=== PATIENT | female | born 1990 | race Caucasian/White ===

== ENCOUNTER 2024-03-17 09:44 | Emergency (ER) | payer SELFPAY ==
[2024-03-17 09:49] VITALS: BP 191/147; PULSE 100; TEMP 36.8; O2SAT 98; BMI 51.7
--- NOTE | 2024-03-17 10:22 | ED_ITS ---
HPI HPI - Back Pain/Injury General Chief Complaint: Back Pain/Injury Stated Complaint: BACK PAIN Time Seen by Provider: 03/17/24 09:49 Source: patient Mode of arrival: Wheelchair History of Present Illness HPI Narrative: 33-year-old female to the emergency department with chief complaint of left- sided spasm-like back pain. 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 She reports that she has had some dental spasm-like pain in her left lower back for the last few days however it is progressively gotten worse. No traumatic injuries, falls. She denies any fever, sweats, chills. No history of IV drug use. No bowel bladder incontinence or retention. She has an IUD but reports a known . The pain is sharp and spasm-like in nature. She occasionally has some radiation into her lower leg. Related Data Home Medications ?Medication ?Instructions ?Recorded ?Confirmed fluoxetine 40 mg capsule 40 mg PO DAILY 03/17/24 03/17/24 losartan 25 mg tablet (Cozaar) 25 mg PO DAILY 03/17/24 03/17/24 Previous Rx's ?Medication ?Instructions ?Recorded diazepam 5 mg tablet (Valium) 5 mg PO TID PRN muscle spasm #12 03/17/24 tabs lidocaine 5 % topical patch 1 patch topical Q24H #7 ea 03/17/24 (Lidoderm) methylprednisolone 4 mg tablets in 4 mg PO DAILY #21 ea 03/17/24 a dose pack (Medrol (Pj)) naproxen 500 mg tablet 500 mg PO Q12H PRN pain #14 tabs 03/17/24 Allergies Allergy/AdvReac Type Severity Reaction Status Date / Time cashew nut Allergy Mild Rash Verified 03/17/24 09:56 mushroom Allergy Mild Rash Verified 03/17/24 09:56 Opioid HPI Opioid Management Most Recent Opioid Data: Last Pain Scale 3 03/17/24 11:28 Last ED Pain Assessment 03/17/24 11:28 Last MAR Pain Assessment 03/17/24 10:47 Review of Systems ROS Status of ROS 10 or more systems reviewed and unremark able except as noted in history and below Exam Narrative Exam Narrative: VITALS: I have reviewed the triage vital signs. GENERAL: Uncomfortable appearing morbidly obese female holding her left lumbar region NEURO: Alert and oriented. Moves all extremities. Face is symmetric and expressive. Patellar reflexes brisk and equal bilaterally. Plantar flexion/dorsiflexion, knee flexion/extension, hip flexion/extension are grossly intact with 5/5 strength. Sensation is intact across the bilateral lower extremities. SPINE: No midline cervical, thoracic, or lumbar tenderness. No step-off or deformities. Left lumbar paraspinal muscle tenderness And increased tone. EYES: PERRL. No scleral icterus or conjunctival injection. No discharge. HENT: Normocephalic, atraumatic. Hearing is grossly intact. Nares grossly patent and without discharge. Mucous membranes moist. NECK: No JVD. Patient moves neck without restriction. GI/: Abdomen is soft and non-tender. Normoactive bowel sounds. No flank tenderness. EXTREMITIES: Symmetric muscle bulk. No joint swelling. No clubbing, cyanosis, or deformity. SKIN: Warm and dry. Normal turgor. No rash or lesions appreciated. PSYCH: Mood, affect, and interaction is appropriate to the setting. Constitutional Vital Signs, click to edit/add: Last Vital Signs Temp 98.3 F 03/17/24 09:49 Pulse 100 H 03/17/24 09:49 Resp 16 03/17/24 09:49 BP 191/147 H 03/17/24 09:49 Pulse Ox 98 03/17/24 09:49 O2 Del Method Room Air 03/17/24 09:49 Course Vital Signs Vital signs: Vital Signs Temperature 98.3 F 03/17/24 09:49 Pulse Rate 100 H 03/17/24 09:49 Respiratory Rate 16 03/17/24 09:49 Blood Pressure 191/147 H 03/17/24 09:49 Pulse Oximetry 98 03/17/24 09:49 Oxygen Delivery Method Room Air 03/17/24 09:49 Temperature 98.3 F 03/17/24 09:49 Pulse Rate 100 H 03/17/24 09:49 Respiratory Rate 16 03/17/24 09:49 Blood Pressure 191/147 H 03/17/24 09:49 Pulse Oximetry 98 03/17/24 09:49 Oxygen Delivery Method Room Air 03/17/24 09:49 MDM - Back Pain/Injury MDM Narrative Medical decision making narrative: 33-year-old female to the emergency department severe left-sided back pain. Vitals stable, patient is afebrile. Her neurologic examination is non-focal. There are no red flags for cord compressing lesion by history or exam. Clinical picture is that of severe lumbar spasm. Unsure of . We'll obtain urine and hCG. Urinalysis unremarkable. HCG is negative. Does not appear to be kidney stone or urinary tract infection. Lidoderm patch, Toradol, Valium were given. Patient reevaluated the bedside approximately thirty minutes after administration of meds. She is sleeping reports her symptoms are completely resolved. She feels much improved. Discussed with the patient the expected clinical course. We'll prescribe her Lidoderm patches, naproxen, Medrol Dosepak, Valium for home. Discussed return precautions. All questions were answered. Patient and her were pleased with her progress in the Emergency Department. The patient was discharged home. Medical Records Attestation: I reviewed the patient's medical records. Lab Data Attestation: I reviewed the patient's lab results. Labs: Lab Results 03/17/24 Range/Units 10:04 Urine Color Yellow (YELLOW) Urine Clarity Clear (CLEAR) Urine pH 6.0 (5.0-9.0) Ur Specific [place] 1.025 (1.005-1.025) Urine Protein Negative (NEG/TRACE) mg/dL Urine Glucose (UA) Negative (NEGATIVE) mg/dL Urine Ketones Negative (NEGATIVE) mg/dL Urine Occult Blood Negative (NEGATIVE) Urine Nitrite Negative (NEGATIVE) Urine Bilirubin Negative (NEGATIVE) Urine Urobilinogen 0.2 (0.2-1.0) EU/dL Ur Leukocyte Esterase Negative (NEGATIVE) Urine RBC 0-2 (0-2) #/HPF Urine WBC 0-2 A (NONE SEEN) #/HPF Ur Squamous Epith Cells Moderate A (NONE/RARE) #/LPF Urine Crystals None seen (None Seen) #/HPF Urine Bacteria None seen (NONE SEEN) #/HPF Urine Casts None seen (NONE SEEN) #/LPF Urine Mucus None seen (NONE SEEN) Urine HCG, Qual Negative (NEGATIVE) Discharge Plan Discharge Stand Alone Forms: Portal Instructions Chief Complaint: Back Pain/Injury Clinical Impression: Strain of lumbar region Patient Disposition: Home, Self-Care Time of Disposition Decision: 11:25 Condition: Good Mode of Transportation: Private Vehicle Prescriptions / Home Meds: New diazepam [Valium] 5 mg tablet 5 mg PO TID PRN (Reason: muscle spasm) Qty: 12 0RF naproxen 500 mg tablet 500 mg PO Q12H PRN (Reason: pain) Qty: 14 0RF lidocaine [Lidoderm] 5 % adhesive patch,medicated 1 patch topical Q24H Qty: 7 0RF Rx Instructions: leave on most painful area for up to 12 hrs methylprednisolone [Medrol (Pj)] 4 mg tablets,dose pack 4 mg PO DAILY Qty: 21 0RF Rx Instructions: TAKE PER DOSEPAK INSTRUCTIONS No Action losartan [Cozaar] 25 mg tablet 25 mg PO DAILY fluoxetine 40 mg capsule 40 mg PO DAILY Print Language: Stateless Instructions: Back Pain (ED), Lower Back Exercises (ED) Additional Instructions: Follow-up with your doctor in the next week. Return to the emergency department immediately if He developed worsening pain,numbness, weakness, tingling, loss or bowel or bladder continence, fever, or other new or concerning symptoms. Referrals: Physician,Non-Staff, MD [Primary Care Provider] - 1 week
[2024-03-17 10:25] LABS: Bilirubin Urine NEGATIVE (NEGATIVE); Blood Urine NEGATIVE (NEGATIVE); Clarity Urine CLEAR (CLEAR); Color Urine YELLOW (YELLOW); Glucose Urine UA NEGATIVE (NEGATIVE); Ketones Urine NEGATIVE (NEGATIVE); Leukocyte Esterase Urine NEGATIVE (NEGATIVE); Nitrite Urine NEGATIVE (NEGATIVE); Protein Urine NEGATIVE (NEG/TRACE); Specific Gravity Urine 1.025 (1.005-1.025); Urobilinogen Urine 0.2 EU/dL (0.2-1.0)
[2024-03-17 10:30] LABS: HCG Qualitative Urine* NEGATIVE (NEGATIVE)
[2024-03-17 10:34] LABS: Crystals Seen? None Seen #/HPF (None Seen); Squamous Epithelial Cell Urine MODERATE #/LPF (NONE/RARE)
[2024-03-17 10:35] LABS: WBC Urine 0-2 #/HPF (NONE SEEN)
[2024-03-17 10:36] LABS: Bacteria Urine NONE SEEN #/HPF (NONE SEEN); Cast Seen? NONE SEEN #/LPF (NONE SEEN); Mucus Urine NONE SEEN (NONE SEEN); RBC Urine 0-2 #/HPF (0-2)
[2024-03-17] MEDS: KETOROLAC TROMETHAMINE 60 MG/2 ML VIAL IM (10:47)
[2024-03-17] MEDS: LIDOCAINE 5% PATCH 1 PATCH TOPICAL (10:47)
[2024-03-17] MEDS: DIAZEPAM 10 MG/2 ML SYRINGE IM (10:47)
== END 2024-03-17 11:44 | disposition home or self-care (01) ==
PROVIDERS: Emergency Provider Student in an Organized Health Care Education/Training Program
DX: S39.012A Strain of muscle, fascia and tendon of lower back, initial encounter (principal); Z97.5 Presence of (intrauterine) contraceptive device
CPT/HCPCS: 81001; 84703; 96372; 99284

== ENCOUNTER 2024-03-22 07:03 | Emergency (ER) | payer SELFPAY ==
[2024-03-22 07:07] VITALS: BP 163/98; PULSE 81; TEMP 36.6; O2SAT 98; BMI 53.0
[2024-03-22] MEDS: ORPHENADRINE 60 MG/ 2 ML VIAL IM (07:31)
[2024-03-22] MEDS: KETOROLAC TROMETHAMINE 60 MG/2 ML VIAL IM (07:31)
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
--- OUTSIDE RECORDS SUMMARY | 2024-03-22 07:39 | XMS_ITS | CCD ---
Author Organization [facility] Care Team Providers Care Biodiesel Technology Manager Name Role Phone Sully, La S Unavailable Unavailable Sully, La S Unavailable Unavailable Sully, La S Unavailable Unavailable Sully, La S Unavailable Unavailable Sully, La S Unavailable Unavailable Sully, La S Unavailable Unavailable Sully, La S Unavailable Unavailable Sully, La S Unavailable Unavailable Sully, La S Unavailable Unavailable Sully, La S Unavailable Unavailable Sully, La S Unavailable Unavailable Sully, La S Unavailable Unavailable Sully, Al S Unavailable Unavailable Vasiliy, Yazmin Unavailable Unavailable Sully, La S Unavailable Unavailable Vasiliy, Yazmin Unavailable Unavailable Sully, La S Unavailable Unavailable Vasiliy, Yazmin Unavailable Unavailable JONEL HOUSTON Attending Unavaila russ Burns MD, Damaris oMn Unavailable Jalil PT, Carson Unavailable [phone] Carla IBARRA, Mikhail Unavailable Madhuri Pang PT, Loren Unavailable Unav ailable Emilio Miller MD Unavailable Nichelle PT, Mary Unavailable Yash Melendez PA-C Primary Care Provider Maxime IBARRA, Justyna Unavailable Damaris Burns MD Unavailable Jalil PT, Carson Unavailable Carla IBARRA, Mikhail Unavailable Madhuri Pang PT, Loren Unavailable Unav ailable Emilio Miller MD Unavailable Nichelle HICKEY, Mary Unavailable Petruzzi PA-C, Yash Primary Care Provider Maxime IBARRA, Justyna Unavailable YASH MELENDEZ M Primary Care Unavailable Petruzzi АННА-C, Yash M Primary Care Provider Damaris Burns MD Unavailable [phone] Jimenes PT, Carson Unavailable [phone] Carla IBARRA, Mikhail Unavailable Madhuri Pang PT, Loren Unavailable Unav ailable Emilio Miller MD Unavailable Nichelle PT, Mary Unavailable Petrblanco ESPINOSAC, Yash Primary Care Provider Maxime IBARRA, Justyna Unavailable Jimenes PT, Carson Unavailable Madhuri Pang PT, Loren Unavailable Unav ailable Nichelle PT, Mary Unavailable FELICIANO AIRCRAFT PARTS ASSEMBLER, TANNER Attending Unavailable FELICIANO AIRCRAFT PARTS ASSEMBLER, TANNER Attending Unavailable FELICIANO AIRCRAFT PARTS ASSEMBLER, TANNER Attending Unavailable FELICIANO AIRCRAFT PARTS ASSEMBLER, TANNER Attending Unavailable Carla IBARRA, Mikhail Unavailable FELICIANO AIRCRAFT PARTS ASSEMBLER, TANNER Attending Unavailable FELICIANO AIRCRAFT PARTS ASSEMBLER, TANNER Attending Unavailable FELICIANO AIRCRAFT PARTS ASSEMBLER, TANNER Attending Unavailable FELICIANO AIRCRAFT PARTS ASSEMBLER, TANNER Attending Unavailable NONE, XXXX Primary Care Physician Unavailab Mono Ray Attending Unavailable Zeus Mcghee Attending Unavailable Zeus Mcghee Admitting Unavailable Zeus Mcghee Attending Unavailable Saba GALVAN Attending Unavailable PETRUZZI, YASH Primary Care Unavailable PROVIDER, UNKNOWN Admitting Unavailable MEILIO MILLER Attending Unavailable PETRUZZI, YASH Primary Care Unavailable ALINA PEREZ Attending Unavailable PROVIDER, UNKNOWN Admitting Unavailable PETRUZZI, YASH Primary Care Unavailable PROVIDER, UNKNOWN Admitting Unavailable PROVIDER, UNKNOWN Attending Unavailable PETRUZZI, YASH Primary Care Unavailable PETRUZZI, YASH Referring Unavailable PROVIDER, UNKNOWN Admitting Unavailable PROVIDER, UNKNOWN Attending Unavailable PROVIDER, UNKNOWN Admitting Unavailable PETRUZZI, YASH Primary Care Unavailable PROVIDER, UNKNOWN Attending Unavailable PETRUZZI, YASH Primary Care Unavailable PROVIDER, UNKNOWN Admitting Unavailable PROVIDER, UNKNOWN Attending Unavailable YASH MELENDEZ Primary Care Unavailable PROVIDER, UNKNOWN Admitting Unavailable PROVIDER, UNKNOWN Attending Unavailable Allergies Allergy Classification Reported Allergen(s) Allergy Type Date of Onset Reaction(s) Facility (1 source) Cashew nut; Translations: [Cashew Nuts] Propensity to adverse reactions [facility] (disorder[facility] Mushroom (edible); Translations: [Mushrooms] Propensity to adverse reactions to food (disorder) [facility] ([facility]) No Known Allergies; Translations: [No Known Allergies] Propensity to adverse reactions to drug (disorder) [facility] (2 sources) No Known Medication Allergies; Translations: [No Known Medication Allergies] Propensity to adverse reactions to drug (disorder) [facility] (20 sources) cashew nut allergenic extract; Translations: [CASHEW NUT] Drug Allergy 0 Itching, Agitation [facility] sources) cultivated mushroom extract; Translations: [MUSHROOM EXTRACT COMPLEX] Drug Allergy 0 Anaphylactic Shock [facility] (20 sources) Mushroom Propensity to adverse reactions to drug 0 [facility] Medications Current Medications Medication Drug Class(es) Dates Sig (Normalized) Sig (Original) amphetamine aspartate 5 mg / amphetamine sulfate 5 mg / dextroamphetamine saccharate 5 mg / dextroamphetamine sulfate 5 mg oral tablet (20 sources) Central Nervous System Stimulant Start: 03-29-2024 End: 05-28-2024 take 1 tablet by mouth once daily amphet-dextroamphe t (Adderall) 20 MG tablet Indications: Attention deficit hyperactivity disorder (ADHD), predominantly inattentive type Take 1 Tablet by mouth daily for 30 days. 30 Tablet 0 04/28/2024 05/28/2024 Active Start: 03-03-2024 End: 02-28-2024 take 1 tablet by mouth once daily amphet-dextroamphet (Adderall) 20 MG tablet Indications: Attention deficit hyperactivity disorder (ADHD), predominantly inattentive type Take 1 Tablet by mouth daily for 30 days. 30 Tablet 0 03/03/2024 02/28/2024 Discontinued (Duplicate (*won't e-cancel)) Start: 01-03-2024 End: 03-29-2024 take 1 tablet by mouth once daily amphet-dextroamphet (Adderall) 20 MG tablet Indications: Attention deficit hyperactivity disorder (ADHD), predominantly inattentive type Take 1 Tablet by mouth daily for 30 days. 30 Tablet 0 02/02/2024 02/28/2024 Discontinued (Duplicate (*won't e-cancel)) Start: 11-29-2023 End: 12-29-2023 take 1 tablet by mouth once daily amphet-dextroamphet (ADDERALL) 20 MG tablet Indications: Attention deficit hyperactivity disorder (ADHD), predominantly inattentive type Take 1 Tablet by mouth daily for 30 days. 30 Tablet 0 11/29/2023 Active Start: 10-24-2023 End: 11-26-2023 take 1 tablet by mouth once daily amphet-dextroamphet (ADDERALL) 20 MG tablet Indications: Attention deficit hyperactivity disorder (ADHD), predominantly inattentive type Take 1 Tablet by mouth daily for 30 days. 30 Tablet 0 10/27/2023 11/26/2023 Active Start: 08-20-2023 End: 10-19-2023 take 1 tablet by mouth once daily amphet-dextroamphet (Adderall) 20 MG tablet Indications: Attention deficit hyperactivity disorder (ADHD), predominantly inattentive type Take 1 Tablet by mouth daily for 30 days. 30 Tablet 0 09/19/2023 Active Start: 03-05-2023 End: 07-15-2023 take 1 tablet by mouth once daily amphet-dextroamphet (Adderall) 20 MG tablet Indications: Attention deficit hyperactivity disorder (ADHD), predominantly inattentive type Take 1 Tablet by mouth daily for 30 days. 30 Tablet 0 06/15/2023 07/15/2023 Active Start: 03-04-2019 End: 02-25-2023 take 1 tablet by mouth once daily amphet-dextroamphet (Adderall) 20 MG tablet Indications: Attention deficit hyperactivity disorder (ADHD), predominantly inattentive type Take 1 Tablet by mouth daily for 30 days. 30 Tablet 0 12/28/2022 01/26/2023 Discontinued (Reorder (*won't e-cancel)) doxycycline monohydrate 100 mg oral tablet (2 sources) Tetracycline-class Drug Start: 02-28-2024 End: 03-06-2024 take 1 tablet by mouth twice daily doxycycline monohydrate 100 mg oral tablet 100 mg = 1 tab(s), Oral, BID, X 7 day(s), # 14 tab(s), Refills(s) 0, Pharmacy: [id number], 161, cm, 02/28/24 12:55:00 EDT, Height/Length Dosing, 139.3, kg, 02/28/24 12:55:00 EDT, Weight Dosing Start Date: 02/28/24 Stop Date: 03/06/24 Status: Ordered FLUoxetine (20 sources) Serotonin Reuptake Inhibitor Start: 02-28-2024 fluoxetine Oral, Refills(s) 0 Start Date: 02/28/24 Status: Ordered Start: 12-21-2022 End: 12-29-2023 fluoxetine (PROZAC) 20 MG ca psule Indications: Major depressive disorder, single episode, mild (HCC) TAKE 1 CAPSULE DAILY 90 Capsule 3 12/29/2023 Active Start: 11-20-2022 End: 12-21-2022 take 1 capsule by mouth once daily, then take 2 capsules by mouth once daily fluoxetine (PROZAC) 10 MG capsule Indications: Current mild episode of major depressive disorder without prior episode (HCC) 1 po q.d x 7 days than 2 po q.d 60 Capsule 3 11/20/2022 12/21/2022 Discontinued (Reorder (*won't e-cancel)) 1 ml ketorolac tromethamine 30 mg/ml cartridge (11 sources) Nonsteroidal Anti-inflammatory Drug, Cyclooxygenase Inhibitor Start: 08-31-2022 ketorolac (TORADOL) injection 30 mg Start: 08-31-2022 End: 12-13-2023 take 1 tablet by mouth every six hours as needed ketorolac (TORADOL) 10 MG tablet Take 1 Tablet by mouth every 6 hours as needed. 0 08/31/2022 12/13/2023 Discontinued losartan potassium 50 mg oral tablet (20 sources) Angiotensin 2 Receptor Vikram Start: 10-07-2021 End: 01-17-2025 take 1 tablet by mouth once daily losartan (COZAAR) 50 MG tablet Indications: Hypertension, unspecified type TAKE 1 TABLET BY MOUTH DAILY 90 Tablet 3 01/18/2024 01/17/2025 Active methylPREDNISolone 4 mg oral tablet (2 sources) Corticosteroid Start: 02-28-2024 End: 03-05-2024 Medrol Dosepack 4 mg Tab = 1 packet(s), Oral, As Directed, as directed on package labeling, X 6 day(s), # 21 tab(s), Refills(s) 0, Pharmacy: [id number], 161, cm, 02/28/24 12:55:00 EDT, Height/Length Dosing, 139.3, kg, 02/28/24 12:55:00 EDT, Weight Dosing Start Date: 02/28/24 Stop Date: 03/05/24 Status: Ordered Completed/Discontinued Medications Medication Drug Class(es) Dates Sig (Normalized) Sig (Original) acetaminophen 500 mg oral tablet (1 source) Start: 08-31-2022 End: 08-31-2022 acetaminophen (TYLENOL) tablet 1,000 mg benzonatate 100 mg oral capsule (6 sources) Non-narcotic Antitussive Start: 10-22-2023 End: 12-13-2023 take 1 capsule by mouth three times daily as needed for cough benzonatate (Tessalon Perles) 100 MG capsule Take 1 Capsule by mouth 3 times daily as needed for Cough. 60 Capsule 0 10/22/2023 12/13/2023 Discontinued cyclobenzaprine hydrochloride 10 mg oral tablet (17 sources) Muscle Relaxant Start: 08-31-2022 End: 12-13-2023 cyclobenzaprine (FLEXERIL) 10 MG tablet Elastic Bandages & Supports (B & B Carpal Tunnel Brace) MISC (5 sources) Start: 09-14-2022 End: 11-20-2022 Elastic Bandages & Supports (B & B Carpal Tunnel Brace) MISC Indications: Bilateral carpal tunnel syndrome 2 Each daily. Needs a brace for both wrists. 2 Each 0 09/14/2022 11/20/2022 Discontinued (Reorder (*won't e-cancel)) Start: 09-14-2022 Elastic Bandag es & Supports (B & B Carpal Tunnel Brace) MISC Indications: Bilateral carpal tunnel syndrome 2 Each daily. Needs a brace for both wrists. 2 Each 0 09/14/2022 Active ergocalciferol 1.25 mg oral capsule (3 sources) Provitamin D2 Compound Start: 12-17-2023 End: 02-28-2024 vitamin D2 ergocalciferol (DRISDOL) 1.25 MG (70958 UT) capsule ethinyl estradiol 0.035 mg / norgestimate 0.25 mg oral tablet (20 sources) Progestin, Estrogen Start: 02-13-2019 End: 12-13-2023 norgestimate-ethinyl estradiol (PRAVIFEM- ORTHO/CYCLEN) 0.25-35 MG-MCG tablet Indications: Oral contraception initial prescription Take 1 Tablet by mouth daily. 30 Tablet 11 04/07/2022 12/13/2023 Discontinued ibuprofen 200 mg oral tablet (2 sources) Nonsteroidal Anti-inflammatory Drug Start: 06-26-2022 End: 06-26-2022 ibuprofen (MOTRIN) tablet levonorgestrel 0.788143 mg/hr intrauterine system (2 sources) Progestin, Progestin-containing Intrauterine Device Start: 06-26-2022 End: 06-26-2022 levonorgestrel (LILETTA) 20.1 MCG/DAY IUD 24 hr metFORMIN hydrochloride 500 mg extended release oral tablet (3 sources) Biguanide Start: 12-17-2023 End: 02-28-2024 metformin (GLUCOPHAGE-XR) 500 MG XR tablet ondansetron 4 mg disintegrating oral tablet (11 sources) Serotonin-3 Receptor Antagonist Start: 08-31-2022 End: 12-13-2023 ondansetron (ZOFRAN-ODT) 4 MG disintegrating tablet Take 4 mg by mouth. 0 08/31/2022 12/13/2023 Discontinued topiramate 50 mg oral tablet (3 sources) Start: 11-17-2023 End: 02-28-2024 topiramate (TOPAMAX) 50 MG tablet Problems Active Problems Problem Classification Problem Date Documented Da te Episodic/Chronic Acute bronchitis (1 source) Acute bronchitis; Translations: [Acute bronchitis, unspecified] Onset: 02-28-2024 Episodic Attention-deficit, conduct, and disruptive behavior disorders (13 sources) Attention deficit hyperactivity disorder, predominantly inattentive type; Translations: [Attention-deficit hyperactivity disorder, predominantly inattentive type] Chronic Attention-deficit, conduct, and disruptive behavior disorders (20 sources) Attention deficit hyperactivity disorder; Translations: [Attention-deficit hyperactivity disorder, unspecified type] Onset: 06-14-2000 03-05-2019 Chronic Attention-deficit, conduct, and disruptive behavior disorders (1 source) Attention-deficit hyperactivity disorder, predominantly inattentive type; Translations: [Attn-defct hyperactivity disorder, predom inattentive type] Onset: 03-05-2019 Chronic Contraceptive and procreative management (3 sources) Patient encounter status; Translations: [Encounter for insertion of intrauterine contraceptive device] Episodic Diabetes mellitus without complication (3 sources) Prediabetes; Translations: [Prediabetes] Onset: 12-20-2023 12-20-2023 Episodic Disorders of lipid metabolism (4 sources) Mixed hyperlipidemia; Translations: [Mixed hyperlipidemia] Onset: 12-20-2023 12-20-2023 Chronic Essential hypertension (7 sources) Hypertensive disorder; Translations: [Essential (primary) hypertension] Onset: 12-20-2023 Chronic Immunizations and screening for infectious disease (1 source) Suspected disease caused by 2019-nCoV; Translations: [Suspected severe acute respiratory syndrome coronavirus 2 (SARS-CoV-2) infection] 10-22-2023 Episodic Mood disorders (3 sources) Mild major depression, single episode; Translations: [Major depressive disorder, single episode, mild] Chronic Mycoses (1 source) Onychomycosis of toenails; Translations: [Tinea unguium] Episodic Nutritional deficiencies (3 sources) Vitamin D deficiency; Translations: [Vitamin D deficiency, unspecified] Onset: 12-20-2023 12-20-2023 Chronic Other gastrointestinal disorders (20 sources) Diarrhea; Translations: [Diarrhea, unspecified] Onset: 01-30-2019 Resolved: 01-20-2021 01-20-2021 Episodic Other injuries and conditions due to external causes (1 source) Unspecified injury of head, initial encounter; Translations: [Unspecified injury of head, initial encounter] Onset: 08-31-2022 Episodic Other injuries and conditions due to external causes (1 source) Closed injury of head; Translations: [Unspecified injury of head, initial encounter] Episodic Other nervous system disorders (3 sources) Bilateral carpal tunnel syndrome; Translations: [Carpal tunnel syndrome, bilateral upper limbs] Chronic Other nervous system disorders (1 source) Carpal tunnel syndrome, bilateral upper limbs; Translations: [Carpal tunnel syndrome, bilateral upper limbs] Onset: 06-21-2023 Chronic Other nervous system disorders (1 source) Numbness of hand; Translations: [Anesthesia of skin] 06-21-2023 Episodic Other nutritional; endocrine; and metabolic disorders (20 sources) Morbid obesity; Translations: [Morbid (severe) obesity due to excess calories] Onset: 06-30-2005 06-30-2005 Chronic Other nutritional; endocrine; and metabolic disorders (1 source) Severe obesity; Translations: [Morbid (severe) obesity due to excess calories] 12-20-2023 Chronic Other nutritional; endocrine; and metabolic disorders (3 sources) Metabolic syndrome X; Translations: [Metabolic syndrome] Onset: 12-20-2023 12-20-2023 Chronic Other nutritional; endocrine; and metabolic disorders (1 source) Body mass index 40+ - severely obese; Translations: [Body mass index (BMI) 50.0-59.9, adult] Onset: 02-28-2024 Chronic Sprains and strains (2 sources) Unspecified sprain of left elbow, initial encounter; Translations: [Sprain of upper extremity] Onset: 08-31-2022 Episodic Superficial injury; contusion (2 sources) Contusion of left knee, initial encounter; Translations: [Contusion of left knee] Onset: 08-31-2022 Episodic Past or Other Problems Problem Classification Problem Date Documented Da te Episodic/Chronic Allergic reactions (20 sources) Allergy, unspecified, initial encounter; Translations: [Contact dermatitis] Onset: 07-25-2001 Resolved: 01-20-2021 01-21-2021 Episodic Biliary tract disease (20 sources) Cholelithiasis without obstruction; Translations: [Calculus of gallbladder without cholecystitis without obstruction] Onset: 08-15-2020 08-15-2020 Episodic Gastrointestinal hemorrhage (20 sources) Blood-tinged feces; Translations: [Melena] Onset: 01-22-2020 01-22-2020 Episodic Headache; including migraine (20 sources) Headache; Translations: [Headache] Onset: 02-20-2006 Resolved: 01-20-2021 01-20-2021 Episodic Menstrual disorders (20 sources) Irregular periods; Translations: [Irregular menstruation, unspecified] Onset: 02-21-2008 Resolved: 01-20-2021 01-21-2021 Chronic Other lower respiratory disease (1 source) Cough; Translations: [Cough] Onset: 11-20-2017 Episodic Other nervous system disorders (1 source) Anesthesia of skin; Translations: [Anesthesia of skin] Onset: 06-21-2023 Episodic Other upper respiratory infections (20 sources) Acute pharyngitis, unspecified; Translations: [Acute maxillary sinusitis] Onset: 07-02-2000 Resolved: 05-29-2005 05-29-2005 Episodic Otitis media and related conditions (20 sources) Acute suppurative otitis media without spontaneous rupture of ear drum; Translations: [Acute suppurative otitis media without spontaneous rupture of ear drum, unspecified ear] Onset: 07-02-2000 Resolved: 05-29-2005 09-08-2017 Episodic Results Test Name Value Interpretation Reference Range Facility [facility] 03-01-2024 Throat culture Microbiology PROCEDURE: Throat Culture [R1] SOURCE: Throat BODY SITE: COLLECTED DATE/TIME: 02/28/2024 13:26 EDT RECEIVED DATE/TIME: 02/28/2024 16:25 EDT START DATE/TIME: 02/28/2024 16:25 EDT FREE TEXT SOURCE: Taz MIJARES, Zeus Mcghee PA-C, Zeus Kaye. FINAL REPORTS Final Report [] Verified Date/Time: 03/01/2024 09:20 EDT 2+ Normal throat lorin isolated Performing Locations R1: This test was performed at: [facility], [address] [place] [address], [facility]- , , [facility] Comment on above: Performed By: #### [id number] #### [facility] [address] [place] [address] In office Testingon 03-01-20 24 In office Testing [id number] [facility] Registrationon 03-01-2024 Registration [id number] [facility] Ambulatory Visit Summaryon 0 02-28-2024 Ambulatory Visit Summary GINA MASTERSON :1990 Visit Date:02/28/2024 Ambulatory Visit Instructions Your Diagnosis Acute bronchitis Diarrhea, Diarrhea BMI 50.0-59.9, adult Sore throat Your Care Team Attending Physician - Zeus Mcghee PA-C Primary Care Physician - NONE, XXXX This Is Your Medications List doxycycline (doxycycline monohydrate 100 mg oral tablet) methylPREDNISolone (Medrol Dosepack 4 mg Tab) Contact prescribing physician if questions or concerns fluoxetine Procedures Performed Cholecystectomy. Discharge Vitals Temperature (Oral) 36.9 ?C Heart Rate (Peripheral) 82 Blood Pressure 136/80 Height 161 cm Height 63 in Weight 139.3 kg Weight 306.46 lb BMI 53.74 What to do next Scheduled Follow-Up Appointments Wednesday 9:30 AM EDT With: Saba GALVAN CNP Where: [facility] You Need to Schedule the Following Appointments Follow Up with NONE, XXXX When: Where: [phone] Medications What How Much When Why Instructions New doxycycline (doxycycline monohydrate 100 mg oral tablet) 1 Tablets By Mouth 2 times a day Acute bronchitis BMI 50.0-59.9, adult Duration: 7 Days Pickup at [facility] New methylPREDNISolone (Medrol Dosepack 4 mg Tab) 1 Packets By Mouth As Directed Acute bronchitis BMI 50.0-59.9, adult Duration: 6 Days as directed on package labeling Pickup at [facility] Unchanged fluoxetine By Mouth Contact prescribing physician if questions or concerns Pharmacy Information [id number]: [address] [place], [place] [id number] [phone] Allergies No Known Medication Allergies Patient Survey You may receive a survey via text or e-mail asking about your office visit. Please share your experience with us by completing your survey. We appreciate your feedback and thank you for choosing us for your care. Education Materials Diarrhea, Adult Diarrhea is frequent loose and watery bowel movements. Diarrhea can make you feel weak and cause you to become dehydrated. Dehydration can make you tired and thirsty, cause you to have a dry mouth, and decrease how often you urinate. Diarrhea typically lasts 2?3 days. However, it can last longer if it is a sign of something more serious. It is important to treat your diarrhea as told by your health care provider. Follow these instructions at home: Eating and drinking Follow these recommendations as told by your health care provider: ? Take an oral rehydration solution (ORS). This is an ukgp-hys-tsqsquu medicine that helps return your body to its normal balance of nutrients and water. It is found at pharmacies and retail stores. ? Drink plenty of fluids, such as water, ice chips, diluted fruit juice, and low-calorie sports drinks. You can drink milk also, if desired. ? Avoid drinking fluids that contain a lot of sugar or caffeine, such as energy drinks, sports drinks, and soda. ? Eat bland, cyqy-zh-rfzllv foods in small amounts as you are able. These foods include bananas, applesauce, rice, lean meats, toast, and crackers. ? Avoid alcohol. ? Avoid spicy or fatty foods. Medicines ? Take edms-imw-pwrzzpb and prescription medicines only as told by your health care provider. ? If you were prescribed an antibiotic medicine, take it as told by your health care provider. Do not stop using the antibiotic even if you start to feel better. General instructions ? Wash your hands often using soap and water. If soap and water are not available, use a hand agency service representative. Others in the household should wash their hands as well. Hands should be washed: ? After using the toilet or changing a diaper. ? Before preparing, cooking, or serving food. ? While caring for a sick person or while visiting someone in a hospital. ? Drink enough fluid to keep your urine pale yellow. ? Rest at home while you recover. ? Watch your condition for any changes. ? Take a warm bath to relieve any burning or pain from frequent diarrhea episodes. ? Keep all follow-up visits as told by your health care provider. This is important. Contact a health care provider if: ? You have a fever. ? Your diarrhea gets worse. ? You have new symptoms. ? You cannot keep fluids down. ? You feel light-headed or dizzy. ? You have a headache. ? You have muscle cramps. Get help right away if: ? You have chest pain. ? You feel extremely weak or you faint. ? You have bloody or black stools or stools that look like tar. ? You have severe pain, cramping, or bloating in your abdomen. ? You have trouble breathing or you are breathing very quickly. ? Your heart is beating very quickly. ? Your skin feels cold and clammy. ? You feel confused. ? You have signs of dehydration, such as: ? Dark urine, very (more content not included)... 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 female here today for cough, diarrhea, fever, bilateral ear pressure, chest congestion, sore throat x 1 wk Pt denies sinus pressure, body aches, N/V. Pt has tried Dayquil, pt states she took 4 amoxicillin over the weekend . Pt denies known exposure to COVID, flu or strep. History of Present Illness I have reviewed and verified the staff HPI to be accurate for this encounter. Portions of this record have been created with voice recognition software. Occasional wrong-word or ?yprhd-z-tbjz? substitutions may have occurred due to the inherent limitations of voice recognition software. 33 yo female presents today with cc of cough, diarrhea, fever, bilateral ear pressure, chest congestion and sore throat x 1week. Patient states approximately 1 week ago she developed cough and cold-like symptoms. Believes she may have had fever or chills for about 2 days duration. States she has bilateral ear pressure states that cough worsened last Wednesday. States she was on a camping trip from Wednesday just got back last night to which over the course the last 5 days she developed loose stool. She denies eating anything abnormal. Denies drinking any water on her camping trip with purified or bottled. Did not travel outside of the country. States prior to her trip her cmsxfin-iu-vml was sick with similar cough and cold-like symptoms and her mvjkix-ts-qqc was sick with fever vomiting. Patient denies any nausea or vomiting episodes with the diarrhea denies lack of appetite. States she is unable to hold down solids and liquids. She does state nasal congestion runny stuffy nose but states that her throat feels like she is swallowing razor blades. Sore throat is her main complaint today. States cough is much improved states she is not bringing up any phlegm or mucus with it. Denies chest pain shortness of breath or difficulty breathing with cough. Denies history of asthma or COPD denies smoking history. She has no other concerns at this time. Review of Systems PHQ Score Initial Depression Screen Score: 0 SCORE ROS negative unless otherwise stated in HPI. Physical Exam Vitals & Measurements T: 36.9 ?C(Oral) HR: 82(Peripheral) BP: 136/80 SpO2: 95% HT: 63 in HT: 161 cm WT: 139.3 kg WT: 306.46 lb BMI: 53.74 General: Pleasant morbidly obese female, no acute distress Eyes: Bilateral conjunctiva within normal limits no injection Ears: Bilateral TMs are within normal limits no erythema or bulging. Bilateral external auditory canals are within normal limits no erythema or edema. Nose: mild nasal mucosa inflammation and edema Mouth: Moist mucous membranes. Uvula is midline. Bilateral tonsillar edema 2+, exudate on the right tonsil versus tonsil stone. No acute erythema no signs of peritonsillar abscess. No trismus or drooling. Neck: no adenopathy Lungs: Lung sounds with faint expiratory wheeze at bilateral lower lung bases otherwise clear throughout no crackles or rhonchi noted on exam symmetrical expansion. No signs of respiratory distress. Cardio: S1, S2, regular rhythm. No murmurs gallops or rubs. Abdomen: Bowel sounds are present x 4 quadrants. Abdomen is soft, nontender, nondistended. No rigidity rebound or guarding on exam. Musculoskeletal: not assessed Extremity: not assessed Neurologic: not assessed Skin: not assessed Mental Status: Alert and oriented x3. Normal mood and affect Assessment/Plan I offered to the patient rapid strep and culture as she would require antibiotics for treatment of strep pharyngitis. Symptom onset greater than 1 week ago. Discussed in regards to liquid diarrhea which patient explained. Discussed that we could send stool cultures however she does not have concern for any foodborne illness or bacterial illness. I did offer rapid influenza or COVID-19 testing however patient has already had symptoms x 5 days duration in which she declines at this time. Rapid strep is negative we will send for culture to confirm she does not have strep A. Given duration of symptoms we will treat for acute bronchitis with doxycycline twice daily x 7 days duration. Patient states she has Tessalon Perles leftover from a prior illness several months ago and she may take 1 every 8 hours as needed for coughing. Will send Medrol Dosepak which will help with a little bit of expiratory wheezing which patient is in agreement with. Patient again declines any stool cultures and samples at this time if she change her mind she will contact me on Wednesday. Patient agrees and understands plan of care. 1. Acute bronchitis (J20.9: Acute bronchitis, unspecified) see above Ordered: doxycycline, 100 mg = 1 tab(s), Oral, BID, X 7 day(s), # 14 tab(s), Refills(s) 0, Pharmacy: [id number], 161, cm, 02/28/24 12:55:00 EDT, Height/Length Dosing, 139.3, kg, 02/28/24 12:55:00 EDT, Weight Dosing methylPREDNISolone, = 1 packet(s), Oral, As Directed, as directed on package labeling, X 6 day(s), # 21 tab(s), Refills(s) 0, (more content not included)... Normal [facility] Comment on above: Result Comment: Elec tronically Signed By: Taz MIJARES, Zeus Darling\.br\Date and Time Signed: 02/28/24 13:32 EDT Patient Educationon 02-28-20 Patient Education Infectious Disease Diarrhea, Adult Diarrhea is frequent loose and watery bowel movements. Diarrhea can make you feel weak and cause you to become dehydrated. Dehydration can make you tired and thirsty, cause you to have a dry mouth, and decrease how often you urinate. Diarrhea typically lasts 2?3 days. However, it can last longer if it is a sign of something more serious. It is important to treat your diarrhea as told by your health care provider. Follow these instructions at home: Eating and drinking Follow these recommendations as told by your health care provider: ? Take an oral rehydration solution (ORS). This is an eabs-roh-hofpbvj medicine that helps return your body to its normal balance of nutrients and water. It is found at pharmacies and retail stores. ? Drink plenty of fluids, such as water, ice chips, diluted fruit juice, and low-calorie sports drinks. You can drink milk also, if desired. ? Avoid drinking fluids that contain a lot of sugar or caffeine, such as energy drinks, sports drinks, and soda. ? Eat bland, bvdg-qe-ypocbi foods in small amounts as you are able. These foods include bananas, applesauce, rice, lean meats, toast, and crackers. ? Avoid alcohol. ? Avoid spicy or fatty foods. Medicines ? Take qtrz-svj-kyxtjyb and prescription medicines only as told by your health care provider. ? If you were prescribed an antibiotic medicine, take it as told by your health care provider. Do not stop using the antibiotic even if you start to feel better. General instructions ? Wash your hands often using soap and water. If soap and water are not available, use a hand agency service representative. Others in the household should wash their hands as well. Hands should be washed: ? After using the toilet or changing a diaper. ? Before preparing, cooking, or serving food. ? While caring for a sick person or while visiting someone in a hospital. ? Drink enough fluid to keep your urine pale yellow. ? Rest at home while you recover. ? Watch your condition for any changes. ? Take a warm bath to relieve any burning or pain from frequent diarrhea episodes. ? Keep all follow-up visits as told by your health care provider. This is important. Contact a health care provider if: ? You have a fever. ? Your diarrhea gets worse. ? You have new symptoms. ? You cannot keep fluids down. ? You feel light-headed or dizzy. ? You have a headache. ? You have muscle cramps. Get help right away if: ? You have chest pain. ? You feel extremely weak or you faint. ? You have bloody or black stools or stools that look like tar. ? You have severe pain, cramping, or bloating in your abdomen. ? You have trouble breathing or you are breathing very quickly. ? Your heart is beating very quickly. ? Your skin feels cold and clammy. ? You feel confused. ? You have signs of dehydration, such as: ? Dark urine, very little urine, or no urine. ? Cracked lips. ? Dry mouth. ? Sunken eyes. ? Sleepiness. ? Weakness. Summary ? Diarrhea is frequent loose and sometimes watery bowel movements. Diarrhea can make you feel weak and cause you to become dehydrated. ? Drink enough fluids to keep your urine pale yellow. ? Make sure that you wash your hands after using the toilet. If soap and water are not available, use hand agency service representative. ? Contact a health care provider if your diarrhea gets worse or you have new symptoms. ? Get help right away if you have signs of dehydration. This information is not intended to replace advice given to you by your health care provider. Make sure you discuss any questions you have with your health care provider. Document Revised: 01/22/2023 Document Reviewed: 05/13/2022 [employer] Patient Education ? 2022 Nursing Home Quality. Rapid Strep Test Why am I having this test? A rapid strep test is used to check for strep throat. Strep throat is a bacterial infection caused by the bacteria Streptococcus pyogenes. A rapid strep test is the quickest way to check if these bacteria are causing your sore throat. You may have this test if: ? You have throat pain or neck swelling and tenderness. ? You have a fever. ? You have a red throat with yellow or white spots. ? You experience loss of appetite. ? You have trouble breathing or painful swallowing. ? You have a rash. ? You are dehydrated. The test can be done at your health care provider's office. Results are usually ready in about 20 minutes. What is being tested? This test checks for the presence of the Streptococcus pyogenes bacteria. What kind of sample is taken? This test requires a sample of fluid from the back of your throat and tonsils. Your health care provider may hold down your tongue with a tongue depressor and use a swab to collect the sample. Your health care provider may collect a second sample at the same t (more content not included)... Normal [facility] Progress Noteson 02-28-2024 Hr Clerk Authentication Interface Message Text Gina Masterson was evaluated today via telemedicine appointment. Phone numbers This visit has been rescheduled as a telemed visit to comply with patient safety concerns in accordance with CDC recommendations. Here for 3 month follow up Pcp appt today was cancelled Here for refill on adderall 20mg daily All other ROS have been reviewed and are negative except as noted in the HPI. Problem list reviewed. Patient Active Problem List: Attention deficit hyperactivity disorder (ADHD) [F90.9] Morbid obesity (HCC) [E66.01] Hematochezia [K92.1] Calculus of gallbladder without cholecystitis without obstruction [K80.20] Metabolic syndrome [E88.810] Hypertension [I10] Hyperlipidemia [E78.5] Prediabetes [R73.03] Vitamin D deficiency [E55.9] Medication list reviewed. Current Outpatient Medications on File Prior to Visit Medication Sig Dispense Refill losartan (COZAAR) 50 MG tablet TAKE 1 TABLET BY MOUTH DAILY 90 Tablet 3 amphet-dextroamphet (Adderall) 20 MG tablet Take 1 Tablet by mouth daily for 30 days. 30 Tablet 0 [START ON 03/03/2024] amphet-dextroamphet (Adderall) 20 MG tablet Take 1 Tablet by mouth daily for 30 days. 30 Tablet 0 amphet-dextroamphet (Adderall) 20 MG tablet Take 1 Tablet by mouth daily for 30 days. 30 Tablet 0 fluoxetine (PROZAC) 20 MG capsule TAKE 1 CAPSULE DAILY 90 Capsule 3 vitamin D2 ergocalciferol (DRISDOL) 1.25 MG (36626 UT) capsule topiramate (TOPAMAX) 50 MG tablet metformin (GLUCOPHAGE-XR) 500 MG XR tablet No current facility-administered medications on file prior to visit. Allergy list reviewed. Allergies Allergen Reactions Mushroom Extract Complex Anaphylactic Shock Cashew Nut Itching and Agitation No Known Drug Allergies Appropriate and pertinent visit notes, labs and imaging reviewed. 12/13/2023 visit [facility] reviewed Last visit with PCP (YASH MELENDEZ) was 12/13/2023 E prescribed via westley Perez APRN-MONTSERRAT O: No vital signs were taken. No physical completed today. A/P: (F90.0) Attention deficit hyperactivity disorder (ADHD), predominantly inattentive type (primary encounter diagnosis) Comment: Plan: amphet-dextroamphet (Adderall) 20 MG tablet, amphet-dextroamphet (Adderall) 20 MG tablet, amphet-dextroamphet (Adderall) 20 MG tablet Discussion of medication usage, goals of therapy, and common complications/side effects to this medication. Patient indicates understanding of these issues and agrees with the plan. Discussion with patient re: partnership in his/her health. I am here to help with health issues by educating, prescribing, or referring to appropriate specialties. The patient has a personal responsibility/role in his/her health by maintaining compliance with said appropriate therapies (behavioral/lifestyle changes, medications, follow up appointments, etc). If the patient disagrees with or declines a particular therapy, or if side effects happen and the patient stops the therapy, the patient will let me know and we will work together to find a different therapy. I expect to see my patients once a year for a complete physical and every six months if there are chronic issues to monitor. The Patient verbalizes understanding and agreement with self responsibilities. Patient's current medication list was updated appropriately. The patient was given the opportunity to ask questions and all questions were answered at this time. Follow up appointment due w/ pcp Alina Perez, MSN, RN, [employer]SEM[employer] Normal [facility] Registrationon 02-28-2024 Registration [id number] Normal [facility] Addendum Noteon 01-03-2024 Hr Clerk Authentication Interface Message Text Addended by: YASH MELENDEZ on: 01/03/2024 05:22 PM Modules accepted: Orders Normal [facility] HUMAN PAPILLOMA VIRUSon 02-0 HPV HIGH RISK Negative Normal Negative [facility] Comment on above: Order Comment: This test is performed using an automated nucleic acid amplification assay ([employer], [employer] [place], [place]). This assay detects RNA of HPV types 16,18,31,33,35,39,45,51,52,56,58,59,66 and 68 in cervical specimens. Result Comment: A ne gative result does not exclude the possibility of low levels of infection. Performed By: #### H PV #### [facility] [address] [place] [address], [id number] Progress Noteson 12-20-2023 Hr Clerk Authentication Interface Message Text Provider requested a information writer. Kaitlynn Sotomayor LPN present. Normal [facility] Hr Clerk Authentication Interface Message Text The patient, Gina Masterson , identity was verified by name and MRN. 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 States she has intermittent spotting or bleeding, but no pelvic pain or deep dyspareunia. Review of Systems: Constitutional: Negative for recent weight loss, fevers, or chills. Eyes: negative for visual changes Ears, nose, throat: negative. Respiratory: Negative for cough, wheezing and shortness of breath. Cardiovascular: Negative for chest pain, palpitations, shortness of breath, leg swelling. Gastrointestinal: Negative for heartburn, nausea, vomiting, abdominal pain, diarrhea, constipation, blood in stool and melena. Genitourinary: as above. Musculoskeletal: Negative for back pain. Skin AND integumentary: Negative for rash and itching. Neurological: Negative for headaches. Psychiatric: negative for nervousness, anxiety. Current Outpatient Medications: fluoxetine (PROZAC) 20 MG capsule, , Disp: , Rfl: vitamin D2 ergocalciferol (DRISDOL) 1.25 MG (05923 UT) capsule, , Disp: , Rfl: topiramate (TOPAMAX) 50 MG tablet, , Disp: , Rfl: metformin (GLUCOPHAGE-XR) 500 MG XR tablet, , Disp: , Rfl: amphet-dextroamphet (ADDERALL) 20 MG tablet, Take 1 Tablet by mouth daily for 30 days., Disp: 30 Tablet, Rfl: 0 losartan (COZAAR) 50 MG tablet, Take 1 Tablet by mouth daily., Disp: 90 Tablet, Rfl: 3 Past Medical History: Diagnosis Date Abnormal Pap smear and cervical HPV (human papillomavirus) History of sexually transmitted disease 2019 Hx of abnormal cervical Pap smear Hypertension 12/20/2023 Migraine Past Surgical History: Procedure Laterality Date CHOLECYSTECTOMY, LAPAROSCOPIC N/A 08/17/2020 Procedure: LAPAROSCOPIC CHOLECYSTECTOMY,WITH CHOLANGIOGRAMS; Surgeon: Hola Ramirez MD; Location: PERIOPERATIVE SERVICES; Service: General NO PAST SURGICAL HISTORY Family History Problem Relation Age of Onset Uterine Cancer Mother Other (migraine headache) Father Good health Sister Good health Maternal Grandmother Good health Maternal Grandfather Alzheimer's Disease Paternal Grandmother Good health Paternal Grandfather Social History Socioeconomic History Marital status: Highest education level: 12th grade Tobacco Use Smoking status: Never Smokeless tobacco: Current Types: Chew Substance and Sexual Activity Alcohol use: No Alcohol/week: 0.0 standard drinks of alcohol Drug use: No Sexual activity: Yes Partners: Male Social Determinants of Health Financial Resource Strain: Unknown (01/12/2022) Overall Financial Resource Strain (CARDIA) Difficulty of Paying Living Expenses: Patient refused Food Insecurity: No Food Insecurity (01/12/2022) Hunger Vital Sign Worried About Running Out of Food in the Last Year: Never true Ran Out of Food in the Last Year: Never true Transportation Needs: No Transportation Needs (01/12/2022) PRAPARE - Transportation Lack of Transportation (Medical): No Lack of Transportation (Non-Medical): No Physical Activity: Sufficiently Active (01/12/2022) Exercise Vital Sign Days of Exercise per Week: 4 days Minutes of Exercise per Session: 120 min Stress: Unknown (01/12/2022) [employer] - Occupational Stress Questionnaire Feeling of Stress : Patient refused Social Connections: Unknown (01/12/2022) Social Connection and Isolation Panel [NHANES] Frequency of Communication with Friends and Family: Patient refused Frequency of Social Gatherings with Friends and Family: Patient refused Attends Buddhist Services: Patient refused Active Member of Clubs or Organizations: Patient refused Attends Club or Organization Meetings: Patient refused Marital Status: Intimate Partner Violence: Not At Risk (01/12/2022) Humiliation, Afraid, Rape, and Kick questionnaire Fear of Current or Ex-Partner: No Emotionally Abused: No Physically Abused: No Sexually Abused: No Housing Stability: Low Risk (01/12/2022) Housing Stability Vital Sign Unable to Pay for Housing in the Last Year: No Number of Places Lived in the Last Year: 1 Unstable Housing in the Last Year: No TISSUE REWINDER HX: LMP: Patient's last menstrual period was 12/12/2023 (approximate). Abnormal Bleeding/Menses: as above (pt has progestin IUD in place) Abnormal pap smear: last pap negative, HRHPV positive in 2019; no colpo done - will repeat pap and HPV today History Sexual Activity Sexual activity: Yes Partners: Male control/ protection: OB History Para Term AB Living 1 0 0 0 0 0 SAB IAB Ectopic Multiple Live Births 0 0 0 0 0 Because violence is so common, we ask all our patients: are you in a relationship or do you live with a person who threatens, hurts, or controls you: No I have reviewed the following patient level data: allergies, current medications, problem list, curr (more content not included)... Normal [facility] Hr Clerk Authentication Interface Message Text Patient was identified by name and date of . RUFUS Hayden Patient at risk for falls:No Falls Risk protocol implemented: No Normal [facility] Progress Noteson 12-13-2023 Hr Clerk Authentication Interface Message Text History provided by: Patient Chief Complaint Patient presents with Medication Management 6mo FU PCP is Yash Melendez PA-C Patient Active Problem List: Attention deficit hyperactivity disorder (ADHD) [F90.9] Morbid obesity (HCC) [E66.01] Hematochezia [K92.1] Calculus of gallbladder without cholecystitis without obstruction [K80.20] Vitals Recorded in This Encounter 12/13/2023 1045 Pulse: 90 Resp: 18 Temp: 98 ???F (36.7 ???C) Temp src: Temporal SpO2: 100 % Pain Score: 0 Health Maintenance Topic Date Due COVID-19 Vaccine (1) Never done Pap Smear 11/07/2019 Basic Metabolic Panel 07/07/2022 Influenza Vaccine (1) Never done Hemoglobin A1C 06/21/2024 Tetanus (Td or Tdap) Booster 10/31/2028 Shingles (RZV) Vaccine (1 of 2) 2041 Hepatitis C Antibody Completed HIV Test Completed Hepatitis B (HBV) Vaccine Completed HPV Vaccine Completed Tdap Booster Completed Hepatitis A (HAV) Vaccine Aged Out Pneumococcal Vaccine(s) Aged Out Mammography Discontinued Current Outpatient Medications Medication Sig Dispense Refill amphet-dextroamphet (ADDERALL) 20 MG tablet Take 1 Tablet by mouth daily for 30 days. 30 Tablet 0 losartan (COZAAR) 50 MG tablet Take 1 Tablet by mouth daily. 90 Tablet 3 No current facility-administered medications for this visit. Physical Exam Vitals reviewed. Constitutional: Appearance: Normal appearance. Neck: Vascular: No carotid bruit. Cardiovascular: Rate and Rhythm: Regular rhythm. Pulmonary: Effort: Pulmonary effort is normal. Breath sounds: Normal breath sounds. Musculoskeletal: General: Normal range of motion. Cervical back: Normal range of motion. Neurological: Mental Status: She is alert. Assessment Gina was seen today for medication management. Here for med management only taking BP med and ADHD med. Doing well no complaints. Diagnoses and all orders for this visit: Attention deficit hyperactivity disorder (ADHD), predominantly inattentive type- do test stable on meds - TOX ANALYSIS W/CONFIMATION,UR Current mild episode of major depressive disorder without prior episode (HCC)- stable on no meds now Hypertension, unspecified type- stable on med Follow up: 3 months Normal [email or web address] Hr Clerk Authentication Interface Message Text Patient was identified by name and date of . Alison Chicas Patient at risk for falls:No Falls Risk protocol implemented: No Normal [facility] TOX ANALYSIS W/CONFIMATION,U Otf 12-13-2023 Amphetamines Ql (U) Negative [facility] Barbiturates Screen Ql (U) Negative [facility] Benzodiazepines Ql (U) Negative [facility] Benzoylecgonine Screen Ql (U) Negative [facility] Ethanol Screen Ql (U) [facility] fentaNYL Screen Ql (U) Negative [facility] Interpretation and review of laboratory results Normal [facility] Methadone Screen Ql (U) Negative [facility] Opiates Confirm Ql (U) Negative [facility] oxyCODONE Ql (U) Negative [facility] Comment on above: Oxycodone and metabo lites of Oxycodone (Oxymorphone, Noroxycodone, and Noroxymorphone) are measured/detected in this assay method. Phencyclidine Ql (U) Negative [facility] Tetrahydrocannabinol Screen Ql (U) Negative [facility] Screen results are reported as positive (at or above the cutoff) or negative (below the cutoff). The LC-MS/MS testing (if applicable) was developed and its performance characteristics determined by [facility] in a manner consistent with CLIA requirements. This test has not been cleared or approved by the U.S. Food and Drug Administration; however, the FDA has determined that such clearance or approval is not necessary. [facility] ALCOHOL - TOX W/ CONF Negative Normal Cutoff: 10 [facility] Comment on above: Order Comment: Scree n results are reported as positive (at or above the cutoff) or negative (below the cutoff). The LC-MS/MS testing (if applicable) was developed and its performance characteristics determined by [facility] in a manner consistent with CLIA requirements. This test has not been cleared or approved by the U.S. Food and Drug Administration; however, the FDA has determined that such clearance or approval is not necessary. Performed By: #### T OX U #### [facility] [address] [place] [address], AMP[facility] CL Negative Normal Cutoff: 1000 [facility] Comment on above: Order Comment: Scree n results are reported as positive (at or above the cutoff) or negative (below the cutoff). The LC-MS/MS testing (if applicable) was developed and its performance characteristics determined by [facility] in a manner consistent with CLIA requirements. This test has not been cleared or approved by the U.S. Food and Drug Administration; however, the FDA has determined that such clearance or approval is not necessary. Performed By: #### T OX U #### [facility] [address] [place] [address], LOWELL CL Negative Normal Cutoff: 200 [facility] Comment on above: Order Comment: Scree n results are reported as positive (at or above the cutoff) or negative (below the cutoff). The LC-MS/MS testing (if applicable) was developed and its performance characteristics determined by [facility] in a manner consistent with CLIA requirements. This test has not been cleared or approved by the U.S. Food and Drug Administration; however, the FDA has determined that such clearance or approval is not necessary. Performed By: #### T OX U #### [facility] [address] [place] [address], BENZO CL Negative Normal Cutoff: 200 [facility] Comment on above: Order Comment: Scree n results are reported as positive (at or above the cutoff) or negative (below the cutoff). The LC-MS/MS testing (if applicable) was developed and its performance characteristics determined by [facility] in a manner consistent with CLIA requirements. This test has not been cleared or approved by the U.S. Food and Drug Administration; however, the FDA has determined that such clearance or approval is not necessary. Performed By: #### T OX U #### [facility] [address] [place] [address], COCAINE CL- TOX W/ CONF Negative Normal Cutoff: 300 [facility] Comment on above: Order Comment: Scree n results are reported as positive (at or above the cutoff) or negative (below the cutoff). The LC-MS/MS testing (if applicable) was developed and its performance characteristics determined by [facility] in a manner consistent with CLIA requirements. This test has not been cleared or approved by the U.S. Food and Drug Administration; however, the FDA has determined that such clearance or approval is not necessary. Performed By: #### T OX U #### S [facility] [address] [place] [address], FENTANYL Negative Normal Cutoff: 1 [facility] Comment on above: Order Comment: Scree n results are reported as positive (at or above the cutoff) or negative (below the cutoff). The LC-MS/MS testing (if applicable) was developed and its performance characteristics determined by [facility] in a manner consistent with CLIA requirements. This test has not been cleared or approved by the U.S. Food and Drug Administration; however, the FDA has determined that such clearance or approval is not necessary. Performed By: #### T OX U #### S [facility] [address] [place] [address], METH CL Negative Normal Cutoff: 300 [facility] Comment on above: Order Comment: Scree n results are reported as positive (at or above the cutoff) or negative (below the cutoff). The LC-MS/MS testing (if applicable) was developed and its performance characteristics determined by [facility] in a manner consistent with CLIA requirements. This test has not been cleared or approved by the U.S. Food and Drug Administration; however, the FDA has determined that such clearance or approval is not necessary. Performed By: #### T OX U #### S [facility] [address] [place] [address], OPI CL Negative Normal Cutoff: 300 [facility] Comment on above: Order Comment: Scree n results are reported as positive (at or above the cutoff) or negative (below the cutoff). The LC-MS/MS testing (if applicable) was developed and its performance characteristics determined by [facility] in a manner consistent with CLIA requirements. This test has not been cleared or approved by the U.S. Food and Drug Administration; however, the FDA has determined that such clearance or approval is not necessary. Performed By: #### T OX U #### [facility] [address] [place] [address], OXYCODONE Negative Normal Cutoff: 100 [facility] Comment on above: Order Comment: Scree n results are reported as positive (at or above the cutoff) or negative (below the cutoff). The LC-MS/MS testing (if applicable) was developed and its performance characteristics determined by [facility] in a manner consistent with CLIA requirements. This test has not been cleared or approved by the U.S. Food and Drug Administration; however, the FDA has determined that such clearance or approval is not necessary. Result Comment: Oxyc odone and metabolites of Oxycodone (Oxymorphone, Noroxycodone, and Noroxymorphone) are measured/detected in this assay method. Performed By: #### T OX U #### [facility] [address] [place] [address], PCP CL Negative Normal Cutoff: 25 [facility] Comment on above: Order Comment: Scree n results are reported as positive (at or above the cutoff) or negative (below the cutoff). The LC-MS/MS testing (if applicable) was developed and its performance characteristics determined by [facility] in a manner consistent with CLIA requirements. This test has not been cleared or approved by the U.S. Food and Drug Administration; however, the FDA has determined that such clearance or approval is not necessary. Performed By: #### T OX U #### [facility] [address], [place], THC CL - TOX W/ CONF Negative Normal Cutoff: 50 [facility] Comment on above: Order Comment: Scree n results are reported as positive (at or above the cutoff) or negative (below the cutoff). The LC-MS/MS testing (if applicable) was developed and its performance characteristics determined by [facility] in a manner consistent with CLIA requirements. This test has not been cleared or approved by the U.S. Food and Drug Administration; however, the FDA has determined that such clearance or approval is not necessary. Performed By: #### T OX U #### [facility] [address] [place], [address] Addendum Noteon 10-27-2023 Hr Clerk Authentication Interface Message Text Addended by: YASH MELENDEZ on: 10/27/2023 08:13 AM Modules accepted: Orders Normal The [facility] COVID/INFLUENZAon 10-22-2023 FLUAV RNA ARTHUR+probe Ql (Nph) Not detected Not Detected [facility] Comment on above: Not Detected results are indicative of the absence of Influenza A in the specimen submitted for testing. False negative results are possible based on the timing and quality of specimen submitted for testing. This assay was performed by Multiplex targeted Nucleic Acid Amplification on the [employer] System ([employer] [place], [place]) using Hr Clerk Mediated Amplification (TMA) technology. FLUBV RNA ARTHUR+probe Ql (Nph) Not detected Not Detected [facility] Comment on above: Not Detected results are indicative of the absence of Influenza B in the specimen submitted for testing. False negative results are possible based on the timing and quality of specimen submitted for testing. This assay was performed by Multiplex targeted Nucleic Acid Amplification on the [employer] System ([employer] [place], [place]) using Hr Clerk Mediated Amplification (TMA) technology. Interpretation and review of laboratory results Normal [facility] SARS-CoV-2 (COVID-19) RNA ARTHUR+probe Ql (Unsp spec) Not detected Not Detected [facility] Comment on above: Not Detected results are indicative of the absence of SARS-CoV-2 in the specimen submitted for testing. False negative results are possible based on the timing and quality of specimen submitted for testing. This assay was performed by Multiplex targeted Nucleic Acid Amplification on the [employer] System ([employer] [place]) using Hr Clerk Mediated Amplification (TMA) technology. This test is intende d for use only under Emergency Use Authorization (EUA). This test was developed, and its performance characteristics determined by [facility] [employer] which is certified under CLIA as qualified to perform high complexity clinical laboratory testing. [facility] INFLUENZA A Not detected Normal Not Detected The [facility] Comment on above: Order Comment: This test is intended for use only under Emergency Use Authorization (EUA). This test was developed, and its performance characteristics determined by [facility] which is certified under CLIA as qualified to perform high complexity clinical laboratory testing. Result Comment: Not Detected results are indicative of the absence of Influenza A in the specimen submitted for testing. False negative results are possible based on the timing and quality of specimen submitted for testing. This assay was performed by Multiplex targeted Nucleic Acid Amplification on the [employer] System ([employer] [place], [place]) using Hr Clerk Mediated Amplification (TMA) technology. Performed By: #### F JANES/COVID #### [facility] [address] [place] [address], INFLUENZA B Not detected Normal Not Detected [facility] Comment on above: Order Comment: This test is intended for use only under Emergency Use Authorization (EUA). This test was developed, and its performance characteristics determined by [facility] which is certified under CLIA as qualified to perform high complexity clinical laboratory testing. Result Comment: Not Detected results are indicative of the absence of Influenza B in the specimen submitted for testing. False negative results are possible based on the timing and quality of specimen submitted for testing. This assay was performed by Multiplex targeted Nucleic Acid Amplification on the [employer] System ([employer] [place]) using Hr Clerk Mediated Amplification (TMA) technology. Performed By: #### F JANES/COVID #### [facility] [address] [place] [address], SARS-CoV-2 (COVID-19) RNA ARTHUR+probe Ql (Unsp spec) Not detected Normal Not Detected [facility] Comment on above: Order Comment: This test is intended for use only under Emergency Use Authorization (EUA). This test was developed, and its performance characteristics determined by [facility] which is certified under CLIA as qualified to perform high complexity clinical laboratory testing. Result Comment: Not Detected results are indicative of the absence of SARS-CoV-2 in the specimen submitted for testing. False negative results are possible based on the timing and quality of specimen submitted for testing. This assay was performed by Multiplex targeted Nucleic Acid Amplification on the [employer] System ([employer] [place], [place]) using Hr Clerk Mediated Amplification (TMA) technology. Performed By: #### F JANES/COVID #### [facility] [address] [place], [address] Progress Noteson 10-22-2023 Hr Clerk Authentication Interface Message Text SUBJECTIVE: History was provided by the patient. Symptoms include congestion, coryza, sore throat, fever, and cough. Onset was 2 days ago, with gradually worsening course since that time. Known Strep exposure: none. Portions of record reviewed for pertinent issues: active problem list, medication list, allergies, and family history. OBJECTIVE: Vital signs reviewed. General appearance: alert, no distress, cooperative. Ears: R TM - normal, L TM - normal. Nose: clear rhinorrhea. Oropharynx: moderate erythema. No lateral shift of uvula or airway; no stridor. Neck: supple and moderate anterior cervical adenopathy bilaterally. No masses or fluctuance. Lungs: clear to auscultation. Heart: regular rate and rhythm and no murmurs, clicks, or gallops. Rapid strep test- performed: Negative. MDM (J02.9) Sore throat (primary encounter diagnosis) Comment: Plan: RAPID STREP A W/CULTURE REFLEX (Z20.822) Suspected severe acute respiratory syndrome coronavirus 2 (SARS-CoV-2) infection Comment: Plan: COVID/INFLUENZA Orders AND Meds Signed During This Encounter Covid/Influenza Rapid Strep A with Culture Reflex benzonatate (Tessalon Perles) 100 MG capsule 1) See visit diagnoses and orders. 2) Explained use of antibiotics only for proven or strongly suspected strep infection; importance of taking all doses of any prescribed antibiotic. 3) Instruction provided in the use of fluids, vaporizer, acetaminophen, and/or other OTC medication for symptom control. 4) See disposition. Recheck as needed for persistence, worsening, or appearance of new symptoms. Normal [facility] Hr Clerk Authentication Interface Message Text Patient was identified by name and date of . June Hunter Normal [facility] RAPID STREP A W/CULTURE REFL EXon 10-22-2023 S. pyogenes Ag IA Ql (Unsp spec) STREP A SCREEN: Negative (1 swab only) Culture not performed; one swab received. Normal [facility] Comment on above: Performed By: #### C R STREP ####[facility] [id number] [place], [place] RAPID STREP A W/CULTURE REFL EXOrdered By: Abdias Alvarenga on 10-22-2023 Interpretation and review of laboratory results Normal [facility] S. pyogenes Ag Ql (Throat) Negative Negative [facility] Comment on above: Culture not performe d; one swab received. [facility] Telephone Encounteron 2022 Hr Clerk Authentication Interface Message Text LM on pt vm and sent a [employer] message that appointment on 10/11/23 is cancelled. Asked for pt to reschedule. Normal [facility] AMB Bariatric Physician Prog ress Noteon 08-30-2023 AMB Bariatric Physician Progress Note GINA MASTERSON :1990 Registration Date:08/30/2023 Chief Complaint NSWL History of Present Illness Gina is here for non-surgical weight loss follow-up. Today she weighs 309# BMI 74.49 She is down 4# from her last visit. She is on Metformin XR 1000mg AM 500mg PM - has been having consistent loose stools - it is affecting her lifestyle. She is also on Topiramate 50mg daily June 2021 A1c if 5.7% June 2023 A1c was 5.7% as well. Labs 08/23/2023 Glucose of 118 Insulin of 29 MARGARET-IR is 8.4 - this is significant of insulin resistance - even with being on Metformin. Patient has been prediabetic for 10+ years. 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 Exercise: Gym. Walks the dogs when she can. Meal Preps Diet has remained consistent. OARRS reviewed. Physical Exam Vitals & Measurements Systolic Blood Pressure: 128 mmHg (08/30/23 09:03:00) Diastolic Blood Pressure: 59 mmHg Low (08/30/23 09:03:00) Peripheral Pulse Rate: 77 bpm (08/30/23 09:03:00) Mean Arterial Pressure: 82 mmHg (08/30/23 09:03:00) BP Site2: Left arm (08/30/23 09:03:00) Height/Length Measured: 137 cm (08/30/23 09:03:00) Weight Measured: 140 kg (08/30/23 09:03:00) Body Mass Index Measured: 74.59 kg/m2 (08/30/23:03:00) Weight Measured - lbs2: 309 lb (08/30/23:03:00) Height/Length Measured - in2: 54 in (08/30/23::00) Body Mass Index Measured English2: 74.49 kg/m2 (08/30/23 09:03:00) BSA: 2.31 m2 (08/30/23:03:00) Ht/Wt Measurement Refused by Patient?2: No (08/30/23:03:) Depression Screening Scores Initial Depression Screen Score: 0 (08/30/23::00) Fall Risk Assessment Is the patient ambulatory (mobile): Yes (08/30/23::) Have you had a fall within the past: No (08/30/23::) Have you had 2 or more falls in the past: No (08/30/23::) General: Well developed, well nourished, in no acute distress. Abdomen: Soft, non-tender, obese Extremities: No calf tenderness. No pretibial edema. Psych: Alert and cooperative; normal mood and affect; normal attention span and concentration. Lab Results Last 6 Months Chemistry BUN 14 mg/dL 08/23/23 Na 140 mmol/L 08/23/23 K 4.7 mmol/L 08/23/23 Chloride 105 mmol/L 08/23/23 CO2, venous 27.0 mmol/L 08/23/23 Creatinine 0.7 mg/dL 08/23/23 Total Protein 7.3 g/dL 08/23/23 Calcium 9.5 mg/dL 08/23/23 Cholesterol 200 mg/dL 06/21/23 Triglycerides 305 mg/dL 06/21/23 HDL Cholesterol 44 mg/dL 06/21/23 Calculated LDL Cholesterol 95 mg/dL 06/21/23 Total Chol/HDL Chol Ratio 4.5 06/21/23 Bilirubin, Total 0.40 mg/dL 08/23/23 Alk Phos 70 unit/L 08/23/23 GOT 21 unit/L 08/23/23 GPT 38 unit/L 08/23/23 BUN/Creat Ratio 20.0 08/23/23 Calculated Osmolality 281 mOsm/kg 08/23/23 Globulin 3.3 g/dL 08/23/23 A/G Ratio 1.2 08/23/23 IRON 57 ug/dl 06/21/23 TIBC 304 ug/ml 06/21/23 Saturation 18.8 % 06/21/23 FERRITIN 71 ng/mL 06/21/23 Vitamin B12 622 pg/mL 06/21/23 HGB A1C 5.7 % 06/21/23 Free T4 0.93 ng/dL 06/23/23 TSH 0.55 uIU/ml 06/21/23 ALB 4.0 g/dL 08/23/23 Free T3 3.3 pg/mL 06/23/23 Glomerular Filtration Rate >60 mL/min/1.73m? 08/23/23 Vit D 25 20 ng/mL 06/21/23 Insulin, fasting 29 08/25/23 Glucose 118 mg/dL 08/23/23 GFR AA >60 08/23/23 Hematology WBC 10.3 x10 08/23/23 RBC 4.16 x10 08/23/23 HGB 12.4 g/dL 08/23/23 HCT 36.2 % 08/23/23 MCV 87.2 fL 08/23/23 MCH 29.8 pg 08/23/23 MCHC 34.2 g/dL 08/23/23 RDW 13.6 % 08/23/23 Platelet 364 x10 08/23/23 MPV 8.2 fL 08/23/23 Lymph % 26.8 % 08/23/23 Morris % 6.6 % 08/23/23 Neutrophil % 64.2 % 08/23/23 Eosin % 1.9 % 08/23/23 Basos % 0.5 % 08/23/23 Lymph Count 2.74 x1000 08/23/23 Morris Count 0.67 x1000 08/23/23 Neutrophil Count (ANC) 6.59 x1000 08/23/23 Eos Count 0.20 x1000 08/23/23 Baso Count 0.05 x1000 08/23/23 Nucleated RBC 0 /100WBC 08/23/23 Medication Reconciliation What How Much When Instructions New metFORMIN = Glucophage (MetFORMIN (Eqv-Glucophage XR) 500 mg oral tablet, extended release) See instructions Refills: 2 Take 2 tablets in AM Take 1 tablet in PM Pickup at [facility] New topiramate (topiramate 50 mg oral tablet) 1 Tabs Oral DAILY Duration: 30 Days Refills: 2 Pickup at [facility] Unchanged amphetamine-dextroampheta mine (Adderall 20 mg oral tablet) 1 Tabs Oral DAILY Unchanged dulaglutide (Trulicity Pen 0.75 mg/ 0.5 mL subcutaneous solution) 0.5 Milliliter Subcutaneous WEDNESDAY Duration: 4 Weeks rotate injection sites Pickup at [facility] Unchanged ergocalciferol = Vitamin D (Vitamin D2 1.25 mg (50,000 intl units) oral capsule) 1 Capsules Oral WEDNESDAY Duration: 12 Weeks Unchanged losar (more content not included)... Normal [facility] Comprehensive Intake - Baria tric - Texton 08-30-2023 Comprehensive Intake - Bariatric - Text Comprehensive Intake - Bariatric Entered On: 08/30/2023 9:06 EDT Performed On: 08/30/2023 9:03 EDT by Lynette Ahn MA Summary Chief Complaint : NSWL Bladder Control Issues? : No Urine Leakage? : No Presence or absence of urinary incontinence assessed : Yes CPT-II Medication list doc'd in medical record : Yes Influenza immunization administered or previously received : No Pneumococcal vaccine administered or previously received : No Lynette Ahn MA - 08/30/2023 9:03 EDT Measurements - Bariatrics Ht/Wt Measurement Refused by Patient? : No Weight Measured : 140 kg(Converted to: 308 lb 10 oz, 308.647 lb) Height/Length Measured : 137 cm(Converted to: 4 ft 6 in, 53.94 in) Body Mass Index Measured : 74.59 kg/m2 Body Mass Index documented : Yes Weight Measured - lbs : 309 lb(Converted to: 309 lb 0 oz, 140 kg) Height/Length Measured - in : 54 in(Converted to: 4 ft 6 in, 137 cm) Body Mass Index Measured Yemeni : 74.49 kg/m2 BSA Yemeni : 2.31 m2 [place] Body Weight : 31.555 kg Lynette Ahn MA - 08/30/2023 9:03 EDT Vitals Require BP : Yes Systolic Blood Pressure : 128 mmHg Diastolic Blood Pressure : 59 mmHg (LOW) Mean Arterial Pressure : 82 mmHg Pulse Rate : 77 bpm BP Site : Left arm Last Systolic BP : less than 130 mmHg Last Diastolic BP : less than 80 mmHg Pain Present : No actual or suspected pain Pain : 0 Pain severity quantified : No pain present Lynette Ahn MA - 08/30/2023 9:03 EDT Infection Screening - Ambulatory Exposure AND/OR close contact with a person under investigation or laboratory-confirmed COVID-19 individual within 14 days of symptom onset AND/OR any of the following: : No Do you live/work in a high risk situation (congregated living, hemodialysis, infusion clinic, longterm, assisted living, fdc, homeless residential, etc.)? : No Lynette Ahn MA - 08/30/2023 9:03 EDT Depression Screening Is patient currently : None of the Below Feeling Down, Depressed, Hopeless : Not at all Little Interest - Pleasure in Activities : Not at all Initial Depression Screen Score : 0 Depression Screening Score 0 : No Lynette Ahn MA - 08/30/2023 9:03 EDT Falls Risk Assessment Is the patient ambulatory (mobile) : Yes Have you had 2 or more falls in the past year : No Have you had a fall within the past year that has caused an injury : No Patient screen for fall risk : no falls in last year OR 1 fall with no injury in last year Lynette Ahn MA - 08/30/2023 9:03 EDT Normal [facility] Phone Msgon 08-26-2023 Phone Msg Entered by TANNER WIGGINS CNP on August 26, 2023 15:53:25 EDT From: TANNER WIGGINS CNP To: [facility] Sent: 08/26/2023 15:53:25 EDT Subject: Medication Management Submitted: Complete:topiramate (topiramate 50 mg oral tablet) Signed by TANNER WIGGINS CNP 08/26/2023 15:53:00 EDT Approved topiramate (topiramate 50 mg tablet) TAKE 1 TABLET DAILY FOR 30 DAYS Qty: 30 tabs Days Supply: 30 Refills: 1 Substitutions Allowed Route To Pharmacy - [facility] From: [facility] To: TANNER WIGGINS CNP Sent: August 26, 2023 11:43:41 AM EDT Subject: Medication Management Due: August 23, 2023 11:21:30 AM EDT On Hold Pending Signature Drug: topiramate (topiramate 50 mg oral tablet), 1 tabs ORAL DAILY,x30 days Quantity: 30 tabs Days Supply: 0 Refills: 0 Substitutions Allowed Notes from Pharmacy: Dispensed Drug: topiramate (topiramate 50 mg oral tablet), TAKE 1 TABLET DAILY FOR 30 DAYS Quantity: 30 tabs Days Supply: 30 Refills: 1 Substitutions Allowed Notes from Pharmacy: Normal [facility] INSULIN LEVELon 08-25-2023 Insulin, fasting 29 High 3-25 [facility] Comment on above: Order Comment: Order ed on Fin# [id number] Result Comment: INTE RPRETIVE INFORMATION: Insulin, Fasting This test reacts on a nearly equimolar basis with the analogs insulin aspart, insulin glargine, and insulin lispro. Insulin detemir exhibits approximately 50 percent cross-reactivity. Test reactivity with insulin glulisine is negligible (less than 3 percent). To convert to pmol/L, multiply uIU/mL by 6.0. Performed By: [facility] [address] [place] [id number] Laminator Hand: Stephen Adam MD, PhD CLIA Number: [id number] Performed By: #### 9 [id number] ####[facility] [id number] [place] [address] Medical Director: Marques Espinoza MD AUTO DIFFon 08-23-2023 Baso Count 0.05 x1000 Normal 0.00-0.20 [facility] Comment on above: Performed By: #### 1 [id number] ####[facility] [id number] [place] [address] Medical Director: Marques Espinoza MD Basos % 0.5 % Normal [facility] Comment on above: Performed By: #### 1 [id number], [id number] ####[facility] [id number] [place] [address] Medical Director: Marques Espinoza MD Eos Count 0.20 x1000 Normal 0.00-0.50 [facility] Comment on above: Performed By: #### 1 [id number], [id number] ####[facility] [id number] [place] [address] Medical Director: Marques Espinoza MD Eosinophils/100 WBC (Bld) 1.9 % Normal [facility] Comment on above: Performed By: #### 1 [id number], [id number] ####[facility] [address] [place] [address] Medical Director: Marques Espinoza MD Lymph Count 2.74 x1000 Normal 1.20-4.80 [facility] Comment on above: Performed By: #### 1 45477, 050658, [id number] ####[facility] [address] [place] [address] Medical Director: Marques Espinoza MD Lymphocytes/100 WBC (Bld) 26.8 % Normal [facility] Comment on above: Performed By: #### 1 48365, 669782, [id number] ####[facility] [address] [place] [address] Medical Director: Marques Espinoza MD Morris Count 0.67 x1000 Normal 0.10-1.00 [facility] Comment on above: Performed By: #### 1 21338, 683160, 0973167 ####[facility] [address] [place] [address] Medical Director: Marques Espinoza MD Monocytes/100 WBC (Bld) 6.6 % Normal [facility] Comment on above: Performed By: #### 1 86608, 500967, 1398250 ####[facility] [address]ts[address] [place] [address] Medical Director: Marques Espinoza MD Neutrophil Count (ANC) 6.59 x1000 Normal 1.40-8.80 [facility] Comment on above: Performed By: #### 1 38653, 084187, 7735525 ####[facility] [address]ouljc[address] [place] [address] Medical Director: Marques Espinoza MD Neutrophils/100 WBC (Bld) 64.2 % Normal [facility] Comment on above: Performed By: #### 1 18073, 923624, 4480201 ####[facility] [address]17[address] [place] [address] Medical Director: Marques Espinoza MD COMPMETAon 08-23-2023 Albumin [Mass/Vol] 4.0 g/dL Normal 3.4-5.0 [facility] Comment on above: Order Comment: Order ed on Fin# [id number] Performed By: #### 1 08874, 161674, 3183787 ####[facility] [address] [place] [address] Medical Director: Marques Espinoza MD Albumin/Globulin [Mass ratio] 1.2 {ratio} Normal [facility] Comment on above: Order Comment: Order ed on Fin# [id number] Performed By: #### 1 84147, 566255, 2556851 ####[facility] [address] [place] [address] Medical Director: Marques Espinoza MD Alk Phos 70 unit/L Normal 46-116 [facility] Comment on above: Order Comment: Order ed on Fin# [id number] Performed By: #### 1 59094, 648730, 7771219 ####[facility] [address] [place] [address] Medical Director: Marques Espinoza MD Bilirubin [Mass/Vol] 0.40 mg/dL Normal 0.20-1.00 [facility] Comment on above: Order Comment: Order ed on Fin# [id number] Result Comment: Use of this assay is not recommended for patients undergoing treatment with eltrombopag due to the potential for falsely elevated results. Performed By: #### 1 44920, 193086, 2945562 ####[facility] [address] [place] [address] Medical Director: Marques Espinoza MD Calcium [Mass/Vol] 9.5 mg/dL Normal 8.7-10.4 [facility] Comment on above: Order Comment: Order ed on Fin# [id number] Performed By: #### 1 59822, 951273, 3979620 ####[facility] [address]ot[address] [place] [address] Medical Director: Marques Espinoza MD Chloride [Moles/Vol] 105 mmol/L Normal 98-107 [facility] Comment on above: Order Comment: Order ed on Fin# [id number] Performed By: #### 1 95864, 776668, 3978169 ####[facility] [address] [place] [address] Medical Director: Marques Espinoza MD CO2 [Moles/Vol] 27.0 mmol/L Normal 20.0-31.0 [facility] Comment on above: Order Comment: Order ed on Fin# [id number] Performed By: #### 1 42659, 969098, 7772470 ####[facility] [address]35 [place] [address] Medical Director: Marques Espinoza MD Creatinine [Mass/Vol] 0.7 mg/dL Normal 0.5-0.8 [facility] Comment on above: Order Comment: Order ed on Fin# [id number] Performed By: #### 1 60809, 571909, 8993776 ####[facility] [address] [place] [address] Medical Director: Marques Espinoza MD GFR AA >60 Normal [facility] Comment on above: Order Comment: Order ed on [facility]# [id number] Result Comment: Afri can Bangladeshi GFR Calc Medical judgement is necessary to interpret GFR. The calculated GFR may not accurately reflect renal status in patients >70 years, women, acutely ill hospitalized patients and patients with acute renal failure or known renal disease. The MDRD GFR formula is valid only for adults greater than 18 years of age. Note: Creatinine clearance (not GFR) should be used for drug dosing. Performed By: #### 1 75396, 394571, 6891317 ####[facility] [address] [place] [address] Medical Director: Marques Espinoza MD Globulin (S) [Mass/Vol] 3.3 g/dL Normal [facility] Comment on above: Order Comment: Order ed on [facility]# [id number] Performed By: #### 1 47083, 013387, 1092296 ####[facility] [address] [place] [address] Medical Director: Marques Espinoza MD Glomerular Filtration Rate >60 Normal [facility] Comment on above: Order Comment: Order ed on [facility]# [id number] Result Comment: Non- GFR Calc Medical judgement is necessary to interpret GFR. The calculated GFR may not accurately reflect renal status in patients >70 years, women, acutely ill hospitalized patients and patients with acute renal failure or known renal disease. The MDRD GFR formula is valid only for adults greater than 18 years of age. Note: Creatinine clearance (not GFR) should be used for drug dosing. Performed By: #### 1 86955, 688294, 4013965 ####[facility] [address]if[address] [place] [address] Medical Director: Marques Espinoza MD Glucose [Mass/Vol] 118 mg/dL High 74-106 [facility] Comment on above: Order Comment: Order ed on Fin# [id number] Performed By: #### 1 21814, 751036, 3821207 ####[facility] [address] [place] [address] Medical Director: Marques Espinoza MD GOT 21 unit/L Normal 15-37 [facility] Comment on above: Order Comment: Order ed on Fin# [id number] Performed By: #### 1 29604, 737356, 7446914 ####[facility] [address]xp[address]44[address] [place] [address] Medical Director: Marques Espinoza MD GPT 38 unit/L Normal 10-49 [facility] Comment on above: Order Comment: Order ed on Fin# [id number] Performed By: #### 1 62050, 555712, 2876710 ####[facility] [address]yl[address] [place] [address] Medical Director: Marques Espinoza MD Osmolality [Osmolality] 281 mosm/kg Normal 275-295 [facility] Comment on above: Order Comment: Order ed on Fin# [id number] Performed By: #### 1 32800, 278731, 3127808 ####[facility] [address]ll[address] [place] [address] Medical Director: Marques Espinoza MD Potassium [Moles/Vol] 4.7 mmol/L Normal 3.5-5.1 [facility] Comment on above: Order Comment: Order ed on Fin# [id number] Performed By: #### 1 76178, 738062, 5858564 ####[facility] [address]blpp[address]80 [place] [address] Medical Director: Marques Espinoza MD Protein [Mass/Vol] 7.3 g/dL Normal 5.7-8.2 [facility] Comment on above: Order Comment: Order ed on Fin# [id number] Result Comment: Tota l Protein results may be increased in patients receiving dextran as a blood volume cold water machine operator Performed By: #### 1 20637, 345977, 7830094 ####[facility] [address] [place] [address] Medical Director: Marques Espinoza MD Sodium [Moles/Vol] 140 mmol/L Normal 135-145 [facility] Comment on above: Order Comment: Order ed on Fin# [id number] Performed By: #### 1 62207, 675955, 9364347 ####[facility] [address] [place] [address] Medical Director: Marques Espinoza MD Urea nitrogen [Mass/Vol] 14 mg/dL Normal 9-23 [facility] Comment on above: Order Comment: Order ed on Fin# [id number] Result Comment: - Ve nipuncture should occur prior to N-Acetyl Cysteine (NAC) or Metamizole (Sulpyrine) administration due to the potential for falsely depressed results. - Blood samples from some patients with monoclonal gammopathies may produce falsely elevated results Performed By: #### 1 14355, 572344, 4006097 ####[facility] [address]te[address] [place] [address] Medical Director: Marques Espinoza MD Urea nitrogen/Creatinine [Mass ratio] 20.0 mg/mg Normal [facility] Comment on above: Order Comment: Order ed on Fin# [id number] Performed By: #### 1 48492, 319312, 6264472 ####[facility] [address] [place] [address] Medical Director: Marques Espinoza MD HEMOon 08-23-2023 DIFF? No Normal [facility] Comment on above: Performed By: #### 1 61473, 850214, 5172193 ####[facility] [address]funp[address] [place] [address] Medical Director: Marques Espinoza MD Erythrocyte distribution width (RBC) [Ratio] 13.6 % Normal 11.5-14.5 [facility] Comment on above: Performed By: #### 1 07488, 273621, 9952262 ####[facility] [address]mct74[address] [place] [address] Medical Director: Marques Espinoza MD Hematocrit (Bld) [Volume fraction] 36.2 % Normal 36.0-46.0 [facility] Comment on above: Performed By: #### 1 50306, 847826, 3689540 ####[facility] [address] [place] [address] Medical Director: Marques Espinoza MD Hemoglobin (Bld) [Mass/Vol] 12.4 g/dL Normal 12.0-16.0 [facility] Comment on above: Performed By: #### 1 90450, 817694, 2867706 ####[facility] [address] [place] [address] Medical Director: Marques Espinoza MD Instr WBC 10.3 Normal [facility] Comment on above: Performed By: #### 1 00070, 237198, 4999945 ####[facility] [address]ro[address] [place] [address] Medical Director: Marques Espinoza MD MCH (RBC) [Entitic mass] 29.8 pg Normal 27.0-34.0 [facility] Comment on above: Performed By: #### 1 74084, 785794, 5435762 ####[facility] [address]hm[address]85 [place] [address] Medical Director: Marques Espinoza MD MCHC (RBC) [Mass/Vol] 34.2 g/dL Normal 32.0-37.0 [facility] Comment on above: Performed By: #### 1 93927, 578146, 5048692 ####[facility] [address]fy[address]15 [place] [address] Medical Director: Marques Espinoza MD MCV (RBC) [Entitic vol] 87.2 fL Normal 80.0-100.0 [facility] Comment on above: Performed By: #### 1 51547, 246318, 6480841 ####[facility] [address] [place] [address] Medical Director: Marques Espinoza MD Nucleated RBC 0 /100WBC Normal [facility] Comment on above: Performed By: #### 1 09104, 235124, 6699078 ####[facility] [address] [place] [address] Medical Director: Marques Espinoza MD Platelet 364 x10 Normal 150-450 [facility] Comment on above: Performed By: #### 1 76154, 185488, 7779102 ####[facility] [address] [place] [address] Medical Director: Marques Espinoza MD Platelet mean volume (Bld) [Entitic vol] 8.2 fL Normal 7.4-10.4 [facility] Comment on above: Performed By: #### 1 38295, 667937, 2014787 ####[facility] [address] [place] [address] Medical Director: Marques Espinoza MD RBC 4.16 x10 Low 4.20-5.40 [facility] Comment on above: Result Comment: Note : RBC morphology is normal unless otherwise stated. Evaluation performed only if differential is requested. Performed By: #### 1 91466, 843290, 9533888 ####[facility] [address]wuuhg62813 [place] [address] Medical Director: Marques Espinoza MD WBC 10.3 x10 Normal 4.5-11.0 [facility] Comment on above: Performed By: #### 1 14948, 170605, 9924657 ####[facility] [address] [place] [address] Medical Director: MD TOMY Guo Bariatric Physician Prog ress Noteon 07-26-2023 TOMY Bariatric Physician Progress Note GINA MASTERSON :1990 Registration Date:07/26/2023 Chief Complaint NSWL History of Present Illness Gina is here for non-surgical weight loss follow-up. Today she weighs 313# BMI 76.63 She is on Metformin - She is on 500mg of Metformin XR BID. 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 Exercise: Gym. Walks the dogs when she can. Meal Preps B: Yemeni Muffin Egg Cheese. [place] Sausage L: D: Chicken Green Beans small portion of rice. If she snacks: pistachios, sunflower seeds, pretzels. Beverages: Sprite or Prince Coke. Last A1c 5.7% - June 2021 OARRS reviewed. Physical Exam Vitals & Measurements Systolic Blood Pressure: 131 mmHg (07/26/23 14:34:00) Diastolic Blood Pressure: 60 mmHg (07/26/23 14:34:00) Mean Arterial Pressure: 84 mmHg (07/26/23 14:34:00) BP Site2: Left arm (07/26/23 14:34:00) Height/Length Measured: 136 cm (07/26/23 14:34:00) Weight Measured: 142 kg (07/26/23 14:34:00) Body Mass Index Measured: 76.77 kg/m2 (07/26/23 14:34:00) Weight Measured - lbs2: 313 lb (07/26/23 14:34:00) Height/Length Measured - in2: 54 in (07/26/23 14:34:00) Body Mass Index Measured English2: 75.46 kg/m2 (07/26/23 14:34:00) BSA: 2.32 m2 (07/26/23 14:34:00) Ht/Wt Measurement Refused by Patient?2: No (07/26/23 14:34:00) Depression Screening Scores Initial Depression Screen Score: 0 (07/26/23 14:34:00) Fall Risk Assessment Is the patient ambulatory (mobile): Yes (07/26/23 14:34:00) Have you had a fall within the past: No (07/26/23 14:34:00) Have you had 2 or more falls in the past: No (07/26/23 14:34:00) General: Well developed, well nourished, in no acute distress. Abdomen: Soft, non-tender, obese Extremities: No calf tenderness. No pretibial edema. Psych: Alert and cooperative; normal mood and affect; normal attention span and concentration. Medication Reconciliation What How Much When Instructions New topiramate (topiramate 50 mg oral tablet) 1 Tabs Oral DAILY Duration: 30 Days Refills: 1 Pickup at [facility] Changed metFORMIN = Glucophage (MetFORMIN (Eqv-Glucophage XR) 500 mg oral tablet, extended release) See instructions Take 2 tablets in AM Take 1 tablet in PM Unchanged amphetamine-dextroampheta mine (Adderall 20 mg oral tablet) 1 Tabs Oral DAILY Unchanged ergocalciferol = Vitamin D (Vitamin D2 1.25 mg (50,000 intl units) oral capsule) 1 Capsules Oral WEDNESDAY Duration: 12 Weeks Unchanged losartan (losartan 50 mg oral tablet) 1 Tabs Oral DAILY Pharmacy Information [facility]: [address] [place], [place] [id number] [phone] Assessment/Plan This Visit Diagnosis 1. Morbid obesity E66.01 Complete bloodwork Continue to make healthy lifestyle changes. Healthy changes in eating habits need to be a life-long commitment. Your goal is to become a healthy person through eating healthy and lifestyle changes. Increase physical activity as able. Try to aim to do something physically active for 30 minutes every day. Diet changes help you lose weight. Exercise helps you keep it off and maintain weight lose. Follow-up in 28 days Ordered: AMB Office/Outpt Est Pt Mod MDM / 30-39 min [id number], 07/26/2023 16:05:00 EDT, Morbid obesity / Body mass index [BMI] 70 or greater, adult / Hypertension / Prediabetes CBCWD(CBC WITH DIFF), ROUTINE, 07/26/2023, Order for future visit, Dx: Morbid obesity / Body mass index [BMI] 70 or greater, adult / Hypertension / Prediabetes INSULIN LEVEL, ROUTINE, 07/26/2023, Dx: Morbid obesity / Body mass index [BMI] 70 or greater, adult / Hypertension / Prediabetes 2. Body mass index [BMI] 70 or greater, adult Z68.45 BMI 76.63 Increase Topiramate to 50mg daily. The risks of obesity were discussed with the patient. Individuals with obesity are more likely to develop a number of potentially serious health problems including; heart disease, strokes, high blood pressure, abnormal cholesterol, sleep apnea, or type 2 diabetes. Interested in bariatric surgery - will do benefit checks. Ordered: AMB Office/Outpt Est Pt Mod MDM / 30-39 min [id number], 07/26/2023 16:05:00 EDT, Morbid obesity / Body mass index [BMI] 70 or greater, adult / Hypertension / Prediabetes CBCWD(CBC WITH DIFF), ROUTINE, 07/26/2023, Order for future visit, Dx: Morbid obesity / Body mass index [BMI] 70 or greater, adult / Hypertension / Prediabetes INSULIN LEVEL, ROUTINE, 07/26/2023, Dx: Morbid obesity / Body mass index [BMI] 70 or greater, adult / Hypertension / Prediabetes 3. Hypertension I10 Controlled. Ordered: AMB Office/Outpt Est Pt Mod MDM / 30-39 min [id number], 07/26/2023 16:05:00 EDT, Morbid obesity / Body mass index [BMI] 70 or greater, adult / Hypertension / Prediabetes CBCWD(CBC WITH DIFF), ROUTINE, 07/26/2023, Order for future visit, Dx: Morbid obesity / Body mass index [BMI] 70 or greater, adult / Hypertension / Prediabetes INSULIN LEVEL, ROUTINE, 07/26/2023, Dx: M (more content not included)... Normal [facility] Comprehensive Intake - Baria tric - Texton 07-26-2023 Comprehensive Intake - Bariatric - Text Comprehensive Intake - Bariatric Entered On: 07/26/2023 14:38 EDT Performed On: 07/26/2023 14:34 EDT by Lynette Ahn MA Summary Chief Complaint : NSWL Bladder Control Issues? : No Urine Leakage? : No Presence or absence of urinary incontinence assessed : Yes CPT-II Medication list doc'd in medical record : Yes Influenza immunization administered or previously received : No Pneumococcal vaccine administered or previously received : No Lynette Ahn MA - 07/26/2023 14:34 EDT Measurements - Bariatrics Ht/Wt Measurement Refused by Patient? : No Weight Measured : 142 kg(Converted to: 313 lb 1 oz, 313.056 lb) Height/Length Measured : 136 cm(Converted to: 4 ft 6 in, 53.54 in) Body Mass Index Measured : 76.77 kg/m2 Body Mass Index documented : Yes Weight Measured - lbs : 313 lb(Converted to: 313 lb 0 oz, 142 kg) Height/Length Measured - in : 54 in(Converted to: 4 ft 6 in, 137 cm) Body Mass Index Measured Yemeni : 75.46 kg/m2 BSA Yemeni : 2.32 m2 [place] Body Weight : 30.65 kg Lynette Ahn MA - 07/26/2023 14:34 EDT Vitals Require BP : Yes Systolic Blood Pressure : 131 mmHg Diastolic Blood Pressure : 60 mmHg Mean Arterial Pressure : 84 mmHg BP Site : Left arm Last Systolic BP : 130-139 mmHg Last Diastolic BP : less than 80 mmHg Pain Present : No actual or suspected pain Pain : 0 Pain severity quantified : No pain present Lynette Ahn MA - 07/26/2023 14:34 EDT Infection Screening - Ambulatory Exposure AND/OR close contact with a person under investigation or laboratory-confirmed COVID-19 individual within 14 days of symptom onset AND/OR any of the following: : No Do you live/work in a high risk situation (congregated living, hemodialysis, infusion clinic, longterm, assisted living, fdc, homeless residential, etc.)? : No Lynette Ahn MA - 07/26/2023 14:34 EDT Depression Screening Is patient currently : None of the Below Feeling Down, Depressed, Hopeless : Not at all Little Interest - Pleasure in Activities : Not at all Initial Depression Screen Score : 0 Depression Screening Score 0 : No Lynette Ahn MA - 07/26/2023 14:34 EDT Falls Risk Assessment Is the patient ambulatory (mobile) : Yes Have you had 2 or more falls in the past year : No Have you had a fall within the past year that has caused an injury : No Patient screen for fall risk : no falls in last year OR 1 fall with no injury in last year Kevin Ahn MAine - 07/26/2023 14:34 EDT Normal [facility] Progress Noteson 07-16-2023 Hr Clerk Authentication Interface Message Text Unsuccessful telephone @ 2:05pm TELEMEDICINE VISIT - FOLLOW-UP This visit was performed via interactive telehealth. This visit was initiated by the patient and the patient and provider interacted in real time. Location of the patient: Home of patient Location of the provider: [facility] [address] [place] [phone] MEDICATIONS: Current Outpatient Medications Medication Sig Dispense Refill amphet-dextroamphet (Adderall) 20 MG tablet Take 1 Tablet by mouth daily for 30 days. 30 Tablet 0 ondansetron (ZOFRAN-ODT) 4 MG disintegrating tablet Take 4 mg by mouth. ketorolac (TORADOL) 10 MG tablet Take 1 Tablet by mouth every 6 hours as needed. losartan (COZAAR) 50 MG tablet Take 1 Tablet by mouth daily. 90 Tablet 3 fluoxetine (PROZAC) 20 MG capsule Take 1 Capsule by mouth daily. 90 Capsule 3 cyclobenzaprine (FLEXERIL) 10 MG tablet norgestimate-ethinyl estradiol (PRAVIFEM- ORTHO/CYCLEN) 0.25-35 MG-MCG tablet Take 1 Tablet by mouth daily. 30 Tablet 11 No current facility-administered medications for this visit. Appetite: Good Fever: denies Chills: denies Nausea: denies Vomiting: denies Diarrhea: denies Bowel Status: bowel movement QD PHYSICAL EXAM Physical findings attained by report and telemedicine visualization Covid-19 Telephone Encounter: Because of the recent pandemic of Covid-19 we are minimizing potential exposure of patients by making telephone calls to scheduled patients. I have determined, based on history and conversation, that this patient's in person visit can be postponed until the pandemic has subsided. Through shared decision making, the patient concurs with this course of action Gina was seen today for telephone counseling and other issues and refill. Pt needs refill of her Adderall doing great on med no acute complaint. Concentration, focus etc are good. Diagnoses and all orders for this visit: Attention deficit hyperactivity disorder (ADHD), predominantly inattentive type- stable refills OAARS reviewed. - amphet-dextroamphet (Adderall) 20 MG tablet; Take 1 Tablet by mouth daily for 30 days. - amphet-dextroamphet (Adderall) 20 MG tablet; Take 1 Tablet by mouth daily for 30 days. - amphet-dextroamphet (Adderall) 20 MG tablet; Take 1 Tablet by mouth daily for 30 days. Follow up: 3 months in person Phone numbers Documentation: Mode: Telephone Patient Patient Work Phone: Patient Cell Preferred phone: [phone] Consent: I confirmed patient understanding of the risks and benefits of telehealth visits and obtained consent to proceed with the telehealth visit. Location of Patient: Home of patient This visit has been rescheduled as a phone visit to comply with patient safety concerns in accordance with CDC recommendations. Total Time Spent with Patient which also includes pre-charting and post chartin minutes, of which greater than 50% was spent on counseling or coordinating care. Yash Melendez PA-C Normal [facility] Phone Msgon 07-12-2023 Phone Msg Entered by TANNER WIGGINS CNP on July 12, 2023 15:27:12 EDT From: TANNER WIGGINS CNP To: [facility] Sent: 07/12/2023 15:27:12 EDT Subject: Medication Management Submitted: Complete:metFORMIN = Glucophage (MetFORMIN (Eqv-Glucophage XR) 500 mg oral tablet, extended release) Signed by TANNER WIGGINS CNP 07/12/2023 15:27:00 EDT Approved metFORMIN = Glucophage (metformin ER 500 mg tablet,extended release 24 hr) TAKE 1 TABLET BY MOUTH TWICE DAILY FOR 30 DAYS Qty: 60 tabs Days Supply: 30 Refills: 0 Substitutions Allowed Route To Pharmacy - [facility] From: [facility] To: TANNER WIGGINS CNP Sent: July 12, 2023 11:05:00 AM EDT Subject: Medication Management Due: May 12, 2023 10:30:49 AM EDT On Hold Pending Signature Drug: metFORMIN = Glucophage (MetFORMIN (Eqv-Glucophage XR) 500 mg oral tablet, extended release), 1 tabs ORAL BID,x30 days Quantity: 60 tabs Days Supply: 0 Refills: 0 Substitutions Allowed Notes from Pharmacy: Dispensed Drug: metFORMIN = Glucophage (MetFORMIN (Eqv-Glucophage XR) 500 mg oral tablet, extended release), TAKE 1 TABLET BY MOUTH TWICE DAILY FOR 30 DAYS Quantity: 60 tabs Days Supply: 30 Refills: 0 Substitutions Allowed Notes from Pharmacy: Normal [facility] INSULIN LEVELon 06-24-2023 Insulin, fasting 156 High 3-25 [facility] Comment on above: Order Comment: Order ed on Fin# [id number] Result Comment: INTE RPRETIVE INFORMATION: Insulin, Fasting This test reacts on a nearly equimolar basis with the analogs insulin aspart, insulin glargine, and insulin lispro. Insulin detemir exhibits approximately 50 percent cross-reactivity. Test reactivity with insulin glulisine is negligible (less than 3 percent). To convert to pmol/L, multiply uIU/mL by 6.0. Performed By: [facility] [address] [place] [address] Laminator Hand: Stephen Adam MD, PhD CLIA Number: [id number] Performed By: #### 9 [id number] #### [facility] [address] [place] [address] Cap Maker: Marques Espinoza MD FT3on 06-23-2023 Free T3 [Mass/Vol] 3.3 pg/mL Normal 2.3-4.2 [facility] Comment on above: Performed By: #### 4 692989, 706291 #### [facility] [address] [place] [address] Cap Maker: Marques Espinoza MD FT4on 06-23-2023 Free T4 [Mass/Vol] 0.93 ng/dL Normal 0.89-1.76 [facility] Comment on above: Result Comment: - Th e anticonvulsant drug phenytoin may interfere with total and free T4 levels due to competition for TBG binding sites - Free T4 values may be decreased in patients with non-thyroidal conditions and in patients taking carbamazepine Performed By: #### 4 666186, 138209 #### [facility] [address] [place], [place] [address] Cap Maker: Marques Espinoza MD AUTO DIFFon 06-21-2023 Baso Count 0.08 x1000 Normal 0.00-0.20 [facility] Comment on above: Performed By: #### 1 37732, 3932778, 526645, 387443, 373212, 622763, 3848130, 3218677, 061880 #### [facility] [address] [place], [place] [address] Cap Maker: Marques Espinoza MD Basos % 0.7 % Normal [facility] Comment on above: Performed By: #### 1 07527, 5875695, 301742, 530414, 744547, 597266, 5156619, 9908664, 359749 #### [facility] [address] [place], [place] [address] Cap Maker: Marques Espinoza MD Eos Count 0.16 x1000 Normal 0.00-0.50 [facility] Comment on above: Performed By: #### 1 48736, 4333431, 582733, 867461, 216390, 251885, 3013139, 5471660, 704919 #### [facility] [address] [place], [place] [address] Cap Maker: Marques Espinoza MD Eosinophils/100 WBC (Bld) 1.4 % Normal [facility] Comment on above: Performed By: #### 1 76221, 3940254, 183070, 513948, 571586, 833185, 4305775, 4766610, 268946 #### [facility] [address] [place] [address] Cap Maker: Marques Espinoza MD Lymph Count 3.22 x1000 Normal 1.20-4.80 [facility] Comment on above: Performed By: #### 1 46803, 3101178, 573974, 931435, 960928, 356670, 7704555, 5887937, 768099 #### [facility] [address] [place] [address] Cap Maker: Marques Espinoza MD Lymphocytes/100 WBC (Bld) 28.0 % Normal [facility] Comment on above: Performed By: #### 1 13414, 2341581, 548091, 564163, 773841, 661993, 7125474, 9739540, 636742 #### [facility] [address] [place] [address] Cap Maker: Marques Espinoza MD Morris Count 0.67 x1000 Normal 0.10-1.00 [facility] Comment on above: Performed By: #### 1 79957, 0078578, 477611, 819897, 912509, 787483, 5686925, 6318269, 310350 #### [facility] [address] [place] [address] Cap Maker: Marques Espinoza MD Monocytes/100 WBC (Bld) 5.8 % Normal [facility] Comment on above: Performed By: #### 1 27390, 5007749, 968891, 431178, 561254, 014026, 7250025, 8890102, 233535 #### [facility] [address] [place] [address] Cap Maker: Marques Espinoza MD Neutrophil Count (ANC) 7.35 x1000 Normal 1.40-8.80 [facility] Comment on above: Performed By: #### 1 54929, 2572354, 942681, 274170, 095233, 462653, 1217493, 0304321, 888694 #### [facility] [address], [place] [address] Cap Maker: Marques Espinoza MD Neutrophils/100 WBC (Bld) 64.0 % Normal [facility] Comment on above: Performed By: #### 1 89215, 3688416, 557046, 941077, 292987, 671124, 9435768, 3935099, 198224 #### [facility] [address] [place] [address] Cap Maker: Marques Espinoza MD COMPMETAoирина 06-21-2023 Albumin [Mass/Vol] 3.6 g/dL Normal 3.4-5.0 [facility] Comment on above: Order Comment: Order ed on Fin# [id number] Performed By: #### 1 42984, 4050317, 682808, 694846, 143317, 332833, 3025656, 7853035, 979736 #### [facility] [address] [place] [address] Cap Maker: Marques Espinoza MD Albumin/Globulin [Mass ratio] 1.1 {ratio} Normal [facility] Comment on above: Order Comment: Order ed on Fin# [id number] Performed By: #### 1 72927, 3454610, 406216, 630845, 132660, 103679, 4934846, 6568002, 114288 #### [facility] [address] [place] [address] Cap Maker: Marques Espinoza MD Alk Phos 71 unit/L Normal 46-116 [facility] Comment on above: Order Comment: Order ed on Fin# [id number] Performed By: #### 1 91752, 3124772, 211426, 539687, 059740, 691910, 5795986, 1912568, 520931 #### [facility] [address] [place] [address] Cap Maker: Marques Espinoza MD Bilirubin [Mass/Vol] 0.20 mg/dL Normal 0.20-1.00 [facility] Comment on above: Order Comment: Order ed on Fin# [id number] Result Comment: Use of this assay is not recommended for patients undergoing treatment with eltrombopag due to the potential for falsely elevated results. Performed By: #### 1 51005, 6354486, 400565, 628109, 940842, 823745, 6259989, 4679791, 888908 #### [facility] [address] [place] [address] Cap Maker: Marques Espinoza MD Calcium [Mass/Vol] 9.4 mg/dL Normal 8.7-10.4 [facility] Comment on above: Order Comment: Order ed on Fin# [id number] Performed By: #### 1 54892, 8822290, 013059, 267716, 168095, 301710, 7726075, 6929598, 601564 #### [facility] [address] [place] [address] Cap Maker: Marques Espinoza MD Chloride [Moles/Vol] 106 mmol/L Normal 98-107 [facility] Comment on above: Order Comment: Order ed on Fin# [id number] Performed By: #### 1 94600, 5022339, 912337, 790241, 712886, 564794, 6426173, 2223016, 824031 #### [facility] [address] [place] [address] Cap Maker: Marques Espinoza MD CO2 [Moles/Vol] 28.0 mmol/L Normal 20.0-31.0 [facility] Comment on above: Order Comment: Order ed on Fin# [id number] Performed By: #### 1 82183, 8698786, 586698, 173630, 183631, 038160, 9207536, 6457424, 016613 #### [facility] [address] [place] [address] Cap Maker: Marques Espinoza MD Creatinine [Mass/Vol] 0.6 mg/dL Normal 0.5-0.8 [facility] Comment on above: Order Comment: Order ed on Fin# [id number] Performed By: #### 1 38495, 1730660, 018104, 151439, 543847, 688460, 4681048, 4248317, 842159 #### [facility] [address] [place] [address] Cap Maker: Marques Espinoza MD GFR AA >60 Normal [facility] Comment on above: Order Comment: Order ed on Fin# [id number] Result Comment: Afri can Bangladeshi GFR Calc Medical judgement is necessary to interpret GFR. The calculated GFR may not accurately reflect renal status in patients >70 years, women, acutely ill hospitalized patients and patients with acute renal failure or known renal disease. The MDRD GFR formula is valid only for adults greater than 18 years of age. Note: Creatinine clearance (not GFR) should be used for drug dosing. Performed By: #### 1 14848, 3688124, 463683, 935345, 743432, 023358, 2043104, 3941413, 585996 #### [facility] [address] [place] [address] Cap Maker: Marques Espinoza MD Globulin (S) [Mass/Vol] 3.2 g/dL Normal [facility] Comment on above: Order Comment: Order ed on Fin# [id number] Performed By: #### 1 14146, 5775782, 807788, 930153, 259023, 810440, 7428922, 6257027, 697676 #### [facility] [address] [place] [address] Cap Maker: Marques Espinoza MD Glomerular Filtration Rate >60 Normal [facility] Comment on above: Order Comment: Order ed on Fin# [id number] Result Comment: Non- GFR Calc Medical judgement is necessary to interpret GFR. The calculated GFR may not accurately reflect renal status in patients >70 years, women, acutely ill hospitalized patients and patients with acute renal failure or known renal disease. The MDRD GFR formula is valid only for adults greater than 18 years of age. Note: Creatinine clearance (not GFR) should be used for drug dosing. Performed By: #### 1 51572, 7649316, 080428, 554424, 226170, 503486, 1980007, 6607647, 901795 #### [facility] [address] [place] [address] Cap Maker: Marques Espinoza MD Glucose [Mass/Vol] 125 mg/dL High 74-106 [facility] Comment on above: Order Comment: Order ed on Fin# [id number] Performed By: #### 1 19122, 6021776, 270797, 961577, 659797, 077030, 5842140, 4188138, 370216 #### [facility] [address] [place] [address] Cap Maker: Marques Espinoza MD GOT 16 unit/L Normal 15-37 [facility] Comment on above: Order Comment: Order ed on Fin# [id number] Performed By: #### 1 68656, 8513924, 293380, 119291, 019252, 597458, 8850691, 9284091, 794707 #### [facility] [address] [place] [address] Cap Maker: Marques Espinoza MD GPT 28 unit/L Normal 10-49 [facility] Comment on above: Order Comment: Order ed on Fin# [id number] Performed By: #### 1 99807, 6805958, 236748, 059993, 767415, 403745, 7751161, 0067501, 440341 #### [facility] [address] [place] [address] Cap Maker: Marques Espinoza MD Osmolality [Osmolality] 283 mosm/kg Normal 275-295 [facility] Comment on above: Order Comment: Order ed on Fin# [id number] Performed By: #### 1 04904, 3987908, 272870, 737375, 494150, 065172, 1899397, 6216817, 570108 #### [facility] [address] [place] [address] Cap Maker: Marques Espinoza MD Potassium [Moles/Vol] 4.4 mmol/L Normal 3.5-5.1 [facility] Comment on above: Order Comment: Order ed on Fin# [id number] Result Comment: Spec imen slightly hemolyzed. Results may be affected. Performed By: #### 1 77982, 4833781, 094234, 449701, 554503, 937361, 4911493, 7571771, 673126 #### [facility] [address] [place] [address] Cap Maker: Marques Espinoza MD Protein [Mass/Vol] 6.8 g/dL Normal 5.7-8.2 [facility] Comment on above: Order Comment: Order ed on Fin# [id number] Result Comment: Tota l Protein results may be increased in patients receiving dextran as a blood volume cold water machine operator Performed By: #### 1 86889, 2013470, 192941, 825559, 310121, 507755, 1403501, 7482869, 615892 #### [facility] [address] [place] [address] Cap Maker: Marques Espinoza MD Sodium [Moles/Vol] 141 mmol/L Normal 135-145 [facility] Comment on above: Order Comment: Order ed on Fin# [id number] Performed By: #### 1 70761, 8816659, 702351, 382712, 308395, 365968, 8106927, 5511851, 345135 #### [facility] [address] [place] [id number] Cap Maker: Marques Espinoza MD Urea nitrogen [Mass/Vol] 13 mg/dL Normal 9-23 [facility] Comment on above: Order Comment: Order ed on Fin# [id number] Result Comment: - Ve nipuncture should occur prior to N-Acetyl Cysteine (NAC) or Metamizole (Sulpyrine) administration due to the potential for falsely depressed results. - Blood samples from some patients with monoclonal gammopathies may produce falsely elevated results Performed By: #### 1 37411, 6691630, 778250, 772326, 463045, 759740, 2106872, 8216757, 241530 #### [facility] [address] [place], [place] [address] Cap Maker: Marques Espinoza MD Urea nitrogen/Creatinine [Mass ratio] 21.7 mg/mg Normal [facility] Comment on above: Order Comment: Order ed on Fin# [id number] Performed By: #### 1 48755, 9917718, 687010, 040504, 465392, 304304, 8966934, 0338283, 719609 #### [facility] [address] [place], [place] [address] Cap Maker: Marques Espinoza MD Comprehensive Intake - Baria tric - Texton 06-21-2023 Comprehensive Intake - Bariatric - Text Comprehensive Intake - Bariatric Entered On: 06/21/2023 13:40 EDT Performed On: 06/21/2023 13:35 EDT by Lynette Ahn MA Summary Chief Complaint : NSWL inital consult Bladder Control Issues? : No Urine Leakage? : No Presence or absence of urinary incontinence assessed : Yes CPT-II Medication list doc'd in medical record : Yes Influenza immunization administered or previously received : No Pneumococcal vaccine administered or previously received : No Lynette Ahn MA - 06/21/2023 13:35 EDT Measurements - Bariatrics Ht/Wt Measurement Refused by Patient? : No Weight Measured : 142 kg(Converted to: 313 lb 1 oz, 313.056 lb) Height/Length Measured : 136 cm(Converted to: 4 ft 6 in, 53.54 in) Body Mass Index Measured : 76.77 kg/m2 Body Mass Index documented : Yes Weight Measured - lbs : 312 lb(Converted to: 312 lb 0 oz, 142 kg) Height/Length Measured - in : 53.5 in(Converted to: 4 ft 6 in, 136 cm) Body Mass Index Measured Yemeni : 76.63 kg/m2 BSA Yemeni : 2.31 m2 [place] Body Weight : 30.65 kg Lynette Ahn MA - 06/21/2023 13:35 EDT Vitals Require BP : Yes Systolic Blood Pressure : 140 mmHg Diastolic Blood Pressure : 60 mmHg Mean Arterial Pressure : 87 mmHg Pulse Rate : 78 bpm BP Site : Left arm Last Systolic BP : greater than or equal to 140 mmHg Last Diastolic BP : less than 80 mmHg Pain Present : No actual or suspected pain Pain : 6 Pain severity quantified : No pain present Primary Pain Comments : emg for carpal tunnel Lynette Ahn MA - 06/21/2023 13:35 EDT Infection Screening - Ambulatory Exposure AND/OR close contact with a person under investigation or laboratory-confirmed COVID-19 individual within 14 days of symptom onset AND/OR any of the following: : No Do you live/work in a high risk situation (congregated living, hemodialysis, infusion clinic, longterm, assisted living, fdc, homeless residential, etc.)? : No Lynette Ahn MA - 06/21/2023 13:35 EDT Depression Screening Is patient currently : None of the Below Feeling Down, Depressed, Hopeless : Not at all Little Interest - Pleasure in Activities : Not at all Initial Depression Screen Score : 0 Depression Screening Score 0 : No Lynette Ahn MA - 06/21/2023 13:35 EDT Falls Risk Assessment Is the patient ambulatory (mobile) : Yes Have you had 2 or more falls in the past year : No Have you had a fall within the past year that has caused an injury : No Patient screen for fall risk : no falls in last year OR 1 fall with no injury in last year Lynette Ahn MA - 06/21/2023 13:35 EDT Normal [facility] EMGon 06-21-2023 [facility] Radiology Study observation (narrative) [facility] FERRITINon 06-21-2023 Ferritin [Mass/Vol] 71 ng/mL Normal 10-291 [facility] Comment on above: Order Comment: Order ed on Fin# [id number] Result Comment: Seru m ferritin values are elevated in the presence of the following conditions and do not reflect actual body iron stores: - Inflammation - Significant tissue destruction - Liver disease - Malignancies such as acute leukemia and Hodgkin?s disease - Therapy with iron supplements Performed By: #### 1 88439, 2237469, 248513, 677579, 884763, 959709, 2916330, 1746579, 412685 ####[facility] [id number] [place] [address] Medical Director: Marques Espinoza MD HEMOon 06-21-2023 DIFF? No Normal [facility] Comment on above: Performed By: #### 1 73936, 7829202, 064783, 796576, 248639, 610872, 9880541, 6713410, 735438 #### [facility] [address] [place] [address] Cap Maker: Marques Espinoza MD Erythrocyte distribution width (RBC) [Ratio] 13.1 % Normal 11.5-14.5 [facility] Comment on above: Performed By: #### 1 09886, 1781206, 682440, 346878, 891226, 085355, 1831200, 5278283, 149594 #### [facility] [address] [place] [address] Cap Maker: Marques Espinoza MD Hematocrit (Bld) [Volume fraction] 36.0 % Normal 36.0-46.0 [facility] Comment on above: Performed By: #### 1 42655, 6732735, 255000, 818185, 407618, 718279, 2938513, 9267497, 806423 #### [facility] [address] [place] [address] Cap Maker: Marques Espinoza MD Hemoglobin (Bld) [Mass/Vol] 12.1 g/dL Normal 12.0-16.0 [facility] Comment on above: Performed By: #### 1 28591, 9852437, 231110, 702751, 668751, 883014, 6126923, 2702234, 161894 #### [facility] [address] [place], [place] [address] Cap Maker: Marques Espinoza MD Instr WBC 11.5 Normal [facility] Comment on above: Performed By: #### 1 59324, 7248122, 418502, 837903, 874889, 199476, 9342345, 1895587, 870999 #### [facility] [address] [place], [place] [address] Cap Maker: Marques Espinoza MD MCH (RBC) [Entitic mass] 29.2 pg Normal 27.0-34.0 [facility] Comment on above: Performed By: #### 1 66507, 6087089, 756375, 882960, 515484, 290734, 6081352, 0910686, 621104 #### [facility] [address] [place], [place] [address] Cap Maker: Marques Espinoza MD MCHC (RBC) [Mass/Vol] 33.6 g/dL Normal 32.0-37.0 [facility] Comment on above: Performed By: #### 1 17029, 0897226, 414896, 006218, 382683, 383026, 7322186, 9739637, 745597 #### [facility] [address] [place], [place] [address] Cap Maker: Marques Espinoza MD MCV (RBC) [Entitic vol] 87.0 fL Normal 80.0-100.0 [facility] Comment on above: Performed By: #### 1 72150, 3251841, 879515, 223288, 133167, 481357, 2299587, 2666317, 087891 #### [facility] [address] [place] [address] Cap Maker: Marques Espinoza MD Nucleated RBC 0 /100WBC Normal [facility] Comment on above: Performed By: #### 1 40546, 2406749, 544594, 474209, 039604, 218513, 1122452, 1300875, 428246 #### [facility] [address] [place] [address] Cap Maker: Marques Espinoza MD Platelet 379 x10 Normal 150-450 [facility] Comment on above: Performed By: #### 1 18498, 7986044, 192364, 726045, 324394, 927951, 9239746, 0300095, 669271 #### [facility] [address] [place] [address] Cap Maker: Marques Espinoza MD Platelet mean volume (Bld) [Entitic vol] 8.5 fL Normal 7.4-10.4 [facility] Comment on above: Performed By: #### 1 59186, 3009500, 491196, 051973, 131690, 565404, 7698244, 8734414, 075340 #### [facility] [address] [place] [address] Cap Maker: Marques Espinoza MD RBC 4.14 x10 Low 4.20-5.40 [facility] Comment on above: Result Comment: Note : RBC morphology is normal unless otherwise stated. Evaluation performed only if differential is requested. Performed By: #### 1 28871, 2994800, 703792, 746676, 303819, 016615, 2941751, 8247325, 231161 #### [facility] [address] [place] [address] Cap Maker: Marques Espinoza MD WBC 11.5 x10 High 4.5-11.0 [facility] Comment on above: Performed By: #### 1 84643, 8890441, 092587, 981704, 359497, 889335, 1453193, 6579170, 376876 #### [facility] [address] [place] [address] Cap Maker: Marques Espinoza MD HGB A1Con 06-21-2023 HbA1c (Bld) [Mass fraction] 5.7 % Normal [facility] Comment on above: Order Comment: Order ed on Fin# [id number] Result Comment: Refe rence Range: Diabetic Greater than or equal to 6.5 % Prediabetic 5.7?6.4 % Normal Less than 5.7 % Performed By: #### 1 12319 ####[facility] [id number] [place], [place] [id number] Medical Director: Marques Espinoza MD IRON GROUPon 06-21-2023 Iron [Mass/Vol] 57 ug/dL Normal 40-170 [facility] Comment on above: Order Comment: Order ed on [facility]# [id number] Result Comment: Resu lts may be inaccurate if performed within 14 days of IV iron dextran administration. Performed By: #### 1 85976, 4672426, 117435, 700574, 756537, 551565, 0176071, 3520264, 757620 #### [facility] [address] [place] [address] Cap Maker: Marques Espinoza MD Saturation 18.8 % Low 20.0-50.0 [facility] Comment on above: Order Comment: Order ed on [facility]# [id number] Performed By: #### 1 93781, 7199561, 816843, 131762, 235741, 633363, 6116935, 1999962, 832076 #### [facility] [address] [place] [address] Cap Maker: Marques Espinoza MD TIBC 304 ug/ml Normal 250-425 [facility] Comment on above: Order Comment: Order ed on [facility]# [id number] Result Comment: Resu lts may be inaccurate if performed within 14 days of IV iron dextran administration. Performed By: #### 1 35699, 3717694, 009881, 434867, 880573, 859907, 1838037, 7041794, 070142 #### [facility] [address] [place] [address] Cap Maker: Marques Espinoza MD LIPID PNLon 06-21-2023 Calculated LDL Cholesterol 95 mg/dL Normal 60-130 [facility] Comment on above: Order Comment: Order ed on Fin# [id number] Result Comment: <100 mg/dl Optimal 100-129 mg/dl Near Optimal 130-159 mg/dl Borderline High 160-189 mg/dl High >=190 mg/dl Very High Performed By: #### 1 69922, 4471550, 187061, 347131, 401220, 257692, 7609088, 2150324, 243118 #### [facility] [facility] [address] [place] [address] Cap Maker: Marques Espinoza MD Cholesterol [Mass/Vol] 200 mg/dL Normal 100-200 [facility] Comment on above: Order Comment: Order ed on Fin# [id number] Result Comment: Mechelle puncture should occur prior to N-Acetyl Cysteine (NAC) or Metamizole (Sulpyrine) administration due to the potential for falsely depressed results. Performed By: #### 1 18045, [id number], 257032, 675235, 057642, 705655, 7519134, 7331937, 546339 #### [facility] [address] [place] [address] Cap Maker: Marques Espinoza MD Cholesterol in HDL [Mass/Vol] 44 mg/dL Normal 40-60 [facility] Comment on above: Order Comment: Order ed on Fin# [id number] Result Comment: Dire ct HDL Venipuncture should occur prior to metamizole (sulpyrine) administration due to the potential for falsely depressed results Performed By: #### 1 14531, [id number], 805922, 164287, 372399, 541740, 7291657, 5927546, 645886 #### [facility] [address] [place] [address] Cap Maker: Marques Espinoza MD Total Chol/HDL Chol Ratio 4.5 Normal [facility] Comment on above: Order Comment: Order ed on Fin# [id number] Performed By: #### 1 46775, 0178498, 989500, 136437, 649327, 602331, 9271292, 6145009, 859338 #### [facility] [address] [place] [address] Cap Maker: Marques Espinoza MD Triglyceride [Mass/Vol] 305 mg/dL High 30-150 [facility] Comment on above: Order Comment: Order ed on Fin# [id number] Result Comment: - Ve nipuncture should occur prior to N-Acetyl Cysteine (NAC) or Metamizole (Sulpyrine) administration due to the potential for falsely depressed results - Use of this assay is not recommended for patients being treated with etamsylate because it causes falsely decreased results Performed By: #### 1 10024, 7351891, 105490, 773869, 675716, 948754, 8057456, 4924398, 767010 #### [facility] [address] [place] [address] Cap Maker: Marques Espinoza MD TSHon 06-21-2023 TSH Qn 0.55 m[IU]/L Normal 0.55-4.78 [facility] Comment on above: Order Comment: Order ed on Fin# [id number] Result Comment: - Do not use samples that contain fluorescein. Fluorescein levels > 0.24 ?g/mL may decrease results in this assay - Patients undergoing retinal fluorescein angiography can retain amounts of fluorescein in the body for up to 48?72 hours post-treatment. Such samples can produce falsely depressed values when tested with this assay, and should not be tested Performed By: #### 1 03544, 4469715, 163758, 514013, 604650, 244686, 9882584, 1415248, 073405 ####[facility] [address] [place] [address] Medical Director: Marques Espinoza MD VIT B12 LEVELon 06-21-2023 Cobalamin (Vitamin B12) [Mass/Vol] 622 pg/mL Normal 211-911 [facility] Comment on above: Order Comment: Order ed on Fin# [id number] Performed By: #### 1 31427, 9347051, 140650, 932061, 864343, 734213, 5870755, 6635213, 921982 ####[facility] [address] [place], [place] [id number] Medical Director: Marques Espinoza MD VIT D 25 LEVELon 06-21-2023 Vit D 25 20 ng/mL Normal [facility] Comment on above: Order Comment: Order ed on Fin# [id number] Result Comment: Less than 20 ng/mL Deficient 20 ? 30 ng/mL Insufficient 30 ? 100 ng/mL Sufficiency Greater than 100 ng/mL Potential Toxicity Performed By: #### 1 60943, 7877393, 187733, 916167, 461877, 879507, 9990665, 8969525, 370137 ####[facility] [address] [place] [address] Medical Director: Marques Espinoza MD Progress Noteson 04-16-2023 Hr Clerk Authentication Interface Message Text History provided by: Patient Refill Chief Complaint Patient presents with Refill PCP is Yash Melendez PA-C Patient Active Problem List: Attention deficit hyperactivity disorder (ADHD) [F90.9] Morbid obesity (HCC) [E66.01] Hematochezia [K92.1] Calculus of gallbladder without cholecystitis without obstruction [K80.20] Vitals Recorded in This Encounter 04/16/2023 0852 BP: 136/84 Pulse: 90 Resp: 16 Temp: 98 ???F (36.7 ???C) Temp src: Temporal SpO2: 100 % Pain Score: 0 Health Maintenance Topic Date Due COVID-19 Vaccine (1) Never done Pap Smear 11/07/2019 Hemoglobin A1C 07/07/2022 Basic Metabolic Panel 07/07/2022 Tetanus (Td or Tdap) Booster 10/31/2028 Shingles (RZV) Vaccine (1 of 2) 2041 Hepatitis C Antibody Completed HIV Test Completed Human Papilloma (HPV) Vaccine Completed Tdap Booster Completed Pneumococcal Vaccine(s) Aged Out Mammography Discontinued Current Outpatient Medications Medication Sig Dispense Refill ondansetron (ZOFRAN-ODT) 4 MG disintegrating tablet Take 4 mg by mouth. ketorolac (TORADOL) 10 MG tablet Take 1 Tablet by mouth every 6 hours as needed. amphet-dextroamphet (Adderall) 20 MG tablet Take 1 Tablet by mouth daily for 30 days. 30 Tablet 0 losartan (COZAAR) 50 MG tablet Take 1 Tablet by mouth daily. 90 Tablet 3 fluoxetine (PROZAC) 20 MG capsule Take 1 Capsule by mouth daily. 90 Capsule 3 cyclobenzaprine (FLEXERIL) 10 MG tablet norgestimate-ethinyl estradiol (PRAVIFEM- ORTHO/CYCLEN) 0.25-35 MG-MCG tablet Take 1 Tablet by mouth daily. 30 Tablet 11 No current facility-administered medications for this visit. Physical Exam Vitals reviewed. Constitutional: Appearance: Normal appearance. Cardiovascular: Rate and Rhythm: Normal rate and regular rhythm. Pulmonary: Effort: Pulmonary effort is normal. Breath sounds: Normal breath sounds. Neurological: General: No focal deficit present. Mental Status: She is alert and oriented to person, place, and time. Psychiatric: Mood and Affect: Mood normal. Behavior: Behavior normal. Assessment Gina was seen today for refill. Pt here for her ADHD med refills and a Urine and to sign Non-Opoid agreement. States med helps with focus and concentration. Only c/o bilat wrist pain wore carpal tunnel braces no help. Diagnoses and all orders for this visit: Attention deficit hyperactivity disorder (ADHD), predominantly inattentive type- UA, Agreement and refills. - TOX ANALYSIS W/CONFIMATION,UR - amphet-dextroamphet (Adderall) 20 MG tablet; Take 1 Tablet by mouth daily for 30 days. - amphet-dextroamphet (Adderall) 20 MG tablet; Take 1 Tablet by mouth daily for 30 days. - amphet-dextroamphet (Adderall) 20 MG tablet; Take 1 Tablet by mouth daily for 30 days. Bilateral carpal tunnel syndrome- do EMG - EMG; Future Follow up: 3 months Normal [facility] Hr Clerk Authentication Interface Message Text Patient was identified by name and date of . Alison Chicas Patient at risk for falls:No Falls Risk protocol implemented: No Normal [facility] TOX ANALYSIS W/CONFIMATION,U Otf 04-16-2023 ALCOHOL - TOX W/ CONF Negative Normal Cutoff: 10 [facility] Comment on above: Order Comment: Scree n results are reported as positive (at or above the cutoff) or negative (below the cutoff).The LC-MS/MS testing (if applicable) was developed and its performance characteristics determined by [facility] in a manner consistent with CLIA requirements. This test has not been cleared or approved by the U.S. Food and Drug Administration; however, the FDA has determined that such clearance or approval is not necessary. Performed By: #### T OX U ####[facility] PATHOLOGY [id number] [place] [address], AMPH CL Positive Abnormal Cutoff: 1000 [facility] Comment on above: Order Comment: Scree n results are reported as positive (at or above the cutoff) or negative (below the cutoff).The LC-MS/MS testing (if applicable) was developed and its performance characteristics determined by [facility] in a manner consistent with CLIA requirements. This test has not been cleared or approved by the U.S. Food and Drug Administration; however, the FDA has determined that such clearance or approval is not necessary. Performed By: #### T OX U ####S PATHOLOGY [id number] [place], [place], AMPH CON Positive Normal Cutoff: 250 [facility] Comment on above: Order Comment: Scree n results are reported as positive (at or above the cutoff) or negative (below the cutoff).The LC-MS/MS testing (if applicable) was developed and its performance characteristics determined by [facility] in a manner consistent with CLIA requirements. This test has not been cleared or approved by the U.S. Food and Drug Administration; however, the FDA has determined that such clearance or approval is not necessary. Performed By: #### T OX U ####[facility] [id number] [place], [place], LOWELL CL Negative Normal Cutoff: 200 [facility] Comment on above: Order Comment: Scree n results are reported as positive (at or above the cutoff) or negative (below the cutoff).The LC-MS/MS testing (if applicable) was developed and its performance characteristics determined by [facility] in a manner consistent with CLIA requirements. This test has not been cleared or approved by the U.S. Food and Drug Administration; however, the FDA has determined that such clearance or approval is not necessary. Performed By: #### T OX U ####[facility] PATHOLOGY [id number] [place], [place], BENZO CL Negative Normal Cutoff: 200 [facility] Comment on above: Order Comment: Scree n results are reported as positive (at or above the cutoff) or negative (below the cutoff).The LC-MS/MS testing (if applicable) was developed and its performance characteristics determined by [facility] in a manner consistent with CLIA requirements. This test has not been cleared or approved by the U.S. Food and Drug Administration; however, the FDA has determined that such clearance or approval is not necessary. Performed By: #### T OX U ####[facility] PATHOLOGY [id number] [place], [place], COCAINE CL- TOX W/ CONF Negative Normal Cutoff: 300 [facility] Comment on above: Order Comment: Scree n results are reported as positive (at or above the cutoff) or negative (below the cutoff).The LC-MS/MS testing (if applicable) was developed and its performance characteristics determined by [facility] in a manner consistent with CLIA requirements. This test has not been cleared or approved by the U.S. Food and Drug Administration; however, the FDA has determined that such clearance or approval is not necessary. Performed By: #### T OX U ####[facility] PATHOLOGY [id number] [place] [address], FENTANYL Negative Normal Cutoff: 1 [facility] Comment on above: Order Comment: Scree n results are reported as positive (at or above the cutoff) or negative (below the cutoff).The LC-MS/MS testing (if applicable) was developed and its performance characteristics determined by [facility] in a manner consistent with CLIA requirements. This test has not been cleared or approved by the U.S. Food and Drug Administration; however, the FDA has determined that such clearance or approval is not necessary. Performed By: #### T OX U ####S PATHOLOGY [id number] [place], [place], METH CL Negative Normal Cutoff: 300 [facility] Comment on above: Order Comment: Scree n results are reported as positive (at or above the cutoff) or negative (below the cutoff).The LC-MS/MS testing (if applicable) was developed and its performance characteristics determined by [facility] in a manner consistent with CLIA requirements. This test has not been cleared or approved by the U.S. Food and Drug Administration; however, the FDA has determined that such clearance or approval is not necessary. Performed By: #### T OX U ####[facility] PATHOLOGY [id number] [place], [place], OPI CL Negative Normal Cutoff: 300 [facility] Comment on above: Order Comment: Scree n results are reported as positive (at or above the cutoff) or negative (below the cutoff).The LC-MS/MS testing (if applicable) was developed and its performance characteristics determined by [facility] in a manner consistent with CLIA requirements. This test has not been cleared or approved by the U.S. Food and Drug Administration; however, the FDA has determined that such clearance or approval is not necessary. Performed By: #### T OX U ####[facility] PATHOLOGY [id number] [place], [place], OXYCODONE Negative Normal Cutoff: 100 [facility] Comment on above: Order Comment: Scree n results are reported as positive (at or above the cutoff) or negative (below the cutoff).The LC-MS/MS testing (if applicable) was developed and its performance characteristics determined by [facility] in a manner consistent with CLIA requirements. This test has not been cleared or approved by the U.S. Food and Drug Administration; however, the FDA has determined that such clearance or approval is not necessary. Result Comment: Oxyc odone and metabolites of Oxycodone (Oxymorphone, Noroxycodone, and Noroxymorphone) are measured/detected in this assay method. Performed By: #### T OX U ####S PATHOLOGY [id number] [place], [place], PCP CL Negative Normal Cutoff: 25 [facility] Comment on above: Order Comment: Scree n results are reported as positive (at or above the cutoff) or negative (below the cutoff).The LC-MS/MS testing (if applicable) was developed and its performance characteristics determined by [facility] in a manner consistent with CLIA requirements. This test has not been cleared or approved by the U.S. Food and Drug Administration; however, the FDA has determined that such clearance or approval is not necessary. Performed By: #### T OX U ####[facility] [id number] [place], [place], THC CL - TOX W/ CONF Negative Normal Cutoff: 50 [facility] Comment on above: Order Comment: Scree n results are reported as positive (at or above the cutoff) or negative (below the cutoff).The LC-MS/MS testing (if applicable) was developed and its performance characteristics determined by [facility] in a manner consistent with CLIA requirements. This test has not been cleared or approved by the U.S. Food and Drug Administration; however, the FDA has determined that such clearance or approval is not necessary. Performed By: #### T OX U ####S PATHOLOGY [id number] [place], [place], Telephone Encounteron 2022 Hr Clerk Authentication Interface Message Text Spoke to pt, no further questions or concerns Pt states she lives an hour away and will be in next Wednesday. She has an appt with a different office around 10 so she can not come in today. Normal [facility] Hr Clerk Authentication Interface Message Text yes Normal [facility] Telephone Encounteron 2022 Hr Clerk Authentication Interface Message Text Patient calling in stating that she has been out of town and gets back into town tomorrow but leaves tomorrow night again. Can she be seen tomorrow for her Adderall script as a walk in? Please advise. Pt is out of meds for 6 days now. Normal [facility] CT HEAD WO CONTRASTon 2021 CT HEAD WO CONTRAST EXAMINATION: CT OF THE HEAD WITHOUT CONTRAST 08/31/2022 4:15 pm TECHNIQUE: CT of the head was performed without the administration of intravenous contrast. Automated exposure control, iterative reconstruction, and/or weight based adjustment of the mA/kV was utilized to reduce the radiation dose to as low as reasonably achievable. COMPARISON: None. HISTORY: ORDERING SYSTEM PROVIDED HISTORY: fall with head injury and emesis TECHNOLOGIST PROVIDED HISTORY: Reason for exam:->fall with head injury and emesis Has a code stroke or stroke alert been called?->No Decision Support Exception - unselect if not a suspected or confirmed emergency medical condition->Emergency Medical Condition (MA) What reading provider will be dictating this exam?->CRC FINDINGS: BRAIN/VENTRICLES: There is no acute intracranial hemorrhage, mass effect or midline shift. No abnormal extra-axial fluid collection. The horne-white differentiation is maintained without evidence of an acute infarct. There is no evidence of hydrocephalus. ORBITS: The visualized portion of the orbits demonstrate no acute abnormality. SINUSES: The visualized paranasal sinuses and mastoid air cells demonstrate no acute abnormality. SOFT TISSUES/SKULL: No acute abnormality of the visualized skull or soft tissues. IMPRESSION: No acute intracranial abnormality. Interpreted by: Neal Morales MD Signed by: Neal Morales MD 08/31/22 Final result [facility] No acute intracrania l abnormality. [facility] EXAMINATION: CT OF THE HEAD WITHOUT CONTRAST 08/31/2022 4:15 pm TECHNIQUE: CT of the head was performed without the administration of intravenous contrast. Automated exposure control, iterative reconstruction, and/or weight based adjustment of the mA/kV was utilized to reduce the radiation dose to as low as reasonably achievable. COMPARISON: None. HISTORY: ORDERING SYSTEM PROVIDED HISTORY: fall with head injury and emesis TECHNOLOGIST PROVIDED HISTORY: Reason for exam:->fall with head injury and emesis Has a code stroke or stroke alert been called?->No Decision Support Exception - unselect if not a suspected or confirmed emergency medical condition->Emergency Medical Condition (MA) What reading provider will be dictating this exam?->CRC FINDINGS: BRAIN/VENTRICLES: There is no acute intracranial hemorrhage, mass effect or midline shift. No abnormal extra-axial fluid collection. The horne-white differentiation is maintained without evidence of an acute infarct. There is no evidence of hydrocephalus. ORBITS: The visualized portion of the orbits demonstrate no acute abnormality. SINUSES: The visualized paranasal sinuses and mastoid air cells demonstrate no acute abnormality. SOFT TISSUES/SKULL: No acute abnormality of the visualized skull or soft tissues. [facility] Neal Morales MD - 08/31/2022 EXAMINATION: CT OF THE HEAD WITHOUT CONTRAST 08/31/2022 4:15 pm TECHNIQUE: CT of the head was performed without the administration of intravenous contrast. Automated exposure control, iterative reconstruction, and/or weight based adjustment of the mA/kV was utilized to reduce the radiation dose to as low as reasonably achievable. COMPARISON: None. HISTORY: ORDERING SYSTEM PROVIDED HISTORY: fall with head injury and emesis TECHNOLOGIST PROVIDED HISTORY: Reason for exam:->fall with head injury and emesis Has a code stroke or stroke alert been called?->No Decision Support Exception - unselect if not a suspected or confirmed emergency medical condition->Emergency Medical Condition (MA) What reading provider will be dictating this exam?->CRC FINDINGS: BRAIN/VENTRICLES: There is no acute intracranial hemorrhage, mass effect or midline shift. No abnormal extra-axial fluid collection. The honre-white differentiation is maintained without evidence of an acute infarct. There is no evidence of hydrocephalus. ORBITS: The visualized portion of the orbits demonstrate no acute abnormality. SINUSES: The visualized paranasal sinuses and mastoid air cells demonstrate no acute abnormality. SOFT TISSUES/SKULL: No acute abnormality of the visualized skull or soft tissues. IMPRESSION: No acute intracranial abnormality. [employer] Work Phone: Radiology Study observation (narrative) [employer] Phone: CT HEAD WO CONTRASTOrdered B y: Neal Morales on 08-31-2022 [employer] Phone: No Panel Informationon 08-31 Radiology Study observation (narrative) [employer] Work Phone: , Urineon 2 Beta HCG ( test) Ql (U) Negative Detects HCG level >20 MIU/mL Say-Hey UR HCG Qualitativeon 022 Beta HCG ( test) Ql (U) Negative Normal Detects [facility] Comment on above: Performed By: #### U HCG #### [facility] [address] [place] [address] XR ELBOW LEFT (MIN 3 VIEWS)o n 08-31-2022 XR ELBOW LEFT (MIN 3 VIEWS) EXAMINATION: THREE XRAY VIEWS OF THE LEFT ELBOW 08/31/2022 4:21 pm COMPARISON: None. HISTORY: ORDERING SYSTEM PROVIDED HISTORY: fall TECHNOLOGIST PROVIDED HISTORY: Reason for exam:->fall Is the patient ?->No What reading provider will be dictating this exam?->CRC FINDINGS: There is no elbow effusion. There is no acute fracture or dislocation. Alignment is normal. IMPRESSION: No acute abnormality. Interpreted by: Tom Cast MD Signed by: Tom Cast MD 08/31/22 Final result [facility] No acute abnormality . [facility] RAD[facility] EXAMINATION: THREE XRAY VIEWS OF THE LEFT ELBOW 08/31/2022 4:21 pm COMPARISON: None. HISTORY: ORDERING SYSTEM PROVIDED HISTORY: fall TECHNOLOGIST PROVIDED HISTORY: Reason for exam:->fall Is the patient ?->No What reading provider will be dictating this exam?->CRC FINDINGS: There is no elbow effusion. There is no acute fracture or dislocation. Alignment is normal. [facility] Tom Cast MD - 08/31 EXAMINATION: THREE XRAY VIEWS OF THE LEFT ELBOW 08/31/2022 4:21 pm COMPARISON: None. HISTORY: ORDERING SYSTEM PROVIDED HISTORY: fall TECHNOLOGIST PROVIDED HISTORY: Reason for exam:->fall Is the patient ?->No What reading provider will be dictating this exam?->CRC FINDINGS: There is no elbow effusion. There is no acute fracture or dislocation. Alignment is normal. IMPRESSION: No acute abnormality. [employer] [facility] [employer] [facility] Work Phone: [facility] Work Phone: XR KNEE LEFT (MIN 4 VIEWS)on 08-31-2022 XR KNEE LEFT (MIN 4 VIEWS) EXAMINATION: FOUR XRAY VIEWS OF THE LEFT KNEE 08/31/2022 4:21 pm COMPARISON: None. HISTORY: ORDERING SYSTEM PROVIDED HISTORY: fall TECHNOLOGIST PROVIDED HISTORY: Reason for exam:->fall Is the patient ?->No What reading provider will be dictating this exam?->CRC FINDINGS: No evidence of acute fracture or dislocation. No focal osseous lesion. No evidence of joint effusion. No focal soft tissue abnormality. IMPRESSION: No acute abnormality of the knee. Interpreted by: Tom Cast MD Signed by: Tom Cast MD 08/31/22 Final result [facility] No acute abnormality of the knee. [facility] RAD[facility] EXAMINATION: FOUR XRAY VIEWS OF THE LEFT KNEE 08/31/2022 4:21 pm COMPARISON: None. HISTORY: ORDERING SYSTEM PROVIDED HISTORY: fall TECHNOLOGIST PROVIDED HISTORY: Reason for exam:->fall Is the patient ?->No What reading provider will be dictating this exam?->CRC FINDINGS: No evidence of acute fracture or dislocation. No focal osseous lesion. No evidence of joint effusion. No focal soft tissue abnormality. [facility] Tom Cast MD - 08/31 EXAMINATION: FOUR XRAY VIEWS OF THE LEFT KNEE 08/31/2022 4:21 pm COMPARISON: None. HISTORY: ORDERING SYSTEM PROVIDED HISTORY: fall TECHNOLOGIST PROVIDED HISTORY: Reason for exam:->fall Is the patient ?->No What reading provider will be dictating this exam?->CRC FINDINGS: No evidence of acute fracture or dislocation. No focal osseous lesion. No evidence of joint effusion. No focal soft tissue abnormality. IMPRESSION: No acute abnormality of the knee. [employer] [facility] Work Phone: XR KNEE LEFT (MIN 4 VIEWS)Or dered By: Tom Cast on 08-31-2022 [employer] [facility] [employer] Phone: XR WRIST LEFT (MIN 3 VIEWS)o n 08-31-2022 XR WRIST LEFT (MIN 3 VIEWS) EXAMINATION: XRAY VIEWS OF THE LEFT WRIST 08/31/2022 4:21 pm COMPARISON: None. HISTORY: ORDERING SYSTEM PROVIDED HISTORY: fall TECHNOLOGIST PROVIDED HISTORY: Reason for exam:->fall Is the patient ?->No What reading provider will be dictating this exam?->CRC FINDINGS: Carpal bones and alignment are maintained. Distal radius and ulna are intact. No acute fracture or dislocation. IMPRESSION: Normal wrist radiographs Interpreted by: Tom Cast MD Signed by: Tom Cast MD 08/31/22 Final result [facility] Normal wrist radiogr aphs [facility] EXAMINATION: XRAY VIEWS OF THE LEFT WRIST 08/31/2022 4:21 pm COMPARISON: None. HISTORY: ORDERING SYSTEM PROVIDED HISTORY: fall TECHNOLOGIST PROVIDED HISTORY: Reason for exam:->fall Is the patient ?->No What reading provider will be dictating this exam?->CRC FINDINGS: Carpal bones and alignment are maintained. Distal radius and ulna are intact. No acute fracture or dislocation. [facility] Tom Cast MD - 08/31 EXAMINATION: XRAY VIEWS OF THE LEFT WRIST 08/31/2022 4:21 pm COMPARISON: None. HISTORY: ORDERING SYSTEM PROVIDED HISTORY: fall TECHNOLOGIST PROVIDED HISTORY: Reason for exam:->fall Is the patient ?->No What reading provider will be dictating this exam?->CRC FINDINGS: Carpal bones and alignment are maintained. Distal radius and ulna are intact. No acute fracture or dislocation. IMPRESSION: Normal wrist radiographs [facility] [employer] [facility] 03-08-2019 [facility] Telephone ([facility]) ----- GINA FITZGERALD ([id number]) 1990 F Date Time Provider Department 03/08/19 DORINDA OSUNA (АННА) [facility] During your visit today, we recorded the following information about you: Dorinda Osuna PA-C 03/08/2019 8:04 PM Signed Called patient to give results. [facility] to return call. If patient calls, please relay: Negative Gonorrhea/Chlamydia Negative vaginal culture for yeast, bacterial or trichomonas Urine culture grew an insignificant amount of bacteria, nothing requiring antibiotic treatment Advise patient to stay well hydrated, follow up with PCP or [employer] for residual symptoms. Dorinda Osuna PA-C March 08, 2019 8:04 PM Laila Covarrubias [facility] 03/09/2019 8:05 AM Signed Patient returning below message left. Advise of below and patient understood and no further questions. Allergies As of Date: 03/08/2019 (No Known Allergies) Date Reviewed: 03/06/2019 Reviewed by: Maris ([facility] - Fully Assessed Reason for Visit: Results [95] Cmt: Urine/Vaginal testing Prescriptions as of 03/08/2019 Sig: DEXTROAMPHETAMINE-AMPHETA MINE* Take 1 tablet by mouth once d* MONO-LINYAH 0.25 MG-35 MCG TA* Take 1 tablet by mouth once d* NITROFURANTOIN MONOHYDRATE AND * Take 1 capsule by mouth twice* PHENAZOPYRIDINE 100 MG TABLET Take 1 tablet by mouth three * Problem List As Of Date: 03/08/2019 (None) Encounter Status:Closed by DORINDA OSUNA PA-C on 03/08/19 Normal [facility] Vag Pathogens DNAon 03-07-20 Misty vag DNA Probe Negative Normal Negative for Gardnerella vaginalis by DNA Probe [facility] Comment on above: Performed By: #### V AGDNA #### [facility] [employer] [address], [place] [id number] Protein mass conc Negative Normal Negative f or Ernestine species by DNA Probe [facility] Comment on above: Performed By: #### V AGDNA #### [facility] [employer] [address] [place], [place] [id number] Trich vag DNA Probe Negative Normal Negative for Trichomonas vaginalis by DNA Probe [facility] Comment on above: Performed By: #### V AGDNA #### [facility] [employer] [address], [place] [id number] CNOVon 03-06-2019 CNOV Office Visit ([facility] ) ----- GINA FITZGERALD ([id number]) 1990 F Date Time Provider Department 03/06/19 3:05 PM MARIS RODAS ([employer]IR[employer]S [employer]SEMBLER) [facility] During your visit today, we recorded the following information about you: Temperature Pulse Respiration Blood pressure 97.4 degrees 85/minute 18/minute 129/87 Weight Last Period 136.5 kg 02/13/19 Maris Rodas APRN.[facility] 03/06/2019 5:33 PM Signed Subjective CC: I thought I had a yeast infectoin last week. Used 1-dose monistat and external cream; does not feel like it fixed the problem. Having burning with urination. Blood on TP last night. Was tested for and treated for chlamydia about 1 month ago. Her symptoms went away. Her male partner was also treated by a friend who could write him a prescription; he was not clinically evaluated at that time. No smell or green discharge after completing tx. Sometimes she has white thick discharge; none now. Sometimes itching. No sex since last weekend since symptoms started. LMP was about 4 weeks ago; should be starting menses today. Her last period was 5 days late. She has been on OCPs x about a year or 2; has been on control since age 15; had Nexplanon for a few years until about a year or so ago. Last period was a day longer than usual for her. GOPO. Has had chlamydia in the past. Does not think she had trich or gonorrhea. States her male partner is 21 and has had 30+ sex partners; was never tested for STIs. The history is provided by the patient. No director speech language was used. Vaginal Discharge This is a recurrent problem. The current episode started more than 2 days ago. The problem occurs constantly. The problem has not changed since onset.The discharge occurs during urination and after urination. Vaginal discharge characteristics: none at this time. She is not . Missed Period: should start tomorrow. Associated symptoms include dysuria and genital burning. Pertinent negatives include no fever, no abdominal swelling, no abdominal pain, no constipation, no diarrhea, no nausea, no vomiting, no dyspareunia (has not had intercourse since tx for chlamydia), no frequency, no genital itching, no genital lesions and no perineal odor. Treatments tried: Monistat, azithromycin x 1 dose. The treatment provided mild relief. Her past medical history is significant for STD. Review of Systems Constitutional: Negative for fever. Gastrointestinal: Negative for abdominal pain, constipation, diarrhea, nausea and vomiting. Genitourinary: Positive for dysuria. Negative for dyspareunia (has not had intercourse since tx for chlamydia), flank pain, frequency, hematuria and urgency. Vaginal pain? All other systems reviewed and are negative. No past medical history on file. No past surgical history on file. ALLERGIES Patient has no known allergies. MEDICATIONS dextroamphetamine-ampheta mine (ADDERALL) 20 mg tablet Take 1 tablet by mouth once daily. MONO-LINYAH 0.25-35 mg-mcg per tablet Take 1 tablet by mouth once daily. nitrofurantoin monohydrate and macrocrystal (MACROBID) 100 mg capsule Take 1 capsule by mouth twice daily for 7 days. phenazopyridine (PYRIDIUM, GERIDIUM) 100 mg tablet Take 1 tablet by mouth three times daily as needed for Pain for up to 2 days. No family history on file. Social History Tobacco Use - Smoking status: Never Smoker - Smokeless tobacco: Never Used Substance Use Topics - Alcohol use: Yes - Drug use: No BP 129/87 Pulse 85 Temp 36.3 ?C (97.4 ?F) (Temporal Artery) Resp 18 Wt (!) 136.5 kg (301 lb) LMP 02/13/2019 SpO2 97% BMI 53.32 kg/m? Objective Physical Exam Constitutional: She is well-developed, well-nourished, and in no distress. Cardiovascular: Normal rate, regular rhythm, S1 normal, S2 normal and normal heart sounds. Exam reveals no gallop, no S3, no S4, no distant heart sounds and no friction rub. No murmur heard. Pulmonary/Chest: Effort normal and breath sounds normal. Abdominal: Soft. Normal appearance. There is no hepatosplenomegaly. There is no tenderness. There is no rigidity, no rebound, no guarding, no CVA tenderness and no tenderness at McBurney's point. Genitourinary: Rectum normal. Uterus is tender. Cervix exhibits tenderness. Right adnexum displays tenderness. Left adnexum displays tenderness. Vulva exhibits erythema and tenderness. No vaginal discharge found. Skin: Skin is warm, dry and intact. No rash noted. Nursing note and vitals reviewed. 1. Vaginal discomfort -comfort care discussed -swabs obtained for vaginal pathogens; call with results -urine Hcg negative today in clinic -urine for STI testing obtained; call with results - T VAGINALIS AMPLIFICATION - VAGINAL PATHOGENS DNA PROBES - GC/CHLAMYDIA AMPLIF, URINE - URINE CULTURE -recommend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 f/u if pain persists 2. Unprotected sex -safe sex recommended -free clinic recommendation for partner given to patient -recommend abstinence until partner tested/treated due to his history - HCG QUAL UR B/O - URINE CULTURE 3. Dysuria -UA obtained; patient only able to produce dirty urine at visit; UA per Epic - URINE CULTURE - call with results -will treat empirically - nitrofurantoin monohydrate and macrocrystal (MACROBID) 100 mg capsule; Take 1 capsule by mouth twice daily for 7 days. Dispense: 14 capsule; Refill: 0 - phenazopyridine (PYRIDIUM, GERIDIUM) 100 mg tablet; Take 1 tablet by mouth three times daily as needed for Pain for up to 2 days. Dispense: 3 tablet; Refill: 0 SANDS for which patient should seek additional/emergent care reviewed Discussed medication dosage, usage, goals of therapy, and side effects. Reviewed diagnosis and treatment options/plan with patient. The patient verbalized understanding and intent to comply with treatment. Follow-up instructions were given to the patient; they are to call their primary care provider if symptoms worsen or do not improve in 3-5 days. The patient denied further concerns/questions at the end of the visit. Please be advised that [facility] does not perform follow-up visits for conditions which were evaluated here. PLEASE PROCEED TO NEAREST ED IF DEVELOPING: Any abrupt change in illness or concerning symptoms such as: lethargy, signs of dehydration, fever greater than 102F which is not responding to Tylenol or Motrin, drooling, difficulty swallowing, shortness of breath, difficulty breathing, chest pain, evidence of airway compromise (neck extension, tripoding), seizure, or other concerns report to nearest Emergency Department. Maris Rodas APRN.AIRCRAFT [employer]S ASSEMBLER 03/06/2019 4:03 PM Signed [facility] [address] [place], [place] [address] Emergency Department Diagnosis: Assessment SAFER SEX: Your doctor wants you to have this information about the infections that can be transmitted from sexual contact and how to prevent them. The idea behind safer sex is that you can be sexually active and at the same time reduce the risk of giving or getting a sexually transmitted disease (STD). STD?s are transmitted by sharing body fluids which harbor viruses or bacteria. Semen, urine, blood and vaginal mucous can all transmit infections during sex. Examples of sexually transmitted infections include chlamydia, gonorrhea, herpes, hepatitis, genital warts and AIDS. Sexual diseases often cause few or no symptoms until they are advanced, so a person can be infected and spread the infection without knowing it. You never become immune to sexual diseases. Some STD?s respond to treatment very well, others, like AIDS and herpes, cannot be cured, but are treated to reduce their effects. Being careful cannot eliminate all risk of infection, but sex can be made much safer. Safe sexual practices include hugging, body massage, and gentle touching. Masturbation is safe as long as body fluids do not contact any skin that has sores or cuts. Dry kissing and oral sex on a man wearing a latex condom or on a woman wearing a female condom is also safe. Slightly less safe is intercourse while the man wears a latex condom and wet kissing. Alcohol and recreational drugs are often the reason given for not practicing safer sex. These substances affect not only your judgment, but also impair your immune system, making you more vulnerable to disease. Risky and dangerous sexual practices include vaginal or anal sex without a condom, oral sex on a man without a condom, oral sex on a woman without a female condom, using saliva to lubricate a condom, or any other sexual contact in which body fluids or blood from one partner contacts the other. You should use only latex condoms and water soluble lubricants like K-Y jelly. Vaseline or oils used to lubricate a condom will weaken the condom and increase the chance it will break. Use spermacide gel that contains at least 5% Nonoxynol-9 along with the condom; this reduces the risk of as well as transmitting the AIDS virus. Think very carefully before having sex with anyone who is high risk for STD and AIDS. These include IV drug users, people with multiple sexual partners, or those that have had a positive HIV blood test. Referring Provider: SELF [200] Allergies As of Date: 03/06/2019 (No Known Allergies) Date Reviewed: 03/06/2019 [facility]: [facility] Adrianna - Fully Assessed Reason for Visit: vaginal discomfort [Other] Cmt: painful uriantion and discomfort Reason For Visit History Recorded Primary Visit Diagnosis:Vaginal discomfort [N94.9] Other Visit Diagnoses:Unprotected sex [Z72.51] Dysuria [R30.0] Order(s):T VAGINALIS AMPLIFICATION [SQTRVAMP] Order #: [id number] VAGINAL PATHOGENS DNA PROBES [SQVAGDNA] Order #: [id number] GC/CHLAMYDIA AMPLIF, URINE [SQUGCCT] Order #: [id number] HCG QUAL UR B/O [[id number]] Order #: [id number] URINE CULTURE [SQURCUL] Order #: [id number] nitrofurantoin monohydrate and macrocrystal (MACROBID) 100 mg capsuleTake 1 capsule by mouth twice daily for 7 days.Disp: 14 capsuleRfl: 0 phenazopyridine (PYRIDIUM, GERIDIUM) 100 mg tabletTake 1 tablet by mouth three times daily as needed for Pain for up to 2 days.Disp: 3 tabletRfl: 0 UA DIP, URINE (POC) [[id number]] Order #: [id number]. #:[id number] [id number] Prescriptions as of 03/06/2019 Sig: DEXTROAMPHETAMINE-AMPHETA MINE* Take 1 tablet by mouth once d* MONO-LINYAH 0.25 MG-35 MCG TA* Take 1 tablet by mouth once d* NITROFURANTOIN MONOHYDRATE AND * Take 1 capsule by mouth twice* PHENAZOPYRIDINE 100 MG TABLET Take 1 tablet by mouth three * Problem List As Of Date: 03/06/2019 (None) Other instructions from your clinician: [facility] [address] [place], [place] [address] Emergency Department Diagnosis: Assessment SAFER SEX: Your doctor wants you to have this information about the infections that can be transmitted from sexual contact and how to prevent them. The idea behind safer sex is that you can be sexually active and at the same time reduce the risk of giving or getting a sexually transmitted disease (STD). STD?s are transmitted by sharing body fluids which harbor viruses or bacteria. Semen, urine, blood and vaginal mucous can all transmit infections during sex. Examples of sexually transmitted infections include chlamydia, gonorrhea, herpes, hepatitis, genital warts and AIDS. Sexual diseases often cause few or no symptoms until they are advanced, so a person can be infected and spread the infection without knowing it. You never become immune to sexual diseases. Some STD?s respond to treatment very well, others, like AIDS and herpes, cannot be cured, but are treated to reduce their effects. Being careful cannot eliminate all risk of infection, but sex can be made much safer. Safe sexual practices include hugging, body massage, and gentle touching. Masturbation is safe as long as body fluids do not contact any skin that has sores or cuts. Dry kissing and oral sex on a man wearing a latex condom or on a woman wearing a female condom is also safe. Slightly less safe is intercourse while the man wears a latex condom and wet kissing. Alcohol and recreational drugs are often the reason given for not practicing safer sex. These substances affect not only your judgment, but also impair your immune system, making you more vulnerable to disease. Risky and dangerous sexual practices include vaginal or anal sex without a condom, oral sex on a man without a condom, oral sex on a woman without a female condom, using saliva to lubricate a condom, or any other sexual contact in which body fluids or blood from one partner contacts the other. You should use only latex condoms and water soluble lubricants like K-Y jelly. Vaseline or oils used to lubricate a condom will weaken the condom and increase the chance it will break. Use spermacide gel that contains at least 5% Nonoxynol-9 along with the condom; this reduces the risk of as well as transmitting the AIDS virus. Think very carefully before having sex with anyone who is high risk for STD and AIDS. These include IV drug users, people with multiple sexual partners, or those that have had a positive HIV blood test. Prescriptions ordered this encounter Disp Refills Start End NITROFURANTOIN MONOHYDRATE AND MACROCR* 14 c* 0 03/06/2019 03/13/2019 Route: ORAL Sig: Take 1 capsule by mouth twice daily for 7 days. PHENAZOPYRIDINE 100 MG TABLET 3 ta* 0 03/06/2019 03/08/2019 Route: ORAL Sig: Take 1 tablet by mouth three times daily as needed for Pain for up to 2 days. Medications Discontinued During This Encounter etonogestrel subdermal implant 68 mg* 03/06/2019 Class: Historical Med Route: SUBDERMAL Si mg by SUBDERMAL route one time only. Disc: Course of therapy completed Encounter Status:Closed by MARIS RODAS CNP on 03/06/19 Normal [facility] GC/Chlamydia Amp, Uron 03-06 Chlamydia Amplif, Ur Negative Normal [facility] Comment on above: Result Comment: For screening asymptomatic women, a vaginal swab specimen (APTIMA vaginal swab [id number]) is optimal. Urine specimens have reduced sensitivity for Chlamydia trachomatis or Neisseria gonorrhoeae infection in female patients without symptoms. This test was developed and its performance characteristics determined by [facility] [place] ([facility] It has not been cleared or approved by the FDA. -[facility] is regulated under CLIA as qualified to perform high-complexity testing. This test is used for clinical purposes. It should not be regarded as investigational or for research. Performed By: #### U GCCT #### [facility] [employer] [address] [address] GC Amplification, Ur Negative Normal [facility] Comment on above: Performed By: #### U GCCT #### [facility] [address] [address] PROGRESSon 03-06-2019 Protein mass conc HNO ID: [id number] Author: Maris (Umair Rodas Service: ? Author Type: Nurse Practitioner Type: Progress Notes Filed: 03/06/2019 5:33 PM Note Text: Subjective CC: I thought I had a yeast infectoin last week. Used 1-dose monistat and external cream; does not feel like it fixed the problem. Having burning with urination. Blood on TP last night. Was tested for and treated for chlamydia about 1 month ago. Her symptoms went away. Her male partner was also treated by a friend who could write him a prescription; he was not clinically evaluated at that time. No smell or green discharge after completing tx. Sometimes she has white thick discharge; none now. Sometimes itching. No sex since last weekend since symptoms started. LMP was about 4 weeks ago; should be starting menses today. Her last period was 5 days late. She has been on OCPs x about a year or 2; has been on control since age 15; had Nexplanon for a few years until about a year or so ago. Last period was a day longer than usual for her. GOPO. Has had chlamydia in the past. Does not think she had trich or gonorrhea. States her male partner is 21 and has had 30+ sex partners; was never tested for STIs. The history is provided by the patient. No director speech language was used. Vaginal Discharge This is a recurrent problem. The current episode started more than 2 days ago. The problem occurs constantly. The problem has not changed since onset.The discharge occurs during urination and after urination. Vaginal discharge characteristics: none at this time. She is not . Missed Period: should start tomorrow. Associated symptoms include dysuria and genital burning. Pertinent negatives include no fever, no abdominal swelling, no abdominal pain, no constipation, no diarrhea, no nausea, no vomiting, no dyspareunia (has not had intercourse since tx for chlamydia), no frequency, no genital itching, no genital lesions and no perineal odor. Treatments tried: Monistat, azithromycin x 1 dose. The treatment provided mild relief. Her past medical history is significant for STD. Review of Systems Constitutional: Negative for fever. Gastrointestinal: Negative for abdominal pain, constipation, diarrhea, nausea and vomiting. Genitourinary: Positive for dysuria. Negative for dyspareunia (has not had intercourse since tx for chlamydia), flank pain, frequency, hematuria and urgency. Vaginal pain? All other systems reviewed and are negative. No past medical history on file. No past surgical history on file. ALLERGIES Patient has no known allergies. MEDICATIONS dextroamphetamine-ampheta mine (ADDERALL) 20 mg tablet Take 1 tablet by mouth once daily. MONO-LINYAH 0.25-35 mg-mcg per tablet Take 1 tablet by mouth once daily. nitrofurantoin monohydrate and macrocrystal (MACROBID) 100 mg capsule Take 1 capsule by mouth twice daily for 7 days. phenazopyridine (PYRIDIUM, GERIDIUM) 100 mg tablet Take 1 tablet by mouth three times daily as needed for Pain for up to 2 days. No family history on file. Social History Tobacco Use - Smoking status: Never Smoker - Smokeless tobacco: Never Used Substance Use Topics - Alcohol use: Yes - Drug use: No BP 129/87 Pulse 85 Temp 36.3 ?C (97.4 ?F) (Temporal Artery) Resp 18 Wt (!) 136.5 kg (301 lb) LMP 02/13/2019 SpO2 97% BMI 53.32 kg/m? Objective Physical Exam Constitutional: She is well-developed, well-nourished, and in no distress. Cardiovascular: Normal rate, regular rhythm, S1 normal, S2 normal and normal heart sounds. Exam reveals no gallop, no S3, no S4, no distant heart sounds and no friction rub. No murmur heard. Pulmonary/Chest: Effort normal and breath sounds normal. Abdominal: Soft. Normal appearance. There is no hepatosplenomegaly. There is no tenderness. There is no rigidity, no rebound, no guarding, no CVA tenderness and no tenderness at McBurney's point. Genitourinary: Rectum normal. Uterus is tender. Cervix exhibits tenderness. Right adnexum displays tenderness. Left adnexum displays tenderness. Vulva exhibits erythema and tenderness. No vaginal discharge found. Skin: Skin is warm, dry and intact. No rash noted. Nursing note and vitals reviewed. 1. Vaginal discomfort -comfort care discussed -swabs obtained for vaginal pathogens; call with results -urine Hcg negative today in clinic -urine for STI testing obtained; call with results - T VAGINALIS AMPLIFICATION - VAGINAL PATHOGENS DNA PROBES - GC/CHLAMYDIA AMPLIF, URINE - URINE CULTURE -recommend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 f/u if pain persists 2. Unprotected sex -safe sex recommended -free clinic recommendation for partner given to patient -recommend abstinence until partner tested/treated due to his history - HCG QUAL UR B/O - URINE CULTURE 3. Dysuria -UA obtained; patient only able to produce dirty urine at visit; UA per [facility] - URINE CULTURE - call with results -will treat empirically - nitrofurantoin monohydrate and macrocrystal (MACROBID) 100 mg capsule; Take 1 capsule by mouth twice daily for 7 days. Dispense: 14 capsule; Refill: 0 - phenazopyridine (PYRIDIUM, GERIDIUM) 100 mg tablet; Take 1 tablet by mouth three times daily as needed for Pain for up to 2 days. Dispense: 3 tablet; Refill: 0 SANDS for which patient should seek additional/emergent care reviewed Discussed medication dosage, usage, goals of therapy, and side effects. Reviewed diagnosis and treatment options/plan with patient. The patient verbalized understanding and intent to comply with treatment. Follow-up instructions were given to the patient; they are to call their primary care provider if symptoms worsen or do not improve in 3-5 days. The patient denied further concerns/questions at the end of the visit. Please be advised that [facility] does not perform follow-up visits for conditions which were evaluated here. PLEASE PROCEED TO NEAREST ED IF DEVELOPING: Any abrupt change in illness or concerning symptoms such as: lethargy, signs of dehydration, fever greater than 102F which is not responding to Tylenol or Motrin, drooling, difficulty swallowing, shortness of breath, difficulty breathing, chest pain, evidence of airway compromise (neck extension, tripoding), seizure, or other concerns report to nearest Emergency Department. Normal [facility] Trich vaginalis Amplon 03-06 T vag Amplification Negative Normal [facility] Comment on above: Result Comment: This test was developed and its performance characteristics determined by [facility]'s [facility] Pathology and Laboratory Medicine [place] ([facility]). It has not been cleared or approved by the FDA. [facility] is regulated under CLIA as qualified to perform high-complexity testing. This test is used for clinical purposes. It should not be regarded as investigational or for research. Performed By: #### T RVAMP #### [facility] [employer] [address] [place] [id number] Trich vag Amp Source Urine Normal [facility] Comment on above: Performed By: #### T RVAMP #### [facility] [employer] [address] [place], [place] [id number] Urine Cultureon 03-06-2019 Bacteria identified Cx Nom (U) Sp. Request/Comment: - Specimen received in preservative DIRTY CATCH URINE, NOT ABLE TO PRODUCE A 2ND SAMPLE FOR CLEAN CATCH DURING VISIT Culture Result - 10,000 - <50,000 CFU/ml Streptococcus agalactiae (Group B streptococcus) --> ABNORMAL ALERT No further workup --> ABNORMAL ALERT 10,000 - <50,000 CFU/ml Normal urogenital lorin Critically abnormal [facility] Comment on above: Performed By: #### U RCUL #### [facility] [address] [place], [place] [address] ED NOTEon 01-31-2019 ED NOTE HNO ID: [id number] Author: Angella ClemensRn) KATELYNN Lara Service: Emergency Medicine Author Type: Registered Nurse Type: ED Notes Filed: 01/31/2019 2:09 PM Note Text: Pt discharged to home with her mother to drive. Normal [facility] ED NOTE HNO ID: [id number] Author: Angella Payne) KATELYNN Lara Service: Emergency Medicine Author Type: Registered Nurse Type: ED Notes Filed: 01/31/2019 1:01 PM Note Text: Agree with triage note. Pt reports that's he had hives, extremity swelling that started last night, improved with oral benedryl. States that she woke up this morning with right foot swelling, feeling hives and sensation that her throat is closing up Pt speaking in full sentences, handling oral secretions without any drooling observed. Lungs CTA bilaterally with regular respirations. Denies CP/SOB. Denies having contact with any new foods, medications, toiletries, or any other new product. Back of throat without swelling or redness noted. Normal [facility] ED NOTE HNO ID: [id number] Author: Olive ClemensLight Rail Train Operator) KAYLI Oh Service: Emergency Medicine Author Type: Registered Resp Therapist Type: ED Notes Filed: 01/31/2019 12:34 PM Note Text: Pt presents to ED with complaint of hives and feeling itchy . PT states initial symptoms began Wednesday but symptoms went away. Pt then states last night she began to have symptoms reoccur. Pt states she woke up this morning around 11am with face feeling itchy and swollen. Pt states she was seen at an urgent care last Wednesday and placed on Amox and just completed course last night. Normal [facility] ED PROV NOTEon 01-31-2019 Protein mass conc HNO ID: [id number] Author: Jonel Houston MD Service: Emergency Medicine Author Type: Physician Type: ED Provider Notes Filed: 01/31/2019 1:51 PM Note Text: ED Provider Note Patient Name: Gina Fitzgerald SERVICE DATE: 01/31/19 History Patient presents with: Pain, Throat: pt feels that something is her throat He patient presents with a primary complaint of having hives and itching she has known allergy to cashews she states her symptoms began 3 days ago she is not certain if she was exposed to any nuts. No complaints of shortness of breath no complaints of chest pain she does complain of a sore throat she was started on amoxicillin recently for URI symptoms including a sore throat and sinus symptoms. She does complain of a rash with itching she took a dose of Benadryl last evening but no antihistamines today. She has been tolerating fluids. History reviewed. No pertinent past medical history. History reviewed. No pertinent surgical history. No family history on file. Social History Tobacco Use - Smoking status: Never Smoker - Smokeless tobacco: Never Used Substance and Sexual Activity - Alcohol use: Yes - Drug use: No - Sexual activity: Yes control/protection: Pill ALLERGIES No Known Allergies Review of Systems Constitutional: Negative. HENT: Positive for sore throat. Negative for ear pain. Eyes: Negative. Respiratory: Negative. Cardiovascular: Negative. Gastrointestinal: Negative. Genitourinary: Negative. Musculoskeletal: Negative. Skin: Positive for rash. Itching Neurological: Negative. Psychiatric/Behavioral: Negative. Physical Exam BP 164/99 Pulse 86 Temp (Src) 98.2 (Oral) Resp 18 Ht 5' 3 (1.60m) Wt 300 lb (136.1kg) SpO2 100% BMI 53.16 kg/(m2). O2 Therapy: Room Air Physical Exam Constitutional: She is oriented to person, place, and time. She appears well-developed and well-nourished. No distress. HENT: Head: Normocephalic and atraumatic. Nose: Nose normal. Posterior pharynx unremarkable, palate symmetric uvula midline Eyes: Pupils are equal, round, and reactive to light. EOM are normal. Right eye exhibits no discharge. Left eye exhibits no discharge. Neck: Normal range of motion. Neck supple. No tracheal deviation present. Cardiovascular: Normal rate, regular rhythm, normal heart sounds and intact distal pulses. Pulmonary/Chest: Effort normal and breath sounds normal. No respiratory distress. Abdominal: Soft. Bowel sounds are normal. She exhibits no mass. There is no tenderness. Musculoskeletal: Normal range of motion. She exhibits no edema, tenderness or deformity. Neurological: She is alert and oriented to person, place, and time. No cranial nerve deficit or sensory deficit. She exhibits normal muscle tone. Skin: Skin is dry. No rash noted. Psychiatric: She has a normal mood and affect. Her behavior is normal. Judgment and thought content normal. Diagnostic Testing ED Labs Ordered and Reviewed - No data to display Procedures ED Course / Clinical Impression Clinical Impressions as of Jan 31 1350 Allergic reaction, initial encounter Pharyngitis, unspecified etiology MDM / Disposition / Plan Monotest is negative. Again the patient is in the midst of a course of amoxicillin so that should cover the possibility of strep. Patient had an IV established given IV Benadryl and IV Solu-Medrol. Patient had improvement in terms of her rash and itching still complains of sore throat. Was offered a dose of ibuprofen but she declined she will be discharged home with a four-day prescription for prednisone and advised to use Claritin [id number] for next 4 days follow-up with PCP if no improvement return if any worsening SIGNATURE: MD Jonel Amin MD 01/31/19 1351 Normal [facility] IGP W/hpv Rfx [id number] 09-09 Diagnosis: See Ref Lab Report Normal [facility] Comment on above: Order Comment: LMP: 08/30/18 Performed By: #### 1 [id number] ####GERTRUDE [employer] Outs [address] [place] [address] Chlamydia GC by PCRon 2017 Chlamydia by PCR. Not Detected Normal Not Detected [facility] Comment on above: Result Comment: Xper t CT/NG Assay performance has not been evaluated in patients less than 14 years of age. Performed By: #### 3 [id number] ####GERTRUDE Misc Micro SubSection, Gonorrhoeae by PCR Not Detected Normal Not Detected [facility] Comment on above: Result Comment: Xper t CT/NG Assay performance has not been evaluated in patients less than 14 years of age. Performed By: #### 3 [id number] ####GERTRUDE [place] Micro SubSection, Auto Diffon 08-01-2018 Basophils Auto #/vol (Bld) 0.0 E3/mcL Normal 0.0-0.2 [facility] Comment on above: Order Comment: Order Added by Discern Expert. Performed By: #### 2 [id number] ####GERTRUDECharly [address]SkyTlpw[address] [place] [address] Basophils/100 WBC Auto (Bld) 0.4 % Normal 0.0-2.0 [facility] Comment on above: Order Comment: Order Added by Discern Expert. Performed By: #### 2 [id number] ####GERTRUDECharly [address]KpzLlxm15[address] [place] [address] Eos Absolute 0.1 E3/mcL Normal 0.0-0.7 [facility] Comment on above: Order Comment: Order Added by Discern Expert. Performed By: #### 2 [id number] ####GERTRUDECharly [address]RceRwat6[address] [place] [address] Eosinophils/100 WBC Auto (Bld) 1.3 % Normal 0.0-11.0 [facility] Comment on above: Order Comment: Order Added by Discern Expert. Performed By: #### 2 [id number] ####GERTRUDECharly LauraBrhLmcl69[address] [place], [place] [address] Lymphocytes Auto #/vol (Bld) 2.8 E3/mcL Normal 1.2-3.4 [facility] Comment on above: Order Comment: Order Added by Discern Expert. Performed By: #### 2 [id number] ####GERTRUDECharly [address]ZgzNfiu65[address] [place] [address] Lymphocytes/100 WBC Auto (Bld) 27.1 % Normal 20.0-55.0 [facility] Comment on above: Order Comment: Order Added by Discern Expert. Performed By: #### 2 [id number] ####GERTRUDECharly [address]FwmZgvj8844 [place] [address] Morris Absolute 0.7 E3/mcL Normal 0.0-0.7 [facility] Comment on above: Order Comment: Order Added by Discern Expert. Performed By: #### 2 141794 ####GERTRUDE [address] [place] [address] Monocytes/100 WBC Auto (Bld) 6.6 % Normal 0.0-10.0 [facility] Comment on above: Order Comment: Order Added by Discern Expert. Performed By: #### 2 [id number] ####GERTRUDE [address] [place] [address] Neutro Absolute 6.7 E3/mcL High 1.4-6.5 [facility] Comment on above: Order Comment: Order Added by Discern Expert. Performed By: #### 2 [id number] ####GERTRUDE [address] [place] [address] Neutro Auto 64.6 % Normal 37.0-75.0 [facility] Comment on above: Order Comment: Order Added by Discern Expert. Performed By: #### 2 929211 ####GERTRUDE [address] [place] [address] BMPon 08-01-2018 Creatinine mass conc 0.7 mg/dL Normal 0.6-1.3 [facility] Comment on above: Performed By: #### 2 [id number] ####GERTRUDE [address]JhvUlxz[address] [place] [address] Urea nitrogen mass conc 11 mg/dL Normal 7-18 [facility] Comment on above: Performed By: #### 2 [id number] ####GERTRUDE [address]one[address] [place] [address] Urea nitrogen/Creatinine mass ratio 15.7 ratio Normal 5.4-30.0 [facility] Comment on above: Performed By: #### 2 437259 ####GERTRUDE [address]udNluz[address] [place] [address] Calcium mass conc 9.2 mg/dL Normal 8.4-10.2 [facility] Comment on above: Performed By: #### 2 [id number] ####GERTRUDE [address]GpbJdkc76[address] [place] [address] Chloride molar conc 102 mmol/L Normal 98-107 [facility] Comment on above: Performed By: #### 2 548511 ####GERTRUDE LauraRefGbrn[address]54 [place] [address] CO2 molar conc 25.3 mmol/L Normal 24.0-30.0 [facility] Comment on above: Performed By: #### 2 600453 ####GERTRUDE [address]PidGsbg7751 [place] [address] Glucose mass conc 91 mg/dL Normal 70-99 [facility] Comment on above: Performed By: #### 2 118408 ####GERTRUDE [address]IwfWrnz[address] [place] [address] Potassium molar conc 4.0 mmol/L Normal 3.5-5.1 [facility] Comment on above: Performed By: #### 2 [id number] ####GERTRUDE [address]DpuJsom[address]394 [place] [address] Sodium molar conc 138 mmol/L Normal 136-145 [facility] Comment on above: Performed By: #### 2 881015 ####GERTRUDE [address]OqpPdob[address] [place] [address] CBC w/ Auto Diffon 8 Erythrocyte distribution width Auto Ratio (RBC) 13.1 % Normal 11.5-14.5 [facility] Comment on above: Performed By: #### 2 [id number] ####GERTRUDE [address]AbjHcav[address]248 [place] [address] Hematocrit Auto Volume Fraction (Bld) 39.1 % Normal 36.0-48.0 [facility] Comment on above: Performed By: #### 2 627403 ####GERTRUDE [address]YjoLyjd[address] [place] [address] Hemoglobin mass conc (Bld) 13.2 g/dL Normal 12.0-16.0 [facility] Comment on above: Performed By: #### 2 882186 ####GERTRUDE LauraTehQali[address]4 [place] [address] MCH Auto Entitic mass (RBC) 29.5 pg Normal 27.0-31.0 [facility] Comment on above: Performed By: #### 2 794381 ####GERTRUDE [address]ItoDpzf9985 [place] [address] MCHC Auto mass conc (RBC) 33.9 g/dL Normal 33.0-37.0 [facility] Comment on above: Performed By: #### 2 [id number] ####GERTRUDE LauraVatDxrf2603 [place] [address] MCV Auto Entitic volume (RBC) 87.0 fL Normal 78.0-100.0 [facility] Comment on above: Performed By: #### 2 513659 ####GERTRUDE LauraCneYnrg[address] [place] [address] Platelet mean volume Auto Entitic volume (Bld) 9.0 fL Normal 7.4-11.0 [facility] Comment on above: Performed By: #### 2 598171 ####GERTRUDE QjoVdjw9379 [place] [address] Platelets Auto #/vol (Bld) 379 E3/mcL Normal 130-400 [facility] Comment on above: Performed By: #### 2 122576 ####GERTRUDE ObaBacg[address] [place] [address] RBC Auto #/vol (Bld) 4.49 E6/mcL Normal 3.90-5.40 [facility] Comment on above: Performed By: #### 2 186022 ####GERTRUDE BljStep[address] [place] [address] WBC Auto #/vol (Bld) 10.4 E3/mcL Normal 3.6-11.0 [facility] Comment on above: Performed By: #### 2 561720 ####GERTRUDE RbgHskc0400 [place] [address] Lipid Profileon 08-01-2018 Cholesterol in HDL mass conc 44 mg/dL Normal >=41 [facility] Comment on above: Performed By: #### 3 [id number] ####GERTRUDECharly LauraUeqMzci1086 [place] [address] Cholesterol in LDL mass conc 147 mg/dL High 0-130 [facility] Comment on above: Result Comment: <100 [id number] NEAR / ABOVE [id number] 159 BORDERLINE [id number] HIGH>190 VERY HIGHCALC LDL NOT VALID WHEN TRIGLYCERIDE IS >400 MG/DL Performed By: #### 3 [id number] ####GERTRUDECharly LauraMpsQckr2021 [place] [address] Cholesterol in VLDL mass conc 34 mg/dL Normal [facility] Comment on above: Performed By: #### 3 [id number] ####GERTRUDE [address]kdRtnu[address]162 [place] [address] Cholesterol mass conc 225 mg/dL High 50-200 [facility] Comment on above: Result Comment: TOTA L CHOLEESTEROL: <200 NORMAL 200 - 239 BORDERLINE HIGH >240 HIGH Performed By: #### 3 [id number] ####GERTRUDE [address] [place] [id number] Triglyceride mass conc 171 mg/dL High 35-150 [facility] Comment on above: Result Comment: <150 [id number] BORDERLINE [id number] HIGH>500 VERY HIGH Performed By: #### 3 [id number] ####GERTRUDE [address]tzIvab[address] [place] [id number] TSHon 08-01-2018 Thyrotropin Qn 0.78 mIU/m Normal 0.30-5.60 [facility] Comment on above: Performed By: #### 2 360041 ####GERTRUDE [address]SbbZhjq[address] [place] [id number] eGFRon 08-01-2018 eGFR AA >60 Normal [facility] Comment on above: Order Comment: Order added by Discern Expert. Performed By: #### 1 [id number] ####GERTRUDE [address] [place] [id number] GFR/1.73 sq M predicted among non-blacks MDRD vol rate/area (S/P/Bld) mL/min/{1.73_m2} Normal [facility] Comment on above: Order Comment: Order added by Discern Expert. Performed By: #### 1 [id number] ####GERTRUDE [address]su[address] [place] [id number] ED NOTEon 11-20-2017 ED NOTE HNO ID: [id number] thor: Priti (Rn) Lilia Mojicaice: (none)Author Type: Registered NurseType: ED NotesFiled: 11/20/2017 1:36 AMNote Text: Follow-up care and DC instructions provided to patient. RX andmedication education provided. All questions answered. VSS. Pt left withsteady gait by self Normal [facility] ED NOTE HNO ID: [id number] thor: Priti (RnLilia Irvingice: (none)Author Type: Registered NurseType: ED NotesFiled: 11/20/2017 12:35 AMNote Text: Pt stated that she began with a sore throat Wed, progressing since thento productive cough of green/brown sputum. Sore throat with cough. VomitedTh green bile, denies N/V since then. New dizziness/lightheadedness . Normal [facility] ED PROV NOTEon 11-20-2017 ED PROV NOTE HNO ID: [id number] thor: Lindsey Ferrer) Vimal Valenzuela: (none)Author Type: Physician AssistantType: ED Provider NotesFiled: 11/20/2017 1:21 AMNote Text:ED Provider NotePatient Name: Gina FitzgeraldMRN: [id number] DATE: 11/20/17HistoryPatient presents with:Cough: states started as scratchy throat on Wednesday, now with severalcough, +yellow/greeen/victor sputum.Shortness of Breath: no hx of asthma, states sob with coughing fits denies any inhaler usage in the pastHPI Comments: 27 yo female presents to ED with cough, congestion. Patientreports on Wednesday, she developed sinus pressure and congestion withassociated scratchy throat. Associated rhinorrhea and postnasal drip.She had subsequent cough. She reports cough develops to productive ofyellow/green sputum. Patient reports she has coughing fits which causesher to feel short of breath. She denies any dyspnea on exertion ororthopnea. Denies chest pain rest, exertional CP, pleuritic CP. She alsoreports 1 episode of posttussive emesis on Wednesday, not associatedabdominal pain nausea vomiting or diarrhea. She is a never smoker. Shereports roommate with similar symptoms, diagnosed with bronchitis and PNA.She denies history of asthma/COPD. She reports chills, no reported feversat home.No past medical history on file.No past surgical history on file.No family history on file.Social HistorySocial History Main Topics- Smoking status: Never Smoker- Smokeless tobacco: Never Used- Alcohol use Yes Comment: rarely- Drug use: No- Sexual activity: Not on fileALLERGIESNo Known AllergiesReview of SystemsConstitutional: Positive for chills. Negative for appetite change andfever.HENT: Negative for ear pain and sore throat.Eyes: Negative for photophobia, pain and visual disturbance.Respiratory: Negative for shortness of breath.Cardiovascular: Negative for chest pain.Gastrointestinal: Negative for abdominal pain, constipation, diarrhea,nausea and vomiting.Genitourinary: Negative for flank pain.Musculoskeletal: Negative for back pain.Skin: Negative for color change, pallor and rash.Neurological: Negative for headaches.Hematological: Negative for adenopathy.Psychiatric/Be havioral: Negative for agitation, behavioral problems andconfusion.Physical ExamBP 154/92 Pulse 100 Temp (Src) 99.5 (Oral) Resp 20 Ht 5' 4 (1.63m) Wt 290 lb (131.5kg) SpO2 98% BMI 49.75 kg/(m2).Physical ExamConstitutional: She is oriented to person, place, and time. She appearswell-developed.Obe se female, nontoxic, no acute distress.Speaking in full sentences without difficultyHENT:Head: Normocephalic and atraumatic.Mouth/Throat: Oropharynx is clear and moist.Posterior oropharynx unremarkable. No edema, exudate, erythema. Uvulamidline. Speech clear and fluent.Maintains own secretionsEyes: EOM are normal. Pupils are equal, round, and reactive to light.Neck: Normal range of motion. Neck supple. No JVD present.Cardiovascular: Normal rate, regular rhythm and intact distal pulses.Radial pulse 91 bpm on exam. 2+ radial, pedal pulses intact and equalbilaterally.Pulmonar y/Chest: Effort normal and breath sounds normal. No stridor.Speaks in full and his left difficulty. No wheezes, rales or rhonchi.Harsh cough appreciated. No cyanosis.Abdominal: Soft. Bowel sounds are normal. She exhibits no distension andno mass. There is no tenderness. There is no rebound and no guarding.Abdomen without tenderness. No CVATBMusculoskeletal: She exhibits no edema or tenderness.No midline cervical, thoracic, lumbar tenderness. Extremities arenonedematous, not tender to palpation. Ambulatory without difficulty.Lymphadenopath y: She has no cervical adenopathy.Neurological: She is alert and oriented to person, place, and time.No gross sensory deficit. Ambulatory without ataxia.Skin: Skin is warm and dry.Psychiatric: She has a normal mood and affect. Her behavior is normal.Thought content normal.Nursing note and vitals reviewed.Diagnostic TestingED Labs Ordered and Reviewed - No data to displayProceduresMedical Decision Making / ED CourseED CourseVital signs reviewedBP 154/92 Pulse (!) 100 Temp (!) 37.5 ?C (99.5 ?F) (Oral) Resp 20 Ht 162.6 cm (5' 4 ) Wt 131.5 kg (290 lb) SpO2 98% BMI 49.78 kg/h7Hmqtmk records were reviewed.Medical records were reviewed.Nursing notes were reviewed and incorporatedThirosibel is a 27 yo female with sinus congestion and cough since Wednesday.States chills, no reported fever. Productive of green/ywlloe sputum.On arrival, patient is nontoxic-appearing, no acute distress. She doeshave a harsh cough.No hypoxia. She is a never smoker, denies underlying lung disease.Given breathing treatment on arrival. - slightly tachycardic afteralbuterol as expected. No distress.CXR- no acute cardiopulmonary process.[place] imrpoved after breathing treatment.Pt with productive cough. Exposure to pna per patient.Will treat with zpack, medrol pack and albuterol.educated on OTC cough suppressant, motrin/tylenol as needed.advised follow up with primary care, educated on strict ED returnprecautions.Present ation and work-up consistent withEncounter Diagnosis ICD-10-CM1. Cough R05Pt was educated on the red flags to return to the ED. Pt demonstrated anunderstanding and was in agreement with the plan of care.PlanThe Patient was DISCHARGED: Counseled patient regarding lab results ANDsuspected diagnosis AND need for follow-up. Discharged home with verbal andwritten instructions. They were instructed to return as needed forpersistent or worsening symptoms or any new concerns.Condition at time of disposition: stableSIGNATURE: Sofía Jolly PA (Pa)11/20/17 0121 Normal [facility] XR CHEST 2V FRONTAL/LATon XR CHEST 2V FRONTAL/LAT * * *Final Report* * *DATE OF EXAM: Nov 20 2017 12:55AM FVX [id number] - XR CHEST 2V FRONTAL/LAT / REASON: Cough * * * * Physician Interpretation * * * * EXAMINATION: CHEST RADIOGRAPH (2 VIEW FRONTAL and LATERAL)Clinical History: CoughM: XC2_3Comparison: NoneRESULT:Lines, tubes, and devices: None.Lungs and pleura: No consolidation. No lung mass. No pleural effusion.Cardiomediastina l silhouette: Normal cardiomediastinal silhouette.Other: The metallic ornament at the level of the sternum. Bilateral nipple recommendsIMPRESSION:NO ACUTE RADIOGRAPHIC ABNORMALITYTranscriptioni st: PSCB Transcribe Date/Time: Nov 20 2017 1:03ADictated by : ANTOLIN LEONARD MDThis examination was interpreted and the report reviewed and electronically signed by: ANTOLIN LEONARD MD on Nov 20 2017 1:05AM [id number] Normal [facility] Vital Signs Date Time Vital Sign Value Performing Clinician Facility 02-28-2024 12:51-0400 Blood Pressure Location Zeus Mcghee [facility] 02-28-2024 12:51-0400 Body temperature 98.42 [degF] Zeus Mcghee [facility] 02-28-2024 12:51-0400 Diastolic blood pressure 80 mm[Hg] Zeus Mcghee [facility] 02-28-2024 12:51-0400 Heart rate 82 /min Zeus Mcghee [facility] 02-28-2024 12:51-0400 SaO2% (BldA) [Mass fraction] 95 % Zeus Mcghee [facility] 02-28-2024 12:51-0400 Systolic blood pressure 136 mm[Hg] Zeus Mcghee [facility] 12-20-2023 08:56-0500 Body height 160 cm Emilio Miller MD Work Phone: [facility] 12-20-2023 08:56-0500 Body mass index (BMI) [Ratio] 54.74 kg/m2 Emilio Miller MD Work Phone: [facility] 12-20-2023 08:56-0500 Body weight 140.16 kg Emilio Miller MD Work Phone: [facility] 12-20-2023 08:56-0500 Diastolic blood pressure 59 mm[Hg] Emilio Miller MD Work Phone: [facility] 12-20-2023 08:56-0500 Heart rate 87 /min Emilio Miller MD Work Phone: [facility] 12-20-2023 08:56-0500 Systolic blood pressure 132 mm[Hg] Emilio Miller MD Work Phone: [facility] 12-13-2023 10:45-0500 Body temperature 98.01 [degF] Yash Petruzzi PA-C Work Phone: [facility] 12-13-2023 10:45-0500 Diastolic blood pressure 80 mm[Hg] Yash Petruzzi PA-C Work Phone: [employer] 12-13-2023 10:45-0500 Heart rate 90 /min Yash Petruzzi PA-C Work Phone: [facility] 12-13-2023 10:45-0500 Respiratory rate 18 /min Yash Petruzzi PA-C Work Phone: [facility] 12-13-2023 10:45-0500 SaO2% (BldA) [Mass fraction] 100 % Yash Petruzzi PA-C Work Phone: [facility] 12-13-2023 10:45-0500 Systolic blood pressure 130 mm[Hg] Yash Petrfarzanai PA-C Work Phone: [facility] 10-22-2023 07:42-0500 Diastolic blood pressure 82 mm[Hg] Alpa Del Castillo MD Work Phone: [facility] Comment on above: MANUAL 10-22-2023 07:42-0500 Systolic blood pressure 136 mm[Hg] Alpa Del Castillo MD Work Phone: [facility] Comment on above: MANUAL 10-22-2023 07:39-0500 Body mass index (BMI) [Ratio] 55.69 kg/m2 Alpa Del Castillo MD Work Phone: [facility] 10-22-2023 07:39-0500 Body temperature 98.01 [degF] Alpa Del Castillo MD Work Phone: [facility] 10-22-2023 07:39-0500 Body weight 142.6 kg Alpa Del Castillo MD Work Phone: [facility] 10-22-2023 07:39-0500 Heart rate 91 /min Alpa Del Castillo MD Work Phone: [facility] 10-22-2023 07:39-0500 Respiratory rate 20 /min Alpa Del Castillo MD Work Phone: [facility] 10-22-2023 07:39-0500 SaO2% (BldA) [Mass fraction] 98 % Alpa Del Castillo MD Work Phone: [facility] 04-16-2023 08:52-0400 Body temperature 98.01 [degF] Yash Belli PA-C Work Phone: [facility] 04-16-2023 08:52-0400 Diastolic blood pressure 84 mm[Hg] Yash Belli PA-C Work Phone: [facility] 04-16-2023 08:52-0400 Heart rate 90 /min Yash Petruzzi PA-C Work Phone: [facility] 04-16-2023 08:52-0400 Respiratory rate 16 /min Yash Petruzzi PA-C Work Phone: [facility] 04-16-2023 08:52-0400 SaO2% (BldA) [Mass fraction] 100 % Yash Hariniuzzi PA-C Work Phone: [facility] 04-16-2023 08:52-0400 Systolic blood pressure 136 mm[Hg] Yash Melendez PA-C Work Phone: [facility] 08-31-2022 17:25-0400 Diastolic blood pressure 98 mm[Hg] Yash Belli PA-C Work Phone: [facility] [place] 08-31-2022 17:25-0400 Heart rate 97 /min Yash Melendez PA-C Work Phone: [facility] [place] 08-31-2022 17:25-0400 Respiratory rate 18 /min Yash Belli PA-C [facility] Phone: [facility] 08-31-2022 17:25-0400 SaO2% (BldA) [Mass fraction] 97 % Yash Melendez PA-C Work Phone: [facility] 08-31-2022 17:25-0400 Systolic blood pressure 151 mm[Hg] Yash Belli PA-C Work Phone: [facility] 08-31-2022 15:39-0400 Body temperature 98.4 [degF] Yash Taofarzanahamlet PA-C Work Phone: [facility] 08-31-2022 15:24-0400 Body height 170.2 cm Yash Hariniblanco PA-C Work Phone: [facility] 08-31-2022 15:24-0400 Body mass index (BMI) [Ratio] 46.99 kg/m2 Yash Taofarzanai PA-C Work Phone: [facility] [place] 08-31-2022 15:24-0400 Body weight 136.08 kg Yash Hariniblanco PA-C Work Phone: [facility] [place] 06-26-2022 09:30-0400 Body height 160 cm Emilio Miller MD Work Phone: [facility] 06-26-2022 09:30-0400 Body mass index (BMI) [Ratio] 52.22 kg/m2 Emilio Miller MD Work Phone: [facility] 06-26-2022 09:30-0400 Body weight 133.72 kg Emilio Miller MD Work Phone: [facility] 06-26-2022 09:30-0400 Diastolic blood pressure 83 mm[Hg] Emilio Miller MD Work Phone: [facility] 06-26-2022 09:30-0400 Heart rate 86 /min Emilio Miller MD Work Phone: [facility] 06-26-2022 09:30-0400 Systolic blood pressure 131 mm[Hg] Emilio Miller MD Work Phone: [facility] Encounters Encounter Date Encounter Type Care Provider Facility Start: 03-01-2024 End: 03-02-[facility] Start: 02-28-2024 End: 02-29-2024 ambulatory Zeus Mcghee [facility] Start: 02-28-2024 End: 02-28-2024 Phys/qhp telephone evaluation 5-10 min Alina RYAN Work Phone: [facility] Medicine-Pediatrics Comment on above: Attention deficit hy peractivity disorder (ADHD), predominantly inattentive type (Primary Dx) Start: 02-28-2024 End: 02-29-2024 ambulatory Zeus Mcghee Facility: [facility] Start: 02-28-2024 End: 02-28-2024 Lab Drop off Zeus Mcghee [facility] Start: 02-28-2024 End: 02-28-2024 Patient encounter procedure Zeus Mcghee [facility] Start: 02-28-2024 End: 02-28-2024 ambulatory YASH MELENDEZ Facility:[facility] Start: 01-20-2024 End: 01-20-2024 ambulatory TANNER WIGGINS CNP Facility:[facility] Start: 12-27-2023 Refill Yash moreno PA-C Work Phone: [facility] Comment on above: Refill Start: 12-20-2023 End: 12-20-2023 ambulatory YASH HARINIFARZANAHamlet Facility:[facility] Start: 12-20-2023 End: 12-20-2023 Patient encounter procedure Emilio Miller MD Work Phone: [facility] Work Phone: Start: 12-20-2023 End: 12-20-2023 Periodic preventive med est patient 18-39 yrs Emilio Miller MD Work Phone: [facility]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 Comment on above: Encounter for well w sandi exam with routine gynecological exam (Primary Dx); Pap smear for cervical cancer screening; Mixed hyperlipidemia; Screening for diabetes mellitus; Class 3 severe obesity due to excess calories without serious comorbidity with body mass index (BMI) of 50.0 to 59.9 in adult ([facility]) Start: 12-13-2023 End: 12-13-2023 ambulatory YASH HARINIBLANCO Facility:[facility] Start: 12-13-2023 End: 12-13-2023 Office outpatient visit 25 minutes Yash Melendez PA-C Work Phone: [facility] Comment on above: Attention deficit hy peractivity disorder (ADHD), predominantly inattentive type (Primary Dx); Current mild episode of major depressive disorder without prior episode ([facility]); Hypertension, unspecified type Start: 11-27-2023 Refill Yash moreno PA-C Work Phone: [facility] Comment on above: Refill Start: 10-26-2023 E-mail encounter fro m caregiver Yash Melendez PA-C Work Phone: [facility] Start: 10-26-2023 Patient encounter procedure Yash Melendez PA-C Work Phone: [facility] Comment on above: Last canceled appoin tment Start: 10-22-2023 Refill Yash moreno PA-C Work Phone: [facility] Comment on above: Refill Start: 10-22-2023 End: 10-22-2023 ambulatory YASH MELENDEZ Facility:[facility] Start: 10-22-2023 End: 10-22-2023 Office outpatient visit 15 minutes Alpa Del Castillo MD Work Phone: [facility] Comment on above: Sore throat (Primary Dx); Suspected severe acute respiratory syndrome coronavirus 2 (SARS-CoV-2) infection Start: 10-06-2023 Telephone encounter Marlena Graff [facility] Start: 08-30-2023 End: 08-31-2023 ambulatory TANNER FELICIANO [employer] Facility:[facility] Start: 08-23-2023 End: 08-24-2023 ambulatory TANNER FELICIANO [employer] Facility:[facility] Start: 07-26-2023 End: 07-27-2023 ambulatory TANNER FELICIANO [employer] Facility:[facility] Start: 07-16-2023 ambulatory UNKNOWN PROVIDER Facili ty:[facility] Start: 06-21-2023 End: 06-22-2023 ambulatory TANNER FELICIANO [employer] Facility:[facility] Start: 06-21-2023 End: 06-21-2023 ambulatory YASH MELENDEZ Facility:[facility] Start: 06-21-2023 End: 06-21-2023 Patient encounter procedure Ri Emg Pmr [facility] Comment on above: Bilateral carpal sanaz cesar syndrome (Primary Dx); Bilateral hand numbness Start: 04-16-2023 End: 04-16-2023 ambulatory YASH MELENDEZ Facility:[facility] Start: 04-16-2023 End: 04-16-2023 Office outpatient visit 25 minutes Yash Melendez PA-C Work Phone: [facility] Comment on above: Attention deficit hy peractivity disorder (ADHD), predominantly inattentive type (Primary Dx); Bilateral carpal tunnel syndrome Start: 04-08-2023 Telephone encounter Yash JJ-Jimy Work Phone: [facility] Start: 03-19-2023 Letter encounter Damaris rob MD Work Phone: [facility] Start: 02-27-2023 ambulatory Yash Salvador moreno PA-C Work Phone: [facility] Comment on above: Concerning Start: 02-27-2023 E-mail encounter blanche m caregiver Yash JJ-Jimy Work Phone: [facility] Start: 12-28-2022 Patient Message Yash JJ-Jimy Work Phone: [facility] Comment on above: Refill Start: 12-21-2022 End: 12-21-2022 Phys/qhp telephone evaluation 5-10 min Yash JJ-Jimy Work Phone: [facility] Comment on above: Current mild episode of major depressive disorder without prior episode (HCC) (Primary Dx); Hypertension, unspecified type; Attention deficit hyperactivity disorder (ADHD), predominantly inattentive type Start: 12-12-2022 Letter encounter Damaris rob MD Work Phone: [facility] Start: 10-23-2022 ambulatory Yash JJ-C Work Phone: [facility] Comment on above: Forms Completion (12/22/21 [facility] Start: 10-23-2022 Documentation procedure Hal Melendez PA-C Work Phone: [facility] Start: 10-15-2022 Letter encounter - - Louise [facility] Start: 09-16-2022 ambulatory Yash moreno PA-C Work Phone: [facility] Comment on above: Forms Completion (11 /1/22 [facility]) Start: 09-16-2022 Documentation procedure Hal rob Daniela MIJARES Work Phone: [facility] Start: 09-14-2022 End: 09-14-2022 Phys/qhp telephone evaluation 5-10 min Yash Melendez PA-C Work Phone: [facility] Comment on above: Bilateral carpal sanaz cesar syndrome (Primary Dx); Attention deficit hyperactivity disorder (ADHD), predominantly inattentive type Start: 09-07-2022 Refill Yash JJ-C Work Phone: [facility] Comment on above: Refill Start: 08-31-2022 End: 08-31-2022 Emergency department patient visit YASH [facility]e [facility] Start: 08-31-2022 End: 08-31-2022 Emergency department patient visit Yash Daniela MIJARES Work Phone: [facility] Comment on above: Closed head injury, initial encounter (Primary Dx); Sprain of left upper arm, initial encounter; Contusion of left knee, initial encounter Start: 06-26-2022 End: 06-27-2022 Patient encounter procedure Emilio Miller MD Work Phone: [facility]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 Comment on above: Encounter for IUD in sertion (Primary Dx) Start: 06-19-2022 Letter encounter Damaris rob MD Work Phone: [facility] Start: 06-16-2022 End: 06-16-2022 Phys/qhp telephone evaluation 5-10 min Yash Melendez PA-C Work Phone: [facility] Comment on above: Attention deficit hy peractivity disorder (ADHD), predominantly inattentive type (Primary Dx); Toenail fungus Start: 04-17-2022 Patient Message Yash JJ-C Work Phone: [facility] Comment on above: Refill Start: 03-06-2019 End: 03-07-2019 Patient encounter procedure JONEL SCHIKOWSKI [facility] Start: 01-31-2019 End: 01-31-2019 Emergency department patient visit JONEL KIM CELSO [facility] Start: 09-05-2018 End: 09-06-2018 Patient encounter [facility] Facility:[facility] Start: 09-05-2018 End: 09-06-2018 Patient encounter [facility] Facility:[facility] Start: 09-05-2018 Patient encounter Facil [id number] Start: 08-16-2018 End: 08-16-2018 Patient encounter [place] Rosibel Sully Facility:[facility] Start: 08-01-2018 End: 08-02-2018 Patient encounter [place] [facility] Start: 08-01-2018 Patient encounter Facil [id number] Start: 07-26-2018 End: 07-26-2018 Patient encounter [place] Rosibel [facility] Start: 07-11-2018 End: 07-12-2018 Patient encounter [place] Rosibel [facility] Start: 11-20-2017 End: 11-20-2017 Emergency department patient visit [facility] Procedures Date Procedure Procedure Detail Performing Clinician Start: 12-20-2023 Microscopic observat ion [Identifier] in Cervix by Cyto stain Emilio Miller MD Work Phone: Start: 12-13-2023 Drug screen class list a Yash Melendez PA-C Work Phone: Start: 10-22-2023 COVID/INFLUENZA Alpa erwin MD Work Phone: Start: 10-22-2023 Iaadiadoo streptococ cus group a Alpa Del Castillo MD Work Phone: Start: 06-21-2023 Needle emg ea extrem ity w/paraspinl area limited Pillo Whaley MD Work Phone: Start: 06-21-2023 Electromyography Hal Melendez PA-C Work Phone: Start: 08-31-2022 Radex elbow complete minimum 3 views Allison Block [employer] PROC[employer] - [employer] Other Phone: Start: 08-31-2022 Ct head/brain w/o co ntrast material Allison Block [employer] PROCESSOR - [employer]SEM[employer]ER Other Phone: Start: 08-31-2022 Urine test visual color cmprsn meths Allison Block [employer] PROCESS[employer] - [employer]SEM[employer]ER Other Phone: Start: 06-26-2022 Insertion intrauteri ne device iud Emilio Miller MD Work Phone: Start: 05-08-2019 Microscopic observat ion [Identifier] in Cervix by Cyto stain Yash Melendez PA-C Work Phone: Cholecystectomy Zeus rob Plan of Treatment Date Care Activity Detail Author Start: 2041 Shingles (RZV) Vacci ne (1 of 2) Shingles (RZV) Vaccine (1 of 2) [facility] Start: 10-31-2028 DTaP/Tdap/Td vaccine (7 - Td or Tdap) DTaP/Tdap/Td vaccine (7 - Td or Tdap) [facility] Start: 10-31-2028 Tetanus vaccination [facility] Start: 06-21-2024 Hemoglobin A1c measurement Hemoglobin A1C [facility] Start: 06-19-2024 Screening for malign ant neoplasm of cervix Pap Smear [facility] Start: 12-20-2023 End: 12-20-2023 Patient encounter procedure 12/20/2023 9:00 AM EST Office Visit [facility]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 [id number] [id number] [place] [address] [place] [address] [facility]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 Start: 12-13-2023 End: 12-13-2023 Patient encounter procedure 12/13/2023 10:40 AM EST Office Visit [facility] [address] [place] [id number] Yash Melendez PA-C [address] [place] [address] [facility] Start: 10-11-2023 End: 10-11-2023 Patient encounter procedure 10/11/2023 10:00 AM EST Office Visit [facility] [address] [place] [address] Yash Melendez PA-C [address] [place], [place] [id number] [facility] Start: 08-15-2023 Influenza vaccination Influenza Vacc ine (#1) [facility] Start: 07-16-2023 Influenza vaccination Influenza Vacc ine (#1) [facility] Start: 07-16-2023 End: 07-16-2023 Telemedicine consultation with patient 07/16/2023 2:00 PM EDT Telemedicine [address] [place] [address] Yash Melendez PA-C [address] [place], [place] [phone] [facility] Start: 07-07-2023 Cyanocobalamin vitam in b-12 Vitamin B12 [facility] Start: 12-21-2022 End: 12-21-2022 Telemedicine consultation with patient 12/21/2022 Telemedicine Family Practice Yash Melendez PA-C [address] [facility], [place] [phone] [facility] Start: 09-14-2022 End: 09-14-2022 Patient encounter procedure 09/14/2022 Office Visit Family Practice Yash Melendez PA-C [address] [facility], [place] [phone] [facility] Start: 09-14-2022 End: 03-14-2023 Electromyography EMG EMG Routine Bilateral carpal tunnel syndrome Expected: 09/14/2022, Expires: 03/14/2023 [facility] Work Phone: Comment on above: Expected: 09/14/2022 , Expires: 03/14/2023 Start: 08-15-2022 Influenza vaccination Influenza Vacc ine (#1) [facility] Start: 07-31-2022 End: 07-31-2022 Patient encounter procedure 07/31/2022 Office Visit household [place] [address] [place] [address] [facility]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 Start: 07-07-2022 Basic metabolic 2000 panel - Serum or Plasma Basic Metabolic Panel [facility] Start: 07-07-2022 Creatinine measurement Basic Metabol ic [facility] Start: 07-07-2022 Hemoglobin A1c measurement [facility] Start: 06-26-2022 End: 06-26-2022 Patient encounter procedure 06/26/2022 Procedure Visit household [place] [address] [place] [address] [facility]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 Start: 06-16-2022 End: 06-16-2022 Patient encounter procedure 06/16/2022 Office Visit Family Practice Yash Melendez PA-C [address] [place] [address] [facility] Start: 06-15-2022 Influenza vaccination Flu vaccine (# 1) [facility] Start: 2021 Screening for malign ant neoplasm of cervix [facility] Start: 11-07-2019 Screening for malign ant neoplasm of cervix Pap [facility]ear [facility] Start: 05-10-2013 Hepatitis A (HAV) Va ccine (2 of 2 - Risk 2-dose series) Hepatitis A (HAV) Vaccine (2 of 2 - Risk 2-dose series) [facility] Start: 2012 Screening for malign ant neoplasm of cervix Pap smear [facility] Start: 2009 Hepatitis C screening Hepatitis C sc reen [facility] Start: 2006 HIV screening HIV screen [facility] Start: 2003 Depression Screen Depression Screen [facility] Start: 1996 COVID-19 Vaccine (#1) COVID-19 Vacci ne (#1) [facility] Start: 1992 Varicella vaccine (1 of 2 - 2-dose childhood series) Varicella vaccine (1 of 2 - 2-dose childhood series) [facility] Start: 03-11-1992 COVID-19 Vaccine (#1) COVID-19 Vacci ne (#1) [facility] Basic metabolic 2000 panel - Serum or Plasma BASIC METABOLIC PANEL Lab Routine Encounter for well woman exam with routine gynecological exam Ordered: 12/20/2023 [facility] Comment on above: Ordered: 12/20/2023 Diabetes tracking panel HEMOGLOB IN A1C Lab Routine Encounter for well woman exam with routine gynecological exam Screening for diabetes mellitus Ordered: 12/20/2023 [facility] Comment on above: Ordered: 12/20/2023 Drug screen class list a TOX CLARKE LYSIS W/CONFIMATION,UR Lab Routine Attention deficit hyperactivity disorder (ADHD), predominantly inattentive type Ordered: 04/16/2023 [facility] Work Phone: Comment on above: Ordered: 04/16/2023 End: 10-16-2023 Electromyography EMG EMG Routine Bilateral carpal tunnel syndrome 1 Occurrences starting 04/16/2023 until 10/16/2023 [facility] Comment on above: 1 Occurrences starti ng 04/16/2023 until 10/16/2023 Lipid 1996 panel - S clayton or Plasma FULL LIPID PROFILE Lab Routine Encounter for well woman exam with routine gynecological exam Mixed hyperlipidemia Ordered: 12/20/2023 [facility] Comment on above: Ordered: 12/20/2023 Microscopic examinat ion of cervical Papanicolaou smear PAP SMEAR Anatomic Pathology Routine Encounter for well woman exam with routine gynecological exam Pap smear for cervical cancer screening Ordered: 12/20/2023 [facility] Work Phone: Comment on above: Ordered: 12/20/2023 Urine test visual color cmprsn meths URINE HCG-IN OFFICE Lab Routine Encounter for IUD insertion Ordered: 06/26/2022 [facility] Work Phone: Comment on above: Ordered: 06/26/2022 Immunizations Immunization Date Immunization Notes Care Provider Glenda gonzalez 06-21-2023 Hemoglobin A1C Marlena Graff [facility] 07-07-2021 Hemoglobin A1C Yash hernandez PA-C Work Phone: [facility] 10-31-2018 tetanus toxoid, reduced diphtheria toxoid, and acellular pertussis vaccine, adsorbed Yash Belli PA-C Work Phone: [facility] 11-09-2012 hepatitis A vaccine, adult dosage Yash Belli PA-C Work Phone: [facility] 11-09-2012 Meningococcal, MCV4, unspecified conjugate formulation(groups A, C, Y and W-135) Yash Belli PA-C Work Phone: [facility] 08-22-2010 hepatitis B vaccine, pediatric or pediatric/adolescent dosage Yash Belli PA-C Work Phone: [facility] 08-22-2010 human papilloma viru s vaccine, quadrivalent Yash Arabellai PA-C Work Phone: [facility] 08-02-2009 hepatitis B vaccine, pediatric or pediatric/adolescent dosage Yash Belli PA-C Work Phone: [email or web address] Work Phone: 08-02-2009 human papilloma viru s vaccine, quadrivalent Yash Petrfarzanai PA-C Work Phone: [facility] 06-07-2009 hepatitis B vaccine, pediatric or pediatric/adolescent dosage Yash Arabellai PA-C Work Phone: [facility] 06-07-2009 human papilloma viru s vaccine, quadrivalent Yash Petrfarzanai PA-C Work Phone: [facility] 05-29-2008 Meningococcal, MCV4, unspecified conjugate formulation(groups A, C, Y and W-135) Yash Belli PA-C Work Phone: [employer] Work Phone: 05-29-2008 tetanus toxoid, reduced diphtheria toxoid, and acellular pertussis vaccine, adsorbed Yash Arabellai PA-C Work Phone: [facility] 12-11-2003 measles, mumps and rubella virus vaccine Yash JJ-C Work Phone: [facility] Work Phone: 03-17-1993 diphtheria, tetanus toxoids and acellular pertussis vaccine Yash Melendez PA-C Work Phone: [facility] 03-17-1993 poliovirus vaccine, inactivated Yash Melendez PA-C Work Phone: [facility] 12-27-1992 measles, mumps and rubella virus vaccine Yash Melendez PA-C Work Phone: [facility] 03-14-1992 diphtheria, tetanus toxoids and acellular pertussis vaccine Yash Melendez PA-C Work Phone: [facility] 03-14-1992 haemophilus influenz ae type b vaccine, conjugate unspecified formulation Yash Melendez PA-C Work Phone: [facility] 01-11-1992 diphtheria, tetanus toxoids and acellular pertussis vaccine Yash Melendez PA-C Work Phone: [facility] 01-11-1992 haemophilus influenz ae type b vaccine, conjugate unspecified formulation Yash Melendez PA-C Work Phone: [facility] [facility] 01-11-1992 poliovirus vaccine, inactivated Yash Melendez PA-C Work Phone: [facility] 1991 diphtheria, tetanus toxoids and acellular pertussis vaccine Yash Melendez PA-C Work Phone: [facility] 1991 haemophilus influenz ae type b vaccine, conjugate unspecified formulation Yash Melendez PA-C Work Phone: [facility] 1991 poliovirus vaccine, inactivated Yash Melendez PA-C Work Phone: [facility] Payers Date Payer Category Payer Self-pay 2022 Private Health Insurance [id number] 2018 Unknown 2011 Worker's Compensation [employer] [facility] [id number] 2011-Present [phone] [id number] [facility] [address] [place] [address] Worker's Comp [id number] 2008 Private Health Insurance [id number]. [id number] 1991 Unknown [id number] 2.16.840.1.973037.3.579.2 .356 1991 Unknown [id number] 2.16.840.1.670662.3.579.2 .356 1991 Unknown [id number] 2.16.840.1.391156.3.579.2 .356 1991 Unknown [id number] 2.16.840.1.510043.3.579.2 .717 1991 Unknown [id number] 2.16.840.1.612097.3.579.2 .717 1991 Unknown [id number] 2.16.840.1.413984.3.579.2 .717 1991 Unknown [id number] 2.16.840.1.866718.3.579.2 .717 1991 Unknown [id number] 2.16.840.1.816140.3.579.2 .717 1991 Unknown [id number] 2.16.840.1.706919.3.579.2 .717 1991 Unknown [id number] 2.16.840.1.696322.3.579.2 .717 1991 Unknown [id number] 2.16.840.1.444773.3.579.2 .185 1991 Unknown [id number] 2.16.840.1.494887.3.579.2 .159 1991 Unknown [id number] 2.16.840.1.818864.3.579.2 .159 1991 Unknown [id number] 2.16.840.1.473983.3.579.2 .159 1991 Unknown [id number] 2.16.840.1.501644.3.579.2 .159 1991 Unknown [id number] 2.16.840.1.675702.3.579.2 .159 1991 Unknown [id number] 2.16.840.1.492770.3.579.2 .159 1991 Unknown [id number] 2.16.840.1.815195.3.579.2 .159 1991 Unknown [id number] 2.16.840.1.855415.3.579.2 .727 1991 Unknown [id number] 2.16.840.1.998497.3.579.2 .727 1991 Unknown [id number] 2.16.840.1.730643.3.579.2 .732 1991 Unknown [id number] 2.16.840.1.761790.3.579.2 .732 1991 Unknown [id number] 2.16.840.1.698253.3.579.2 .732 1991 Unknown [id number] 2.16.840.1.516336.3.579.2 .732 1991 Unknown [id number] 2.16.840.1.328068.3.579.2 .732 1991 Unknown [id number] 2.16.840.1.323797.3.579.2 .732 1991 Unknown [id number] 2.16.840.1.188582.3.579.2 .732 Unknown [id number] Social History Date Type Detail Facility Start: 05-01-2019 End: 02-28-2024 Tobacco smoking status NDIS Never smoked tobacco [facility] Start: 05-01-2019 End: 06-27-2022 Tobacco use and exposure User of smokeless tobacco [facility] History of tobacco use Chews Tobacco [facility] Start: 01-12-2022 End: 12-20-2023 Alcohol intake Current non-drinker of alcohol (finding) [facility] Start: 01-12-2022 End: 12-13-2023 Alcohol intake [facility] Start: 01-12-2022 History SDOH Social Connections Phone [phone] [facility] Start: 01-12-2022 History SDOH Social Connections Living 3 [facility] Start: 01-12-2022 History SDOH Physical Activity DPW 4 [facility] Start: 01-12-2022 History SDOH Physical Activity MPS 12 [facility] Start: 01-12-2022 History SDOH IPV Fear 2 [facility] Start: 01-12-2022 History SDOH Food Worry 1 [facility] Start: 1990 Sex Assigned At Female [email or web address] Work Phone: Start: 06-06-2022 End: 06-16-2022 Exposure to SARS-CoV-2 (event) Unable to assess [facility] Start: 06-16-2022 End: 08-31-2022 Exposure to SARS-CoV-2 (event) Not sure [facility] Tobacco smoking stat [facility] Tobacco smoking consumption unknown [facility] Phone: Start: 1990 Sex Assigned At Not on file [facility] Phone: Start: 10-27-2019 Gender identity Identifies as female gender (finding) [facility] Start: 10-27-2019 Sexual orientation Heterosexual (finding) [facility] Start: 01-12-2022 End: 12-13-2023 Humiliation, Afraid, Rape, and Kick questionnaire [HARK] [facility] Within the last year , have you been afraid of your partner or ex-partner? No [facility] In a typical week, h ow many times do you talk on the telephone with family, friends, or neighbors? Patient refused [facility] Are you now , , , , never or living with a partner? [facility] (I/We) worried bartolo clayton (my/our) food would run out before (I/we) got money to buy more. Never true [facility] Functional Status Date Assessment Result Facility 02-28-2024 Functional Status N/A [facility] Care Clinical Notes 04-17-2022 to 02-28-2024 Ania Alina, [employer] - 02/28/2024 2:25 PM Kaitlynn Pederson LPN - 12/20/2023 3:55 PM Emilio Smith MD - 12/20/2023 9:00 AM Deangelo Chin MTA - 12/20/2023 8:54 AM EST Note Date & Type Note Facility 02-28-2024 Hospital Discharge instructions Patient Education 02/28/2024 13:32:37 Diarrhea, Adult Diarrhea, Adult Diarrhea is frequent loose and watery bowel movements. Diarrhea can make you feel weak and cause you to become dehydrated. Dehydration can make you tired and thirsty, cause you to have a dry mouth, and decrease how often you urinate. Diarrhea typically lasts 2 3 days. However, it can last longer if it is a sign of something more serious. It is important to treat your diarrhea as told by your health care provider. Follow these instructions at home: Eating and drinking Follow these recommendations as told by your health care provider: Take an oral rehydration solution (ORS). This is an epvc-oum-ondgrof medicine that helps return your body to its normal balance of nutrients and water. It is found at pharmacies and retail stores. Drink plenty of fluids, such as water, ice chips, diluted fruit juice, and low-calorie sports drinks. You can drink milk also, if desired. Avoid drinking fluids that contain a lot of sugar or caffeine, such as energy drinks, sports drinks, and soda. Eat bland, qrks-sq-wkgnbd foods in small amounts as you are able. These foods include bananas, applesauce, rice, lean meats, toast, and crackers. Avoid alcohol. Avoid spicy or fatty foods. Medicines Take ywxm-ijc-iyyduka and prescription medicines only as told by your health care provider. If you were prescribed an antibiotic medicine, take it as told by your health care provider. Do not stop using the antibiotic even if you start to feel better. General instructions Wash your hands often using soap and water. If soap and water are not available, use a hand agency service representative. Others in the household should wash their hands as well. Hands should be washed: ?After using the toilet or changing a diaper. ?Before preparing, cooking, or serving food. ?While caring for a sick person or while visiting someone in a hospital. Drink enough fluid to keep your urine pale yellow. Rest at home while you recover. Watch your condition for any changes. Take a warm bath to relieve any burning or pain from frequent diarrhea episodes. Keep all follow-up visits as told by your health care provider. This is important. Contact a health care provider if: You have a fever. Your diarrhea gets worse. You have new symptoms. You cannot keep fluids down. You feel light-headed or dizzy. You have a headache. You have muscle cramps. Get help right away if: You have chest pain. You feel extremely weak or you faint. You have bloody or black stools or stools that look like tar. You have severe pain, cramping, or bloating in your abdomen. You have trouble breathing or you are breathing very quickly. Your heart is beating very quickly. Your skin feels cold and clammy. You feel confused. You have signs of dehydration, such as: ?Dark urine, very little urine, or no urine. ?Cracked lips. ?Dry mouth. ?Sunken eyes. ?Sleepiness. ?Weakness. Summary Diarrhea is frequent loose and sometimes watery bowel movements. Diarrhea can make you feel weak and cause you to become dehydrated. Drink enough fluids to keep your urine pale yellow. Make sure that you wash your hands after using the toilet. If soap and water are not available, use hand agency service representative. Contact a health care provider if your diarrhea gets worse or you have new symptoms. Get help right away if you have signs of dehydration. This information is not intended to replace advice given to you by your health care provider. Make sure you discuss any questions you have with your health care provider. Document Revised: 01/22/2023 Document Reviewed: 05/13/2022 [email or web address] Patient Education 2022 Nursing Home Quality. 02/28/2024 13:31:27 Rapid Strep Test Rapid Strep Test Why am I having this test? A rapid strep test is used to check for strep throat. Strep throat is a bacterial infection caused by the bacteria Streptococcus pyogenes. A rapid strep test is the quickest way to check if these bacteria are causing your sore throat. You may have this test if: You have throat pain or neck swelling and tenderness. You have a fever. You have a red throat with yellow or white spots. You experience loss of appetite. You have trouble breathing or painful swallowing. You have a rash. You are dehydrated. The test can be done at your health care provider's office. Results are usually ready in about 20 minutes. What is being tested? This test checks for the presence of the Streptococcus pyogenes bacteria. What kind of sample is taken? This test requires a sample of fluid from the back of your throat and tonsils. Your health care provider may hold down your tongue with a tongue depressor and use a swab to collect the sample. Your health care provider may collect a second sample at the same time. The second sample may be used for a throat culture. In a culture test, the sample is combined with a substance that encourages bacteria to grow. It takes longer to get the results of the throat culture test, but they are more accurate. A culture test can confirm the results from a rapid strep test, or it may show that the results were wrong. How are the results reported? Your test results will be reported as either positive or negative for the bacteria that cause strep throat. What do the results mean? Talk with your health care provider about what your results mean. In some cases, your health care provider may do more testing to confirm the results. If the result of your rapid strep test is negative, it means that: It is likely that you do not have strep throat. A virus may be causing your sore throat. If the result of your rapid strep test is positive, it means that: It is likely that you do have strep throat. You may have to take antibiotic medicine. Talk with your health care provider about what your results mean. Your health care provider may do a throat culture to confirm the results of the rapid strep test. The throat culture can also identify the different strains of bacteria that are present. Questions to ask your health care provider Ask your health care provider, or the department that is doing the test: When will my results be ready? How will I get my results? What are my treatment options? What other tests do I need? What are my next steps? Summary A rapid strep test is used to check for strep throat. Strep throat is a bacterial infection caused by the bacteria Streptococcus pyogenes. A rapid strep test is the quickest way to check if these bacteria are causing your sore throat. The test can be done at your health care provider's office. Results are usually ready in about 20 minutes. This test requires a sample of fluid from the back of your throat and tonsils. Your health care provider may hold down your tongue with a tongue depressor and use a swab to collect the sample. Your test results will be reported as either positive or negative for the bacteria that cause strep throat. This information is not intended to replace advice given to you by your health care provider. Make sure you discuss any questions you have with your health care provider. Document Revised: 02/24/2022 Document Reviewed: 02/24/2022 [email or web address] Patient Education 2022 [email or web address] 02/28/2024 13:31:26 Pharyngitis Pharyngitis Pharyngitis is inflammation of the throat (pharynx). It is a very common cause of sore throat. Pharyngitis can be caused by a bacteria, but it is usually caused by a virus. Most cases of pharyngitis get better on their own without treatment. What are the causes? This condition may be caused by: Infection by viruses (viral). Viral pharyngitis spreads easily from person to person (is contagious) through coughing, sneezing, and sharing of personal items or utensils such as cups, forks, spoons, and toothbrushes. Infection by bacteria (bacterial). Bacterial pharyngitis may be spread by touching the nose or face after coming in contact with the bacteria, or through close contact, such as kissing. Allergies. Allergies can cause buildup of mucus in the throat (post-nasal drip), leading to inflammation and irritation. Allergies can also cause blocked nasal passages, forcing breathing through the mouth, which dries and irritates the throat. What increases the risk? You are more likely to develop this condition if: You are 5 24 years old. You are exposed to crowded environments such as daycare, school, or dormitory living. You live in a cold climate. You have a weakened disease-fighting (immune) system. What are the signs or symptoms? Symptoms of this condition vary by the cause. Common symptoms of this condition include: Sore throat. Fatigue. Low-grade fever. Stuffy nose (nasal congestion) and cough. Headache. Other symptoms may include: Glands in the neck (lymph nodes) that are swollen. Skin rashes. Plaque-like film on the throat or tonsils. This is often a symptom of bacterial pharyngitis. Vomiting. Red, itchy eyes (conjunctivitis). Loss of appetite. Joint pain and muscle aches. Enlarged tonsils. How is this diagnosed? This condition may be diagnosed based on your medical history and a physical exam. Your health care provider will ask you questions about your illness and your symptoms. A swab of your throat may be done to check for bacteria (rapid strep test). Other lab tests may also be done, depending on the suspected cause, but these are rare. How is this treated? Many times, treatment is not needed for this condition. Pharyngitis usually gets better in 3 4 days without treatment. Bacterial pharyngitis may be treated with antibiotic medicines. Follow these instructions at home: Medicines Take losz-ytc-yokbkir and prescription medicines only as told by your health care provider. If you were prescribed an antibiotic medicine, take it as told by your health care provider. Do not stop taking the antibiotic even if you start to feel better. Use throat sprays to soothe your throat as told by your health care provider. Children can get pharyngitis. Do not give your child aspirin because of the association with Inocencia's syndrome. Managing pain To help with pain, try: Sipping warm liquids, such as broth, herbal tea, or warm water. Eating or drinking cold or frozen liquids, such as frozen ice pops. Gargling with a mixture of salt and water 3 4 times a day or as needed. To make salt water, completely dissolve 1 tsp (3 6 g) of salt in 1 cup (237 mL) of warm water. Sucking on hard candy or throat lozenges. Putting a cool-mist humidifier in your bedroom at night to moisten the air. Sitting in the bathroom with the door closed for 5 10 minutes while you run hot water in the shower. General instructions Do not use any products that contain nicotine or tobacco. These products include cigarettes, chewing tobacco, and vaping devices, such as e-cigarettes. If you need help quitting, ask your health care provider. Rest as told by your health care provider. Drink enough fluid to keep your urine pale yellow. How is this prevented? To help prevent becoming infected or spreading infection: Wash your hands often with soap and water for at least 20 seconds. If soap and water are not available, use hand agency service representative. Do not touch your eyes, nose, or mouth with unwashed hands, and wash hands after touching these areas. Do not share cups or eating utensils. Avoid close contact with people who are sick. Contact a health care provider if: You have large, tender lumps in your neck. You have a rash. You cough up green, yellow-brown, or bloody mucus. Get help right away if: Your neck becomes stiff. You drool or are unable to swallow liquids. You cannot drink or take medicines without vomiting. You have severe pain that does not go away, even after you take medicine. You have trouble breathing, and it is not caused by a stuffy nose. You have new pain and swelling in your joints such as the knees, ankles, wrists, or elbows. These symptoms may represent a serious problem that is an emergency. Do not wait to see if the symptoms will go away. Get medical help right away. Call your local emergency services (911 in the [place] Do not drive yourself to the hospital. Summary Pharyngitis is redness, pain, and swelling (inflammation) of the throat (pharynx). While pharyngitis can be caused by a bacteria, the most common causes are viral. Most cases of pharyngitis get better on their own without treatment. Bacterial pharyngitis is treated with antibiotic medicines. This information is not intended to replace advice given to you by your health care provider. Make sure you discuss any questions you have with your health care provider. Document Revised: 01/28/2022 Document Reviewed: 01/28/2022 [email or web address] Patient Education 2022 [email or web address] 02/28/2024 13:31:24 BMI for Adults BMI for Adults What is BMI? Body mass index (BMI) is a number that is calculated from a person's weight and height. BMI can help estimate how much of a person's weight is composed of fat. BMI does not measure body fat directly. Rather, it is an alternative to procedures that directly measure body fat, which can be difficult and expensive. BMI can help identify people who may be at higher risk for certain medical problems. What are BMI measurements used for? BMI is used as a screening tool to identify possible weight problems. It helps determine whether a person is obese, overweight, a healthy weight, or underweight. BMI is useful for: Identifying a weight problem that may be related to a medical condition or may increase the risk for medical problems. Promoting changes, such as changes in diet and exercise, to help reach a healthy weight. BMI screening can be repeated to see if these changes are working. How is BMI calculated? BMI involves measuring your weight in relation to your height. Both height and weight are measured, and the BMI is calculated from those numbers. This can be done either in [place] ([place] or metric measurements. Note that charts and online BMI calculators are available to help you find your BMI quickly and easily without having to do these calculations yourself. To calculate your BMI in [place] measurements: 1.Measure your weight in pounds (lb). 2.Multiply the number of pounds by 703. For example, for a person who weighs 180 lb, multiply that number by 703, which equals 126,540. 3.Measure your height in inches. Then multiply that number by itself to get a measurement called inches squared. For example, for a person who is 70 inches tall, the inches squared measurement is 70 inches x 70 inches, which equals 4,900 inches squared. 4.Divide the total from step 2 (number of lb x 703) by the total from step 3 (inches squared): 126,540 4,900 = 25.8. This is your BMI. To calculate your BMI in metric measurements: 1.Measure your weight in kilograms (kg). 2.Measure your height in meters (m). Then multiply that number by itself to get a measurement called meters squared. For example, for a person who is 1.75 m tall, the meters squared measurement is 1.75 m x 1.75 m, which is equal to 3.1 meters squared. 3.Divide the number of kilograms (your weight) by the meters squared number. In this example: 70 3.1 = 22.6. This is your BMI. What do the results mean? BMI charts are used to identify whether you are underweight, normal weight, overweight, or obese. The following guidelines will be used: Underweight: BMI less than 18.5. Normal weight: BMI between 18.5 and 24.9. Overweight: BMI between 25 and 29.9. Obese: BMI of 30 or above. Keep these notes in mind: Weight includes both fat and muscle, so someone with a muscular build, such as an athlete, may have a BMI that is higher than 24.9. In cases like these, BMI is not an accurate measure of body fat. To determine if excess body fat is the cause of a BMI of 25 or higher, further assessments may need to be done by a health care provider. BMI is usually interpreted in the same way for men and women. Where to find more information For more information about BMI, including tools to quickly calculate your BMI, go to these websites: Centers for Disease Control and Prevention: www.cdc.gov [place] [employer]: www.heart.org National Heart, Lung, and Blood [place]: www.nhlbi.nih.gov Summary Body mass index (BMI) is a number that is calculated from a person's weight and height. BMI may help estimate how much of a person's weight is composed of fat. BMI can help identify those who may be at higher risk for certain medical problems. BMI can be measured using [place]i measurements or metric measurements. BMI charts are used to identify whether you are underweight, normal weight, overweight, or obese. This information is not intended to replace advice given to you by your health care provider. Make sure you discuss any questions you have with your health care provider. Document Revised: 07/24/2020 Document Reviewed: 05/31/2020 [email or web address] Patient Education 2022 Nursing Home Quality. 02/28/2024 13:31:23 Acute Bronchitis, Adult Acute Bronchitis, Adult Acute bronchitis is sudden inflammation of the main airways (bronchi) that come off the windpipe (trachea) in the lungs. The swelling causes the airways to get smaller and make more mucus than normal. This can make it hard to breathe and can cause coughing or noisy breathing (wheezing). Acute bronchitis may last several weeks. The cough may last longer. Allergies, asthma, and exposure to smoke may make the condition worse. What are the causes? This condition can be caused by germs and by substances that irritate the lungs, including: Cold and flu viruses. The most common cause of this condition is the virus that causes the common cold. Bacteria. This is less common. Breathing in substances that irritate the lungs, including: ?Smoke from cigarettes and other forms of tobacco. ?Dust and pollen. ?Fumes from household cleaning products, gases, or burned fuel. ?Indoor or outdoor air pollution. What increases the risk? The following factors may make you more likely to develop this condition: A weak body's defense system, also called the immune system. A condition that affects your lungs and breathing, such as asthma. What are the signs or symptoms? Common symptoms of this condition include: Coughing. This may bring up clear, yellow, or green mucus from your lungs (sputum). Wheezing. Runny or stuffy nose. Having too much mucus in your lungs (chest congestion). Shortness of breath. Aches and pains, including sore throat or chest. How is this diagnosed? This condition is usually diagnosed based on: Your symptoms and medical history. A physical exam. You may also have other tests, including tests to rule out other conditions, such as pneumonia. These tests include: A test of lung function. Test of a mucus sample to look for the presence of bacteria. Tests to check the oxygen level in your blood. Blood tests. Chest X-ray. How is this treated? Most cases of acute bronchitis clear up over time without treatment. Your health care provider may recommend: Drinking more fluids to help thin your mucus so it is easier to cough up. Taking inhaled medicine (inhaler) to improve air flow in and out of your lungs. Using a vaporizer or a humidifier. These are machines that add water to the air to help you breathe better. Taking a medicine that thins mucus and clears congestion (expectorant). Taking a medicine that prevents or stops coughing (cough suppressant). It is not common to take an antibiotic medicine for this condition. Follow these instructions at home: Take vxen-klg-jqhslye and prescription medicines only as told by your health care provider. Use an inhaler, vaporizer, or humidifier as told by your health care provider. Take two teaspoons (10 mL) of honey at bedtime to lessen coughing at night. Drink enough fluid to keep your urine pale yellow. Do not use any products that contain nicotine or tobacco. These products include cigarettes, chewing tobacco, and vaping devices, such as e-cigarettes. If you need help quitting, ask your health care provider. Get plenty of rest. Return to your normal activities as told by your health care provider. Ask your health care provider what activities are safe for you. Keep all follow-up visits. This is important. How is this prevented? To lower your risk of getting this condition again: Wash your hands often with soap and water for at least 20 seconds. If soap and water are not available, use hand agency service representative. Avoid contact with people who have cold symptoms. Try not to touch your mouth, nose, or eyes with your hands. Avoid breathing in smoke or chemical fumes. Breathing smoke or chemical fumes will make your condition worse. Get the flu shot every year. Contact a health care provider if: Your symptoms do not improve after 2 weeks. You have trouble coughing up the mucus. Your cough keeps you awake at night. You have a fever. Get help right away if you: Cough up blood. Feel pain in your chest. Have severe shortness of breath. Faint or keep feeling like you are going to faint. Have a severe headache. Have a fever or chills that get worse. These symptoms may represent a serious problem that is an emergency. Do not wait to see if the symptoms will go away. Get medical help right away. Call your local emergency services (911 in the [place] Do not drive yourself to the hospital. Summary Acute bronchitis is inflammation of the main airways (bronchi) that come off the windpipe (trachea) in the lungs. The swelling causes the airways to get smaller and make more mucus than normal. Drinking more fluids can help thin your mucus so it is easier to cough up. Take wkak-blw-iadhfwu and prescription medicines only as told by your health care provider. Do not use any products that contain nicotine or tobacco. These products include cigarettes, chewing tobacco, and vaping devices, such as e-cigarettes. If you need help quitting, ask your health care provider. Contact a health care provider if your symptoms do not improve after 2 weeks. This information is not intended to replace advice given to you by your health care provider. Make sure you discuss any questions you have with your health care provider. Document Revised: 02/11/2023 Document Reviewed: 03/04/2022 [employer] International Patient Education 2022 Nursing Home Quality. Follow Up Care 02/28/2024 11:24:49 With:NONE, XXXX Address: [phone] When: Unknown [facility] 02-28-2024 History of Present illness Narrative Images from the original note were not included. Gina Masterson was evaluated today via telemedicine appointment. Phone numbers This visit has been rescheduled as a telemed visit to comply with patient safety concerns in accordance with CDC recommendations. Here for 3 month follow up Pcp appt today was cancelled Here for refill on adderall 20mg daily All other ROS have been reviewed and are negative except as noted in the HPI. Problem list reviewed. Patient Active Problem List: Attention deficit hyperactivity disorder (ADHD) [F90.9] Morbid obesity (HCC) [E66.01] Hematochezia [K92.1] Calculus of gallbladder without cholecystitis without obstruction [K80.20] Metabolic syndrome [E88.810] Hypertension [I10] Hyperlipidemia [E78.5] Prediabetes [R73.03] Vitamin D deficiency [E55.9] Medication list reviewed. Current Outpatient Medications on File Prior to Visit Medication Sig Dispense Refill losartan (COZAAR) 50 MG tablet TAKE 1 TABLET BY MOUTH DAILY 90 Tablet 3 amphet-dextroamphet (Adderall) 20 MG tablet Take 1 Tablet by mouth daily for 30 days. 30 Tablet 0 [START ON 03/03/2024] amphet-dextroamphet (Adderall) 20 MG tablet Take 1 Tablet by mouth daily for 30 days. 30 Tablet 0 amphet-dextroamphet (Adderall) 20 MG tablet Take 1 Tablet by mouth daily for 30 days. 30 Tablet 0 fluoxetine (PROZAC) 20 MG capsule TAKE 1 CAPSULE DAILY 90 Capsule 3 vitamin D2 ergocalciferol (DRISDOL) 1.25 MG (74753 UT) capsule topiramate (TOPAMAX) 50 MG tablet metformin (GLUCOPHAGE-XR) 500 MG XR tablet No current facility-administered medications on file prior to visit. Allergy list reviewed. Allergies Allergen Reactions Mushroom Extract Complex Anaphylactic Shock Cashew Nut Itching and Agitation No Known Drug Allergies Appropriate and pertinent visit notes, labs and imaging reviewed. 12/13/2023 visit O[facility] reviewed Last visit with PCP (YASH MELENDEZ) was 12/13/2023 E prescribed via SHELBY Chavez O: No vital signs were taken. No physical completed today. A/P: (F90.0) Attention deficit hyperactivity disorder (ADHD), predominantly inattentive type (primary encounter diagnosis) Comment: Plan: amphet-dextroamphet (Adderall) 20 MG tablet, amphet-dextroamphet (Adderall) 20 MG tablet, amphet-dextroamphet (Adderall) 20 MG tablet Discussion of medication usage, goals of therapy, and common complications/side effects to this medication. Patient indicates understanding of these issues and agrees with the plan. Discussion with patient re: partnership in his/her health. I am here to help with health issues by educating, prescribing, or referring to appropriate specialties. The patient has a personal responsibility/role in his/her health by maintaining compliance with said appropriate therapies (behavioral/lifestyle changes, medications, follow up appointments, etc). If the patient disagrees with or declines a particular therapy, or if side effects happen and the patient stops the therapy, the patient will let me know and we will work together to find a different therapy. I expect to see my patients once a year for a complete physical and every six months if there are chronic issues to monitor. The Patient verbalizes understanding and agreement with self responsibilities. Patient's current medication list was updated appropriately. The patient was given the opportunity to ask questions and all questions were answered at this time. Follow up appointment due w/ pcp Alina Perez, MSN, RN, [employer]CRAFT [employer]SEMBLER documented in this encounter [facility] 12-20-2023 History of Present illness Narrative Provider requested a information writer. Kaitlynn Sotomayor LPN present. Images from the original note were not included. The patient, Gina Masterson , identity was verified by name and MRN. 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 States she has intermittent spotting or bleeding, but no pelvic pain or deep dyspareunia. Review of Systems: Constitutional: Negative for recent weight loss, fevers, or chills. Eyes: negative for visual changes Ears, nose, throat: negative. Respiratory: Negative for cough, wheezing and shortness of breath. Cardiovascular: Negative for chest pain, palpitations, shortness of breath, leg swelling. Gastrointestinal: Negative for heartburn, nausea, vomiting, abdominal pain, diarrhea, constipation, blood in stool and melena. Genitourinary: as above. Musculoskeletal: Negative for back pain. Skin&integumentary: Negative for rash and itching. Neurological: Negative for headaches. Psychiatric: negative for nervousness, anxiety. Current Outpatient Medications: fluoxetine (PROZAC) 20 MG capsule, , Disp: , Rfl: vitamin D2 ergocalciferol (DRISDOL) 1.25 MG (05880 UT) capsule, , Disp: , Rfl: topiramate (TOPAMAX) 50 MG tablet, , Disp: , Rfl: metformin (GLUCOPHAGE-XR) 500 MG XR tablet, , Disp: , Rfl: amphet-dextroamphet (ADDERALL) 20 MG tablet, Take 1 Tablet by mouth daily for 30 days., Disp: 30 Tablet, Rfl: 0 losartan (COZAAR) 50 MG tablet, Take 1 Tablet by mouth daily., Disp: 90 Tablet, Rfl: 3 Past Medical History: Diagnosis Date Abnormal Pap smear and cervical HPV (human papillomavirus) History of sexually transmitted disease 2019 Hx of abnormal cervical Pap smear Hypertension 12/20/2023 Migraine Past Surgical History: Procedure Laterality Date CHOLECYSTECTOMY, LAPAROSCOPIC N/A 08/17/2020 Procedure: LAPAROSCOPIC CHOLECYSTECTOMY,WITH CHOLANGIOGRAMS; Surgeon: Hola Ramirez MD; Location: [facility]; Service: General NO PAST SURGICAL HISTORY Family History Problem Relation Age of Onset Uterine Cancer Mother Other (migraine headache) Father Good health Sister Good health Maternal Grandmother Good health Maternal Grandfather Alzheimer's Disease Paternal Grandmother Good health Paternal Grandfather Social History Socioeconomic History Marital status: Highest education level: 12th grade Tobacco Use Smoking status: Never Smokeless tobacco: Current Types: Chew Substance and Sexual Activity Alcohol use: No Alcohol/week: 0.0 standard drinks of alcohol Drug use: No Sexual activity: Yes Partners: Male Social Determinants of Health Financial Resource Strain: Unknown (01/12/2022) Overall Financial Resource Strain (CARDIA) Difficulty of Paying Living Expenses: Patient refused Food Insecurity: No Food Insecurity (01/12/2022) Hunger Vital Sign Worried About Running Out of Food in the Last Year: Never true Ran Out of Food in the Last Year: Never true Transportation Needs: No Transportation Needs (01/12/2022) PRAPARE - Transportation Lack of Transportation (Medical): No Lack of Transportation (Non-Medical): No Physical Activity: Sufficiently Active (01/12/2022) Exercise Vital Sign Days of Exercise per Week: 4 days Minutes of Exercise per Session: 120 min Stress: Unknown (01/12/2022) [employer] - Occupational Stress Questionnaire Feeling of Stress : Patient refused Social Connections: Unknown (01/12/2022) Social Connection and Isolation Panel [NHANES] Frequency of Communication with Friends and Family: Patient refused Frequency of Social Gatherings with Friends and Family: Patient refused Attends Buddhist Services: Patient refused Active Member of Clubs or Organizations: Patient refused Attends Club or Organization Meetings: Patient refused Marital Status: Intimate Partner Violence: Not At Risk (01/12/2022) Humiliation, Afraid, Rape, and Kick questionnaire Fear of Current or Ex-Partner: No Emotionally Abused: No Physically Abused: No Sexually Abused: No Housing Stability: Low Risk (01/12/2022) Housing Stability Vital Sign Unable to Pay for Housing in the Last Year: No Number of Places Lived in the Last Year: 1 Unstable Housing in the Last Year: No TISSUE REWINDER HX: LMP: Patient's last menstrual period was 12/12/2023 (approximate). Abnormal Bleeding/Menses: as above (pt has progestin IUD in place) Abnormal pap smear: last pap negative, HRHPV positive in 2019; no colpo done - will repeat pap and HPV today History Sexual Activity Sexual activity: Yes Partners: Male control/ protection: OB History Para Term AB Living 1 0 0 0 0 0 SAB IAB Ectopic Multiple Live Births 0 0 0 0 0 Because violence is so common, we ask all our patients: are you in a relationship or do you live with a person who threatens, hurts, or controls you: No I have reviewed the following patient level data: allergies, current medications, problem list, current medications specialty specific, past surgical history, past medical history, social history, family history, obstetrical history and immunizations OBJECTIVE: BP 132/59 Pulse 87 Ht 5' 3 (1.6 m) Wt (!) 309 lb (140.2 kg) LMP 12/12/2023 (Approximate) BMI 54.74 kg/m GENERAL: appears stated age, cooperative and no distress NEURO: Alert and oriented HEAD: atraumatic, normocephalic SKIN: no rashes on visible skin LUNGS: no heavy or increased work of breathing HEART: deferred BREAST: no masses noted, no significant tenderness, no palpable axillary lymph nodes, no skin changes, bilaterally ABDOMEN: nontender and no masses, no organomegaly PELVIC EXAM: Exam Chaperoned by nurse: Yes VULVA: normal appearing vulva with no masses, tenderness, or lesions VAGINA: normal appearing vagina with normal color and discharge, no lesions CERVIX: normal appearing cervix without discharge or lesions and cervical motion tenderness absent UTERUS: uterus is normal size, shape, consistency and nontender ADNEXA: normal adnexa in size, nontender and no masses EXTREMITIES: no clubbing, cyanosis or edema bilaterally PLAN: control: patient wishes to continue with current method, Advised re safe sex and PAP smear done, advised regarding frequency ASSESSMENT AND PLAN: 1. Encounter for well woman exam with routine gynecological exam - PAP SMEAR - HPV - FULL LIPID PROFILE - HEMOGLOBIN A1C - BASIC METABOLIC PANEL 2. Pap smear for cervical cancer screening - PAP SMEAR - HPV 3. Mixed hyperlipidemia - FULL LIPID PROFILE 4. Screening for diabetes mellitus - HEMOGLOBIN A1C 5. Class 3 severe obesity due to excess calories without serious comorbidity with body mass index (BMI) of 50.0 to 59.9 in adult (HCC) - recommended weight loss - pt previously referred to weight management FOLLOW UP: RTC 1 yr for WWE or sooner PRN. Emilio Miller MD, PhD, FACOG 12/20/23 9:00 AM Patient was identified by name and date of . RUFUS Hayden Patient at risk for falls:No Falls Risk protocol implemented: No documented in this encounter [facility] 12-13-2023 History of Present illness Narrative Images from the original note were not included. History provided by: Patient Chief Complaint Patient presents with Medication Management 6mo FU PCP is Yash Melendez PA-C Patient Active Problem List: Attention deficit hyperactivity disorder (ADHD) [F90.9] Morbid obesity (HCC) [E66.01] Hematochezia [K92.1] Calculus of gallbladder without cholecystitis without obstruction [K80.20] Vitals Recorded in This Encounter 12/13/2023 1045 Pulse: 90 Resp: 18 Temp: 98 F (36.7 C) Temp src: Temporal SpO2: 100 % Pain Score: 0 Health Maintenance Topic Date Due COVID-19 Vaccine (1) Never done Pap Smear 11/07/2019 Basic Metabolic Panel 07/07/2022 Influenza Vaccine (1) Never done Hemoglobin A1C 06/21/2024 Tetanus (Td or Tdap) Booster 10/31/2028 Shingles (RZV) Vaccine (1 of 2) 2041 Hepatitis C Antibody Completed HIV Test Completed Hepatitis B (HBV) Vaccine Completed HPV Vaccine Completed Tdap Booster Completed Hepatitis A (HAV) Vaccine Aged Out Pneumococcal Vaccine(s) Aged Out Mammography Discontinued Current Outpatient Medications Medication Sig Dispense Refill amphet-dextroamphet (ADDERALL) 20 MG tablet Take 1 Tablet by mouth daily for 30 days. 30 Tablet 0 losartan (COZAAR) 50 MG tablet Take 1 Tablet by mouth daily. 90 Tablet 3 No current facility-administered medications for this visit. Physical Exam Vitals reviewed. Constitutional: Appearance: Normal appearance. Neck: Vascular: No carotid bruit. Cardiovascular: Rate and Rhythm: Regular rhythm. Pulmonary: Effort: Pulmonary effort is normal. Breath sounds: Normal breath sounds. Musculoskeletal: General: Normal range of motion. Cervical back: Normal range of motion. Neurological: Mental Status: She is alert. Assessment Gina was seen today for medication management. Here for med management only taking BP med and ADHD med. Doing well no complaints. Diagnoses and all orders for this visit: Attention deficit hyperactivity disorder (ADHD), predominantly inattentive type- do test stable on meds - TOX ANALYSIS W/CONFIMATION,UR Current mild episode of major depressive disorder without prior episode (HCC)- stable on no meds now Hypertension, unspecified type- stable on med Follow up: 3 months Patient was identified by name and date of . Alison Chicas Patient at risk for falls:No Falls Risk protocol implemented: No documented in this encounter [facility] 10-27-2023 Note Addended by: YASH ABARCA on: 10/27/2023 08:13 AM Modules accepted: Orders [facility] 10-27-2023 Miscellaneous Notes Addended by: YASH MELENDEZ on: 10/27/2023 08:13 AM Modules accepted: Orders documented in this encounter [facility] 10-22-2023 History of Present illness Narrative SUBJECTIVE: History was provided by the patient. Symptoms include congestion, coryza, sore throat, fever, and cough. Onset was 2 days ago, with gradually worsening course since that time. Known Strep exposure: none. Portions of record reviewed for pertinent issues: active problem list, medication list, allergies, and family history. OBJECTIVE: Vital signs reviewed. General appearance: alert, no distress, cooperative. Ears: R TM - normal, L TM - normal. Nose: clear rhinorrhea. Oropharynx: moderate erythema. No lateral shift of uvula or airway; no stridor. Neck: supple and moderate anterior cervical adenopathy bilaterally. No masses or fluctuance. Lungs: clear to auscultation. Heart: regular rate and rhythm and no murmurs, clicks, or gallops. Rapid strep test- performed: Negative. MDM (J02.9) Sore throat (primary encounter diagnosis) Comment: Plan: RAPID STREP A W/CULTURE REFLEX (Z20.822) Suspected severe acute respiratory syndrome coronavirus 2 (SARS-CoV-2) infection Comment: Plan: COVID/INFLUENZA Orders & Meds Signed During This Encounter Covid/Influenza Rapid Strep A with Culture Reflex benzonatate (Tessalon Perles) 100 MG capsule 1) See visit diagnoses and orders. 2) Explained use of antibiotics only for proven or strongly suspected strep infection; importance of taking all doses of any prescribed antibiotic. 3) Instruction provided in the use of fluids, vaporizer, acetaminophen, and/or other OTC medication for symptom control. 4) See disposition. Recheck as needed for persistence, worsening, or appearance of new symptoms. Patient was identified by name and date of . June Hunter documented in this encounter [facility] 10-06-2023 Telephone encounter Note LM on pt vm and sent a [employer] message that appointment on 10/11/23 is cancelled. Asked for pt to reschedule. [facility] 10-06-2023 Miscellaneous Notes LM on pt vm and sent a [employer] message that appointment on 10/11/23 is cancelled. Asked for pt to reschedule. documented in this encounter [facility] 06-21-2023 Note Time out was preform ed prior to the procedure. Gina Masterson was explained about both the benefits and risks of an EMG. After she acknowledged an understanding of the risks and benefits, she agreed to proceed. Dear Dr. Melendez: Thank you for your referral. Ms. Masterson was seen here today for NCS/EMG consult. Please see the detailed results in EMG report attached to the original EMG order (Imaging). Conclusion: 1. 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 2. There is no electrophysiologic evidence of bilateral ulnar mononeuropathy at the elbow or the wrist. Pillo Whaley MD. [facility] 06-21-2023 Note Chief Complaint NSWL Initial Consultation History of Present Illness Gina is here for non-surgical weight loss initial consultation. Today she weighs 312# BMI 76.63 Weight History: No History of weight loss medications. She currently meal preps. She noticed the start of weight gain after she got the Nexplanon in 2014. 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 Exercise: Gym. Walks the dogs when she can. Usually eats once a day. B: skips L: skips D: Chicken with Onions and Peppers w/ a sauce. If she snacks: pistachios, sunflower seeds, pretzels. Beverages: Sprite or Prince Coke. Last A1c 5.7% - June 2021 [facility] reviewed. Physical Exam Vitals & Measurements Systolic Blood Pressure: 140 mmHg (06/21/23 13:35:00) Diastolic Blood Pressure: 60 mmHg (06/21/23 13:35:00) Peripheral Pulse Rate: 78 bpm (06/21/23 13:35:00) Mean Arterial Pressure: 87 mmHg (06/21/23 13:35:00) BP Site2: Left arm (06/21/23 13:35:00) Height/Length Measured: 136 cm (06/21/23 13:35:00) Weight Measured: 142 kg (06/21/23 13:35:00) Body Mass Index Measured: 76.77 kg/m2 (06/21/23 13:35:00) Weight Measured - lbs2: 312 lb (06/21/23 13:35:00) Height/Length Measured - in2: 53.5 in (06/21/23 13:35:00) Body Mass Index Measured English2: 76.63 kg/m2 (06/21/23 13:35:00) BSA: 2.31 m2 (06/21/23 13:35:00) Ht/Wt Measurement Refused by Patient?2: No (06/21/23 13:35:00) Depression Screening Scores Initial Depression Screen Score: 0 (06/21/23 13:35:00) Fall Risk Assessment Is the patient ambulatory (mobile): Yes (06/21/23 13:35:00) Have you had a fall within the past: No (06/21/23 13:35:00) Have you had 2 or more falls in the past: No (06/21/23 13:35:00) General: Well developed, well nourished, in no acute distress. Abdomen: Soft, non-tender, obese Lungs: Clear bilaterally to auscultation. Cardiac: Normal, S1 S2, without rubs, murmur, gallops, or clicks. Extremities: No calf tenderness. No pretibial edema. Psych: Alert and cooperative; normal mood and affect; normal attention span and concentration. Medication Reconciliation What How Much When Instructions New metFORMIN = Glucophage (MetFORMIN (Eqv-Glucophage XR) 500 mg oral tablet, extended release) 1 Tabs Oral TWICE A DAY Duration: 30 Days Pickup at [facility] New topiramate (Topamax 25 mg oral tablet) 1 Tabs Oral DAILY Duration: 30 Days Pickup at [facility] Unchanged amphetamine-dextroamphetamine (Adderall 20 mg oral tablet) 1 Tabs Oral DAILY Unchanged losartan (losartan 50 mg oral tablet) 1 Tabs Oral DAILY Pharmacy Information [facility]: [address] [place], [place] [phone] Assessment/Plan This Visit Diagnosis 1. Morbid obesity E66.01 Complete bloodwork Start Topamax 25mg daily Continue to make healthy lifestyle changes. Healthy changes in eating habits need to be a life-long commitment. Your goal is to become a healthy person through eating healthy and lifestyle changes. Increase physical activity as able. Try to aim to do something physically active for 30 minutes every day. Diet changes help you lose weight. Exercise helps you keep it off and maintain weight lose. Follow-up in 28 days Ordered: AMB Office/Outpt New Pt Mod MDM / 45-59 min [id number], 06/21/2023 14:40:00 EDT, Morbid obesity / Body mass index [BMI] 70 or greater, adult / Metabolic syndrome / Hypertension / Prediabetes 2. Body mass index [BMI] 70 or greater, adult Z68.45 BMI 76.63 The risks of obesity were discussed with the patient. Individuals with obesity are more likely to develop a number of potentially serious health problems including; heart disease, strokes, high blood pressure, abnormal cholesterol, sleep apnea, or type 2 diabetes. Ordered: AMB Office/Outpt New Pt Mod MDM / 45-59 min [id number], 06/21/2023 14:40:00 EDT, Morbid obesity / Body mass index [BMI] 70 or greater, adult / Metabolic syndrome / Hypertension / Prediabetes 3. Metabolic syndrome E88.81 Start on Metforming 500mg XR BID. Start daily x1 week the increase to BID Ordered: AMB Office/Outpt New Pt Mod MDM / 45-59 min [id number], 06/21/2023 14:40:00 EDT, Morbid obesity / Body mass index [BMI] 70 or greater, adult / Metabolic syndrome / Hypertension / Prediabetes 4. Hypertension I10 controlled. Ordered: AMB Office/Outpt New Pt Mod MDM / 45-59 min [id number], 06/21/2023 14:40:00 EDT, Morbid obesity / Body mass index [BMI] 70 or greater, adult / Metabolic syndrome / Hypertension / Prediabetes 5. Prediabetes R73.03 Last known A1c 2 years ago - 5.7% Ordered: AMB Office/Outpt New Pt Mod MDM / 45-59 min [id number], 06/21/2023 14:40:00 EDT, Morbid obesity / Body mass index [BMI] 70 or greater, adult / Metabolic syndrome / Hypertension / Prediabetes Orders: metFORMIN = Glucophage(MetFORMIN (Eqv-Glucophage XR) 500 mg oral tablet, extended release), 500 mg= 1 tabs, ORAL, BID topiramate(Topamax 25 mg oral tab (more content not included)... [facility] 06-21-2023 History of Present illness Narrative Time out was preformed prior to the procedure. Gina Masterson was explained about both the benefits and risks of an EMG. After she acknowledged an understanding of the risks and benefits, she agreed to proceed. Dear Dr. Melendez: Thank you for your referral. Ms. Masterson was seen here today for NCS/EMG consult. Please see the detailed results in EMG report attached to the original EMG order (Imaging). Conclusion: 1. 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 2. There is no electrophysiologic evidence of bilateral ulnar mononeuropathy at the elbow or the wrist. Pillo Whaley MD. documented in this encounter [facility] 04-16-2023 History of Present illness Narrative Images from the original note were not included. History provided by: Patient Refill Chief Complaint Patient presents with Refill PCP is Yash Melendez PA-C Patient Active Problem List: Attention deficit hyperactivity disorder (ADHD) [F90.9] Morbid obesity (HCC) [E66.01] Hematochezia [K92.1] Calculus of gallbladder without cholecystitis without obstruction [K80.20] Vitals Recorded in This Encounter 04/16/2023 0852 BP: 136/84 Pulse: 90 Resp: 16 Temp: 98 F (36.7 C) Temp src: Temporal SpO2: 100 % Pain Score: 0 Health Maintenance Topic Date Due COVID-19 Vaccine (1) Never done Pap Smear 11/07/2019 Hemoglobin A1C 07/07/2022 Basic Metabolic Panel 07/07/2022 Tetanus (Td or Tdap) Booster 10/31/2028 Shingles (RZV) Vaccine (1 of 2) 2041 Hepatitis C Antibody Completed HIV Test Completed Human Papilloma (HPV) Vaccine Completed Tdap Booster Completed Pneumococcal Vaccine(s) Aged Out Mammography Discontinued Current Outpatient Medications Medication Sig Dispense Refill ondansetron (ZOFRAN-ODT) 4 MG disintegrating tablet Take 4 mg by mouth. ketorolac (TORADOL) 10 MG tablet Take 1 Tablet by mouth every 6 hours as needed. amphet-dextroamphet (Adderall) 20 MG tablet Take 1 Tablet by mouth daily for 30 days. 30 Tablet 0 losartan (COZAAR) 50 MG tablet Take 1 Tablet by mouth daily. 90 Tablet 3 fluoxetine (PROZAC) 20 MG capsule Take 1 Capsule by mouth daily. 90 Capsule 3 cyclobenzaprine (FLEXERIL) 10 MG tablet norgestimate-ethinyl estradiol (PRAVIFEM- ORTHO/CYCLEN) 0.25-35 MG-MCG tablet Take 1 Tablet by mouth daily. 30 Tablet 11 No current facility-administered medications for this visit. Physical Exam Vitals reviewed. Constitutional: Appearance: Normal appearance. Cardiovascular: Rate and Rhythm: Normal rate and regular rhythm. Pulmonary: Effort: Pulmonary effort is normal. Breath sounds: Normal breath sounds. Neurological: General: No focal deficit present. Mental Status: She is alert and oriented to person, place, and time. Psychiatric: Mood and Affect: Mood normal. Behavior: Behavior normal. Assessment Gina was seen today for refill. Pt here for her ADHD med refills and a Urine and to sign Non-Opoid agreement. States med helps with focus and concentration. Only c/o bilat wrist pain wore carpal tunnel braces no help. Diagnoses and all orders for this visit: Attention deficit hyperactivity disorder (ADHD), predominantly inattentive type- UA, Agreement and refills. - TOX ANALYSIS W/CONFIMATION,UR - amphet-dextroamphet (Adderall) 20 MG tablet; Take 1 Tablet by mouth daily for 30 days. - amphet-dextroamphet (Adderall) 20 MG tablet; Take 1 Tablet by mouth daily for 30 days. - amphet-dextroamphet (Adderall) 20 MG tablet; Take 1 Tablet by mouth daily for 30 days. Bilateral carpal tunnel syndrome- do EMG - EMG; Future Follow up: 3 months Patient was identified by name and date of . Alison Chicas Patient at risk for falls:No Falls Risk protocol implemented: No documented in this encounter [facility] 04-09-2023 Miscellaneous Notes Spoke to pt, no further questions or concerns Pt states she lives an hour away and will be in next Wednesday. She has an appt with a different office around 10 so she can not come in today. yes Patient calling in stating that she has been out of town and gets back into town tomorrow but leaves tomorrow night again. Can she be seen tomorrow for her Adderall script as a walk in? Please advise. Pt is out of meds for 6 days now. documented in this encounter [facility] 04-09-2023 Telephone encounter Note Spoke to pt, no further questions or concerns Pt states she lives an hour away and will be in next Wednesday. She has an appt with a different office around 10 so she can not come in today. [facility] 04-09-2023 Telephone encounter Note yes [facility] 04-08-2023 Telephone encounter Note Patient calling in stating that she has been out of town and gets back into town tomorrow but leaves tomorrow night again. Can she be seen tomorrow for her Adderall script as a walk in? Please advise. Pt is out of meds for 6 days now. [facility] 01-26-2023 Note Addended by: YASH ABARCA on: 01/26/2023 03:57 PM Modules accepted: Orders [facility] 01-26-2023 Miscellaneous Notes Addended by: YASH MELENDEZ on: 01/26/2023 03:57 PM Modules accepted: Orders From: Gina Masterson To: Yash Melendez PA-C Sent: 12/28/2022 10:41 AM EST Subject: Refill I haven t sent a refill request to you. I contacted [facility] this morning to see when my prescription would be available (typically the 8th) and they said they didn t have anything on file. I do leave for work this evening if it s possible to get it filled today that would be most beneficial. documented in this encounter [facility] 12-28-2022 Telephone encounter Note From: Gina Masterson To: Yash Melendez PA-C Sent: 12/28/2022 10:41 AM EST Subject: Refill I haven t sent a refill request to you. I contacted [facility] this morning to see when my prescription would be available (typically the 8th) and they said they didn t have anything on file. I do leave for work this evening if it s possible to get it filled today that would be most beneficial. [facility] 12-28-2022 Miscellaneous Notes From: Gina Masterson To: Yash Melendez PA-C Sent: 12/28/2022 10:41 AM EST Subject: Refill I haven t sent a refill request to you. I contacted [facility] this morning to see when my prescription would be available (typically the 8th) and they said they didn t have anything on file. I do leave for work this evening if it s possible to get it filled today that would be most beneficial. documented in this encounter [facility] 12-21-2022 History of Present illness Narrative TELEMEDICINE VISIT - FOLLOW-UP This visit was performed via interactive telehealth. This visit was initiated by the patient and the patient and provider interacted in real time. Location of the patient: Home of patient Location of the provider: [facility] [address] [place] [phone] MEDICATIONS: Current Outpatient Medications Medication Sig Dispense Refill fluoxetine (PROZAC) 10 MG capsule 1 po q.d x 7 days than 2 po q.d 60 Capsule 3 cyclobenzaprine (FLEXERIL) 10 MG tablet amphet-dextroamphet (Adderall) 20 MG tablet Take 1 Tablet by mouth daily for 30 days. 30 Tablet 0 losartan (COZAAR) 50 MG tablet Take 1 Tablet by mouth daily. 90 Tablet 3 norgestimate-ethinyl estradiol (PRAVIFEM- ORTHO/CYCLEN) 0.25-35 MG-MCG tablet Take 1 Tablet by mouth daily. 30 Tablet 11 amphet-dextroamphet (Adderall) 20 MG tablet Take 1 Tablet by mouth daily for 30 days. 30 Tablet 0 No current facility-administered medications for this visit. Appetite: Good Fever: denies Chills: denies Nausea: denies Vomiting: denies Diarrhea: denies Bowel Status: bowel movement QD PHYSICAL EXAM Physical findings attained by report and telemedicine visualization Covid-19 Telephone Encounter: Because of the recent pandemic of Covid-19 we are minimizing potential exposure of patients by making telephone calls to scheduled patients. I have determined, based on history and conversation, that this patient's in person visit can be postponed until the pandemic has subsided. Through shared decision making, the patient concurs with this course of action Gina was seen today for telephone counseling and other issues, refill and anxiety disorder/anxiety state. Pt is a telephone appt. Pt is 100% better on Prozac 20 mg a day. No harmful or suicidal thoughts. Stable on BP meds and ADHD meds. Diagnoses and all orders for this visit: Current mild episode of major depressive disorder without prior episode (HCC)- Prozac 20 mg refill Hypertension, unspecified type- stable refill Attention deficit hyperactivity disorder (ADHD), predominantly inattentive type- stable on meds Follow up: 3 months Phone numbers This visit has been rescheduled as a phone visit to comply with patient safety concerns in accordance with CDC recommendations. Total Time Spent with Patient which also includes pre-charting and post chartin minutes, of which greater than 50% was spent on counseling or coordinating care. Yash Melendez PA-C documented in this encounter [facility] 10-23-2022 History of Present illness Narrative 10/21/2022 [facility] received via [employer] fax queue. Forwarding to provider for review/signature/faxing. documented in this encounter [facility] 10-23-2022 History of Present illness Narrative 10/21/2022 [facility] received via [employer] fax queue. Forwarding to provider for review/signature/faxing. documented in this encounter [facility] 09-16-2022 History of Present illness Narrative 09/15/22 [facility] received via [employer] fax queue. Forwarding to provider for review/signature/faxing. documented in this encounter [facility] 09-14-2022 History of Present illness Narrative TELEMEDICINE VISIT - FOLLOW-UP This visit was performed via interactive telehealth. This visit was initiated by the patient and the patient and provider interacted in real time. Location of the patient: Home of patient Location of the provider: [facility] [address] [place] [phone] MEDICATIONS: Current Outpatient Medications Medication Sig Dispense Refill losartan (COZAAR) 50 MG tablet Take 1 Tablet by mouth daily. 90 Tablet 3 amphet-dextroamphet (Adderall) 20 MG tablet Take 1 Tablet by mouth daily for 30 days. 30 Tablet 0 amphet-dextroamphet (Adderall) 20 MG tablet Take 1 Tablet by mouth daily for 30 days. 30 Tablet 0 norgestimate-ethinyl estradiol (PRAVIFEM- ORTHO/CYCLEN) 0.25-35 MG-MCG tablet Take 1 Tablet by mouth daily. 30 Tablet 11 [START ON 11/06/2022] amphet-dextroamphet (Adderall) 20 MG tablet Take 1 Tablet by mouth daily for 30 days. 30 Tablet 0 No current facility-administered medications for this visit. Appetite: Good Fever: denies Chills: denies Nausea: denies Vomiting: denies Diarrhea: denies Bowel Status: bowel movement QD PHYSICAL EXAM Physical findings attained by report and telemedicine visualization Covid-19 Telephone Encounter: Because of the recent pandemic of Covid-19 we are minimizing potential exposure of patients by making telephone calls to scheduled patients. I have determined, based on history and conversation, that this patient's in person visit can be postponed until the pandemic has subsided. Through shared decision making, the patient concurs with this course of action Gina was seen today for telephone counseling and other issues, refill and carpal tunnel syndrome. Pt is a telephone to renew her Adderall doing great on the med concentration, focus etc. Also c/o pain in both hands fingers painful goes to sleep on her and drops things. 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 Diagnoses and all orders for this visit: Bilateral carpal tunnel syndrome- EMG, Braces and Motrin - EMG; Future - Elastic Bandages & Supports (B & B Carpal Tunnel Brace) MISC; 2 Each daily. Needs a brace for both wrists. Attention deficit hyperactivity disorder (ADHD), predominantly inattentive type- stable refill. OARRS was reviewed today: NO concerning data. - amphet-dextroamphet (Adderall) 20 MG tablet; Take 1 Tablet by mouth daily for 30 days. - amphet-dextroamphet (Adderall) 20 MG tablet; Take 1 Tablet by mouth daily for 30 days. - amphet-dextroamphet (Adderall) 20 MG tablet; Take 1 Tablet by mouth daily for 30 days. Follow up: 3 months Phone numbers This visit has been rescheduled as a phone visit to comply with patient safety concerns in accordance with CDC recommendations. Total Time Spent with Patient which also includes pre-charting and post chartin minutes, of which greater than 50% was spent on counseling or coordinating care. Yash Melendez PA-C documented in this encounter [facility] 06-26-2022 History of Present illness Narrative Provider requested a information writer. Kaitlynn Bassett LPN present. Informed consent, after discussion of the risks, benefits, and alternatives to the procedure, was obtained and the consent form was signed by patient . The patient was identified using two patient identifiers: Yes. The H&P along with required diagnostics are available in Epic: Yes The correct procedure was verified: Yes Procedural site identified: Yes Presence of required equipment verified prior to starting procedure: Yes Patient allergies identified or reviewed: Yes Site marking done: Not indicated A timeout to verify the correct patient, procedure, and site was performed immediately prior to the procedure Images from the original note were not included. The patient, Gina Masterson, identity was verified by name and MRN. Gina Masterson is a 31 year old female, Patient's last menstrual period was 06/24/2022. OB History Para Term AB Living 1 0 0 0 0 0 SAB IAB Ectopic Multiple Live Births 0 0 0 0 0 History Sexual Activity Sexual activity: Yes Partners: Male control/ protection: Chief Complaint Patient presents with Procedure IUD insertion SUBJECTIVE: Pt is a 31 yo woman She comes in for IUD insertion Patient's last menstrual period was 06/24/2022. No complaints ROS: as in HPI otherwise negative Current Outpatient Medications: amphet-dextroamphet (Adderall) 20 MG tablet, Take 1 Tablet by mouth daily for 30 days., Disp: 30 Tablet, Rfl: 0 [START ON 07/18/2022] amphet-dextroamphet (Adderall) 20 MG tablet, Take 1 Tablet by mouth daily for 30 days., Disp: 30 Tablet, Rfl: 0 [START ON 08/17/2022] amphet-dextroamphet (Adderall) 20 MG tablet, Take 1 Tablet by mouth daily for 30 days., Disp: 30 Tablet, Rfl: 0 norgestimate-ethinyl estradiol (PRAVIFEM- ORTHO/CYCLEN) 0.25-35 MG-MCG tablet, Take 1 Tablet by mouth daily., Disp: 30 Tablet, Rfl: 11 amphet-dextroamphet (Adderall) 20 MG tablet, Take 1 Tablet by mouth daily for 30 days., Disp: 30 Tablet, Rfl: 0 [START ON 11/06/2022] amphet-dextroamphet (Adderall) 20 MG tablet, Take 1 Tablet by mouth daily for 30 days., Disp: 30 Tablet, Rfl: 0 losartan (COZAAR) 50 MG tablet, Take 1 Tablet by mouth daily., Disp: 90 Tablet, Rfl: 3 Current Facility-Administered Medications: ibuprofen (MOTRIN) tablet, 600 mg, Oral, One Time Dose, Emilio Miller MD levonorgestrel (LILETTA) 20.1 MCG/DAY IUD, 1 Device, Intrauterine, One Time Dose, Emilio Miller MD Allergies Allergen Reactions Mushroom Extract Complex Anaphylactic Shock Cashew Nut Itching and Agitation No Known Drug Allergies Past Medical History: Diagnosis Date Abnormal Pap smear and cervical HPV (human papillomavirus) History of sexually transmitted disease 2019 Hx of abnormal cervical Pap smear Migraine Past Surgical History: Procedure Laterality Date CHOLECYSTECTOMY, LAPAROSCOPIC N/A 08/17/2020 Procedure: LAPAROSCOPIC CHOLECYSTECTOMY,WITH CHOLANGIOGRAMS; Surgeon: Hola Ramirez MD; Location: [facility]; Service: General NO PAST SURGICAL HISTORY Family History Problem Relation Age of Onset Uterine Cancer Mother Other (migraine headache) Father Good health Sister Good health Maternal Grandmother Good health Maternal Grandfather Alzheimer's Disease Paternal Grandmother Good health Paternal Grandfather Social History Socioeconomic History Marital status: Single Highest education level: 12th grade Tobacco Use Smoking status: Never Smoker Smokeless tobacco: Current User Types: Chew Substance and Sexual Activity Alcohol use: No Alcohol/week: 0.0 standard drinks Drug use: No Sexual activity: Yes Partners: Male Social Determinants of Health Financial Resource Strain: Unknown Difficulty of Paying Living Expenses: Patient refused Food Insecurity: No Food Insecurity Worried About Running Out of Food in the Last Year: Never true Ran Out of Food in the Last Year: Never true Transportation Needs: No Transportation Needs Lack of Transportation (Medical): No Lack of Transportation (Non-Medical): No Physical Activity: Sufficiently Active Days of Exercise per Week: 4 days Minutes of Exercise per Session: 120 min Stress: Unknown Feeling of Stress : Patient refused Social Connections: Unknown Frequency of Communication with Friends and Family: Patient refused Frequency of Social Gatherings with Friends and Family: Patient refused Attends Buddhist Services: Patient refused Active Member of Clubs or Organizations: Patient refused Attends Club or Organization Meetings: Patient refused Marital Status: Intimate Partner Violence: Not At Risk Fear of Current or Ex-Partner: No Emotionally Abused: No Physically Abused: No Sexually Abused: No Housing Stability: Low Risk Unable to Pay for Housing in the Last Year: No Number of Places Lived in the Last Year: 1 Unstable Housing in the Last Year: No I have reviewed and updated as needed the following patient level data: allergies, current medications, problem list, current medications specialty specific, past surgical history, past medical history, social history, family history, obstetrical history and immunizations. OBJECTIVE: BP 131/83 Pulse 86 Ht 5' 3 (1.6 m) Wt 294 lb 12.8 oz (133.7 kg) LMP 06/24/2022 BMI 52.22 kg/m General: healthy, interactive, appears stated age, and no distress Neuro: Alert and oriented Head: atraumatic, normocephalic Skin: no rashes on visible skin Abdomen: nontender and no masses, no organomegaly Pelvic exam: Exam Chaperoned by nurse: Yes External Genitalia: normal, no lesions Vagina: normal appearing vagina with normal color and discharge, no lesions. Cervix: normal appearing cervix without discharge or lesions Uterus: uterus is normal size, shape, consistency and nontender Adnexa: normal adnexa in size, nontender and no masses HPI for IUD insertion: Sexual Status:Monogamous and Sexually active History of PID: none Abnormal menses: denies Patient desires IUD contraception. Patient has been fully counseled concerning: - Benefits/Risk/Side Effects/Alternatives - insertion procedure - side effects - excessive bleeding and cramping with ParaGard; amenorrhea with progestin IUD - expulsion risk - minor and major risks including but not limited to infection (1.6 cases per 1000 person years) or perforation (1.6 per 1,000 insertions) - risk within first year; 0.8 % ParaGuard, 0.1% progestin IUD - Lifespan of IUD: 10-years for ParaGuard, 5 years for progestin IUD - alternatives discussed - All questions answered - pt opted for: progestin IUD - Consent booklet read and Consent signed: yes PROCEDURE NOTE: We discussed the risks and benefits of an IUD as well as the Estrada elements of the procedure. Discussed all the alternatives available to her. Written informed consent obtained. A time out was performed in the usual fashion and patient identified by MRN and . Correct procedure identified and laterality confirmed. 1. Cervix prepped with Betadine 2. Anterior lip grasped with tenaculum 3. Uterus sounded to 8 cm 4. IUD placed: LOT number [id number], EXP June,. 5. String cut to 3 cm from external OS 6. Tenaculum removed - sites Hemostatic 7. Post-procedure status: Patient tolerated procedure well 8. Complications: none 9. EBL: minimal 10. Post-procedure pain: pt reported mild-moderate pain at the end of the procedure and received motrin 600 mg po x 1 dose in the office for pain control. PT TO F/U PRN FEVER, PAIN, BLEEDING, D/C ADVISED REMOVAL 6 Years Check strings with next menses and after each menses. Advised about the increases cramps and bleeding that will get better over the next 6 months of cycles, Pt. to use NSAIDS for this unless concurrent medical illness contradicts usage. Return for signs of any vaginal infection for check or treatment. Return for absence of strings and use other form of control until seen in the office. ASSESSMENT AND PLAN: 1. Encounter for IUD insertion - URINE HCG-IN OFFICE - INSERTION, INTRAUTERINE DEVICE - levonorgestrel (LILETTA) 20.1 MCG/DAY IUD - ibuprofen (MOTRIN) tablet FOLLOW UP: RTC 6 weeks for IUD check. Emilio Miller MD, PhD, FACOG 06/26/22 9:54 AM documented in this encounter [facility] 06-16-2022 History of Present illness Narrative TELEMEDICINE VISIT - FOLLOW-UP This visit was performed via interactive telehealth. This visit was initiated by the patient and the patient and provider interacted in real time. Location of the patient: Home of patient Location of the provider: [facility] [address] [place] [phone] MEDICATIONS: Current Outpatient Medications Medication Sig Dispense Refill amphet-dextroamphet (Adderall) 20 MG tablet Take 1 Tablet by mouth daily for 30 days. 30 Tablet 0 norgestimate-ethinyl estradiol (PRAVIFEM- ORTHO/CYCLEN) 0.25-35 MG-MCG tablet Take 1 Tablet by mouth daily. 30 Tablet 11 amphet-dextroamphet (Adderall) 20 MG tablet Take 1 Tablet by mouth daily for 30 days. 30 Tablet 0 [START ON 11/06/2022] amphet-dextroamphet (Adderall) 20 MG tablet Take 1 Tablet by mouth daily for 30 days. 30 Tablet 0 losartan (COZAAR) 50 MG tablet Take 1 Tablet by mouth daily. 90 Tablet 3 No current facility-administered medications for this visit. Appetite: Good Fever: denies Chills: denies Nausea: denies Vomiting: denies Diarrhea: denies Bowel Status: bowel movement QD PHYSICAL EXAM Physical findings attained by report and telemedicine visualization Covid-19 Telephone Encounter: Because of the recent pandemic of Covid-19 we are minimizing potential exposure of patients by making telephone calls to scheduled patients. I have determined, based on history and conversation, that this patient's in person visit can be postponed until the pandemic has subsided. Through shared decision making, the patient concurs with this course of action Gina was seen today for telephone counseling and other issues, refill and overactive child/hyperkinetic. Pt needs refill of Adderall stable on meds. Also c/o toenail fungus. Diagnoses and all orders for this visit: Attention deficit hyperactivity disorder (ADHD), predominantly inattentive type- stable refill meds. OARRS was reviewed today: NO concerning data. - amphet-dextroamphet (Adderall) 20 MG tablet; Take 1 Tablet by mouth daily for 30 days. - amphet-dextroamphet (Adderall) 20 MG tablet; Take 1 Tablet by mouth daily for 30 days. - amphet-dextroamphet (Adderall) 20 MG tablet; Take 1 Tablet by mouth daily for 30 days. Toenail fungus- referral made - PODIATRY SERVICE REQUEST Follow up: 3 months in the office Phone numbers This visit has been rescheduled as a phone visit to comply with patient safety concerns in accordance with CDC recommendations. Total Time Spent with Patient which also includes pre-charting and post chartin minutes, of which greater than 50% was spent on counseling or coordinating care. Yash Melendez PA-C documented in this encounter [facility] 04-17-2022 Telephone encounter Note OARRS was reviewed today: NO concerning data. Please call pt the script was sent directly to pharmacy. Pt will need to call pharmacy for them to get the prescription ready.Thanks, Yash Melendez PA-C [facility] 04-17-2022 Miscellaneous Notes OARRS was reviewed today: NO concerning data. Please call pt the script was sent directly to pharmacy. Pt will need to call pharmacy for them to get the prescription ready.Thanks, Yash Melendez PA-C From: Gina Masterson To: Yash Melendez PA-C Sent: 04/17/2022 11:25 AM EDT Subject: Refill I just stopped in to [facility] to pickler helper my prescription which should ve been filled yesterday and they said they have received nothing. Just wanted to touch base and see if you sent that over. Last time I checked we were doing three months before a phone appointment! documented in this encounter [facility] 04-17-2022 Telephone encounter Note From: Gina Masterson To: Yash Melendez PA-C Sent: 04/17/2022 11:25 AM EDT Subject: Refill I just stopped in to [facility] to pickler helper my prescription which should ve been filled yesterday and they said they have received nothing. Just wanted to touch base and see if you sent that over. Last time I checked we were doing three months before a phone appointment! [facility] Evaluation + Plan note Future Appointments Appointment Date:03/01/2024 09:30:00 AM Scheduled Provider:Saba GALVAN CNP [place] [place] Appointment Type: DOT Physicals (FT) [facility] Evaluation + Plan note Future Appointments Appointment Date:03/01/2024 09:30:00 AM Scheduled Provider:Saba GALVAN CNP [place] [place] Appointment Type: DOT Physicals () Diagnostic Tests PendingThroat Culture 02/28/24 [facility] Evaluation note Diagnosis Attention deficit hyperactivity disorder (ADHD), predominantly inattentive type- Primary [facility] Diagnosis Attention deficit hyperactivity disorder (ADHD), predominantly inattentive type- Primary Toenail fungus Dermatophytosis of nail [facility]* Diagnosis Encounter for IUD insertion- Primary Encounter for insertion of intrauterine contraceptive device [facility]* Diagnosis Closed head injury, initial encounter- Primary Sprain of left upper arm, initial encounter Contusion of left knee, initial encounter [facility] Work [facility]: evaluation note* Diagnosis Hypertension, unspecified type- Primary [facility]* Diagnosis Bilateral carpal tunnel syndrome- Primary Carpal tunnel syndrome Attention deficit hyperactivity disorder (ADHD), predominantly inattentive type [facility]* Diagnosis Current mild episode of major depressive disorder without prior episode (HCC)- Primary Hypertension, unspecified type Attention deficit hyperactivity disorder (ADHD), predominantly inattentive type [facility]* Diagnosis Attention deficit hyperactivity disorder (ADHD), predominantly inattentive type- Primary [facility]* Diagnosis Attention deficit hyperactivity disorder (ADHD), predominantly inattentive type- Primary Hypertension, unspecified type [facility]* Diagnosis Attention deficit hyperactivity disorder (ADHD), predominantly inattentive type- Primary [facility]* Diagnosis Attention deficit hyperactivity disorder (ADHD), predominantly inattentive type- Primary Bilateral carpal tunnel syndrome Carpal tunnel syndrome [facility]* Diagnosis Bilateral carpal tunnel syndrome- Primary Carpal tunnel syndrome Bilateral hand numbness Disturbance of skin sensation [facility]* Diagnosis Sore throat- Primary Acute pharyngitis Suspected severe acute respiratory syndrome coronavirus 2 (SARS-CoV-2) infection [facility]* Diagnosis Attention deficit hyperactivity disorder (ADHD), predominantly inattentive type- Primary [facility]* Diagnosis Attention deficit hyperactivity disorder (ADHD), predominantly inattentive type [facility]* Diagnosis Attention deficit hyperactivity disorder (ADHD), predominantly inattentive type- Primary [facility]* Diagnosis Attention deficit hyperactivity disorder (ADHD), predominantly inattentive type- Primary Current mild episode of major depressive disorder without prior episode (HCC) Hypertension, unspecified type [facility]* Diagnosis Encounter for well woman exam with routine gynecological exam- Primary Pap smear for cervical cancer screening Screening for malignant neoplasm of the cervix Mixed hyperlipidemia Screening for diabetes mellitus Class 3 severe obesity due to excess calories without serious comorbidity with body mass index (BMI) of 50.0 to 59.9 in adult (HCC) [facility]* Diagnosis Major depressive disorder, single episode, mild (HCC)- Primary Major depressive disorder, single episode, mild [facility]* Diagnosis Attention deficit hyperactivity disorder (ADHD), predominantly inattentive type- Primary [facility] Narrative No data available for this section [facility] Discharge instructions* Attachments The following attachments cannot be sent through Care Everywhere. * Head Injury: Closed: General Info (Yemeni) * Contusion (Yemeni) [facility] Discharge instructions No data available for this section [facility] Attachments The following attachments cannot be sent through Care Everywhere. * Sore throat in adults (Yemeni) [facility] No data available for this section [facility] Summary Purpose Family History No Family History Records FoundNo Family History Records FoundNo Family History Records FoundNo Family History Records FoundNo Family History Records FoundNo Family History Records FoundNo Family History Records Found No data available for this section No data available for this section No Family History Records FoundNo Family History Records Found Advance Directives No Advanced Directives Records FoundLatest Code Status on File Code Status Date Activated Date Inactivated Comments Full Code 08/16/2020 5:39 AM 08/17/2020 7:24 PM Documentation of decision pr ocess for this code status: Discussed with patient or surrogate. Thi s is the code status chosen by the patient/surrogate. Latest Code Status on File Code Status Date Activated Date Inactivated Comments Full Code 08/16/2020 5:39 AM 08/17/2020 7:24 PM Latest Code Status on File Code Status Date Activated Date Inactivated Comments Full Code 08/16/2020 5:39 AM 08/17/2020 7:24 PM Question Answer Comments Documentation of decision process for this code status: Discussed with patient or surrogate. This is the code status chosen by the patient/surrogate. Latest Code Status on File Code Status Date Activated Date Inactivated Comments Full Code 08/16/2020 5:39 AM 08/17/2020 7:24 PM Question Answer Comments Documentation of decision process for this code status: Discussed with patient or surrogate. This is the code status chosen by the patient/surrogate. Reason for Referral Specialty Diagnoses / Procedures Referred By Al ritchie Referred To Contact Podiatry Diagnoses Toenail fungus Yash Melendez PA-C [address] [place] [address] [facility] [address] [place] [id number] Referral ID Status Reason Start Date Expiration Date V isits Requested Visits Authorized [id number] Pending Review 06/16/2022 12/13/2022 3 3 Scheduling Instructions Please call the Podiatry Clinic at to schedule an appointment if one was not made for you today. Question Answer Reason for Referral Toe [21] Specialty Diagnoses / Procedures Referred By Contac t Referred To Contact Neurology Diagnoses Bilateral carpal tunnel syndrome Procedures [facility] Yash Melendez PA-C [address] [place] [address] Referral ID Status Reason Start Date Expiration Date V isits Requested Visits Authorized [id number] Pending Review 09/14/2022 09/14/2023 3 3 Referral ID Status Reason Start Date Expiration Date V isits Requested Visits Authorized [id number] Pending Review 04/16/2023 04/16/2024 3 3 Additional Source Comments INFORMATION SOURCE (unrecogn ized section and content) DATE CREATED AUTHOR 05/10/2018 [facility] DATE CREATED AUTHOR AUTHOR'S ORGANIZ ATION 10/05/2018 [facility] DATE CREATED AUTHOR AUTHOR'S ORGANIZ ATION 10/10/2018 [facility] DATE CREATED AUTHOR AUTHOR'S ORGANIZ ATION 03/10/2019 [facility] DATE CREATED AUTHOR AUTHOR'S ORGANIZ ATION 09/05/2022 [facility] DATE CREATED AUTHOR AUTHOR'S ORGANIZ ATION 08/31/2023 [facility] DATE CREATED AUTHOR AUTHOR'S ORGANIZ ATION 01/20/2024 [facility] DATE CREATED AUTHOR AUTHOR'S ORGANIZ ATION 03/02/2024 [facility] DATE CREATED AUTHOR AUTHOR'S ORGANIZ ATION 03/03/2024 [facility] Teams (unrecognized sec tion and content) [employer] Relationship Specialty Start Date End Date Yash Melendez PA-C [address] [place] [address] PCP - General Family Medicine 10/07/20 Damaris Burns MD [address] [place] [address] Physician Physical Medicine & Rehab/PM&R 08/20/20 Carson Jimenes, PT [address] [place] [address] [place] [address] Physical Therapist Physical Medicine & Rehab/PM&R 08/20/20 Mikhail Aguirre MD [address] [place] [address] [place] [address] Physician Gastroenterology 08/20/20 Loren Olivares, PT [address] [address] Physical Therapist Physical Medicine & Rehab/PM&R 08/20/20 [place] [address] [place] [address] Physician Obstetrics/Gynecology 08/20/20 Mary Steward, PT [address] [place] [address] [place] [address] Physical Therapist Physical Therapy 08/20/20 Justyna Swartz MD [address] [place] [address] Physician Obstetrics/Gynecology 02/14/21 [employer] Manager Relationship Specialty Start Date End Date Yash Melendez PA-C [address] [place] [address] PCP - General Family Medicine 10/07/20 Damaris Burns MD [address] [place] [address] Physician Physical Medicine & Rehab/PM&R 08/20/20 Carson Jimenes, PT [address] [place] [address] [place] [address] Physical Therapist Physical Medicine & Rehab/PM&R 08/20/20 Mikhail Aguirre MD [address] [place] [address] [place] [address] Physician Gastroenterology 08/20/20 Loren Olivares, PT [address] [address] Physical Therapist Physical Medicine & Rehab/PM&R 08/20/20 Emilio Miller MD [address] [place] [address] Physician Obstetrics/Gynecology 08/20/20 Mary Steward, PT [address] [place] [address] [place] [address] Physical Therapist Physical Therapy 08/20/20 Justyna Swartz MD [address] [place] [address] Physician Obstetrics/Gynecology 02/14/21 [employer] Manager Relationship Specialty Start Date End Date Yash Melendez PA-C [address] [place] [address] PCP - General Family Medicine 10/07/20 Damaris Burns MD [address] [place] [address] Physician Physical Medicine & Rehab/PM&R 08/20/20 Carson Jimenes, PT [address] [place] [address] [place] [address] Physical Therapist Physical Medicine & Rehab/PM&R 08/20/20 Mikhali Aguirre MD [address] [place] [address] [place] [address] Physician Gastroenterology 08/20/20 Loren Oilvares, PT [address] [address] Physical Therapist Physical Medicine & Rehab/PM&R 08/20/20 Emilio Miller MD [address] [place] [address] Physician Obstetrics/Gynecology 08/20/20 Mary Steward, PT [address] [place] [address] [place] [address] Physical Therapist Physical Therapy 08/20/20 Justyna Swartz MD [address] [place] [address] Physician Obstetrics/Gynecology 02/14/21 [employer] Technology Manager Relationship Specialty Start Date End Date Yash Melendez PA-C [address] [place] [address] PCP - General Family Medicine 10/07/20 Damaris Burns MD [address] [place] [address]684 Physician Physical Medicine & Rehab/PM&R 08/20/20 Carson Jimenes, PT [address] [place] [address] [address] [place], [place] [id number] Physical Therapist Physical Medicine & Rehab/PM&R 08/20/20 Mikhail Aguirre MD [address] [place] [address] [place] [address] Physician Gastroenterology 08/20/20 Loren Olivares, PT [address] [address] Physical Therapist Physical Medicine & Rehab/PM&R 08/20/20 [place] [address] [place] [address] Physician Obstetrics/Gynecology 08/20/20 Mary Steward, PT [address] [place] [address] [address] [place], [place] [id number] Physical Therapist Physical Therapy 08/20/20 Justyna Swartz MD [address] [place] [address] Physician Obstetrics/Gynecology 02/14/21 [employer] Technology Manager Relationship Specialty Start Date End Date Yash Melendez PA-C [address] [place] [address] PCP - General Internal Medicine 08/31/22 [employer] Manager Relationship Specialty Start Date End Date Yash Melendez PA-C [address] [place] [address] PCP - General Family Medicine 10/07/20 Damaris Burns MD [address] [place] [address] Physician Physical Medicine & Rehab/PM&R 08/20/20 Carson Jimenes, PT [address] [place] [address] [place] [address] Physical Therapist Physical Medicine & Rehab/PM&R 08/20/20 Mikhail Aguirre MD [address] [place] [address] [place] [address] Physician Gastroenterology 08/20/20 Loren Olivares, PT [address] [address] Physical Therapist Physical Medicine & Rehab/PM&R 08/20/20 [place] [address] [place] [address] Physician Obstetrics/Gynecology 08/20/20 Mary Steward, PT [address] [place] [address] [place] [address] Physical Therapist Physical Therapy 08/20/20 Justyna Swartz MD [address] [place] [address] Physician Obstetrics/Gynecology 02/14/21 [employer] Technology Manager Relationship Specialty Start Date End Date Yash Melendez PA-C [address] [place] [address] PCP - General Family Medicine 10/07/20 Damaris Burns MD [address] [place] [address] Physician Physical Medicine & Rehab/PM&R 08/20/20 Carson Jimenes, PT [address] [place] [address] [place] [address] Physical Therapist Physical Medicine & Rehab/PM&R 08/20/20 Mikhail Aguirre MD [address] [place] [address] [place] [address] Physician Gastroenterology 08/20/20 Loren Olivares, PT [address] [address] Physical Therapist Physical Medicine & Rehab/PM&R 08/20/20 [place] [address] [place], [place] [id number] Physician Obstetrics/Gynecology 08/20/20 Mary Steward, PT [address] [place] [address] [place] [address] Physical Therapist Physical Therapy 08/20/20 Justyna Swartz MD [address] [place] [address] Physician Obstetrics/Gynecology 02/14/21 [employer] Technology Manager Relationship Specialty Start Date End Date Yash Melendez PA-C [address] [place] [address] [phone] PCP - General Family Medicine 10/07/20 Damaris Burns MD [address] [place] [address] Physician Physical Medicine & Rehab/PM&R 08/20/20 Carson Jimenes, PT [address] [place] [address] [place] [address] Physical Therapist Physical Medicine & Rehab/PM&R 08/20/20 Mikhail Aguirre MD [address] [place] [address] [place] [address] Physician Gastroenterology 08/20/20 Loren Olivares, PT [address] [address] Physical Therapist Physical Medicine & Rehab/PM&R 08/20/20 [place] [id number] [place] [address] Physician Obstetrics/Gynecology 08/20/20 Mary Steward, PT [address] [place] [address] [place] [address] Physical Therapist Physical Therapy 08/20/20 Justyna Swartz MD [address] [place] [address] Physician Obstetrics/Gynecology 02/14/21 [employer] Technology Manager Relationship Specialty Start Date End Date Yash Melendez PA-C [address] [place] [address] [phone] PCP - General Family Medicine 10/07/20 Damaris Burns MD [address] [place] [address] Physician Physical Medicine & Rehab/PM&R 08/20/20 Carson Jimenes, PT [address] [place] [address] [place] [address] Physical Therapist Physical Medicine & Rehab/PM&R 08/20/20 Mikhail Aguirre MD [address] [place] [address] [place] [address] Physician Gastroenterology 08/20/20 Loren Olivares, PT [address] [address] Physical Therapist Physical Medicine & Rehab/PM&R 08/20/20 Emilio Miller MD [address] [place] [address] Physician Obstetrics/Gynecology 08/20/20 Mary Steward, PT [address] [place] [address] [place] [address] Physical Therapist Physical Therapy 08/20/20 Justyna Swartz MD [address] [place] [address] Physician Obstetrics/Gynecology 02/14/21 [employer] Technology Manager Relationship Specialty Start Date End Date Yash Melendez PA-C [address] [place] [address] PCP - General Family Medicine 10/07/20 Damaris Burns MD [address] [place] [address] Physician Physical Medicine & Rehab/PM&R 08/20/20 Carson Jimenes, PT [address] [place] [address] [place] [address] Physical Therapist Physical Medicine & Rehab/PM&R 08/20/20 Mikhail Aguirre MD [address] [place] [address] [place] [address] Physician Gastroenterology 08/20/20 Loren Olivares, PT [address] [address] Physical Therapist Physical Medicine & Rehab/PM&R 08/20/20 Emilio Miller MD [address] [place] [address] Physician Obstetrics/Gynecology 08/20/20 Mary Steward, PT [address] [place] [address] [place] [address] Physical Therapist Physical Therapy 08/20/20 Justyna Swatrz MD [address] [place] [address] Physician Obstetrics/Gynecology 02/14/21 [employer] Technology Manager Relationship Specialty Start Date End Date Yash Melendez PA-C [address], [place] [phone] PCP - General Family Medicine 10/07/20 Damaris Burns MD [address] [place] [address]009 Physician Physical Medicine & Rehab/PM&R 08/20/20 Carson Jimenes, PT [address] [place] [address] [place] [address] Physical Therapist Physical Medicine & Rehab/PM&R 08/20/20 Mikhail Aguirre MD [address] [place] [address] [place] [address] Physician Gastroenterology 08/20/20 Loren Olivares, PT [address] [address] Physical Therapist Physical Medicine & Rehab/PM&R 08/20/20 [place] [address] [place] [address] Physician Obstetrics/Gynecology 08/20/20 Mary Stewrad, PT [address] [place] [address] [place] [address] Physical Therapist Physical Therapy 08/20/20 Justyna Swartz MD [address] [place] [address]07 Physician Obstetrics/Gynecology 02/14/21 [employer] Technology Manager Relationship Specialty Start Date End Date Yash Melendez PA-C [address] [place] [address] PCP - General Family Medicine 10/07/20 Damaris Burns MD [address] [place] [address] [phone] Physician Physical Medicine & Rehab/PM&R 08/20/20 Carson Jimenes, PT [address] [place] [address] [place] [address] Physical Therapist Physical Medicine & Rehab/PM&R 08/20/20 Mikahil Aguirre MD [address] [place] [address] [place] [address] Physician Gastroenterology 08/20/20 Loren Olivares, PT [address] [address] Physical Therapist Physical Medicine & Rehab/PM&R 08/20/20 Emilio Miller MD [address] [place] [address] Physician Obstetrics/Gynecology 08/20/20 Mary Steward, PT [address] [place] [address] [place] [address] Physical Therapist Physical Therapy 08/20/20 Justyna Swartz MD [address] [place] [address]16 Physician Obstetrics/Gynecology 02/14/21 [employer] Technology Manager Relationship Specialty Start Date End Date Yash Melendez PA-C [address] [place] [address] PCP - General Family Medicine 10/07/20 Damaris Burns MD [address] [place] [address]26 Physician Physical Medicine & Rehab/PM&R 08/20/20 Carson Jimenes, PT [address] [place] [address] [place] [address] Physical Therapist Physical Medicine & Rehab/PM&R 08/20/20 Mikhail Aguirre MD [address] [place] [address] [place] [address] Physician Gastroenterology 08/20/20 Loren Olivares, PT [address] [address] Physical Therapist Physical Medicine & Rehab/PM&R 08/20/20 Emilio Miller MD [address] [place] [address]27 Physician Obstetrics/Gynecology 08/20/20 Mary Steward, PT [address] [place] [address] [place] [address] Physical Therapist Physical Therapy 08/20/20 Justyna Swartz MD [address] [place] [address] Physician Obstetrics/Gynecology 02/14/21 [employer] Technology Manager Relationship Specialty Start Date End Date Yash Melendez PA-C [address] [place] [address]175 PCP - General Family Medicine 10/07/20 Damaris Burns MD [address] [place] [address] 92225 Physician Physical Medicine & Rehab/PM&R 08/20/20 Carson Jimenes, PT [address] [place] [address] [address] [place], [place] [phone] Physical Therapist Physical Medicine & Rehab/PM&R 08/20/20 Mikhail Aguirre MD [address] [place] [address] [place] [address] Physician Gastroenterology 08/20/20 Lroen Olivares, PT [address] [address] Physical Therapist Physical Medicine & Rehab/PM&R 08/20/20 [place] [address] [place] [address] Physician Obstetrics/Gynecology 08/20/20 Mary Steward, PT [address] [place] [address] [address] [place], [place] [phone] Physical Therapist Physical Therapy 08/20/20 Justyna Swartz MD [address] [place] [address]281 Physician Obstetrics/Gynecology 02/14/21 [employer] Technology Manager Relationship Specialty Start Date End Date Yash Melendez PA-C [address] [place] [address] PCP - General Family Medicine 10/07/20 Damaris Burns MD [address] [place] [address]509 Physician Physical Medicine & Rehab/PM&R 08/20/20 Carson Jimenes, PT [address] [place] [address] [place] [address] Physical Therapist Physical Medicine & Rehab/PM&R 08/20/20 Mikhail Aguirre MD [address] [place] [address] [place] [address] Physician Gastroenterology 08/20/20 Loren Olivares, PT [address] [address] Physical Therapist Physical Medicine & Rehab/PM&R 08/20/20 [place] [address] [place] [address] Physician Obstetrics/Gynecology 08/20/20 Mary Steward, PT [address] [place] [address] [place] [address] Physical Therapist Physical Therapy 08/20/20 Justyna Swartz MD [address] [place] [address] Physician Obstetrics/Gynecology 02/14/21 [employer] Technology Manager Relationship Specialty Start Date End Date Yash Melendez PA-C [address] [place] [address] PCP - General Family Medicine 10/07/20 Damaris Burns MD [address] [place] [address] Physician Physical Medicine & Rehab/PM&R 08/20/20 Carson Jimenes, PT [address] [place] [address] [place] [address] Physical Therapist Physical Medicine & Rehab/PM&R 08/20/20 Mikhail Aguirre MD [address] [place] [address] [place] [address] Physician Gastroenterology 08/20/20 Loren Olivares, PT [address] [address] Physical Therapist Physical Medicine & Rehab/PM&R 08/20/20 [place] [address] [place] [address] Physician Obstetrics/Gynecology 08/20/20 Mary Steward, PT [address] [place] [address] [place] [address] Physical Therapist Physical Therapy 08/20/20 Justyna Swartz MD [address] [place] [address] Physician Obstetrics/Gynecology 02/14/21 [employer] Manager Relationship Specialty Start Date End Date Yash Melendez PA-C [address] [place] [address]84 PCP - General Family Medicine 10/07/20 Damaris Burns MD [address] [place] [address] Physician Physical Medicine & Rehab/PM&R 08/20/20 Carson Jimenes, PT [address] [place] [address] [place] [address] Physical Therapist Physical Medicine & Rehab/PM&R 08/20/20 Mikhail Aguirre MD [address] [place] [address] [place] [address] Physician Gastroenterology 08/20/20 Loren Olivares, PT [address] [address] Physical Therapist Physical Medicine & Rehab/PM&R 08/20/20 Emilio Miller MD [address] [place] [address] Physician Obstetrics/Gynecology 08/20/20 Mary Steward, PT [address] [place] [address] [place] [address] Physical Therapist Physical Therapy 08/20/20 Justyna Swartz MD [address] [place] [address] 11875 Physician Obstetrics/Gynecology 02/14/21 [employer]el Technology Manager Relationship Specialty Start Date End Date Yash Melendez PA-C [address] [place] [address] 20119 PCP - General Family Medicine 10/07/20 Damaris Burns MD [address] [place] [address] Physician Physical Medicine & Rehab/PM&R 08/20/20 Carson Jimenes, PT [address] [place] [address] [place] [address] Physical Therapist Physical Medicine & Rehab/PM&R 08/20/20 Mikhail Aguirre MD [address] [place] [address] [place] [address] Physician Gastroenterology 08/20/20 Loren Olivares, PT [address] [address] Physical Therapist Physical Medicine & Rehab/PM&R 08/20/20 Emilio Miller MD [address] [place] [address] Physician Obstetrics/Gynecology 08/20/20 Mary Steward, PT [address] [place] [address] [place] [address] Physical Therapist Physical Therapy 08/20/20 Justyna Swartz MD [address] [place] [address]21 Physician Obstetrics/Gynecology 02/14/21 [employer] Technology Manager Relationship Specialty Start Date End Date Yash Melendez PA-C [address] [place] [address] 02171 PCP - General Family Medicine 10/07/20 Damaris Burns MD [address] [place] [address] [phone] Physician Physical Medicine & Rehab/PM&R 08/20/20 Carson Jimenes, PT [address] [place] [address] [address] [place], [place] [phone] Physical Therapist Physical Medicine & Rehab/PM&R 08/20/20 Mikhail Aguirre MD [address] [place] [address] [address] [place], [place] [id number] Physician Gastroenterology 08/20/20 Loren Olivares, PT [address] [address] Physical Therapist Physical Medicine & Rehab/PM&R 08/20/20 Emilio Miller MD [address] [place] [address] Physician Obstetrics/Gynecology 08/20/20 Mary Steward, PT [address] [place] [address] [address] [place], [place] [phone] Physical Therapist Physical Therapy 08/20/20 Justyna Swartz MD [address] [place] [address] Physician Obstetrics/Gynecology 02/14/21 [employer] Technology Manager Relationship Specialty Start Date End Date Yash Melendez PA-C [address] [place] [address] PCP - General Family Medicine 10/07/20 Damaris Burns MD [address] [place] [address] 47049 Physician Physical Medicine & Rehab/PM&R 08/20/20 Carson Jimenes, PT [address] [place] [address] [place] [address] Physical Therapist Physical Medicine & Rehab/PM&R 08/20/20 Mikhail Aguirre MD [address] [place] [address] [place] [address] Physician Gastroenterology 08/20/20 Loren Olivares, PT [address] [address] Physical Therapist Physical Medicine & Rehab/PM&R 08/20/20 [place] [id number] [place] [address] Physician Obstetrics/Gynecology 08/20/20 Mary Steward, PT [address] [place] [address] [place] [address] Physical Therapist Physical Therapy 08/20/20 Justyna Swartz MD [address] [place] [address] 17946 Physician Obstetrics/Gynecology 02/14/21 [employer] Technology Manager Relationship Specialty Start Date End Date Yash Melendez PA-C [address] [place] [address] 00901 PCP - General Family Medicine 10/07/20 Damaris Burns MD [address] [place] [address] 88851 Physician Physical Medicine & Rehab/PM&R 08/20/20 Carson Jimenes, PT [address] [place] [address] [place], [place] [phone] Physical Therapist Physical Medicine & Rehab/PM&R 08/20/20 Mikhail Aguirre MD [address] [place] [address] [place] [address] Physician Gastroenterology 08/20/20 Loren Olivares, PT [address] [address] Physical Therapist Physical Medicine & Rehab/PM&R 08/20/20 [place] [id number] [place] [address] [phone] Physician Obstetrics/Gynecology 08/20/20 Mary tSeward, PT [address] [place] [address] [place] [address] Physical Therapist Physical Therapy 08/20/20 Justyna Swartz MD [address] [place] [address] Physician Obstetrics/Gynecology 02/14/21 [employer] Technology Manager Relationship Specialty Start Date End Date Yash Melendez PA-C [address] [place] [address] 06368 PCP - General Family Medicine 10/07/20 Damaris Burns MD [address] [place] [address] 51579 Physician Physical Medicine & Rehab/PM&R 08/20/20 Carson Jimenes, PT [address] [place] [address] [place] [address] Physical Therapist Physical Medicine & Rehab/PM&R 08/20/20 Mikhail Aguirre MD [address] [place] [address] [place] [address] Physician Gastroenterology 08/20/20 Loren Olivares, PT [address] [address] Physical Therapist Physical Medicine & Rehab/PM&R 08/20/20 Emilio Miller MD [address] [place] [address] Physician Obstetrics/Gynecology 08/20/20 Mary Steward, PT [address] [place] [address] [place] [address] Physical Therapist Physical Therapy 08/20/20 Justyna Swartz MD [address] [place] [address] Physician Obstetrics/Gynecology 02/14/21 B[employer]el Technology Manager Relationship Specialty Start Date End Date Yash Melendez PA-C [address] [place] [address] 37510 PCP - General Family Medicine 10/07/20 Damaris Burns MD [address] [place] [address] 45842 Physician Physical Medicine & Rehab/PM&R 08/20/20 Carson Jimenes, PT [address] [place] [address] [place] [address] Physical Therapist Physical Medicine & Rehab/PM&R 08/20/20 Mikhail Aguirre MD [address] [place] [address] [place] [address] Physician Gastroenterology 08/20/20 Loren Olivares, PT [address] [address] Physical Therapist Physical Medicine & Rehab/PM&R 08/20/20 Emilio Miller MD [address] [place] [address]78 Physician Obstetrics/Gynecology 08/20/20 Mary Steward, PT [address] [place] [address] [place] [address] Physical Therapist Physical Therapy 08/20/20 Justyna Swartz MD [address] [place] [address] Physician Obstetrics/Gynecology 02/14/21 B[employer]el Technology Manager Relationship Specialty Start Date End Date Yash Melendez PA-C [address] [place] [address] PCP - General Family Medicine 10/07/20 Damaris Burns MD [address] [place] [address] 50981 Physician Physical Medicine & Rehab/PM&R 08/20/20 Carson Jimenes, PT [address] [place] [address] [place] [address] Physical Therapist Physical Medicine & Rehab/PM&R 08/20/20 Mikhail Aguirre MD [address] [place] [address] [place] [address] Physician Gastroenterology 08/20/20 Loren Olivares, PT [address] [address] Physical Therapist Physical Medicine & Rehab/PM&R 08/20/20 Emilio Miller MD [address] [place] [address] Physician Obstetrics/Gynecology 08/20/20 Mary Steward, PT [address] [facility] [place] [address] Physical Therapist Physical Therapy 08/20/20 Justyna Swartz MD [address] [place] [address] 33538 Physician Obstetrics/Gynecology 02/14/21 Biod[employer]el Technology Manager Relationship Specialty Start Date End Date Yash Melendez PA-C [address] [place] [address] 34832 PCP - General Family Medicine 10/07/20 Damaris Burns MD [address] [place] [address] [phone] Physician Physical Medicine & Rehab/PM&R 08/20/20 Carson Jimenes, PT [address] [place] [address] [address] [place], [place] [phone] Physical Therapist Physical Medicine & Rehab/PM&R 08/20/20 Mikhail Aguirre MD [address] [place] [address] [place] [address] Physician Gastroenterology 08/20/20 Loren Olivares, PT [address] [address] Physical Therapist Physical Medicine & Rehab/PM&R 08/20/20 Emilio Miller MD [address] [place] [address]677 Physician Obstetrics/Gynecology 08/20/20 Mary Steward, PT [address] [facility] [address] Physical Therapist Physical Therapy 08/20/20 Justyna Swartz MD [address] [place] [address]12 Physician Obstetrics/Gynecology 02/14/21 B[employer]el Technology Manager Relationship Specialty Start Date End Date Yash Melendez PA-C [address] [place] [address] PCP - General Family Medicine 10/07/20 Damaris Burns MD [address] [place] [address] 49521 Physician Physical Medicine & Rehab/PM&R 08/20/20 Carson Jimenes, PT [address] [facility] [address] Physical Therapist Physical Medicine & Rehab/PM&R 08/20/20 Mikhail Aguirre MD [address] [place] [address] [place] [address] Physician Gastroenterology 08/20/20 Loren Olivares, PT [address] [address] Physical Therapist Physical Medicine & Rehab/PM&R 08/20/20 Emilio Miller MD [address] [place] [address] 96191 Physician Obstetrics/Gynecology 08/20/20 Mary Steward, PT [address] [place] [address] [place] [address] Physical Therapist Physical Therapy 08/20/20 Justyna Swartz MD [address] [place] [address] 67798 Physician Obstetrics/Gynecology 02/14/21 B[employer]el Technology Manager Relationship Specialty Start Date End Date Yash Melendez PA-C [address] [place] [address] PCP - General Family Medicine 10/07/20 Damaris Burns MD [address] [place] [address]01 Physician Physical Medicine & Rehab/PM&R 08/20/20 Carson Jimenes, PT [address] [place] [address] [place] [address] Physical Therapist Physical Medicine & Rehab/PM&R 08/20/20 Mikhail Aguirre MD [address] [place] [address] [place] [address] Physician Gastroenterology 08/20/20 Loren Olivares, PT [address] [address] Physical Therapist Physical Medicine & Rehab/PM&R 08/20/20 [place] [id number] [place] [address] [phone] Physician Obstetrics/Gynecology 08/20/20 Mary Steward, PT [address] [place] [address] [place], [place] [phone] Physical Therapist Physical Therapy 08/20/20 Justyna Swartz MD [address] [place] [address] 69442 Physician Obstetrics/Gynecology 02/14/21 B[employer]el Technology Manager Relationship Specialty Start Date End Date Yash Melendez PA-C [address] [place] [address] 28784 PCP - General Family Medicine 10/07/20 Damaris Burns MD [address] [place] [address] 20619 Physician Physical Medicine & Rehab/PM&R 08/20/20 Carson Jimenes, PT [address] [place] [address] [place] [address] Physical Therapist Physical Medicine & Rehab/PM&R 08/20/20 Mikhail Aguirre MD [address] [place] [address] [address] [place], [place] [phone] Physician Gastroenterology 08/20/20 Loren Olivares, PT [address] [address] Physical Therapist Physical Medicine & Rehab/PM&R 08/20/20 [place] [address] [place] [address] Physician Obstetrics/Gynecology 08/20/20 Mary Steward, PT [address] [place] [address] [place] [address] Physical Therapist Physical Therapy 08/20/20 Justyna Swartz MD [address] [place] [address] [phone] Physician Obstetrics/Gynecology 02/14/21 Reason for Visit (unrecogniz ed section and content) Reason Comments Telephone Counseling And Other Issues Refill 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 Reason Comments Procedure IUD insertion Reason Comments Fall Reason Comments Refill Reason Comments Telephone Counseling And Other Issues Refill Carpal tunnel syndrome Reason Comments Forms Completion 09/15/22 [facility] Reason Comments Forms Completion 10/21/[address] [facility] Reason Comments Telephone Counseling And Other Issues Refill Anxiety disorder/anxiety state Reason Comments Refill Specialty Diagnoses / Procedures Referred By Al t Referred To Contact Neurology Diagnoses Bilateral carpal tunnel syndrome Procedures [facility] Yash Melendez PA-C [address] [place] [address] Referral ID Status Reason Start Date Expiration Date V isits Requested Visits Authorized [id number] Pending Review 04/16/2023 04/16/2024 3 3 Reason Comments Cough Sore throat Sinus symptoms Reason Onset Date Comments Refill 11/27/2023 Reason Comments Medication Management 6mo FU Reason Comments Complete exam Very painful cramps, spotting, irregular menstrual cycle, pap Ordered Prescriptions (unrec ognized section and content) Prescription Sig Dispensed Refills Start Date End Da te cyclobenzaprine (FLEXERIL) 10 MG tablet Take 1 tablet by mouth 2 times daily as needed for Muscle spasms 20 tablet 0 08/31/2022 2022 ondansetron (ZOFRAN ODT) 4 MG disintegrating tablet Take 1 tablet by mouth every 8 hours as needed for Nausea or Vomiting 12 tablet 0 08/31/2022 ketorolac (TORADOL) 10 MG tablet Take 1 tablet by mouth every 6 hours as needed for Pain 20 tablet 0 08/31/2022 Scheduled Active and Recently Administ ered Medications (unrecognized section and content) Medication Order 08/29/2022 08/30/2022 08/31/2022 acetaminophen (TYLENOL) tablet 1,000 mg (COMPLETED) 1,000 mg, Oral, ONCE, 1 dose, On Wed08/31/22 at 1536, Maximum dose of acetaminophen is 4000 mg from all sources in 24 hours. 1547 (Given - Provid er: Sarina Belle RN) ketorolac (TORADOL) injection 30 mg (COMPLETED) Ketorolac is contraindicated in patients with advanced renal impairment and in patients at risk of renal failure due to volume depletion. For 65 years of age and older OR weight less than 50 kg, use 15 mg IV every 6 hours; MAX dose: 60 mg/day. Dose greater than 30 mg must be administered via intramuscular route. Do not administer for more than 5 days., 30 mg, IntraMUSCular, ONCE, 1 dose, On Wed08/31/22 at 1659, Do not administer for more than 5 days. 1717 (Given - Provid er: Bebo Villanueva RN) ondansetron (ZOFRAN-ODT) disintegrating tablet 4 mg (COMPLETED) 4 mg, Oral, ONCE, 1 dose, On Wed08/31/22 at 1536 1548 (Given - Provid er: Sarina Belle RN) FOR RECORDS PERTAINING TO PATIENTS WHO ARE OR HAVE BEEN ENROLLED IN A CHEMICAL DEPENDENCY/SUBSTANCEABUSE PROGRAM, SOME INFORMATION MAY BE OMITTED. This clinical summary was aggregated from multiple sources. Caution should be exercised in using it in the provision of clinical care. This summary normalizes information from multiple sources, and as a consequence, information in this document may materially change the coding, format and clinical context of patient data. In addition, data may be omitted in some cases. CLINICAL DECISIONS SHOULD BE BASED ON THE PRIMARY CLINICAL RECORDS. [facility] [employer] [facility]. provides no warranty or guarantee of the accuracy or completeness of information in this document.
--- NOTE | 2024-03-22 07:47 | XR_ITS ---
The [address] [address] Patient Name: MELITON MASTERSON MRN: [id number] date: 1990 Sex: F Assigned Patient Location: ED.MAIN Current Patient Location: ED.MAIN Accession/Order Number: [id number] Exam Date: 03/22/2024 07:40 Report Date: 03/22/2024 08:00 At the request of: NATALIYA CONNOR Procedure: XR lumbar spine 2-3V EXAMINATION: XR lumbar spine 2-3V HISTORY: Lsciatic pain ; acute lumbar pain and left leg radiculopathy. COMPARISON: No relevant comparison available. FINDINGS: BONES: No significant spondylosis, scoliosis, fracture, or visible bony lesion. DISC SPACES: Slight narrowing L4-L5, L5-S1. PARASPINOUS: Negative. No paraspinous abnormality is seen. OTHER: Negative. XR/XR lumbar spine 2-3V IMPRESSION: 1. No appreciable acute abnormality. 2. Minimal degenerative disc disease of lower lumbar spine. Electronically authenticated by: ROSEMARY MARLOW Date: 03/22/2024 08:00
[2024-03-22] MEDS: DIAZEPAM 2 MG TABLET PO (08:23)
[2024-03-22] MEDS: HYDROMORPHONE HCL 0.5 MG/0.5 ML SYRINGE IM (08:23)
[2024-03-22 08:36] VITALS: BP 157/92; PULSE 87; O2SAT 99
== END 2024-03-22 08:38 | disposition home or self-care (01) ==
PROVIDERS: Emergency Provider Emergency Medicine
DX: M54.40 Lumbago with sciatica, unspecified side (principal); Z79.899 Other long term (current) drug therapy
CPT/HCPCS: 72100; 96372; 99284; J1170

== ENCOUNTER 2024-03-28 20:05 | Emergency (ER) | payer OTHER, SELFPAY ==
[2024-03-28 20:09] VITALS: BP 163/84; PULSE 98; TEMP 36.7; O2SAT 99; BMI 53.0
--- OUTSIDE RECORDS SUMMARY | 2024-03-28 20:17 | XMS_ITS | CCD ---
Author Organization [facility] Care Team Providers Care Cushion Assembler Name Role Phone [place], La S Unavailable Unavailable [place], La S Unavailable Unavailable [place], La S Unavailable Unavailable [place], La S Unavailable Unavailable [place], La S Unavailable Unavailable [place], La S Unavailable Unavailable [place], La S Unavailable Unavailable [place], La S Unavailable Unavailable [place], La S Unavailable Unavailable [place], La S Unavailable Unavailable [place], La S Unavailable Unavailable [place], La S Unavailable Unavailable [place], La S Unavailable Unavailable Vasiliy, Yazmin Unavailable Unavailable [place], La S Unavailable Unavailable Vasiliy, Yazmin Unavailable Unavailable [place], La S Unavailable Unavailable Vasiliy, Yazmin Unavailable Unavailable JONEL HOUSTON Attending Unavaila russ Burns MD, Damaris Mon Unavailable Jalil PT, Carson Unavailable [phone] Carla IBARRA, Mikhail Unavailable Madhuri Pang PT, Loren Unavailable Unav ailable Emilio Miller MD Unavailable Nichelle PT, Mary Unavailable Yash Melendez PA-C Primary Care Provider Maxime IBARRA, Justyna Unavailable Damaris Burns MD Unavailable [phone] Jalil PT, Carson Unavailable Carla IBARRA, Mikhail Unavailable Madhuri Pang PT, Loren Unavailable Unav ailable Emilio Miller MD Unavailable Nichelle PT, Mary Unavailable Petruzzi PA-C, Yash Primary Care Provider Maxime IBARRA, Justyna Unavailable YASH MELENDEZ M Primary Care Unavailable Petruzzi АННА-C, Yash M Primary Care Provider Damaris Burns MD Unavailable Jimenes PT, Carson Unavailable [phone] Carla IBARRA, Mikhail Unavailable Madhuri Pang PT, Loren Unavailable Unav ailable Emilio Miller MD Unavailable Nichelle PT, Mary Unavailable Petrblanco ESPINOSAC, Yash Primary Care Provider Maxime IBARRA, Justyna Unavailable Jimenes PT, Carson Unavailable Madhuri Pang PT, Loren Unavailable Unav ailable Nichelle PT, Mary Unavailable FELICIANO OUTREACH COORDINATOR, TANNER Attending Unavailable FELICIANO OUTREACH COORDINATOR, TANNER Attending Unavailable FELICIANO OUTREACH COORDINATOR, TANNER Attending Unavailable FELICIANO OUTREACH COORDINATOR, TANNER Attending Unavailable Carla IBARRA, Mikhail Unavailable FELICIANO OUTREACH COORDINATOR, TANNER Attending Unavailable FELICIANO OUTREACH COORDINATOR, TANNER Attending Unavailable FELICIANO OUTREACH COORDINATOR, TANNER Attending Unavailable FELICIANO OUTREACH COORDINATOR, TANNER Attending Unavailable NONE, XXXX Primary Care Physician Unavailab Mono Ray Attending Unavailable Zeus Mcghee Attending Unavailable Zeus Mcghee Admitting Unavailable Zeus Mcghee Attending Unavailable Saba GALVAN Attending Unavailable PETRUZZI, YASH Primary Care Unavailable PROVIDER, UNKNOWN Admitting Unavailable EMILIO MILLER Attending Unavailable PETRUZZI, YASH Primary Care [...] Propensity to adverse reactions to food (disorder) [facility] ([facility] source) Mushroom (edible); Translations: [Mushrooms] Propensity to adverse reactions to food (disorder) [facility] ([facility] source) No Known Allergies; Translations: [No Known Allergies] Propensity to adverse reactions to drug (disorder) [facility] Rep[facility] (2 sources) No Known Medication Allergies; Translations: [No Known Medication Allergies] Propensity to adverse reactions to drug (disorder) [facility] (20 sources) cashew nut allergenic extract; Translations: [CASHEW NUT] Drug Allergy 0 Itching, Agitation [facility] (2 sources) cultivated mushroom extract; Translations: [MUSHROOM EXTRACT COMPLEX] Drug Allergy 0 Anaphylactic Shock [facility] (20 sources) Mushroom Propensity to adverse reactions to drug 0 Anaphylactic Shock [facility] Medications Current Medications Medication Drug Class(es) Dates [...] day(s), # 14 tab(s), Refills(s) 0, Pharmacy: [facility], 161, cm, 02/28/24 12:55:00 EDT, Height/Length [...] day(s), # 21 tab(s), Refills(s) 0, Pharmacy: [facility], 161, cm, 02/28/24 12:55:00 EDT, Height/Length [...] 02-28-2024 vitamin D2 ergocalciferol (DRISDOL) 1.25 MG (24028 UT) capsule ethinyl estradiol 0.035 mg / norgestimate 0.25 mg oral tablet (20 sources) Progestin, Estrogen Start: 02-13-2019 End: 12-13-2023 norgestimate-ethinyl estradiol (PRAVIFEM- ORTHO/CYCLEN) 0.25-35 MG-MCG tablet Indications: Oral contraception initial prescription Take 1 Tablet by mouth daily. 30 Tablet 11 04/07/2022 12/13/2023 Discontinued ibuprofen 200 mg oral tablet (2 sources) Nonsteroidal Anti-inflammatory Drug Start: 06-26-2022 End: 06-26-2022 ibuprofen (MOTRIN) tablet levonorgestrel 0.307119 mg/hr intrauterine system (2 sources) Progestin, Progestin-containing [...] Locations R1: This test was performed at: [facility], [address] [place] [address], [facility]- , , [facility] Comment on above: Performed By: #### 2 [id number] #### [facility] [address] [place] [address] In office Testingon 03-01-20 24 In office Testing [id number] [facility] Registrationon 03-01-2024 Registration [id number]#[id number] [facility] Ambulatory Visit Summaryon 0 02-28-2024 Ambulatory [...] AM EDT With: Saba GALVAN CNP Where: [facility] Occupational Health You Need to Schedule the Following Appointments Follow Up with NONE, XXXX When: Where: [phone] Medications What How Much When Why Instructions New doxycycline (doxycycline monohydrate 100 mg oral tablet) 1 Tablets By Mouth 2 times a day Acute bronchitis BMI 50.0-59.9, adult Duration: 7 Days Pickup at [facility] New methylPREDNISolone (Medrol Dosepack 4 mg Tab) 1 Packets By Mouth As Directed Acute bronchitis BMI 50.0-59.9, adult Duration: 6 Days as directed on package labeling Pickup at [facility] Unchanged fluoxetine By Mouth Contact prescribing physician if questions or concerns Pharmacy Information [facility]: [address] [place], [place] [id number] [phone] Allergies No Known Medication Allergies Patient Survey [...] oral rehydration solution (ORS). This is an nhtj-nft-scgrrpd medicine that helps return your body to [...] sports drinks, and soda. ? Eat bland, laka-ui-xawsgn foods in small amounts as you are able. These foods include bananas, applesauce, rice, lean meats, toast, and crackers. ? Avoid alcohol. ? Avoid spicy or fatty foods. Medicines ? Take qhxg-fqs-yprusjj and prescription medicines only as told by your health care provider. ? If you were prescribed an antibiotic medicine, take it as told by your health care provider. Do not stop using the antibiotic even if you start to feel better. General instructions ? Wash your hands often using soap and water. If soap and water are not available, use a hand miniature set builder. Others in the household should wash their [...] very (more content not included)... 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 female [...] with voice recognition software. Occasional wrong-word or ?xtqin-a-inkr? substitutions may have occurred due to the [...] country. States prior to her trip her usafboz-hv-vov was sick with similar cough and cold-like symptoms and her lfqwee-vo-xig was sick with fever vomiting. Patient denies [...] day(s), # 14 tab(s), Refills(s) 0, Pharmacy: [facility], 161, cm, 02/28/24 12:55:00 EDT, Height/Length Dosing, 139.3, kg, 02/28/24 12:55:00 EDT, Weight Dosing methylPREDNISolone, = 1 packet(s), Oral, As Directed, as directed on package labeling, X 6 day(s), # 21 tab(s), Refills(s) 0, (more content not included)... Normal [facility] Comment on above: Result Comment: Elec tronically [...] oral rehydration solution (ORS). This is an ybxb-jap-njfpgzz medicine that helps return your body to [...] sports drinks, and soda. ? Eat bland, geuy-yj-gpnkjw foods in small amounts as you are able. These foods include bananas, applesauce, rice, lean meats, toast, and crackers. ? Avoid alcohol. ? Avoid spicy or fatty foods. Medicines ? Take wzft-qzg-ntwqjkc and prescription medicines only as told by your health care provider. ? If you were prescribed an antibiotic medicine, take it as told by your health care provider. Do not stop using the antibiotic even if you start to feel better. General instructions ? Wash your hands often using soap and water. If soap and water are not available, use a hand miniature set builder. Others in the household should wash their [...] and water are not available, use hand miniature set builder. ? Contact a health care provider if your diarrhea gets worse or you have new symptoms. ? Get help right away if you have signs of dehydration. This information is not intended to replace advice given to you by your health care provider. Make sure you discuss any questions you have with your health care provider. Document Revised: 01/22/2023 Document Reviewed: 05/13/2022 [employer] Patient Education ? 2022 [employer]. Rapid Strep Test Why am I having [...] same t (more content not included)... Normal [facility] Progress Noteson 02-28-2024 Data Report Analyst Authentication Interface Message Text Gina Masterson was [...] 3 vitamin D2 ergocalciferol (DRISDOL) 1.25 MG (50043 UT) capsule topiramate (TOPAMAX) 50 MG tablet [...] due w/ pcp Alina Perez, MSN, RN, OUTREACH COORDINATOR Normal [facility] Registrationon 02-28-2024 Registration [id number] Normal [facility] Addendum Noteon 01-03-2024 Data Report Analyst Authentication Interface Message Text Addended by: YASH MELENDEZ on: 01/03/2024 05:22 PM Modules accepted: Orders Normal [facility] HUMAN PAPILLOMA VIRUSon 02-0 HPV HIGH RISK Negative Normal Negative [facility] Comment on above: Order Comment: This test is performed using an automated nucleic acid amplification assay ([employer], [employer] [place], [place]). This assay detects RNA of HPV types 16,18,31,33,35,39,45,51,52,56,58,59,66 and 68 in cervical specimens. Result Comment: A ne gative result does not exclude the possibility of low levels of infection. Performed By: #### H PV #### [facility] [address] [place] [address], [id number] Progress Noteson 12-20-2023 Data Report Analyst Authentication Interface Message Text Provider requested a human resources project coordinator. Kaitlynn Sotomayor LPN present. Normal [facility] Data Report Analyst Authentication Interface Message Text The patient, Gina Masterson , identity was verified by name and MRN. 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 if clinically indicated [...] Rfl: vitamin D2 ergocalciferol (DRISDOL) 1.25 MG (02005 UT) capsule, , Disp: , Rfl: topiramate [...] per Session: 120 min Stress: Unknown (01/12/2022) [employer] - Occupational Stress Questionnaire Feeling of Stress : Patient refused Social Connections: Unknown (01/12/2022) Social Connection and Isolation Panel [NHANES] Frequency of Communication with Friends and Family: Patient refused Frequency of Social Gatherings with Friends and Family: Patient refused Attends Mandaeism Services: Patient refused Active Member of Clubs [...] Unstable Housing in the Last Year: No 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 Normal [facility] Data Report Analyst Authentication Interface Message Text Patient was identified by name and date of . RUFUS Hayden Patient at risk for falls:No Falls Risk protocol implemented: No Normal [facility] Progress Noteson 12-13-2023 Data Report Analyst Authentication Interface Message Text History provided by: [...] med Follow up: 3 months Normal [facility] [employer] Data Report Analyst Authentication Interface Message Text Patient was identified by name and date of . Alison Chicas Patient at risk for falls:No Falls Risk protocol implemented: No Normal [facility] TOX ANALYSIS W/CONFIMATION,U Otf 12-13-2023 Amphetamines [...] and its performance characteristics determined by [facility] in a manner consistent with CLIA requirements. This test has not been cleared or approved by the U.S. Food and Drug Administration; however, the FDA has determined that such clearance or approval is not necessary. [facility] ALCOHOL - TOX W/ CONF Negative Normal Cutoff: 10 [facility] Comment on above: Order Comment: Scree n results are reported as positive (at or above the cutoff) or negative (below the cutoff). The LC-MS/MS testing (if applicable) was developed and its performance characteristics determined by [facility] in a manner consistent with CLIA requirements. This test has not been cleared or approved by the U.S. Food and Drug Administration; however, the FDA has determined that such clearance or approval is not necessary. Performed By: #### T OX U #### [facility] [address] [place] [address], AMPH CL Negative Normal Cutoff: 1000 [facility] Comment on above: Order Comment: Scree n results are reported as positive (at or above the cutoff) or negative (below the cutoff). The LC-MS/MS testing (if applicable) was developed and its performance characteristics determined by [facility] in a manner consistent with CLIA requirements. This test has not been cleared or approved by the U.S. Food and Drug Administration; however, the FDA has determined that such clearance or approval is not necessary. Performed By: #### T OX U #### [facility] [address] [place] [address], LOWELL CL Negative Normal Cutoff: 200 [facility] Comment on above: Order Comment: Scree n results are reported as positive (at or above the cutoff) or negative (below the cutoff). The LC-MS/MS testing (if applicable) was developed and its performance characteristics determined by [facility] [employer] in a manner consistent with CLIA requirements. This test has not been cleared or approved by the U.S. Food and Drug Administration; however, the FDA has determined that such clearance or approval is not necessary. Performed By: #### T OX U #### [facility] [address] [place] [address], BENZO CL Negative Normal Cutoff: 200 [facility] Comment on above: Order Comment: Scree n results are reported as positive (at or above the cutoff) or negative (below the cutoff). The LC-MS/MS testing (if applicable) was developed and its performance characteristics determined by [facility] in a manner consistent with CLIA requirements. This test has not been cleared or approved by the U.S. Food and Drug Administration; however, the FDA has determined that such clearance or approval is not necessary. Performed By: #### T OX U #### [facility] [address] [place] [address], COCAINE CL- TOX W/ CONF Negative Normal [...] T OX U #### [facility] [address] [place] [address], FENTANYL Negative Normal Cutoff: 1 [facility] Comment on above: Order Comment: Scree n results are reported as positive (at or above the cutoff) or negative (below the cutoff). The LC-MS/MS testing (if applicable) was developed and its performance characteristics determined by [facility] in a manner consistent with CLIA requirements. This test has not been cleared or approved by the U.S. Food and Drug Administration; however, the FDA has determined that such clearance or approval is not necessary. Performed By: #### T OX U #### [facility] [address] [place] [address], METH CL Negative Normal Cutoff: 300 [facility] Comment on above: Order Comment: Scree n results are reported as positive (at or above the cutoff) or negative (below the cutoff). The LC-MS/MS testing (if applicable) was developed and its performance characteristics determined by The [facility] in a manner consistent with CLIA requirements. This test has not been cleared or approved by the U.S. Food and Drug Administration; however, the FDA has determined that such clearance or approval is not necessary. Performed By: #### T OX U #### [facility] [address] [place] [address], OPI CL Negative Normal Cutoff: 300 [facility] Comment on above: Order Comment: Scree n results are reported as positive (at or above the cutoff) or negative (below the cutoff). The LC-MS/MS testing (if applicable) was developed and its performance characteristics determined by [facility] in a manner consistent with CLIA requirements. This test has not been cleared or approved by the U.S. Food and Drug Administration; however, the FDA has determined that such clearance or approval is not necessary. Performed By: #### T OX U #### [facility] [address] [place] [address], OXYCODONE Negative Normal Cutoff: 100 [facility] Comment on above: Order Comment: Scree n results are reported as positive (at or above the cutoff) or negative (below the cutoff). The LC-MS/MS testing (if applicable) was developed and its performance characteristics determined by The [facility] in a manner consistent with CLIA requirements. This test has not been cleared or approved by the U.S. Food and Drug Administration; however, the FDA has determined that such clearance or approval is not necessary. Result Comment: Oxyc odone and metabolites of Oxycodone (Oxymorphone, Noroxycodone, and Noroxymorphone) are measured/detected in this assay method. Performed By: #### T OX U #### [facility] [address] [place] [address], PCP CL Negative Normal Cutoff: 25 [facility] Comment on above: Order Comment: Scree n results are reported as positive (at or above the cutoff) or negative (below the cutoff). The LC-MS/MS testing (if applicable) was developed and its performance characteristics determined by [facility] in a manner consistent with CLIA requirements. This test has not been cleared or approved by the U.S. Food and Drug Administration; however, the FDA has determined that such clearance or approval is not necessary. Performed By: #### T OX U #### [facility] [address], [place], THC CL - TOX W/ CONF Negative Normal Cutoff: 50 [facility] Comment on above: Order Comment: Scree n results are reported as positive (at or above the cutoff) or negative (below the cutoff). The LC-MS/MS testing (if applicable) was developed and its performance characteristics determined by [facility] in a manner consistent with CLIA requirements. This test has not been cleared or approved by the U.S. Food and Drug Administration; however, the FDA has determined that such clearance or approval is not necessary. Performed By: #### T OX U #### [facility] [address] [place], [address] Addendum Noteon 10-27-2023 Data Report Analyst Authentication Interface Message Text Addended by: YASH MELENDEZ on: 10/27/2023 08:13 AM Modules accepted: Orders Normal The [facility] COVID/INFLUENZAon 10-22-2023 FLUAV RNA ARTHUR+probe Ql (Nph) Not detected Not Detected [facility] Comment on above: Not Detected results are indicative of the absence of Influenza A in the specimen submitted for testing. False negative results are possible based on the timing and quality of specimen submitted for testing. This assay was performed by Multiplex targeted Nucleic Acid Amplification on the [employer] System ([employer] [place], [place]) using Data Report Analyst Mediated Amplification (TMA) technology. FLUBV RNA ARTHUR+probe Ql (Nph) Not detected Not Detected [facility] Comment on above: Not Detected results are indicative of the absence of Influenza B in the specimen submitted for testing. False negative results are possible based on the timing and quality of specimen submitted for testing. This assay was performed by Multiplex targeted Nucleic Acid Amplification on the [employer] System ([employer] [place], [place]) using Data Report Analyst Mediated Amplification (TMA) technology. Interpretation and review of laboratory results Normal [facility] SARS-CoV-2 (COVID-19) RNA ARTHUR+probe Ql (Unsp spec) Not detected Not Detected [facility] Comment on above: Not Detected results are indicative of the absence of SARS-CoV-2 in the specimen submitted for testing. False negative results are possible based on the timing and quality of specimen submitted for testing. This assay was performed by Multiplex targeted Nucleic Acid Amplification on the [employer] System ([employer] [place], [place]) using Data Report Analyst Mediated Amplification (TMA) technology. This test is intende d for use only under Emergency Use Authorization (EUA). This test was developed, and its performance characteristics determined by [facility] [employer] which is certified under CLIA as qualified to perform high complexity clinical laboratory testing. [facility] INFLUENZA A Not detected Normal Not Detected [facility] Comment on above: Order Comment: This test is intended for use only under Emergency Use Authorization (EUA). This test was developed, and its performance characteristics determined by [facility] which is certified under CLIA as [...] Acid Amplification on the [employer] System ([employer] [place], [place]) using Data Report Analyst Mediated Amplification (TMA) technology. Performed By: #### F JANES/COVID #### [facility] [address] [place] [address], INFLUENZA B Not detected Normal Not Detected [facility] Comment on above: Order Comment: This test is intended for use only under Emergency Use Authorization (EUA). This test was developed, and its performance characteristics determined by [facility] which is certified under CLIA as [...] Acid Amplification on the [employer] System ([employer] [place]) using Data Report Analyst Mediated Amplification (TMA) technology. Performed By: #### F JANES/COVID #### [facility] [address] [place] [address], SARS-CoV-2 (COVID-19) RNA ARTHUR+probe Ql (Unsp spec) Not detected Normal Not Detected [facility] Comment on above: Order Comment: This test is intended for use only under Emergency Use Authorization (EUA). This test was developed, and its performance characteristics determined by [facility] which is certified under CLIA as [...] Acid Amplification on the [employer]TM System ([employer] [place]) using Data Report Analyst Mediated Amplification (TMA) technology. Performed By: #### F JANES/COVID #### [facility] [address] [place], [address] Progress Noteson 10-22-2023 Data Report Analyst Authentication Interface Message Text SUBJECTIVE: History was [...] or appearance of new symptoms. Normal [employer] Data Report Analyst Authentication Interface Message Text Patient was identified by name and date of . June Hunter Normal [employer] RAPID STREP A W/CULTURE REFL EXon 10-22-2023 S. pyogenes Ag IA Ql (Unsp spec) STREP A SCREEN: Negative (1 swab only) Culture not performed; one swab received. Normal [employer] [facility] Comment on above: Performed By: #### C R STREP ####[facility] [address] [place], [place] RAPID STREP A W/CULTURE REFL EXOrdered By: Abdias Alvarenga on 10-22-2023 Interpretation and review of laboratory results Normal [facility] S. pyogenes Ag Ql (Throat) Negative Negative [facility] Comment on above: Culture not performe d; one swab received. [facility] Telephone Encounteron 2022 Data Report Analyst Authentication Interface Message Text LM on pt vm and sent a Furnésh message that appointment on 10/11/23 is cancelled. [...] years. 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 Exercise: Gym. Walks the dogs when she [...] fL 08/23/23 Lymph % 26.8 % 08/23/23 [place] % 6.6 % 08/23/23 Neutrophil % 64.2 % 08/23/23 Eosin % 1.9 % 08/23/23 Basos % 0.5 % 08/23/23 Lymph Count 2.74 x1000 08/23/23 [place] Count 0.67 x1000 08/23/23 Neutrophil Count (ANC) 6.59 x1000 08/23/23 Eos Count 0.20 x1000 08/23/23 Baso Count 0.05 x1000 08/23/23 Nucleated RBC 0 /100WBC 08/23/23 Medication Reconciliation What How Much When Instructions New metFORMIN = Glucophage (MetFORMIN (Eqv-Glucophage XR) 500 mg oral tablet, extended release) See instructions Refills: 2 Take 2 tablets in AM Take 1 tablet in PM Pickup at [facility] New topiramate (topiramate 50 mg oral tablet) 1 Tabs Oral DAILY Duration: 30 Days Refills: 2 Pickup at [facility] Unchanged amphetamine-dextroampheta mine (Adderall 20 mg oral tablet) 1 Tabs Oral DAILY Unchanged dulaglutide (Trulicity Pen 0.75 mg/ 0.5 mL subcutaneous solution) 0.5 Milliliter Subcutaneous WEDNESDAY Duration: 4 Weeks rotate injection sites Pickup at [facility] Unchanged ergocalciferol = Vitamin D (Vitamin D2 1.25 mg (50,000 intl units) oral capsule) 1 Capsules Oral WEDNESDAY Duration: 12 Weeks Unchanged losar (more content not included)... Normal [facility] Comprehensive Intake - Baria tric - [...] in, 137 cm) Body Mass Index Measured Gambian : 74.49 kg/m2 BSA Gambian : 2.31 m2 [place] Body Weight : 31.555 kg Lynette Ahn [...] risk situation (congregated living, hemodialysis, infusion clinic, custodial, assisted living, snf, homeless custodial, etc.)? : No Lynette Ahn MA - [...] Ahn MA - 08/30/2023 9:03 EDT Normal [facility] Phone Msgon 08-26-2023 Phone Msg Entered by TANNER WIGGINS CNP on August 26, 2023 15:53:25 EDT From: TANNER WIGGINS CNP To: [facility] Sent: 08/26/2023 15:53:25 EDT Subject: Medication Management Submitted: Complete:topiramate (topiramate 50 mg oral tablet) Signed by TANNER WIGGINS CNP 08/26/2023 15:53:00 EDT Approved topiramate (topiramate 50 mg tablet) TAKE 1 TABLET DAILY FOR 30 DAYS Qty: 30 tabs Days Supply: 30 Refills: 1 Substitutions Allowed Route To Pharmacy - [facility] From: [facility] To: TANNER WIGGINS CNP Sent: August [...] 1 Substitutions Allowed Notes from Pharmacy: Normal [facility] INSULIN LEVELon 08-25-2023 Insulin, fasting 29 High 3-25 [facility] Comment on above: Order Comment: Order ed on Fin# [id number] Result Comment: INTE RPRETIVE INFORMATION: Insulin, Fasting This test reacts on a nearly equimolar basis with the analogs insulin aspart, insulin glargine, and insulin lispro. Insulin detemir exhibits approximately 50 percent cross-reactivity. Test reactivity with insulin glulisine is negligible (less than 3 percent). To convert to pmol/L, multiply uIU/mL by 6.0. Performed By: [facility] [address] [place] [address] Quarry Worker: Stephen Adam MD, PhD CLIA Number: [id number] Performed By: #### 9 [id number] ####[facility] Rsjlcmrw34248 [place] [address] Medical Director: Marques Espinoza MD AUTO DIFFon 08-23-2023 Baso Count 0.05 x1000 Normal 0.00-0.20 [facility] Comment on above: Performed By: #### 1 27100, 769133, 7380730 ####[facility] Castkhmb55679 [place] [address] Medical Director: Marques Espinoza MD Basos % 0.5 % Normal [facility] Comment on above: Performed By: #### 1 41515, 320749, 2007393 ####[facility] Qedoktjy74094 [place] [address] Medical Director: Marques Espinoza MD Eos Count 0.20 x1000 Normal 0.00-0.50 [facility] Comment on above: Performed By: #### 1 69695, 013448, 7177328 ####[facility] Mastjsrz09672 [place] [address] Medical Director: Marques Espinoza MD Eosinophils/100 WBC (Bld) 1.9 % Normal [facility] Comment on above: Performed By: #### 1 77714, 770594, 4952233 ####[facility] [address] [place] [address] Medical Director: Marques Espinoza MD Lymph Count 2.74 x1000 Normal 1.20-4.80 [facility] Comment on above: Performed By: #### 1 29295, 814401, 7328472 ####[facility] [address] [place] [address] Medical Director: Marques Espinoza MD Lymphocytes/100 WBC (Bld) 26.8 % Normal [facility] Comment on above: Performed By: #### 1 94778, 419857, 6586956 ####[facility] [address] [place] [address] Medical Director: Marques Espinoza MD [place] Count 0.67 x1000 Normal 0.10-1.00 [facility] Comment on above: Performed By: #### 1 09006, 422577, 5080397 ####[facility] Dksnrjca18074 [place] [address] Medical Director: Marques Espinoza MD Monocytes/100 WBC (Bld) 6.6 % Normal [facility] Comment on above: Performed By: #### 1 26468, 344704, 8565653 ####[facility] Wz[address]bgwn76949 [place] [address] Medical Director: Marques Espinoza MD Neutrophil Count (ANC) 6.59 x1000 Normal 1.40-8.80 [facility] Comment on above: Performed By: #### 1 26974, 999014, 4402370 ####[facility] Yncpmygl09140 [place] [address] Medical Director: Marques Espinoza MD Neutrophils/100 WBC (Bld) 64.2 % Normal [facility] Comment on above: Performed By: #### 1 15538, 062851, 8040795 ####[facility] Vsdkfqfy37333 [place] [address] Medical Director: Marques Espinoza MD COMPMETAon 08-23-2023 Albumin [Mass/Vol] 4.0 g/dL Normal 3.4-5.0 [facility] Comment on above: Order Comment: Order ed on Fin# [id number] Performed By: #### 1 32831, 903974, 6901663 ####[facility] [address]iweohc42802 [place] [address] Medical Director: Marques Espinoza MD Albumin/Globulin [Mass ratio] 1.2 {ratio} Normal [facility] Comment on above: Order Comment: Order ed on Fin# [id number] Performed By: #### 1 88006, 778736, 6273081 ####[facility] Tpetyyeb27[address] [place] [address] Medical Director: Marques Espinoza MD Alk Phos 70 unit/L Normal 46-116 [facility] Comment on above: Order Comment: Order ed on Fin# [id number] Performed By: #### 1 58498, 208616, 6482938 ####[facility] [address]amue[address] [place] [address] Medical Director: Marques Espinoza MD Bilirubin [Mass/Vol] 0.40 mg/dL Normal 0.20-1.[address] [facility] Comment on above: Order Comment: Order ed on Fin# [id number] Result Comment: Use of this assay is not recommended for patients undergoing treatment with eltrombopag due to the potential for falsely elevated results. Performed By: #### 1 49721, 023940, 2043519 ####[facility] Pbxrjwcc[address]76 [place] [address] Medical Director: Marques Espinoza MD Calcium [Mass/Vol] 9.5 mg/dL Normal 8.7-10.4 [facility] Comment on above: Order Comment: Order ed on Fin# [id number] Performed By: #### 1 52985, 733219, 3266365 ####[facility] [address]ugqrqh50438 [place] [address] Medical Director: Marques Espinoza MD Chloride [Moles/Vol] 105 mmol/L Normal 98-[address] [facility] Comment on above: Order Comment: Order ed on Fin# [id number] Performed By: #### 1 74261, 527246, 5177889 ####[facility] Vbaucbhc77789 [place] [address] Medical Director: Marques Espinoza MD CO2 [Moles/Vol] 27.0 mmol/L Normal 20.0-31.0 [facility] Comment on above: Order Comment: Order ed on Fin# [id number] Performed By: #### 1 54529, 740474, 2336899 ####[facility] Vlpoaqcd08500 [place] [address] Medical Director: Marques Espinoza MD Creatinine [Mass/Vol] 0.7 mg/dL Normal 0.5-0.8 [facility] Comment on above: Order Comment: Order ed on Fin# [id number] Performed By: #### 1 35246, 423485, 8811285 ####[facility] Umniiamv23848 [place] [address] Medical Director: Marques Espinoza MD GFR AA >60 Normal [facility] Comment on above: Order Comment: Order ed on [facility]# [id number] Result Comment: Afri can Taiwanese GFR Calc Medical judgement is necessary to [...] for drug dosing. Performed By: #### 1 92320, 304541, 4252273 ####[facility] Aldngfcx57404 [place] [address] Medical Director: Marques Espinoza MD Globulin (S) [Mass/Vol] 3.3 g/dL Normal [facility] Comment on above: Order Comment: Order ed on [facility]# [id number] Performed By: #### 1 14289, 932372, 3522017 ####[facility] [address]tpdmo[address]49 [place] [address] Medical Director: Marques Espinoza MD Glomerular Filtration Rate >60 Normal [facility] Comment on above: Order Comment: Order ed on [facility]# [id number] Result Comment: Non- GFR Calc Medical judgement [...] for drug dosing. Performed By: #### 1 06202, 236281, 0444705 ####[facility] Tubfjloy73499 [place] [address] Medical Director: Marques Espinoza MD Glucose [Mass/Vol] 118 mg/dL High 74-106 [facility] Comment on above: Order Comment: Order ed on Fin# [id number] Performed By: #### 1 91670, 106452, 6647311 ####[facility] Yvvxwhbm75505 [place] [address] Medical Director: Marques Espinoza MD GOT 21 unit/L Normal 15-37 [facility] Comment on above: Order Comment: Order ed on Fin# [id number] Performed By: #### 1 76592, 385252, 7522022 ####[facility] Kxavhxvd43587 [place] [address] Medical Director: Marques Espinoza MD GPT 38 unit/L Normal 10-49 [facility] Comment on above: Order Comment: Order ed on Fin# [id number] Performed By: #### 1 77252, 533076, 1533349 ####[facility] Bcczjrrh87914 [place] [address] Medical Director: Marques Espinoza MD Osmolality [Osmolality] 281 mosm/kg Normal 275-295 [facility] Comment on above: Order Comment: Order ed on Fin# [id number] Performed By: #### 1 99713, 757709, 7614910 ####[facility] Sewtgjwv28094 [place] [address] Medical Director: Marques Espinoza MD Potassium [Moles/Vol] 4.7 mmol/L Normal 3.5-5.1 [facility] Comment on above: Order Comment: Order ed on Fin# [id number] Performed By: #### 1 69950, 111199, 2385974 ####[facility] Kbfijvdn63614 [place] [address] Medical Director: Marques Espinoza MD Protein [Mass/Vol] 7.3 g/dL Normal 5.7-8.2 [facility] Comment on above: Order Comment: Order ed on Fin# [id number] Result Comment: Tota l Protein results may be increased in patients receiving dextran as a blood volume rubber mill tender Performed By: #### 1 41714, 998049, 8913528 ####[facility] [address]exqkh82397 [place] [address] Medical Director: Marques Espinoza MD Sodium [Moles/Vol] 140 mmol/L Normal 135-145 [facility] Comment on above: Order Comment: Order ed on Fin# [id number] Performed By: #### 1 36381, 861758, 1154414 ####[facility] Qdjtuzcs31978 [place] [address] Medical Director: Marques Espinoza MD Urea nitrogen [Mass/Vol] 14 mg/dL Normal 9-23 [facility] Comment on above: Order Comment: Order ed on Fin# [id number] Result Comment: - Ve nipuncture should occur prior to N-Acetyl Cysteine (NAC) or Metamizole (Sulpyrine) administration due to the potential for falsely depressed results. - Blood samples from some patients with monoclonal gammopathies may produce falsely elevated results Performed By: #### 1 78119, 873427, 3145356 ####[facility] Digvpfuv12879 [place] [address] Medical Director: Marques Espinoza MD Urea nitrogen/Creatinine [Mass ratio] 20.0 mg/mg Normal [facility] Comment on above: Order Comment: Order ed on Fin# [id number] Performed By: #### 1 47488, 534418, 4369666 ####[facility] Vrxgkuqc10580 [place] [address] Medical Director: Marques Espinoza MD HEMOon 08-23-2023 DIFF? No Normal [facility] Comment on above: Performed By: #### 1 88757, 607510, 5557119 ####[facility] Chtqonrb46000 [place] [address] Medical Director: Marques Espinoza MD Erythrocyte distribution width (RBC) [Ratio] 13.6 % Normal 11.5-14.5 [facility] Comment on above: Performed By: #### 1 42819, 582491, 0391483 ####[facility] [address]njpijs97738 [place] [address] Medical Director: Marques Espinoza MD Hematocrit (Bld) [Volume fraction] 36.2 % Normal 36.0-46.0 [facility] Comment on above: Performed By: #### 1 47508, 453728, 1575020 ####[facility] Agmuucje59901 [place] [address] Medical Director: Marques Espinoza MD Hemoglobin (Bld) [Mass/Vol] 12.4 g/dL Normal 12.0-16.0 [facility] Comment on above: Performed By: #### 1 19849, 662973, 7660350 ####[facility] [address] [place] [address] Medical Director: Marques Espinoza MD Instr WBC 10.3 Normal [facility] Comment on above: Performed By: #### 1 27390, 384254, 1627048 ####[facility] Obgkujna01671 [place] [address] Medical Director: Marques Espinoza MD MCH (RBC) [Entitic mass] 29.8 pg Normal 27.0-34.0 [facility] Comment on above: Performed By: #### 1 87047, 414032, 0725428 ####[facility] Wsguiqqi48484 [place] [address] Medical Director: Marques Espinoza MD MCHC (RBC) [Mass/Vol] 34.2 g/dL Normal 32.0-37.0 [facility] Comment on above: Performed By: #### 1 10772, 141853, 4082341 ####[facility] Roljdnpv30626 [place] [address] Medical Director: Marques Espinoza MD MCV (RBC) [Entitic vol] 87.2 fL Normal 80.0-100.0 [facility] Comment on above: Performed By: #### 1 22294, 347040, 3440073 ####[facility] Urkesjgw05885 [place] [address] Medical Director: Marques Espinoza MD Nucleated RBC 0 /100WBC Normal [facility] Comment on above: Performed By: #### 1 86279, 172648, 9698585 ####[facility] [address] [place] [address] Medical Director: Marques Espinoza MD Platelet 364 x10 Normal 150-450 [facility] Comment on above: Performed By: #### 1 74472, 065147, 9719066 ####[facility] [address] [place] [address] Medical Director: Marques Espinoza MD Platelet mean volume (Bld) [Entitic vol] 8.2 fL Normal 7.4-10.4 [facility] Comment on above: Performed By: #### 1 38542, 540188, 9176096 ####[facility] [address] [place] [address] Medical Director: Marques Espinoza MD RBC 4.16 x10 Low 4.20-5.40 [facility] Comment on above: Result Comment: Note : RBC morphology is normal unless otherwise stated. Evaluation performed only if differential is requested. Performed By: #### 1 19565, 582253, 2147528 ####[facility] Xwljheze08438 [place] [address] Medical Director: Marques Espinoza MD WBC 10.3 x10 Normal 4.5-11.0 [facility] Comment on above: Performed By: #### 1 74541, 859447, 2990243 ####[facility] Dcgceffv28981 [place] [address] Medical Director: MD TOMY Guo Bariatric Physician Prog ress Noteon 07-26-2023 TOMY Bariatric Physician Progress Note GINA MASTERSON :1990 Registration Date:07/26/2023 Chief Complaint NSWL History of Present Illness Gina is here for non-surgical weight loss follow-up. Today she weighs 313# BMI 76.63 She is on Metformin - She is on 500mg of Metformin XR BID. 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 Exercise: Gym. Walks the dogs when she can. Meal Preps B: Gambian Muffin Egg Cheese. [place] Sausage L: D: Chicken Green Beans small [...] Duration: 30 Days Refills: 1 Pickup at [facility] Changed metFORMIN = Glucophage (MetFORMIN (Eqv-Glucophage [...] tablet) 1 Tabs Oral DAILY Pharmacy Information [facility]: [address] [place], [place] [id number] [phone] Assessment/Plan This Visit Diagnosis 1. Morbid obesity [...] Est Pt Mod MDM / 30-39 min 34581, 07/26/2023 16:05:00 EDT, Morbid obesity / Body [...] Est Pt Mod MDM / 30-39 min 68525, 07/26/2023 16:05:00 EDT, Morbid obesity / Body [...] Est Pt Mod MDM / 30-39 min 79857, 07/26/2023 16:05:00 EDT, Morbid obesity / Body mass index [BMI] 70 or greater, adult / Hypertension / Prediabetes CBCWD(CBC WITH DIFF), ROUTINE, 07/26/2023, Order for future visit, Dx: Morbid obesity / Body mass index [BMI] 70 or greater, adult / Hypertension / Prediabetes INSULIN LEVEL, ROUTINE, 07/26/2023, Dx: M (more content not included)... Normal [facility] Comprehensive Intake - Baria tric - [...] in, 137 cm) Body Mass Index Measured Gambian : 75.46 kg/m2 BSA Gambian : 2.32 m2 [place] Body Weight : 30.65 kg Lynette Ahn [...] risk situation (congregated living, hemodialysis, infusion clinic, custodial, assisted living, snf, homeless custodial, etc.)? : No Lynette Ahn MA - [...] Ahn MAine - 07/26/2023 14:34 EDT Normal [facility] Progress Noteson 07-16-2023 Data Report Analyst Authentication Interface Message Text Unsuccessful telephone @ 2:05pm TELEMEDICINE VISIT - FOLLOW-UP This visit was performed via interactive telehealth. This visit was initiated by the patient and the patient and provider interacted in real time. Location of the patient: Home of patient Location of the provider: [facility] [address] [place] [phone] MEDICATIONS: Current Outpatient Medications Medication Sig [...] Patient Work Phone: Patient Cell Preferred phone: [phone] Consent: I confirmed patient understanding of the [...] coordinating care. Yash Melendez PA-C Normal [facility] [employer] Phone Msgon 07-12-2023 Phone Msg Entered by TANNER WIGGINS CNP on July 12, 2023 15:27:12 EDT From: TANNER WIGGINS CNP To: [facility] Sent: 07/12/2023 15:27:12 EDT Subject: Medication [...] 0 Substitutions Allowed Route To Pharmacy - [facility] From: [facility] To: TANNER WIGGINS CNP Sent: July [...] 0 Substitutions Allowed Notes from Pharmacy: Normal [facility] INSULIN LEVELon 06-24-2023 Insulin, fasting 156 High 3-25 [facility] Comment on above: Order Comment: Order ed on Fin# [id number] Result Comment: INTE RPRETIVE INFORMATION: Insulin, Fasting This test reacts on a nearly equimolar basis with the analogs insulin aspart, insulin glargine, and insulin lispro. Insulin detemir exhibits approximately 50 percent cross-reactivity. Test reactivity with insulin glulisine is negligible (less than 3 percent). To convert to pmol/L, multiply uIU/mL by 6.0. Performed By: [facility] [address] [place] [address] Quarry Worker: Stephen Adam MD, PhD CLIA Number: [id number] Performed By: #### 9 351175 #### [facility] [address] [place] [address] Straw Hat Machine Operator: Marques Espinoza MD FT3on 06-23-2023 Free T3 [Mass/Vol] 3.3 pg/mL Normal 2.3-4.2 [facility] Comment on above: Performed By: #### 4 314781, 147693 #### [facility] [address] [place] [address] Straw Hat Machine Operator: Marques Espinoza MD FT4on 06-23-2023 Free T4 [Mass/Vol] 0.93 ng/dL Normal 0.89-1.76 [facility] Comment on above: Result Comment: - Th e anticonvulsant drug phenytoin may interfere with total and free T4 levels due to competition for TBG binding sites - Free T4 values may be decreased in patients with non-thyroidal conditions and in patients taking carbamazepine Performed By: #### 4 707191, 285241 #### [facility] [address] [place], [place] [address] Straw Hat Machine Operator: Marques Espinoza MD AUTO DIFFon 06-21-2023 Baso Count 0.08 x1000 Normal 0.00-0.20 [facility] Comment on above: Performed By: #### 1 93815, 8930739, 300139, 989777, 013743, 042655, 9576278, 0909759, 185565 #### [facility] [address] [place], [place] [address] Straw Hat Machine Operator: Marques Espinoza MD Basos % 0.7 % Normal [facility] Comment on above: Performed By: #### 1 56593, 9730674, 248951, 845824, 754406, 744596, 2655572, 0116698, 307778 #### [facility] [address] [place], [place] [address] Straw Hat Machine Operator: Marques Espinoza MD Eos Count 0.16 x1000 Normal 0.00-0.50 [facility] Comment on above: Performed By: #### 1 97398, 2609456, 329288, 170809, 006863, 904668, 1851447, 7383155, 723078 #### [facility] [address] [place], [place] [address] Straw Hat Machine Operator: Marques Espinoza MD Eosinophils/100 WBC (Bld) 1.4 % Normal [facility] Comment on above: Performed By: #### 1 56414, 2216966, 574304, 985929, 404301, 363288, 0086354, 1890862, 792917 #### [facility] [address] [place] [address] Straw Hat Machine Operator: Marques Espinoza MD Lymph Count 3.22 x1000 Normal 1.20-4.80 [facility] Comment on above: Performed By: #### 1 58392, 5872584, 182498, 090063, 054174, 375102, 7070348, 2225414, 343895 #### [facility] [address] [place] [address] Straw Hat Machine Operator: Marques Espinoza MD Lymphocytes/100 WBC (Bld) 28.0 % Normal [facility] Comment on above: Performed By: #### 1 96124, 9978603, 468706, 382444, 268517, 536869, 6647531, 8630694, 913262 #### [facility] [address] [place] [address] Straw Hat Machine Operator: Marques Espinoza MD [place] Count 0.67 x1000 Normal 0.10-1.00 [facility] Comment on above: Performed By: #### 1 99091, 4109690, 644048, 344341, 047093, 543461, 5776991, 4022281, 250542 #### [facility] [address] [place] [address] Straw Hat Machine Operator: Marques Espinoza MD Monocytes/100 WBC (Bld) 5.8 % Normal [facility] Comment on above: Performed By: #### 1 01254, 0663384, 982832, 222416, 085523, 545181, 3405482, 8325487, 579135 #### [facility] [address] [place] [address] Straw Hat Machine Operator: Marques Espinoza MD Neutrophil Count (ANC) 7.35 x1000 Normal 1.40-8.80 [facility] Comment on above: Performed By: #### 1 70415, 8653163, 892092, 226729, 866079, 964967, 8273108, 8398899, 992389 #### [facility] [address] [place], [place] [address] Straw Hat Machine Operator: Marques Espinoza MD Neutrophils/100 WBC (Bld) 64.0 % Normal [facility] Comment on above: Performed By: #### 1 97322, 5215524, 518881, 799828, 354618, 906675, 2415854, 2820705, 178859 #### [facility] [address] [place] [address] Straw Hat Machine Operator: Marques Espinoza MD COMPMETAoирина 06-21-2023 Albumin [Mass/Vol] 3.6 g/dL Normal 3.4-5.0 [facility] Comment on above: Order Comment: Order ed on Fin# [id number] Performed By: #### 1 81982, 7108602, 258543, 032427, 770763, 065315, 1076399, 2059390, 812834 #### [facility] [address] [place] [address] Straw Hat Machine Operator: Marques Espinoza MD Albumin/Globulin [Mass ratio] 1.1 {ratio} Normal [facility] Comment on above: Order Comment: Order ed on Fin# [id number] Performed By: #### 1 97139, 1534877, 589271, 240954, 640936, 384799, 5551590, 7115780, 572803 #### [facility] [address] [place] [address] Straw Hat Machine Operator: Marques Espinoza MD Alk Phos 71 unit/L Normal 46-116 [facility] Comment on above: Order Comment: Order ed on Fin# [id number] Performed By: #### 1 59284, 6822891, 662383, 539529, 851473, 026898, 8543130, 8683867, 547849 #### [facility] [address] [place] [address] Straw Hat Machine Operator: Marques Espinoza MD Bilirubin [Mass/Vol] 0.20 mg/dL Normal 0.20-1.[address] [facility] Comment on above: Order Comment: Order ed on Fin# [id number] Result Comment: Use of this assay is not recommended for patients undergoing treatment with eltrombopag due to the potential for falsely elevated results. Performed By: #### 1 68809, 9721270, 460449, 742155, 011162, 022355, 6020594, 0704707, 969710 #### [facility] [address] [place] [address] Straw Hat Machine Operator: Marques Espinoza MD Calcium [Mass/Vol] 9.4 mg/dL Normal 8.7-10.4 [facility] Comment on above: Order Comment: Order ed on Fin# [id number] Performed By: #### 1 06313, 4951750, 116472, 309360, 555966, 283254, 7674949, 6545079, 097684 #### [facility] [address] [place] [address] Straw Hat Machine Operator: Marques Espinoza MD Chloride [Moles/Vol] 106 mmol/L Normal 98-[address] [facility] Comment on above: Order Comment: Order ed on Fin# [id number] Performed By: #### 1 60639, 0221285, 959873, 176873, 131963, 735933, 7958399, 6283256, 315791 #### [facility] [address] [place] [address] Straw Hat Machine Operator: Marques Espinoza MD CO2 [Moles/Vol] 28.0 mmol/L Normal 20.0-31.0 [facility] Comment on above: Order Comment: Order ed on Fin# [id number] Performed By: #### 1 03814, 8880706, 298159, 620825, 596070, 806334, 4182986, 4243693, 493895 #### [facility] [address] [place] [address] Straw Hat Machine Operator: Marques Espinoza MD Creatinine [Mass/Vol] 0.6 mg/dL Normal 0.5-0.8 [facility] Comment on above: Order Comment: Order ed on Fin# [id number] Performed By: #### 1 54661, 9730267, 043099, 611173, 838163, 037583, 5775250, 5447411, 945115 #### [facility] [address] [place] [address] Straw Hat Machine Operator: Marques Espinoza MD GFR AA >60 Normal [facility] Comment on above: Order Comment: Order ed on Fin# [id number] Result Comment: Afri can Taiwanese GFR Calc Medical judgement is necessary to [...] for drug dosing. Performed By: #### 1 32708, 8884791, 943649, 420238, 700688, 545213, 0470222, 5720367, 533866 #### [facility] [address] [place] [address] Straw Hat Machine Operator: Marques Espinoza MD Globulin (S) [Mass/Vol] 3.2 g/dL Normal [facility] Comment on above: Order Comment: Order ed on Fin# [id number] Performed By: #### 1 92316, 6082254, 990723, 145390, 016279, 974948, 2736354, 2760840, 021443 #### [facility] [address] [place] [address] Straw Hat Machine Operator: Marques Espinoza MD Glomerular Filtration Rate >60 Normal [facility] Comment on above: Order Comment: Order ed on Fin# [id number] Result Comment: Non- GFR Calc Medical judgement [...] for drug dosing. Performed By: #### 1 23419, 5193396, 928351, 114188, 720535, 620255, 3140217, 5026864, 960081 #### [facility] [address] [place] [address] Straw Hat Machine Operator: Marques Espinoza MD Glucose [Mass/Vol] 125 mg/dL High 74-106 [facility] Comment on above: Order Comment: Order ed on Fin# [id number] Performed By: #### 1 70220, 8872808, 030019, 454107, 481448, 852855, 3882614, 7144523, 347466 #### [facility] [address] [place] [address] Straw Hat Machine Operator: Marques Espinoza MD GOT 16 unit/L Normal 15-37 [facility] Comment on above: Order Comment: Order ed on Fin# [id number] Performed By: #### 1 97412, 5950552, 540555, 661208, 448932, 001655, 0082121, 3226610, 022418 #### [facility] [address] [place] [address] Straw Hat Machine Operator: Marques Espinoza MD GPT 28 unit/L Normal 10-49 [facility] Comment on above: Order Comment: Order ed on Fin# [id number] Performed By: #### 1 55969, 8614058, 845099, 000220, 397317, 663988, 9708661, 7969295, 117735 #### [facility] [address] [place] [address] Straw Hat Machine Operator: Marques Espinoza MD Osmolality [Osmolality] 283 mosm/kg Normal 275-295 [facility] Comment on above: Order Comment: Order ed on Fin# [id number] Performed By: #### 1 72889, 7477393, 812338, 327469, 039708, 575106, 2405827, 4172252, 416958 #### [facility] [address] [place] [address] Straw Hat Machine Operator: Marques Espinoza MD Potassium [Moles/Vol] 4.4 mmol/L Normal 3.5-5.1 [facility] Comment on above: Order Comment: Order ed on Fin# [id number] Result Comment: Spec imen slightly hemolyzed. Results may be affected. Performed By: #### 1 56494, 3957618, 958832, 701759, 193225, 687157, 1303930, 9644690, 539631 #### [facility] [address] [place] [address] Straw Hat Machine Operator: Marques Espinoza MD Protein [Mass/Vol] 6.8 g/dL Normal 5.7-8.2 [facility] Comment on above: Order Comment: Order ed on Fin# [id number] Result Comment: Tota l Protein results may be increased in patients receiving dextran as a blood volume rubber mill tender Performed By: #### 1 96033, 1064398, 851345, 838799, 022103, 565272, 4236696, 6889312, 979212 #### [facility] [address] [place] [address] Straw Hat Machine Operator: Marques Espinoza MD Sodium [Moles/Vol] 141 mmol/L Normal 135-145 [facility] Comment on above: Order Comment: Order ed on Fin# [id number] Performed By: #### 1 80239, 4131045, 397967, 755540, 424423, 376894, 0661997, 6718990, 077695 #### [facility] [address] [place] [address] Straw Hat Machine Operator: Marques Espinoza MD Urea nitrogen [Mass/Vol] 13 mg/dL Normal 9-23 [facility] Comment on above: Order Comment: Order ed on Fin# [id number] Result Comment: - Ve nipuncture should occur prior to N-Acetyl Cysteine (NAC) or Metamizole (Sulpyrine) administration due to the potential for falsely depressed results. - Blood samples from some patients with monoclonal gammopathies may produce falsely elevated results Performed By: #### 1 61981, 3216821, 687930, 299455, 025355, 309759, 5676158, 5664112, 328790 #### [facility] [address] [place], [place] [address] Straw Hat Machine Operator: Marques Espinoza MD Urea nitrogen/Creatinine [Mass ratio] 21.7 mg/mg Normal [facility] Comment on above: Order Comment: Order ed on Fin# [id number] Performed By: #### 1 57998, 8344914, 215584, 136833, 160864, 917364, 4591360, 5223011, 539805 #### [facility] [address] [place], [place] [address] Straw Hat Machine Operator: Marques Espinoza MD Comprehensive Intake - Baria [...] in, 136 cm) Body Mass Index Measured Gambian : 76.63 kg/m2 BSA Gambian : 2.31 m2 [place] Body Weight : 30.65 kg Lynette Ahn [...] risk situation (congregated living, hemodialysis, infusion clinic, custodial, assisted living, snf, homeless custodial, etc.)? : No Lynette Ahn MA - [...] Ahn MA - 06/21/2023 13:35 EDT Normal [facility] EMGon 06-21-2023 [facility] Radiology Study observation (narrative) [facility] FERRITINon 06-21-2023 Ferritin [Mass/Vol] 71 ng/mL Normal 10-291 [facility] Comment on above: Order Comment: Order ed on Fin# [id number] Result Comment: Seru m ferritin values are elevated in the presence of the following conditions and do not reflect actual body iron stores: - Inflammation - Significant tissue destruction - Liver disease - Malignancies such as acute leukemia and Hodgkin?s disease - Therapy with iron supplements Performed By: #### 1 96725, 8869206, 486374, 017609, 863315, 732284, 8130702, 0483210, 395880 ####[facility] [address] [place] [address] Medical Director: Marques Espinoza MD HEMOon 06-21-2023 DIFF? No Normal [facility] Comment on above: Performed By: #### 1 26543, 3433868, 921379, 695532, 372932, 434437, 6133047, 0456976, 888241 #### [facility] [address] [place] [address] Straw Hat Machine Operator: Marques Espinoza MD Erythrocyte distribution width (RBC) [Ratio] 13.1 % Normal 11.5-14.5 [facility] Comment on above: Performed By: #### 1 76456, 2352712, 182845, 367972, 139569, 497637, 8848981, 0851367, 449838 #### [facility] [address] [place] [address] Straw Hat Machine Operator: Marques Espinoza MD Hematocrit (Bld) [Volume fraction] 36.0 % Normal 36.0-46.0 [facility] Comment on above: Performed By: #### 1 98257, 0338031, 345777, 558123, 753558, 438918, 9090975, 9530958, 266696 #### [facility] [address] [place] [address] Straw Hat Machine Operator: Marques Espinoza MD Hemoglobin (Bld) [Mass/Vol] 12.1 g/dL Normal 12.0-16.0 [facility] Comment on above: Performed By: #### 1 23431, 5800749, 742697, 859806, 430348, 590631, 1476737, 8150742, 136242 #### [facility] [address] [place], [place] [address] Straw Hat Machine Operator: Marques Espinoza MD Instr WBC 11.5 Normal [facility] Comment on above: Performed By: #### 1 59731, 9640233, 267628, 083713, 798550, 139225, 2066171, 4283860, 819983 #### [facility] [address] [place], [place] [address] Straw Hat Machine Operator: Marques Espinoza MD MCH (RBC) [Entitic mass] 29.2 pg Normal 27.0-34.0 [facility] Comment on above: Performed By: #### 1 52530, 0382774, 178240, 249792, 501750, 968482, 1122023, 6434942, 846974 #### [facility] [address] [place], [place] [address] Straw Hat Machine Operator: Marques Espinoza MD MCHC (RBC) [Mass/Vol] 33.6 g/dL Normal 32.0-37.0 [facility] Comment on above: Performed By: #### 1 11497, 5671598, 335426, 599311, 019717, 871516, 9487140, 0588001, 464489 #### [facility] [address] [place], [place] [address] Straw Hat Machine Operator: Marques Espinoza MD MCV (RBC) [Entitic vol] 87.0 fL Normal 80.0-100.0 [facility] Comment on above: Performed By: #### 1 21406, 2196996, 573173, 426914, 884828, 036996, 0757654, 2144379, 327365 #### [facility] [address] [place] [address] Straw Hat Machine Operator: Marques Espinoza MD Nucleated RBC 0 /100WBC Normal [facility] Comment on above: Performed By: #### 1 86122, 6407277, 009078, 642916, 395423, 533960, 3957388, 9744222, 530798 #### [facility] [address] [place] [address] Straw Hat Machine Operator: Marques Espinoza MD Platelet 379 x10 Normal 150-450 [facility] Comment on above: Performed By: #### 1 25041, 7686866, 280543, 757904, 320410, 130816, 5870799, 2861772, 952925 #### [facility] [address] [place] [address] Straw Hat Machine Operator: Marques Espinoza MD Platelet mean volume (Bld) [Entitic vol] 8.5 fL Normal 7.4-10.4 [facility] Comment on above: Performed By: #### 1 88621, 2260556, 998026, 434619, 963169, 165913, 3974803, 8648209, 936976 #### [facility] [address] [place] [address] Straw Hat Machine Operator: Marques Espinoza MD RBC 4.14 x10 Low 4.20-5.40 [facility] Comment on above: Result Comment: Note : RBC morphology is normal unless otherwise stated. Evaluation performed only if differential is requested. Performed By: #### 1 85572, 0808053, 595179, 693345, 367082, 189825, 5558738, 7462389, 231473 #### [facility] [address] [place] [address] Straw Hat Machine Operator: Marques Espinoza MD WBC 11.5 x10 High 4.5-11.0 [facility] Comment on above: Performed By: #### 1 57344, 9417336, 808099, 764381, 103606, 586287, 6396385, 5853433, 229595 #### [facility] [address] [place] [address] Straw Hat Machine Operator: Marques Espinoza MD HGB A1Con 06-21-2023 HbA1c (Bld) [Mass fraction] 5.7 % Normal [facility] Comment on above: Order Comment: Order ed on Fin# [id number] Result Comment: Refe rence Range: Diabetic Greater than or equal to 6.5 % Prediabetic 5.7?6.4 % Normal Less than 5.7 % Performed By: #### 1 88177 ####[facility] [address] [place], [place] [address] Medical Director: Marques Espinoza MD IRON GROUPon 06-21-2023 Iron [Mass/Vol] 57 ug/dL Normal 40-170 [facility] Comment on above: Order Comment: Order ed on [facility]# [id number] Result Comment: Resu lts may be inaccurate if performed within 14 days of IV iron dextran administration. Performed By: #### 1 74843, 5390827, 052040, 681427, 524179, 864612, 1124491, 5069552, 654834 #### [facility] [address] [place] [address] Straw Hat Machine Operator: Marques Espinoza MD Saturation 18.8 % Low 20.0-50.0 [facility] Comment on above: Order Comment: Order ed on [facility]# [id number] Performed By: #### 1 19984, 2238242, 377489, 458589, 642175, 948526, 4987735, 8068557, 247089 #### [facility] [address] [place] [address] Straw Hat Machine Operator: Marques Espinoza MD TIBC 304 ug/ml Normal 250-425 [facility] Comment on above: Order Comment: Order ed on [facility]# [id number] Result Comment: Resu lts may be inaccurate if performed within 14 days of IV iron dextran administration. Performed By: #### 1 81118, 7509013, 994023, 810358, 580883, 426702, 2855400, 5467222, 804478 #### [facility] [address] [place] [address] Straw Hat Machine Operator: Marques Espinoza MD LIPID PNLon 06-21-2023 Calculated LDL Cholesterol 95 mg/dL Normal 60-130 [facility] Comment on above: Order Comment: Order ed on Fin# [id number] Result Comment: <100 mg/dl Optimal 100-129 mg/dl Near Optimal 130-159 mg/dl Borderline High 160-189 mg/dl High >=190 mg/dl Very High Performed By: #### 1 18494, 2243547, 190549, 560377, 241942, 264291, 8340688, 7908551, 985238 #### [facility] [address] [place] [address] Straw Hat Machine Operator: Marques Espinoza MD Cholesterol [Mass/Vol] 200 mg/dL Normal 100-200 [facility] Comment on above: Order Comment: Order ed on Fin# [id number] Result Comment: Mechelle puncture should occur prior to N-Acetyl Cysteine (NAC) or Metamizole (Sulpyrine) administration due to the potential for falsely depressed results. Performed By: #### 1 19968, 8008757, 710147, 079422, 251260, 457550, 0665308, 0073716, 705939 #### [facility] [address] [place] [address] Straw Hat Machine Operator: Marques Espinoza MD Cholesterol in HDL [Mass/Vol] 44 mg/dL Normal 40-60 [facility] Comment on above: Order Comment: Order ed on Fin# [id number] Result Comment: Dire ct HDL Venipuncture should occur prior to metamizole (sulpyrine) administration due to the potential for falsely depressed results Performed By: #### 1 45568, 0357088, 554155, 658159, 870890, 741916, 1517050, 0232973, 677476 #### [facility] [address] [place] [address] Straw Hat Machine Operator: Marques Espinoza MD Total Chol/HDL Chol Ratio 4.5 Normal [facility] Comment on above: Order Comment: Order ed on Fin# [id number] Performed By: #### 1 03810, 2612135, 701960, 044420, 943507, 547959, 2189844, 9663501, 386938 #### [facility] [address] [place] [address] Straw Hat Machine Operator: Marques Espinoza MD Triglyceride [Mass/Vol] 305 mg/dL High 30-150 [facility] Comment on above: Order Comment: Order ed on Fin# [id number] Result Comment: - Ve nipuncture should occur prior to N-Acetyl Cysteine (NAC) or Metamizole (Sulpyrine) administration due to the potential for falsely depressed results - Use of this assay is not recommended for patients being treated with etamsylate because it causes falsely decreased results Performed By: #### 1 71333, 3638766, 371848, 123574, 997629, 074677, 8759714, 3971167, 803614 #### [facility] [address] [place] [address] Straw Hat Machine Operator: Marques Espinoza MD TSHon 06-21-2023 TSH Qn 0.55 m[IU]/L Normal 0.55-4.78 [facility] Comment on above: Order Comment: Order ed on Fin# [id number] Result Comment: - Do not use samples that contain fluorescein. Fluorescein levels > 0.24 ?g/mL may decrease results in this assay - Patients undergoing retinal fluorescein angiography can retain amounts of fluorescein in the body for up to 48?72 hours post-treatment. Such samples can produce falsely depressed values when tested with this assay, and should not be tested Performed By: #### 1 91956, 9597148, 296710, 432421, 194601, 987188, 9525378, 2691769, 970863 ####[facility] [address] [place] [address] Medical Director: Marques Espinoza MD VIT B12 LEVELon 06-21-2023 Cobalamin (Vitamin B12) [Mass/Vol] 622 pg/mL Normal 211-911 [facility] Comment on above: Order Comment: Order ed on Fin# [id number] Performed By: #### 1 65249, 3490932, 237154, 647568, 935625, 871920, 8784177, 0016306, 245460 ####[facility] [address] [place], [place] [address] Medical Director: Marques Espinoza MD VIT D 25 LEVELon 06-21-2023 Vit D 25 20 ng/mL Normal [facility] Comment on above: Order Comment: Order ed on Fin# [id number] Result Comment: Less than 20 ng/mL Deficient 20 ? 30 ng/mL Insufficient 30 ? 100 ng/mL Sufficiency Greater than 100 ng/mL Potential Toxicity Performed By: #### 1 68710, 1408444, 036454, 547502, 307167, 054977, 6513976, 3547746, 728801 ####[facility] [address] [place] [address] Medical Director: Marques Espinoza MD Progress Noteson 04-16-2023 Data Report Analyst Authentication Interface Message Text History provided by: [...] Future Follow up: 3 months Normal [facility] Data Report Analyst Authentication Interface Message Text Patient was identified by name and date of . Alison Chicas Patient at risk for falls:No Falls Risk protocol implemented: No Normal [facility] TOX ANALYSIS W/CONFIMATION,U Otf 04-16-2023 ALCOHOL - TOX W/ CONF Negative Normal Cutoff: 10 [facility] Comment on above: Order Comment: Scree n results are reported as positive (at or above the cutoff) or negative (below the cutoff).The LC-MS/MS testing (if applicable) was developed and its performance characteristics determined by [facility] in a manner consistent with CLIA requirements. This test has not been cleared or approved by the U.S. Food and Drug Administration; however, the FDA has determined that such clearance or approval is not necessary. Performed By: #### T OX U ####[facility] [id number] [place] [address], AMPH CL Positive Abnormal Cutoff: 1000 [facility] Comment on above: Order Comment: Scree n results are reported as positive (at or above the cutoff) or negative (below the cutoff).The LC-MS/MS testing (if applicable) was developed and its performance characteristics determined by [facility] in a manner consistent with CLIA requirements. This test has not been cleared or approved by the U.S. Food and Drug Administration; however, the FDA has determined that such clearance or approval is not necessary. Performed By: #### T OX U ####S PATHOLOGY [id number] [place], [place], AMPH CON Positive Normal Cutoff: 250 [facility] Comment on above: Order Comment: Scree n results are reported as positive (at or above the cutoff) or negative (below the cutoff).The LC-MS/MS testing (if applicable) was developed and its performance characteristics determined by [facility] in a manner consistent with CLIA requirements. This test has not been cleared or approved by the U.S. Food and Drug Administration; however, the FDA has determined that such clearance or approval is not necessary. Performed By: #### T OX U ####[facility] [id number] [place], [place], [place] CL Negative Normal Cutoff: 200 [facility] Comment on above: Order Comment: Scree n results are reported as positive (at or above the cutoff) or negative (below the cutoff).The LC-MS/MS testing (if applicable) was developed and its performance characteristics determined by [facility] in a manner consistent with CLIA requirements. This test has not been cleared or approved by the U.S. Food and Drug Administration; however, the FDA has determined that such clearance or approval is not necessary. Performed By: #### T OX U ####[facility] [id number] [place], [place], BENZO CL Negative Normal Cutoff: 200 [facility] Comment on above: Order Comment: Scree n results are reported as positive (at or above the cutoff) or negative (below the cutoff).The LC-MS/MS testing (if applicable) was developed and its performance characteristics determined by [facility] in a manner consistent with CLIA requirements. This test has not been cleared or approved by the U.S. Food and Drug Administration; however, the FDA has determined that such clearance or approval is not necessary. Performed By: #### T OX U ####[facility] [id number] [place], [place], [place] CL- TOX W/ CONF Negative Normal Cutoff: 300 [facility] Comment on above: Order Comment: Scree n results are reported as positive (at or above the cutoff) or negative (below the cutoff).The LC-MS/MS testing (if applicable) was developed and its performance characteristics determined by [facility] in a manner consistent with CLIA requirements. This test has not been cleared or approved by the U.S. Food and Drug Administration; however, the FDA has determined that such clearance or approval is not necessary. Performed By: #### T OX U ####[facility] [id number] [place] [address], FENTANYL Negative Normal Cutoff: 1 [facility] Comment on above: Order Comment: Scree n results are reported as positive (at or above the cutoff) or negative (below the cutoff).The LC-MS/MS testing (if applicable) was developed and its performance characteristics determined by [facility] in a manner consistent with CLIA requirements. This test has not been cleared or approved by the U.S. Food and Drug Administration; however, the FDA has determined that such clearance or approval is not necessary. Performed By: #### T OX U ####S PATHOLOGY [id number] [place], [place], METH CL Negative Normal Cutoff: 300 [facility] Comment on above: Order Comment: Scree n results are reported as positive (at or above the cutoff) or negative (below the cutoff).The LC-MS/MS testing (if applicable) was developed and its performance characteristics determined by [facility] in a manner consistent with CLIA requirements. This test has not been cleared or approved by the U.S. Food and Drug Administration; however, the FDA has determined that such clearance or approval is not necessary. Performed By: #### T OX U ####[facility] PATHOLOGY [id number] [place], [place], OPI CL Negative Normal Cutoff: 300 [facility] Comment on above: Order Comment: Scree n results are reported as positive (at or above the cutoff) or negative (below the cutoff).The LC-MS/MS testing (if applicable) was developed and its performance characteristics determined by [facility] [facility] in a manner consistent with CLIA requirements. This test has not been cleared or approved by the U.S. Food and Drug Administration; however, the FDA has determined that such clearance or approval is not necessary. Performed By: #### T OX U ####[facility] PATHOLOGY [id number] [place], [place], OXYCODONE Negative Normal Cutoff: 100 [facility] Comment on above: Order Comment: Scree n results are reported as positive (at or above the cutoff) or negative (below the cutoff).The LC-MS/MS testing (if applicable) was developed and its performance characteristics determined by [facility] in a manner consistent with CLIA requirements. This test has not been cleared or approved by the U.S. Food and Drug Administration; however, the FDA has determined that such clearance or approval is not necessary. Result Comment: Oxyc odone and metabolites of Oxycodone (Oxymorphone, Noroxycodone, and Noroxymorphone) are measured/detected in this assay method. Performed By: #### T OX U ####S PATHOLOGY [id number] [place], [place], PCP CL Negative Normal Cutoff: 25 [facility] Comment on above: Order Comment: Scree n results are reported as positive (at or above the cutoff) or negative (below the cutoff).The LC-MS/MS testing (if applicable) was developed and its performance characteristics determined by [facility] in a manner consistent with CLIA requirements. This test has not been cleared or approved by the U.S. Food and Drug Administration; however, the FDA has determined that such clearance or approval is not necessary. Performed By: #### T OX U ####[facility] PATHOLOGY [id number] [place], [place], THC CL - TOX W/ CONF Negative Normal Cutoff: 50 [facility] Comment on above: Order Comment: Scree n results are reported as positive (at or above the cutoff) or negative (below the cutoff).The LC-MS/MS testing (if applicable) was developed and its performance characteristics determined by [facility] in a manner consistent with CLIA requirements. This test has not been cleared or approved by the U.S. Food and Drug Administration; however, the FDA has determined that such clearance or approval is not necessary. Performed By: #### T OX U ####S PATHOLOGY [id number] [place], [place], Telephone Encounteron 2022 Data Report Analyst Authentication Interface Message Text Spoke to pt, no further questions or concerns Pt states she lives an hour away and will be in next Wednesday. She has an appt with a different office around 10 so she can not come in today. Normal [facility] Data Report Analyst Authentication Interface Message Text yes Normal [facility] Telephone Encounteron 2022 Data Report Analyst Authentication Interface Message Text Patient calling in stating that she has been out of town and gets back into town tomorrow but leaves tomorrow night again. Can she be seen tomorrow for her Adderall script as a walk in? Please advise. Pt is out of meds for 6 days now. Normal [facility] CT HEAD WO CONTRASTon 2021 CT [...] Neal Morales MD 08/31/22 Final result Normal [facility] No acute intracrania l abnormality. [facility] RADIOLOGY EXAMINATION: CT OF THE HEAD WITHOUT [...] of the visualized skull or soft tissues. [facility] RADIOLOGY Neal Morales MD - 08/31/2022 EXAMINATION: [...] soft tissues. IMPRESSION: No acute intracranial abnormality. [employer] Work Phone: Radiology Study observation (narrative) [place] Phone: CT HEAD WO CONTRASTOrdered B y: Neal Morales on 08-31-2022 [place] Phone: No Panel Informationon 08-31 Radiology Study observation (narrative) [employer] Work Phone: , Urineon 2 Beta HCG ( test) Ql (U) Negative Detects HCG level >20 MIU/mL FOLUP UR HCG Qualitativeon 022 Beta HCG ( test) Ql (U) Negative Normal Detects HC [facility] Comment on above: Performed By: #### U HCG #### [facility] [address] [place] [address] XR ELBOW LEFT (MIN 3 VIEWS)o n [...] Tom Cast MD 08/31/22 Final result Normal [facility] No acute abnormality . [facility] RADIOLOGY EXAMINATION: THREE XRAY VIEWS OF THE LEFT ELBOW 08/31/2022 4:21 pm COMPARISON: None. HISTORY: ORDERING SYSTEM PROVIDED HISTORY: fall TECHNOLOGIST PROVIDED HISTORY: Reason for exam:->fall Is the patient ?->No What reading provider will be dictating this exam?->CRC FINDINGS: There is no elbow effusion. There is no acute fracture or dislocation. Alignment is normal. [facility] RADIOLOGY Tom Cast MD - 08/31 EXAMINATION: THREE XRAY VIEWS OF THE LEFT ELBOW 08/31/2022 4:21 pm COMPARISON: None. HISTORY: ORDERING SYSTEM PROVIDED HISTORY: fall TECHNOLOGIST PROVIDED HISTORY: Reason for exam:->fall Is the patient ?->No What reading provider will be dictating this exam?->CRC FINDINGS: There is no elbow effusion. There is no acute fracture or dislocation. Alignment is normal. IMPRESSION: No acute abnormality. [employer] [facility] [employer] Work Phone: [facility] [employer] Work Phone: XR KNEE LEFT (MIN 4 [...] Tom Cast MD 08/31/22 Final result Normal [facility] No acute abnormality of the knee. [facility] RADIOLOGY EXAMINATION: FOUR XRAY VIEWS OF THE LEFT KNEE 08/31/2022 4:21 pm COMPARISON: None. HISTORY: ORDERING SYSTEM PROVIDED HISTORY: fall TECHNOLOGIST PROVIDED HISTORY: Reason for exam:->fall Is the patient ?->No What reading provider will be dictating this exam?->CRC FINDINGS: No evidence of acute fracture or dislocation. No focal osseous lesion. No evidence of joint effusion. No focal soft tissue abnormality. [facility] RADIOLOGY Tom Cast MD - 08/31 EXAMINATION: [...] IMPRESSION: No acute abnormality of the knee. [employer] [facility] [employer] Work Phone: XR KNEE LEFT (MIN 4 VIEWS)Or dered By: Tom Cast on 08-31-2022 [employer] [facility] [employer] Phone: XR WRIST LEFT (MIN 3 VIEWS)o [...] Tom Cast MD 08/31/22 Final result Normal [facility] Normal wrist radiogr aphs [facility] RADIOLOGY EXAMINATION: XRAY VIEWS OF THE LEFT WRIST 08/31/2022 4:21 pm COMPARISON: None. HISTORY: ORDERING SYSTEM PROVIDED HISTORY: fall TECHNOLOGIST PROVIDED HISTORY: Reason for exam:->fall Is the patient ?->No What reading provider will be dictating this exam?->CRC FINDINGS: Carpal bones and alignment are maintained. Distal radius and ulna are intact. No acute fracture or dislocation. [facility] RADIOLOGY Tom Cast MD - 08/31 EXAMINATION: [...] fracture or dislocation. IMPRESSION: Normal wrist radiographs [facility] [employer] Phone: [facility]: [facility] 03-08-2019 [facility] Telephone ([facility]) ----- GINA FITZGERALD ([id number]) 1990 F Date Time Provider Department 03/08/19 DORINDA OSUNA (АННА) [facility] During your visit today, we recorded the following information about you: Dorinda Osuna PA-C 03/08/2019 8:04 PM Signed Called patient to give results. [facility] to return call. If patient calls, please relay: Negative Gonorrhea/Chlamydia Negative vaginal culture for yeast, bacterial or trichomonas Urine culture grew an insignificant amount of bacteria, nothing requiring antibiotic treatment Advise patient to stay well hydrated, follow up with PCP or Organic Search Lead for residual symptoms. Dorinda Osuna PA-C March 08, 2019 8:04 PM Laila Covarrubias [facility] 03/09/2019 8:05 AM Signed Patient returning below message left. Advise of below and patient understood and no further questions. Allergies As of Date: 03/08/2019 (No Known Allergies) Date Reviewed: 03/06/2019 Reviewed by: Maris [facility] - Fully Assessed Reason for [...] 03/08/19 Normal [facility] Vag Pathogens DNAon 03-07-20 Misty vag DNA Probe Negative Normal Negative for Gardnerella vaginalis by DNA Probe [facility] Comment on above: Performed By: #### V AGDNA #### [facility] [employer] [address], [place] [id number] Protein mass conc Negative Normal Negative f or Ernestine species by DNA Probe [facility] Comment on above: Performed By: #### V AGDNA #### [facility] [employer] [address] [place], [place] [id number] Trich vag DNA Probe Negative Normal Negative for Trichomonas vaginalis by DNA Probe [facility] Comment on above: Performed By: #### V AGDNA #### [facility] [employer] [address], [place] [id number] CNOVon 03-06-2019 CNOV Office Visit ([facility] ) ----- GINA FITZGERALD ([id number]) 1990 F Date Time Provider Department 03/06/19 3:05 PM MARIS RODAS (OUTREACH COORDINATOR) [facility] During your visit today, we recorded the [...] history is provided by the patient. No educational sign language interpreter was used. Vaginal Discharge This is a [...] GC/CHLAMYDIA AMPLIF, URINE - URINE CULTURE -recommend TITLE I PARAPROFESSIONAL f/u if pain persists 2. Unprotected sex [...] of the visit. Please be advised that [facility] does not perform follow-up visits for [...] report to nearest Emergency Department. Maris Rodas APRN.OUTREACH COORDINATOR 03/06/2019 4:03 PM Signed [facility] [address] [place], [place] [address] Emergency Department Diagnosis: Assessment SAFER SEX: Your [...] Allergies) Date Reviewed: 03/06/2019 Reviewed by: [facility]) Adrianna - Fully Assessed Reason for Visit: vaginal discomfort [Other] Cmt: painful uriantion and discomfort Reason For Visit History Recorded Primary Visit Diagnosis:Vaginal discomfort [N94.9] Other Visit Diagnoses:Unprotected sex [Z72.51] Dysuria [R30.0] Order(s):T VAGINALIS AMPLIFICATION [SQTRVAMP] Order #: [id number] VAGINAL PATHOGENS DNA PROBES [SQVAGDNA] Order #: [id number] GC/CHLAMYDIA AMPLIF, URINE [SQUGCCT] Order #: [id number] HCG QUAL UR B/O [[id number]] Order #: [id number] URINE CULTURE [SQURCUL] Order #: [id number] nitrofurantoin monohydrate and macrocrystal (MACROBID) 100 mg capsuleTake 1 capsule by mouth twice daily for 7 days.Disp: 14 capsuleRfl: 0 phenazopyridine (PYRIDIUM, GERIDIUM) 100 mg tabletTake 1 tablet by mouth three times daily as needed for Pain for up to 2 days.Disp: 3 tabletRfl: 0 UA DIP, URINE (POC) [[id number]] Order #: [id number]. #:[id number] [id number] Prescriptions as of 03/06/2019 Sig: DEXTROAMPHETAMINE-AMPHETA MINE* Take 1 tablet by mouth once d* MONO-LINYAH 0.25 MG-35 MCG TA* Take 1 tablet by mouth once d* NITROFURANTOIN MONOHYDRATE AND * Take 1 capsule by mouth twice* PHENAZOPYRIDINE 100 MG TABLET Take 1 tablet by mouth three * Problem List As Of Date: 03/06/2019 (None) Other instructions from your clinician: [facility] [address] [place], [place] [address] Emergency Department Diagnosis: Assessment SAFER SEX: Your [...] 03/06/19 Normal [facility] GC/Chlamydia Amp, Uron 03-06 Chlamydia Amplif, Ur Negative Normal [facility] Comment on above: Result Comment: For screening asymptomatic women, a vaginal swab specimen (APTIMA vaginal swab 176300) is optimal. Urine specimens have reduced sensitivity for Chlamydia trachomatis or Neisseria gonorrhoeae infection in female patients without symptoms. This test was developed and its performance characteristics determined by [facility] [place] ([facility] It has not been cleared or approved by the FDA. -[facility] is regulated under CLIA as qualified to perform high-complexity testing. This test is used for clinical purposes. It should not be regarded as investigational or for research. Performed By: #### U GCCT #### [facility] [employer] [address] [address] GC Amplification, Ur Negative Normal [facility] Comment on above: Performed By: #### U GCCT #### [facility] [address] [address] PROGRESSon 03-06-2019 Protein mass conc HNO ID: [id number] Author: Maris (Umair Rodas Service: ? Author [...] history is provided by the patient. No educational sign language interpreter was used. Vaginal Discharge This is a [...] GC/CHLAMYDIA AMPLIF, URINE - URINE CULTURE -recommend TITLE I PARAPROFESSIONAL f/u if pain persists 2. Unprotected sex -safe sex recommended -free clinic recommendation for partner given to patient -recommend abstinence until partner tested/treated due to his history - HCG QUAL UR B/O - URINE CULTURE 3. Dysuria -UA obtained; patient only able to produce dirty urine at visit; UA per [facility] - URINE CULTURE - call with results [...] of the visit. Please be advised that [facility] does not perform follow-up visits for [...] Department. Normal [facility] Trich vaginalis Amplon 03-06 T vag Amplification Negative Normal [facility] Comment on above: Result Comment: This test was developed and its performance characteristics determined by [facility]'s [facility] [place] ([facility]). It has not been cleared or approved by the FDA. [facility] is regulated under CLIA as qualified to perform high-complexity testing. This test is used for clinical purposes. It should not be regarded as investigational or for research. Performed By: #### T RVAMP #### [facility] [employer] [address] [place] [address] Trich vag Amp Source Urine Normal [facility] Comment on above: Performed By: #### T RVAMP #### [facility] [employer] [address] [place], [place] [id number] Urine Cultureon 03-06-2019 Bacteria identified Cx Nom [...] Critically abnormal [facility] Comment on above: Performed By: #### U RCUL #### [facility] [address] [place], [place] [address] ED NOTEon 01-31-2019 ED NOTE HNO ID: [id number] Author: Angella ClemensRn) KATELYNN Lara Service: Emergency Medicine Author Type: Registered Nurse Type: ED Notes Filed: 01/31/2019 2:09 PM Note Text: Pt discharged to home with her mother to drive. Normal [facility] ED NOTE HNO ID: [id number] Author: Angella Payne) KATELYNN Lara Service: Emergency [...] noted. Normal [facility] ED NOTE HNO ID: [id number] Author: Olive ClemensMarine Steward) KAYLI hO Service: Emergency Medicine Author Type: Registered Resp [...] night. Normal [facility] ED PROV NOTEon 01-31-2019 Protein mass conc HNO ID: [id number] Author: Jonel Houston MD Service: Emergency Medicine [...] for prednisone and advised to use Claritin [id number] for next 4 days follow-up with PCP if no improvement return if any worsening SIGNATURE: MD Jonel Amin MD 01/31/19 1351 Normal [facility] IGP W/hpv Rfx [id number] 09-09 Diagnosis: See Ref Lab Report Normal [facility] Comment on above: Order Comment: LMP: 08/30/18 Performed By: #### 1 [id number] ####[employer]s [address] [place] [address] Chlamydia GC by PCRon 2017 Chlamydia by PCR. Not Detected Normal Not Detected [facility] Comment on above: Result Comment: Xper t CT/NG Assay performance has not been evaluated in patients less than 14 years of age. Performed By: #### 3 [id number] ####[employer] Misc Micro SubSection, Gonorrhoeae by PCR Not Detected Normal Not Detected [facility] Comment on above: Result Comment: Xper t CT/NG Assay performance has not been evaluated in patients less than 14 years of age. Performed By: #### 3 [id number] ####[employer] [place] Micro SubSection, Auto Diffon 08-01-2018 Basophils Auto #/vol (Bld) 0.0 E3/mcL Normal 0.0-0.2 [facility] Comment on above: Order Comment: Order Added by Discern Expert. Performed By: #### 2 [id number] ####GERTRUDECharly LauraNafYjfu49[address] [place] [address] Basophils/100 WBC Auto (Bld) 0.4 % Normal 0.0-2.0 [facility] Comment on above: Order Comment: Order Added by Discern Expert. Performed By: #### 2 [id number] ####GERTRUDECharly LauraScjNuuw7854 [place] [address] Eos Absolute 0.1 E3/mcL Normal 0.0-0.7 [facility] Comment on above: Order Comment: Order Added by Discern Expert. Performed By: #### 2 [id number] ####GERTRUDECharly LauraRrlDdvf5602 [place] [address] Eosinophils/100 WBC Auto (Bld) 1.3 % Normal 0.0-11.0 [facility] Comment on above: Order Comment: Order Added by Discern Expert. Performed By: #### 2 [id number] ####GERTRUDECharly LauraXpqLaen4448 [place] [address] Lymphocytes Auto #/vol (Bld) 2.8 E3/mcL Normal 1.2-3.4 [facility] Comment on above: Order Comment: Order Added by Discern Expert. Performed By: #### 2 814643 ####GERTRUDECharly LauraIeyKogh5401 [place] [address] Lymphocytes/100 WBC Auto (Bld) 27.1 % Normal 20.0-55.0 [facility] Comment on above: Order Comment: Order Added by Discern Expert. Performed By: #### 2 339037 ####GERTRUDECharly LauraPofNbeq7492 [place] [address] [place] Absolute 0.7 E3/mcL Normal 0.0-0.7 [facility] Comment on above: Order Comment: Order Added by Discern Expert. Performed By: #### 2 518789 ####GER[employer] Espinozao[address] [place] [address] Monocytes/100 WBC Auto (Bld) 6.6 % Normal 0.0-10.0 [facility] Comment on above: Order Comment: Order Added by Discern Expert. Performed By: #### 2 459900 ####GER[employer] [address] [place] [address] Neutro Absolute 6.7 E3/mcL High 1.4-6.5 [facility] Comment on above: Order Comment: Order Added by Discern Expert. Performed By: #### 2 649660 ####GER[employer] Esp[address] [place] [address] Neutro Auto 64.6 % Normal 37.0-75.0 [facility] Comment on above: Order Comment: Order Added by Discern Expert. Performed By: #### 2 488773 ####[employer] [address] [place] [address] BMPon 08-01-2018 Creatinine mass conc 0.7 mg/dL Normal 0.6-1.3 [facility] Comment on above: Performed By: #### 2 100963 ####GER[employer] LauraMpuTywf1475 [place] [address] Urea nitrogen mass conc 11 mg/dL Normal 7-18 [facility] Comment on above: Performed By: #### 2 690233 ####GER[employer] Malone[address] [place] [address] Urea nitrogen/Creatinine mass ratio 15.7 ratio Normal 5.4-30.0 [facility] Comment on above: Performed By: #### 2 401521 ####[employer] [address]OkiTdby25[address] [place] [address] Calcium mass conc 9.2 mg/dL Normal 8.4-10.2 [facility] Comment on above: Performed By: #### 2 745446 ####GER[employer] LauraLraFkmi0650 [place] [address] Chloride molar conc 102 mmol/L Normal 98-107 [facility] Comment on above: Performed By: #### 2 663426 ####[employer] LauraEfbQphc4195 [place] [address] CO2 molar conc 25.3 mmol/L Normal 24.0-30.0 [facility] Comment on above: Performed By: #### 2 480633 ####[employer] LauraLfwIdwd2529 [place] [address] Glucose mass conc 91 mg/dL Normal 70-99 [facility] Comment on above: Performed By: #### 2 145664 ####[employer] LauraExzDjvk8095 [place] [address] Potassium molar conc 4.0 mmol/L Normal 3.5-5.1 [facility] Comment on above: Performed By: #### 2 988814 ####GER[employer] LauraYtgTikn4755 [place] [address] Sodium molar conc 138 mmol/L Normal 136-145 [facility] Comment on above: Performed By: #### 2 185459 ####[employer] LauraWcjVnmc6795 [place] [address] CBC w/ Auto Diffon 8 Erythrocyte distribution width Auto Ratio (RBC) 13.1 % Normal 11.5-14.5 [facility] Comment on above: Performed By: #### 2 525334 ####GER[employer] LauraWjiPfdr0640 [place] [address] Hematocrit Auto Volume Fraction (Bld) 39.1 % Normal 36.0-48.0 [facility] Comment on above: Performed By: #### 2 436104 ####GER[employer] LauraEynQffy8144 [place] [address] Hemoglobin mass conc (Bld) 13.2 g/dL Normal 12.0-16.0 [facility] Comment on above: Performed By: #### 2 587705 ####GER[employer] LauraPlqXwdc8531 [place] [address] MCH Auto Entitic mass (RBC) 29.5 pg Normal 27.0-31.0 [facility] Comment on above: Performed By: #### 2 255881 ####GER[employer] LauraAhtTcff5951 [place] [address] MCHC Auto mass conc (RBC) 33.9 g/dL Normal 33.0-37.0 [facility] Comment on above: Performed By: #### 2 979089 ####[employer] LauraZqvMztj5773 [place] [address] MCV Auto Entitic volume (RBC) 87.0 fL Normal 78.0-100.0 [facility] Comment on above: Performed By: #### 2 996325 ####GER[employer] LauraZzkUsfu7716 [place] [address] Platelet mean volume Auto Entitic volume (Bld) 9.0 fL Normal 7.4-11.0 [facility] Comment on above: Performed By: #### 2 404927 ####GER[employer] EkcBvct8348 [place] [address] Platelets Auto #/vol (Bld) 379 E3/mcL Normal 130-400 [facility] Comment on above: Performed By: #### 2 070626 ####GER[employer] AfyJlmd5319 [place] [address] RBC Auto #/vol (Bld) 4.49 E6/mcL Normal 3.90-5.40 [facility] Comment on above: Performed By: #### 2 850235 ####GER[employer] BqlFkdo4663 [place] [address] WBC Auto #/vol (Bld) 10.4 E3/mcL Normal 3.6-11.0 [facility] Comment on above: Performed By: #### 2 295183 ####GER[employer] CabDbkm8091 [place] [address] Lipid Profileon 08-01-2018 Cholesterol in HDL mass conc 44 mg/dL Normal >=41 [facility] Comment on above: Performed By: #### 3 [id number] ####GERTRUDECharly LauraBhqIngo7308 [place] [address] Cholesterol in LDL mass conc 147 mg/dL High 0-130 [facility] Comment on above: Result Comment: <100 [id number] NEAR / ABOVE [id number] 159 BORDERLINE [id number] HIGH>190 VERY HIGHCALC LDL NOT VALID WHEN TRIGLYCERIDE IS >400 MG/DL Performed By: #### 3 [id number] ####GERTRUDECharly LauraCqtXeqf4708 [place] [address] Cholesterol in VLDL mass conc 34 mg/dL Normal [facility] Comment on above: Performed By: #### 3 [id number] ####GERTRUDE WeyJtao5574 [place] [address] Cholesterol mass conc 225 mg/dL High 50-200 [facility] Comment on above: Result Comment: TOTA L CHOLEESTEROL: <200 NORMAL 200 - 239 BORDERLINE HIGH >240 HIGH Performed By: #### [id number] ####GERTRUDE [id number] [place] [id number] Triglyceride mass conc 171 mg/dL High 35-150 [facility] Comment on above: Result Comment: <150 [id number] BORDERLINE [id number] HIGH>500 VERY HIGH Performed By: #### [id number] ####GERTRUDE [id number] [place] [id number] TSHon 08-01-2018 Thyrotropin Qn 0.78 mIU/m Normal 0.30-5.60 [facility] Comment on above: Performed By: #### 2 [id number] ####GERTRUDE [id number] [place] [id number] eGFRon 08-01-2018 eGFR AA >60 Normal [facility] Comment on above: Order Comment: Order added by Discern Expert. Performed By: #### 1 [id number] ####GERTRUDE [id number] [place] [id number] GFR/1.73 sq M predicted among non-blacks MDRD vol rate/area (S/P/Bld) mL/min/{1.73_m2} Normal [facility] Comment on above: Order Comment: Order added by Discern Expert. Performed By: #### 1 [id number] ####GERTRUDE [id number] [place] [id number] ED NOTEon 11-20-2017 ED NOTE HNO ID: [id number] thor: Priti (Rn) Lilia Mojicaice: (none)Author Type: Registered NurseType: ED NotesFiled: 11/20/2017 1:36 AMNote Text: Follow-up care and DC instructions provided to patient. RX andmedication education provided. All questions answered. VSS. Pt left withsteady gait by self Normal [facility] ED NOTE HNO ID: [id number] thor: Priti (RnLilia Irvingice: (none)Author Type: Registered NurseType: ED NotesFiled: 11/20/2017 12:35 AMNote Text: Pt stated that she began with a sore throat Wed, progressing since thento productive cough of green/brown sputum. Sore throat with cough. VomitedTh green bile, denies N/V since then. New dizziness/lightheadedness . Normal [facility] ED PROV NOTEon 11-20-2017 ED PROV NOTE HNO ID: [id number] thor: Lindsey Ferrer) Vimal Valenzuela: (none)Author Type: Physician AssistantType: ED Provider NotesFiled: 11/20/2017 1:21 AMNote Text:ED Provider NotePatient Name: Gina FitzgeraldMRN: [id number] DATE: 11/20/17HistoryPatient presents with:Cough: states started as [...] kg (290 lb) SpO2 98% BMI 49.78 kg/j4Gufnwr records were reviewed.Medical records were reviewed.Nursing notes [...] as expected. No distress.CXR- no acute cardiopulmonary process.[place] imrpoved after breathing treatment.Pt with productive cough. [...] stableSIGNATURE: Sofía Jolly PA (Pa)11/20/17 0121 Normal [facility] XR CHEST 2V FRONTAL/LATon XR CHEST 2V [...] LEONARD MD on Nov 20 2017 1:05AM [id number] Normal [facility] Vital Signs Date Time Vital Sign Value Performing Clinician Facility 02-28-2024 12:51-0400 Blood Pressure Location Zeus Mcghee [facility] 02-28-2024 12:51-0400 Body temperature 98.42 [degF] Zeus Mcghee [facility] 02-28-2024 12:51-0400 Diastolic blood pressure 80 mm[Hg] Zeus Mcghee [facility] 02-28-2024 12:51-0400 Heart rate 82 /min Zeus Mcghee [facility] 02-28-2024 12:51-0400 SaO2% (BldA) [Mass fraction] 95 % Zeus Mcghee [facility] 02-28-2024 12:51-0400 Systolic blood pressure 136 mm[Hg] Zeus Mcghee [facility] 12-20-2023 08:56-0500 Body height 160 cm Emilio Miller MD Work Phone: [employer] 12-20-2023 08:56-0500 Body mass index (BMI) [Ratio] 54.74 kg/m2 Emilio Miller MD Work Phone: [employer] 12-20-2023 08:56-0500 Body weight 140.16 kg Emilio Miller MD Work Phone: [employer] 12-20-2023 08:56-0500 Diastolic blood pressure 59 mm[Hg] Emilio Miller MD Work Phone: [employer] 12-20-2023 08:56-0500 Heart rate 87 /min Emilio Miller MD Work Phone: [employer] 12-20-2023 08:56-0500 Systolic blood pressure 132 mm[Hg] Emilio Miller MD Work Phone: [employer] 12-13-2023 10:45-0500 Body temperature 98.01 [degF] Yash Petruzzi PA-C Work Phone: [employer] 12-13-2023 10:45-0500 Diastolic blood pressure 80 mm[Hg] Yash Petruzzi PA-C Work Phone: [employer] 12-13-2023 10:45-0500 Heart rate 90 /min Yash Petruzzi PA-C Work Phone: [employer] 12-13-2023 10:45-0500 Respiratory rate 18 /min Yash Petruzzi PA-C Work Phone: [employer] 12-13-2023 10:45-0500 SaO2% (BldA) [Mass fraction] 100 % Yash Petruzzi PA-C Work Phone: [employer] 12-13-2023 10:45-0500 Systolic blood pressure 130 mm[Hg] Yash Petrfarzanai PA-C Work Phone: [employer] 10-22-2023 07:42-0500 Diastolic blood pressure 82 mm[Hg] Alpa Del Castillo MD Work Phone: [employer] Comment on above: MANUAL 10-22-2023 07:42-0500 Systolic blood pressure 136 mm[Hg] Alpa Del Castillo MD Work Phone: [employer] Comment on above: MANUAL 10-22-2023 07:39-0500 Body mass index (BMI) [Ratio] 55.69 kg/m2 Alpa Del Castillo MD Work Phone: [employer] 10-22-2023 07:39-0500 Body temperature 98.01 [degF] Alpa Del Castillo MD Work Phone: [employer] 10-22-2023 07:39-0500 Body weight 142.6 kg Alpa Del Castillo MD Work Phone: [employer] 10-22-2023 07:39-0500 Heart rate 91 /min Alpa Del Castillo MD Work Phone: [employer] 10-22-2023 07:39-0500 Respiratory rate 20 /min Alpa Del Castillo MD Work Phone: [employer] 10-22-2023 07:39-0500 SaO2% (BldA) [Mass fraction] 98 % Alpa Del Castillo MD Work Phone: [employer] 04-16-2023 08:52-0400 Body temperature 98.01 [degF] Yash Belli PA-C Work Phone: [employer] 04-16-2023 08:52-0400 Diastolic blood pressure 84 mm[Hg] Yash Belli PA-C Work Phone: [employer] 04-16-2023 08:52-0400 Heart rate 90 /min Yash Petruzzi PA-C Work Phone: [employer] 04-16-2023 08:52-0400 Respiratory rate 16 /min Yash Petruzzi PA-C Work Phone: [employer] 04-16-2023 08:52-0400 SaO2% (BldA) [Mass fraction] 100 % Yash Hariniuzzi PA-C Work Phone: [facility] 04-16-2023 08:52-0400 Systolic blood pressure 136 mm[Hg] Yash Melendez PA-C Work Phone: [facility] 08-31-2022 17:25-0400 Diastolic blood pressure 98 mm[Hg] Yash Belli PA-C Work Phone: [facility] [employer] 08-31-2022 17:25-0400 Heart rate 97 /min Yash Melendez PA-C Work Phone: [facility] [employer] 08-31-2022 17:25-0400 Respiratory rate 18 /min Yash Belli PA-C [facility] [employer] 08-31-2022 17:25-0400 SaO2% (BldA) [Mass fraction] 97 % Yash Melendez PA-C [email or web address] 08-31-2022 17:25-0400 Systolic blood pressure 151 mm[Hg] Yash Belli PA-C [email or web address] 08-31-2022 15:39-0400 Body temperature 98.4 [degF] Yash Taofarzanahamlet PA-C Work Phone[email or web address] 08-31-2022 15:24-0400 Body height 170.2 cm Yash Hariniblanco PA-C Work Phone[facility] [employer] 08-31-2022 15:24-0400 Body mass index (BMI) [Ratio] 46.99 kg/m2 Yash Taofarzanai PA-C Work Phone: [facility] [employer] 08-31-2022 15:24-0400 Body weight 136.08 kg Yash Hariniblanco PA-C Work Phone: [facility] [employer] 06-26-2022 09:30-0400 Body height 160 cm Emilio Miller MD Work Phone: [facility] 06-26-2022 09:30-0400 Body mass index (BMI) [Ratio] 52.22 kg/m2 Emilio Miller MD Work Phone: [facility] 06-26-2022 09:30-0400 Body weight 133.72 kg Emilio Miller MD Work Phone: [facility] 06-26-2022 09:30-0400 Diastolic blood pressure 83 mm[Hg] Emilio Miller MD Work Phone: [facility] 06-26-2022 09:30-0400 Heart rate 86 /min Emilio Miller MD Work Phone: [facility] 06-26-2022 09:30-0400 Systolic blood pressure 131 mm[Hg] Emilio Miller MD Work Phone: [facility] Encounters Encounter Date Encounter Type Care Provider Facility Start: 03-01-2024 End: 03-02-[address] [facility] Start: 02-28-2024 End: 02-29-2024 ambulatory Zeus Mcghee Facility[facility] Start: 02-28-2024 End: 02-28-2024 Phys/qhp telephone evaluation 5-10 min Alina RYAN Work Phone: [facility] Comment on above: Attention deficit hy peractivity disorder (ADHD), predominantly inattentive type (Primary Dx) Start: 02-28-2024 End: 02-29-2024 ambulatory Zeus Mcghee Facility: [place] Start: 02-28-2024 End: 02-28-2024 Lab Drop off Zeus Mcghee [facility] Start: 02-28-2024 End: 02-28-2024 Patient encounter procedure Zeus Mcghee [facility] Start: 02-28-2024 End: 02-28-2024 ambulatory YASH MELENDEZ Facility:[facility] Start: 01-20-2024 End: 01-20-2024 ambulatory TANNER WIGGINS CNP Facility:[facility] Start: 12-27-2023 Refill Yash moreno PA-C Work Phone: [facility] Comment on above: Refill Start: 12-20-2023 End: 12-20-2023 ambulatory YASH HARINIFARZANAHamlet Facility:[facility] Start: 12-20-2023 End: 12-20-2023 Patient encounter procedure Emilio Miller MD Work Phone: [facility] Work Phone: Start: 12-20-2023 End: 12-20-2023 Periodic preventive med est patient 18-39 yrs Emilio Miller MD Work Phone: [facility] [employer] Comment on above: Encounter for well w sandi exam with routine gynecological exam (Primary Dx); Pap smear for cervical cancer screening; Mixed hyperlipidemia; Screening for diabetes mellitus; Class 3 severe obesity due to excess calories without serious comorbidity with body mass index (BMI) of 50.0 to 59.9 in adult ([facility]) Start: 12-13-2023 End: 12-13-2023 ambulatory YASH HARINIBLANCO Facility:[facility] Start: 12-13-2023 End: 12-13-2023 Office outpatient visit 25 minutes Yash Melendez PA-C Work Phone: [facility] Comment on above: Attention deficit hy peractivity disorder (ADHD), predominantly inattentive type (Primary Dx); Current mild episode of major depressive disorder without prior episode ([facility]); Hypertension, unspecified type Start: 11-27-2023 Refill Yash moreno PA-C Work Phone: [facility] Comment on above: Refill Start: 10-26-2023 E-mail encounter fro m caregiver Yash Melendez PA-C Work Phone: [facility] Start: 10-26-2023 Patient encounter procedure Yash Melendez PA-C Work Phone: [facility] Comment on above: Last canceled appoin tment Start: 10-22-2023 Refill Yash moreno PA-C Work Phone: [facility] Comment on above: Refill Start: 10-22-2023 End: 10-22-2023 ambulatory YASH MELENDEZ Facility:[facility] Start: 10-22-2023 End: 10-22-2023 Office outpatient visit 15 minutes Alpa Del Castillo MD Work Phone: [facility] Comment on above: Sore throat (Primary Dx); Suspected severe acute respiratory syndrome coronavirus 2 (SARS-CoV-2) infection Start: 10-06-2023 Telephone encounter Marlena Graff [facility] Start: 08-30-2023 End: 08-31-2023 ambulatory TANNER FELICIANO OUTREACH COORDINATOR Facility:[facility] Start: 08-23-2023 End: 08-24-2023 ambulatory TANNER FELICIANO OUTREACH COORDINATOR Facility:[facility] Start: 07-26-2023 End: 07-27-2023 ambulatory TANNER FELICIANO OUTREACH COORDINATOR Facility:[facility] Start: 07-16-2023 ambulatory UNKNOWN PROVIDER Facili ty:[facility] Start: 06-21-2023 End: 06-22-2023 ambulatory TANNER FELICIANO OUTREACH COORDINATOR Facility:[facility] Start: 06-21-2023 End: 06-21-2023 ambulatory YASH MELENDEZ Facility:[facility] Start: 06-21-2023 End: 06-21-2023 Patient encounter procedure Ri Emg Pmr [facility] Comment on above: Bilateral carpal sanaz cesar syndrome (Primary Dx); Bilateral hand numbness Start: 04-16-2023 End: 04-16-2023 ambulatory YASH MELENDEZ Facility:[facility] Start: 04-16-2023 End: 04-16-2023 Office outpatient visit 25 minutes Yash Melendez PA-C Work Phone: [facility] Comment on above: Attention deficit hy peractivity disorder (ADHD), predominantly inattentive type (Primary Dx); Bilateral carpal tunnel syndrome Start: 04-08-2023 Telephone encounter Yash JJ-Jimy Work Phone: [facility] Start: 03-19-2023 Letter encounter Damaris rob MD Work Phone: [facility] Start: 02-27-2023 ambulatory Yash Salvador moreno PA-C Work Phone: [facility] Comment on above: Concerning Start: 02-27-2023 E-mail encounter blanche m caregiver Yash JJ-Jimy Work Phone: [facility] Start: 12-28-2022 Patient Message Yash JJ-Jimy Work Phone: [facility] Comment on above: Refill Start: 12-21-2022 End: 12-21-2022 Phys/qhp telephone evaluation 5-10 min Yash JJ-Jimy Work Phone: [facility] Comment on above: Current mild episode of major depressive disorder without prior episode (HCC) (Primary Dx); Hypertension, unspecified type; Attention deficit hyperactivity disorder (ADHD), predominantly inattentive type Start: 12-12-2022 Letter encounter Damaris rob MD Work Phone: [facility] Start: 10-23-2022 ambulatory Yash JJ-C Work Phone: [facility] Comment on above: Forms Completion (12/22/[facility] Start: 10-23-2022 Documentation procedure Hal Melendez PA-C Work Phone: [facility] Start: 10-15-2022 Letter encounter - - [facility] Start: 09-16-2022 ambulatory Yash moreno PA-C Work Phone: [facility] Comment on above: Forms Completion (11 /1/22 [facility]) Start: 09-16-2022 Documentation procedure Hal rob Daniela MIJARES Work Phone: [facility] Start: 09-14-2022 End: 09-14-2022 Phys/qhp telephone evaluation 5-10 min Yash Melendez PA-C Work Phone: [facility] Comment on above: Bilateral carpal sanaz cesar syndrome (Primary Dx); Attention deficit hyperactivity disorder (ADHD), predominantly inattentive type Start: 09-07-2022 Refill Yash JJ-C Work Phone: [facility] Comment on above: Refill Start: 08-31-2022 End: 08-31-2022 Emergency department patient visit YASH Kay[facility] Start: 08-31-2022 End: 08-31-2022 Emergency department patient visit Yash Daniela MIJARES Work Phone: [facility] Comment on above: Closed head injury, initial encounter (Primary Dx); Sprain of left upper arm, initial encounter; Contusion of left knee, initial encounter Start: 06-26-2022 End: 06-27-2022 Patient encounter procedure Emilio Miller MD Work Phone: [facility] [employer] Comment on above: Encounter for IUD in sertion (Primary Dx) Start: 06-19-2022 Letter encounter Damaris rob MD Work Phone: [facility] Start: 06-16-2022 End: 06-16-2022 Phys/qhp telephone evaluation 5-10 min Yash Melendez PA-C Work Phone: [facility] Comment on above: Attention deficit hy peractivity disorder (ADHD), predominantly inattentive type (Primary Dx); Toenail fungus Start: 04-17-2022 Patient Message Yash JJ-C Work Phone: [facility] Comment on above: Refill Start: 03-06-2019 End: 03-07-2019 Patient encounter procedure JONEL SCHIKOWSKI [facility] Start: 01-31-2019 End: 01-31-2019 Emergency department patient visit JONEL KIM CELSO [facility] Start: 09-05-2018 End: 09-06-2018 Patient encounter [facility] Facility:[facility] Start: 09-05-2018 End: 09-06-2018 Patient encounter [facility] Facility:[facility] Start: 09-05-2018 Patient encounter Facil [id number] Start: 08-16-2018 End: 08-16-2018 Patient encounter [place] Ros[place] Facility:[facility] Start: 08-01-2018 End: 08-02-2018 Patient encounter [place] Rosibel [facility] Start: 08-01-2018 Patient encounter Facil [id number] Start: 07-26-2018 End: 07-26-2018 Patient encounter [place] Ros[place] [facility] Start: 07-11-2018 End: 07-12-2018 Patient encounter [place] Rosibel [facility] Start: 11-20-2017 End: 11-20-2017 Emergency department patient visit [facility] Procedures Date Procedure Procedure Detail Performing Clinician [...] elbow complete minimum 3 views Allison Block LEACH CELL OPERATOR - OUTREACH COORDINATOR Other Phone: Start: 08-31-2022 Ct head/brain w/o co ntrast material Allison Block LEACH CELL OPERATOR - OUTREACH COORDINATOR Other Phone: Start: 08-31-2022 Urine test visual color cmprsn meths Allison Block LEACH CELL OPERATOR - OUTREACH COORDINATOR Other Phone: Start: 06-26-2022 Insertion intrauteri ne device iud Emilio Miller MD Work Phone: Start: 05-08-2019 Microscopic observat ion [Identifier] in Cervix by Cyto stain Yash Melendez PA-C Work Phone: Cholecystectomy Zeus rob Plan of Treatment Date Care Activity Detail Author Start: 2041 Shingles (RZV) Vacci ne (1 of 2) Shingles (RZV) Vaccine (1 of 2) [facility] Start: 10-31-2028 DTaP/Tdap/Td vaccine (7 - Td or Tdap) DTaP/Tdap/Td vaccine (7 - Td or Tdap) [facility] Start: 10-31-2028 Tetanus vaccination [facility] Start: 06-21-2024 Hemoglobin A1c measurement Hemoglobin A1C [facility] Start: 06-19-2024 Screening for malign ant neoplasm of cervix Pap Smear [facility] Start: 12-20-2023 End: 12-20-2023 Patient encounter procedure 12/20/2023 9:00 AM EST Office Visit [facility] [employer] [id number] [place] [id number] [place] [address] [place] [address] [facility] [employer] Start: 12-13-2023 End: 12-13-2023 Patient encounter procedure 12/13/2023 10:40 AM EST Office Visit [facility] [address] [place] [id number] Yash Melendez PA-C [address] [place] [address] [facility] Start: 10-11-2023 End: 10-11-2023 Patient encounter procedure 10/11/2023 10:00 AM EST Office Visit [facility] [address] [place] [address] Yash Melendez PA-C [address] [place], [place] [id number] [facility] Start: 08-15-2023 Influenza vaccination Influenza Vacc ine (#1) [facility] Start: 07-16-2023 Influenza vaccination Influenza Vacc ine (#1) [facility] Start: 07-16-2023 End: 07-16-2023 Telemedicine consultation with patient 07/16/2023 2:00 PM EDT Telemedicine [address] [place] [address] Yash Melendez PA-C [address] [place], [place] [phone] [facility] Start: 07-07-2023 Cyanocobalamin vitam in b-12 Vitamin B12 [facility] Start: 12-21-2022 End: 12-21-2022 Telemedicine consultation with patient 12/21/2022 Telemedicine Family Practice Yash Melendez PA-C [address] [facility], [place] [id number] [facility] Start: 09-14-2022 End: 09-14-2022 Patient encounter procedure 09/14/2022 Office Visit Family Practice Yash Melendez PA-C [address] [facility], [place] [id number] [facility] Start: 09-14-2022 End: 03-14-2023 Electromyography EMG EMG Routine Bilateral carpal tunnel syndrome Expected: 09/14/2022, Expires: 03/14/2023 [facility] Work Phone: Comment on above: Expected: 09/14/2022 , Expires: 03/14/2023 Start: 08-15-2022 Influenza vaccination Influenza Vacc ine (#1) [facility] Start: 07-31-2022 End: 07-31-2022 Patient encounter procedure 07/31/2022 Office [place] [address] [place] [address] [facility] [employer] Start: 07-07-2022 Basic metabolic 2000 panel - Serum or Plasma Basic Metabolic Panel [facility] Start: 07-07-2022 Creatinine measurement Basic Metabol ic [facility] Start: 07-07-2022 Hemoglobin A1c measurement [facility]C [facility] [place] Start: 06-26-2022 End: 06-26-2022 Patient encounter procedure 06/26/2022 Procedure [place] [address] [place] [address] [facility] [employer] Start: 06-16-2022 End: 06-16-2022 Patient encounter procedure 06/16/2022 Office Visit Family Practice Yash Melendez PA-C [address] [place] [address] [facility] Start: 06-15-2022 Influenza vaccination Flu vaccine (# 1) [facility] Start: 2021 Screening for malign ant neoplasm of cervix [facility] Start: 11-07-2019 Screening for malign ant neoplasm of cervix Pap Smear [facility] Start: 05-10-2013 Hepatitis A (HAV) Va ccine (2 of 2 - Risk 2-dose series) Hepatitis A (HAV) Vaccine (2 of 2 - Risk 2-dose series) [facility] Start: 2012 Screening for malign ant neoplasm of cervix Pap smear [facility] Start: 2009 Hepatitis C screening Hepatitis C sc reen [facility] Start: 2006 HIV screening HIV screen [facility] Start: 2003 Depression Screen Depression Screen [facility] Start: 1996 COVID-19 Vaccine (#1) COVID-19 Vacci ne (#1) [facility] Start: 1992 Varicella vaccine (1 of 2 - 2-dose childhood series) Varicella vaccine (1 of 2 - 2-dose childhood series) [facility] Start: 03-11-1992 COVID-19 Vaccine (#1) COVID-19 Vacci ne (#1) [facility] Basic metabolic 2000 panel - Serum or Plasma BASIC METABOLIC PANEL Lab Routine Encounter for well woman exam with routine gynecological exam Ordered: 12/20/2023 [facility] Comment on above: Ordered: 12/20/2023 Diabetes tracking panel HEMOGLOB IN A1C Lab Routine Encounter for well woman exam with routine gynecological exam Screening for diabetes mellitus Ordered: 12/20/2023 [facility] Comment on above: Ordered: 12/20/2023 Drug screen class list a TOX CLARKE LYSIS W/CONFIMATION,UR Lab Routine Attention deficit hyperactivity disorder (ADHD), predominantly inattentive type Ordered: 04/16/2023 [facility] Work Phone: Comment on above: Ordered: 04/16/2023 End: 10-16-2023 Electromyography EMG EMG Routine Bilateral carpal tunnel syndrome 1 Occurrences starting 04/16/2023 until 10/16/2023 [facility] Comment on above: 1 Occurrences starti ng 04/16/2023 until 10/16/2023 Lipid 1996 panel - S clayton or Plasma FULL LIPID PROFILE Lab Routine Encounter for well woman exam with routine gynecological exam Mixed hyperlipidemia Ordered: 12/20/2023 [facility] Comment on above: Ordered: 12/20/2023 Microscopic examinat ion of cervical Papanicolaou smear PAP SMEAR Anatomic Pathology Routine Encounter for well woman exam with routine gynecological exam Pap smear for cervical cancer screening Ordered: 12/20/2023 [facility] Work Phone: Comment on above: Ordered: 12/20/2023 Urine test visual color cmprsn meths URINE HCG-IN OFFICE Lab Routine Encounter for IUD insertion Ordered: 06/26/2022 [facility] Work Phone: Comment on above: Ordered: 06/26/2022 Immunizations Immunization Date Immunization Notes Care Provider Glenda gonzalez 06-21-2023 Hemoglobin A1C Marlena Graff [facility] 07-07-2021 Hemoglobin A1C Yash hernandez PA-C Work Phone: [facility] 10-31-2018 tetanus toxoid, reduced diphtheria toxoid, and acellular pertussis vaccine, adsorbed Yash Belli PA-C Work Phone: [facility] 11-09-2012 hepatitis A vaccine, adult dosage Yash Belli PA-C Work Phone: [facility] [facility]2012 Meningococcal, MCV4, unspecified conjugate formulation(groups A, C, Y and W-135) Yash Belli PA-C Work Phone: [facility] 08-22-2010 hepatitis B vaccine, pediatric or pediatric/adolescent dosage Yash Belli PA-C Work Phone: [facility] 08-22-2010 human papilloma viru s vaccine, quadrivalent Yash Arabellai PA-C Work Phone: [facility] 08-02-2009 hepatitis B vaccine, pediatric or pediatric/adolescent dosage Yash Belli PA-C Work Phone: [employer] Work Phone: 08-02-2009 human papilloma viru s vaccine, quadrivalent Yash Petrfarzanai PA-C Work Phone: [facility] 06-07-2009 hepatitis B vaccine, pediatric or pediatric/adolescent dosage Yash Arabellai PA-C Work Phone: [facility] 06-07-2009 human papilloma viru s vaccine, quadrivalent Yash Petrfarzanai PA-C Work Phone: [facility] 05-29-2008 Meningococcal, MCV4, unspecified conjugate formulation(groups A, C, Y and W-135) Yash Belli PA-C Work Phone: [employer] Work Phone: 05-29-2008 tetanus toxoid, reduced diphtheria toxoid, and acellular pertussis vaccine, adsorbed Yash Arabellai PA-C Work Phone: [facility] 12-11-2003 measles, mumps and rubella virus vaccine Yash JJ-C Work Phone: [facility] Work Phone: 03-17-1993 diphtheria, tetanus toxoids and acellular pertussis vaccine Yash Melendez PA-C Work Phone: [facility] 03-17-1993 poliovirus vaccine, inactivated Yash Melendez PA-C Work Phone: [facility] 12-27-1992 measles, mumps and rubella virus vaccine Yash Melendez PA-C Work Phone: [facility] 03-14-1992 diphtheria, tetanus toxoids and acellular pertussis vaccine Yash Melendez PA-C Work Phone: [facility] 03-14-1992 haemophilus influenz ae type b vaccine, conjugate unspecified formulation Yash Melendez PA-C Work Phone: [facility] 01-11-1992 diphtheria, tetanus toxoids and acellular pertussis vaccine Yash Melendez PA-C Work Phone: [facility] 01-11-1992 haemophilus influenz ae type b vaccine, conjugate unspecified formulation Yash Melendez PA-C Work Phone: [facility] 01-11-1992 poliovirus vaccine, inactivated Yash Melendez PA-C Work Phone: [facility] 1991 diphtheria, tetanus toxoids and acellular pertussis vaccine Yash Melendez PA-C Work Phone: [facility] 1991 haemophilus influenz ae type b vaccine, conjugate unspecified formulation Yash Melendez PA-C Work Phone: [facility] 1991 poliovirus vaccine, inactivated Yash Melendez PA-C Work Phone: [facility] Payers Date Payer Category Payer Self-pay 2022 Private Health Insurance [id number] 2018 Unknown 2011 Worker's Compensation WORKER'S C [facility] [id number] 2011-Present [phone] [id number] [facility] [place] [address] Worker's Comp [id number] 2008 Private Health Insurance [id number]. [id number] 1991 Unknown [id number] 2.16.840.1.965227.3.579.2 .356 1991 Unknown [id number] 2.16.840.1.235901.3.579.2 .356 1991 Unknown [id number] 2.16.840.1.700111.3.579.2 .356 1991 Unknown [id number] 2.16.840.1.744330.3.579.2 .717 1991 Unknown [id number] 2.16.840.1.285284.3.579.2 .717 1991 Unknown [id number] 2.16.840.1.612595.3.579.2 .717 1991 Unknown [id number] 2.16.840.1.248444.3.579.2 .717 1991 Unknown [id number] 2.16.840.1.608241.3.579.2 .717 1991 Unknown [id number] 2.16.840.1.841174.3.579.2 .717 1991 Unknown [id number] 2.16.840.1.585374.3.579.2 .717 1991 Unknown [id number] 2.16.840.1.650997.3.579.2 .185 1991 Unknown [id number] 2.16.840.1.838772.3.579.2 .159 1991 Unknown [id number] 2.16.840.1.587021.3.579.2 .159 1991 Unknown [id number] 2.16.840.1.247415.3.579.2 .159 1991 Unknown [id number] 2.16.840.1.184877.3.579.2 .159 1991 Unknown [id number] 2.16.840.1.973434.3.579.2 .159 1991 Unknown [id number] 2.16.840.1.887915.3.579.2 .159 1991 Unknown [id number] 2.16.840.1.173602.3.579.2 .159 1991 Unknown [id number] 2.16.840.1.612676.3.579.2 .727 1991 Unknown [id number] 2.16.840.1.941232.3.579.2 .727 1991 Unknown [id number] 2.16.840.1.751751.3.579.2 .732 1991 Unknown [id number] 2.16.840.1.787723.3.579.2 .732 1991 Unknown [id number] 2.16.840.1.017232.3.579.2 .732 1991 Unknown [id number] 2.16.840.1.160599.3.579.2 .732 1991 Unknown [id number] 2.16.840.1.841482.3.579.2 .732 1991 Unknown [id number] 2.16.840.1.944738.3.579.2 .732 1991 Unknown [id number] 2.16.840.1.898331.3.579.2 .732 Unknown [id number] Social History Date Type Detail Facility Start: 05-01-2019 End: 02-28-2024 Tobacco smoking status PRIS Never smoked tobacco [facility] Start: 05-01-2019 End: [...] [facility] Start: 1990 Sex Assigned At Female [employer] Work Phone: Start: 06-06-2022 End: 06-16-2022 Exposure to SARS-CoV-2 (event) Unable to assess [facility] Start: 06-16-2022 End: 08-31-2022 Exposure to SARS-CoV-2 (event) Not sure [facility] Tobacco smoking stat [facility] Tobacco smoking consumption unknown [facility] Phone: Start: 1991 Sex Assigned At Not on file [facility] Phone: Start: 10-27-2019 Gender identity Identifies as [...] Assessment Result Facility 02-28-2024 Functional Status N/A [facility] Care Clinical Notes 04-17-2022 to 02-28-2024 Ania Alina, LEACH CELL OPERATOR-OUTREACH COORDINATOR - 02/28/2024 2:25 PM Kaitlynn Pederson LPN [...] oral rehydration solution (ORS). This is an drww-qcv-wsqhash medicine that helps return your body to [...] drinks, sports drinks, and soda. Eat bland, vayh-by-yljmjt foods in small amounts as you are able. These foods include bananas, applesauce, rice, lean meats, toast, and crackers. Avoid alcohol. Avoid spicy or fatty foods. Medicines Take rxjn-pww-wamzbjw and prescription medicines only as told by your health care provider. If you were prescribed an antibiotic medicine, take it as told by your health care provider. Do not stop using the antibiotic even if you start to feel better. General instructions Wash your hands often using soap and water. If soap and water are not available, use a hand miniature set builder. Others in the household should wash their [...] and water are not available, use hand miniature set builder. Contact a health care provider if your diarrhea gets worse or you have new symptoms. Get help right away if you have signs of dehydration. This information is not intended to replace advice given to you by your health care provider. Make sure you discuss any questions you have with your health care provider. Document Revised: 01/22/2023 Document Reviewed: 05/13/2022 [employer] Patient Education 2022 [employer]. 02/28/2024 13:31:27 Rapid Strep Test Rapid Strep [...] provider. Document Revised: 02/24/2022 Document Reviewed: 02/24/2022 [employer] Patient Education 2022 [employer] 02/28/2024 13:31:26 Pharyngitis Pharyngitis Pharyngitis is [...] Follow these instructions at home: Medicines Take wzag-wef-lednuwt and prescription medicines only as told by [...] and water are not available, use hand miniature set builder. Do not touch your eyes, nose, or [...] provider. Document Revised: 01/28/2022 Document Reviewed: 01/28/2022 [employer] Patient Education 2022 [employer] 02/28/2024 13:31:24 BMI for Adults BMI [...] numbers. This can be done either in [place]ian (U.S.) or metric measurements. Note that charts and online BMI calculators are available to help you find your BMI quickly and easily without having to do these calculations yourself. To calculate your BMI in [place]ian ([place] measurements: 1.Measure your weight in pounds [...] Centers for Disease Control and Prevention: www.cdc.gov [place] Heart Association: www.heart.org National Heart, Lung, and Blood Maxwell: www.nhlbi.nih.gov Summary Body mass index (BMI) is a number that is calculated from a person's weight and height. BMI may help estimate how much of a person's weight is composed of fat. BMI can help identify those who may be at higher risk for certain medical problems. BMI can be measured using [place]ian measurements or metric measurements. BMI charts are used to identify whether you are underweight, normal weight, overweight, or obese. This information is not intended to replace advice given to you by your health care provider. Make sure you discuss any questions you have with your health care provider. Document Revised: 07/24/2020 Document Reviewed: 05/31/2020 [employer] Patient Education 2022 [employer]. 02/28/2024 13:31:23 Acute Bronchitis, Adult Acute Bronchitis, [...] condition. Follow these instructions at home: Take ohra-pjd-yzwumnl and prescription medicines only as told by [...] and water are not available, use hand miniature set builder. Avoid contact with people who have cold [...] it is easier to cough up. Take doex-tcb-atggwms and prescription medicines only as told by [...] provider. Document Revised: 02/11/2023 Document Reviewed: 03/04/2022 [employer] Patient Education 2022 [employer]. Follow Up Care 02/28/2024 11:24:49 With:NONE, XXXX Address: [phone] When: Unknown [facility] 02-28-2024 History of Present illness [...] 3 vitamin D2 ergocalciferol (DRISDOL) 1.25 MG (96585 UT) capsule topiramate (TOPAMAX) 50 MG tablet [...] due w/ pcp Alina Perez, MSN, RN, OUTREACH COORDINATOR documented in this encounter [facility] 12-20-2023 History of Present illness Narrative Provider requested a human resources project coordinator. Kaitlynn Sotomayor LPN present. Images from the original note were not included. The patient, Gina Masterson , identity was verified by name and MRN. 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 if clinically indicated [...] Rfl: vitamin D2 ergocalciferol (DRISDOL) 1.25 MG (04569 UT) capsule, , Disp: , Rfl: topiramate [...] per Session: 120 min Stress: Unknown (01/12/2022) [place] Maxwell of Occupational Health - Occupational Stress Questionnaire Feeling of Stress : Patient refused Social Connections: Unknown (01/12/2022) Social Connection and Isolation Panel [NHANES] Frequency of Communication with Friends and Family: Patient refused Frequency of Social Gatherings with Friends and Family: Patient refused Attends Mandaeism Services: Patient refused Active Member of Clubs [...] Unstable Housing in the Last Year: No 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: LMP: Patient's last menstrual period was [...] protocol implemented: No documented in this encounter [facility] 12-13-2023 History of Present illness Narrative Images [...] protocol implemented: No documented in this encounter [facility] 10-27-2023 Note Addended by: YASH ABARCA on: 10/27/2023 08:13 AM Modules accepted: Orders [facility] 10-27-2023 Miscellaneous Notes Addended by: YASH MELENDEZ on: 10/27/2023 08:13 AM Modules accepted: Orders documented in this encounter [facility] 10-22-2023 History of Present illness Narrative SUBJECTIVE: [...] . June Hunter documented in this encounter [facility] 10-06-2023 Telephone encounter Note LM on pt vm and sent a [employer] message that appointment on 10/11/23 is cancelled. Asked for pt to reschedule. [facility] 10-06-2023 Miscellaneous Notes LM on pt vm and sent a [employer] message that appointment on 10/11/23 is cancelled. Asked for pt to reschedule. documented in this encounter [facility] 06-21-2023 Note Time out was preform ed [...] or the wrist. Pillo Whaley MD. 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 Exercise: Gym. Walks the dogs when she [...] A DAY Duration: 30 Days Pickup at [facility] New topiramate (Topamax 25 mg oral tablet) 1 Tabs Oral DAILY Duration: 30 Days Pickup at [facility] Unchanged amphetamine-dextroamphetamine (Adderall 20 mg oral tablet) 1 Tabs Oral DAILY Unchanged losartan (losartan 50 mg oral tablet) 1 Tabs Oral DAILY Pharmacy Information [facility]: [address] [place], [place] [phone] Assessment/Plan This Visit Diagnosis 1. Morbid obesity [...] New Pt Mod MDM / 45-59 min 22142, 06/21/2023 14:40:00 EDT, Morbid obesity / Body [...] New Pt Mod MDM / 45-59 min 37366, 06/21/2023 14:40:00 EDT, Morbid obesity / Body mass index [BMI] 70 or greater, adult / Metabolic syndrome / Hypertension / Prediabetes 3. Metabolic syndrome E88.81 Start on Metforming 500mg XR BID. Start daily x1 week the increase to BID Ordered: AMB Office/Outpt New Pt Mod MDM / 45-59 min 45614, 06/21/2023 14:40:00 EDT, Morbid obesity / Body mass index [BMI] 70 or greater, adult / Metabolic syndrome / Hypertension / Prediabetes 4. Hypertension I10 controlled. Ordered: AMB Office/Outpt New Pt Mod MDM / 45-59 min 90855, 06/21/2023 14:40:00 EDT, Morbid obesity / Body mass index [BMI] 70 or greater, adult / Metabolic syndrome / Hypertension / Prediabetes 5. Prediabetes R73.03 Last known A1c 2 years ago - 5.7% Ordered: AMB Office/Outpt New Pt Mod MDM / 45-59 min [id number], 06/21/2023 14:40:00 EDT, Morbid obesity / Body mass index [BMI] 70 or greater, adult / Metabolic syndrome / Hypertension / Prediabetes Orders: metFORMIN = Glucophage(MetFORMIN (Eqv-Glucophage XR) 500 mg oral tablet, extended release), 500 mg= 1 tabs, ORAL, BID topiramate(Topamax 25 mg oral tab (more content not included)... [facility] 06-21-2023 History of Present illness Narrative [...] Pillo Whaley MD. documented in this encounter [facility] 04-16-2023 History of Present illness Narrative Images [...] protocol implemented: No documented in this encounter [facility] 04-09-2023 Miscellaneous Notes Spoke to pt, no [...] 6 days now. documented in this encounter [facility] 04-09-2023 Telephone encounter Note Spoke to pt, no further questions or concerns Pt states she lives an hour away and will be in next Wednesday. She has an appt with a different office around 10 so she can not come in today. [facility] 04-09-2023 Telephone encounter Note yes [facility] 04-08-2023 Telephone encounter Note Patient calling in stating that she has been out of town and gets back into town tomorrow but leaves tomorrow night again. Can she be seen tomorrow for her Adderall script as a walk in? Please advise. Pt is out of meds for 6 days now. [facility] 01-26-2023 Note Addended by: YASH ABARCA on: 01/26/2023 03:57 PM Modules accepted: Orders [facility] 01-26-2023 Miscellaneous Notes Addended by: YASH MELENDEZ on: 01/26/2023 03:57 PM Modules accepted: Orders From: Gina Masterson To: Yash Melendez PA-C Sent: 12/28/2022 10:41 AM EST Subject: Refill I haven t sent a refill request to you. I contacted [facility] this morning to see when my prescription would be available (typically the 8th) and they said they didn t have anything on file. I do leave for work this evening if it s possible to get it filled today that would be most beneficial. documented in this encounter [facility] 12-28-2022 Telephone encounter Note From: Gina Masterson To: Yash Melendez PA-C Sent: 12/28/2022 10:41 AM EST Subject: Refill I haven t sent a refill request to you. I contacted [facility] this morning to see when my prescription would be available (typically the 8th) and they said they didn t have anything on file. I do leave for work this evening if it s possible to get it filled today that would be most beneficial. [facility] 12-28-2022 Miscellaneous Notes From: Gina Masterson To: Yash Melendez PA-C Sent: 12/28/2022 10:41 AM EST Subject: Refill I haven t sent a refill request to you. I contacted [facility] this morning to see when my prescription would be available (typically the 8th) and they said they didn t have anything on file. I do leave for work this evening if it s possible to get it filled today that would be most beneficial. documented in this encounter [facility] 12-21-2022 History of Present illness Narrative TELEMEDICINE VISIT - FOLLOW-UP This visit was performed via interactive telehealth. This visit was initiated by the patient and the patient and provider interacted in real time. Location of the patient: Home of patient Location of the provider: [facility] [address] [place] [phone] MEDICATIONS: Current Outpatient Medications Medication Sig [...] Yash Melendez PA-C documented in this encounter [facility] 10-23-2022 History of Present illness Narrative 10/21/2022 [facility] received via [employer] fax queue. Forwarding to provider for review/signature/faxing. documented in this encounter [facility] 10-23-2022 History of Present illness Narrative 10/21/2022 [facility] received via [employer] fax queue. Forwarding to provider for review/signature/faxing. documented in this encounter [facility] 09-16-2022 History of Present illness Narrative 09/15/22 [facility] received via [employer] fax queue. Forwarding to provider for review/signature/faxing. documented in this encounter [facility] 09-14-2022 History of Present illness Narrative TELEMEDICINE VISIT - FOLLOW-UP This visit was performed via interactive telehealth. This visit was initiated by the patient and the patient and provider interacted in real time. Location of the patient: Home of patient Location of the provider: [facility] [address] [place] [phone] MEDICATIONS: Current Outpatient Medications Medication Sig [...] Yash Melendez PA-C documented in this encounter [facility] 06-26-2022 History of Present illness Narrative Provider requested a human resources project coordinator. Kaitlynn Bassett LPN present. Informed consent, after [...] with Friends and Family: Patient refused Attends Mandaeism Services: Patient refused Active Member of Clubs [...] 8 cm 4. IUD placed: LOT number [id number], EXP June,. 5. String cut to 3 [...] 06/26/22 9:54 AM documented in this encounter [facility] 06-16-2022 History of Present illness Narrative TELEMEDICINE VISIT - FOLLOW-UP This visit was performed via interactive telehealth. This visit was initiated by the patient and the patient and provider interacted in real time. Location of the patient: Home of patient Location of the provider: [facility] [address] [place] [phone] MEDICATIONS: Current Outpatient Medications Medication Sig [...] Yash Melendez PA-C documented in this encounter [facility] 04-17-2022 Telephone encounter Note OARRS was reviewed today: NO concerning data. Please call pt the script was sent directly to pharmacy. Pt will need to call pharmacy for them to get the prescription ready.Thanks, Yash Melendez PA-C [facility] 04-17-2022 Miscellaneous Notes OARRS was reviewed today: NO concerning data. Please call pt the script was sent directly to pharmacy. Pt will need to call pharmacy for them to get the prescription ready.Thanks, Yash Melendez PA-C From: Gina Masterson To: Yash Melendez PA-C Sent: 04/17/2022 11:25 AM EDT Subject: Refill I just stopped in to [facility] to technical sales support manager my prescription which should ve been filled yesterday and they said they have received nothing. Just wanted to touch base and see if you sent that over. Last time I checked we were doing three months before a phone appointment! documented in this encounter [facility] 04-17-2022 Telephone encounter Note From: Gina Masterson To: Yash Melendez PA-C Sent: 04/17/2022 11:25 AM EDT Subject: Refill I just stopped in to [facility] to technical sales support manager my prescription which should ve been filled yesterday and they said they have received nothing. Just wanted to touch base and see if you sent that over. Last time I checked we were doing three months before a phone appointment! [facility] Evaluation + Plan note Future Appointments Appointment Date:03/01/2024 09:30:00 AM Scheduled Provider:Saba GALVAN CNP Location:[facility] Occupational Health Appointment Type: DOT Physicals (FT) [facility] Evaluation + Plan note Future Appointments Appointment Date:03/01/2024 09:30:00 AM Scheduled Provider:Saba GALVAN CNP Location:[facility] Occupational Health Appointment Type: DOT Physicals () Diagnostic Tests PendingThroat Culture 02/28/24 [facility] Evaluation note Diagnosis Attention deficit hyperactivity disorder [...] knee, initial encounter [email or web address]: evaluation note* Diagnosis Hypertension, unspecified [...] Narrative No data available for this section [facility] Hospital Discharge instructions* Attachments The following attachments cannot be sent through Care Everywhere. * Head Injury: Closed: General Info (Gambian) * Contusion (Gambian) [facility]: Hospital Discharge instructions No data available for this section [facility] Attachments The following attachments cannot be sent through Care Everywhere. * Sore throat in adults (Gambian) [facility] No data available for this section [facility] Summary Purpose Family History No [...] Diagnoses Toenail fungus Yash Melendez PA-C [address] [place] [address] [facility] [address] [place] [address] Referral ID Status Reason Start Date Expiration Date V isits Requested Visits Authorized [id number] Pending Review 06/16/2022 12/13/2022 3 3 Scheduling Instructions Please call the Podiatry Clinic at to schedule an appointment if one was not made for you today. Question Answer Reason for Referral Toe [21] Specialty Diagnoses / Procedures Referred By Contac t Referred To Contact Neurology Diagnoses Bilateral carpal tunnel syndrome Procedures [facility] Yash Melendez PA-C [address] [place] [address] Referral ID Status Reason Start Date Expiration Date V isits Requested Visits Authorized [id number] Pending Review 09/14/2022 09/14/2023 3 3 Referral ID Status Reason Start Date Expiration Date V isits Requested Visits Authorized [id number] Pending Review 04/16/2023 04/16/2024 3 3 Additional Source Comments INFORMATION SOURCE (unrecogn ized section and content) DATE CREATED AUTHOR 05/10/2018 [facility] DATE CREATED AUTHOR AUTHOR'S ORGANIZ ATION 10/05/2018 [facility] DATE CREATED AUTHOR AUTHOR'S ORGANIZ ATION 10/10/2018 [facility] DATE CREATED AUTHOR AUTHOR'S ORGANIZ ATION 03/10/2019 [facility] DATE CREATED AUTHOR AUTHOR'S ORGANIZ ATION 09/05/2022 [facility] DATE CREATED AUTHOR AUTHOR'S ORGANIZ ATION 08/31/2023 [facility] DATE CREATED AUTHOR AUTHOR'S ORGANIZ ATION 01/20/2024 [facility] DATE CREATED AUTHOR AUTHOR'S ORGANIZ ATION 03/02/2024 [facility] DATE CREATED AUTHOR AUTHOR'S ORGANIZ ATION 03/03/2024 [facility] Care Teams (unrecognized sec tion and content) Cushion Assembler Relationship Specialty Start Date End Date Yash Melendez PA-C [address] [place] [address] PCP - General Family Medicine 10/07/20 Damaris Burns MD [address] [place] [id number] Physician Physical Medicine & Rehab/PM&R 08/20/20 Carson Jimenes, PT [address] [place] [address] [place] [address] Physical Therapist Physical Medicine & Rehab/PM&R 08/20/20 Mikhail Aguirre MD [address] [place] [address] [place] [address] Physician Gastroenterology 08/20/20 Loren Olivares, PT [address] [address] Physical Therapist Physical Medicine & Rehab/PM&R 08/20/20 [place] [address] [place] [address] Physician Obstetrics/Gynecology 08/20/20 Mary Steward, PT [address] [place] [address] [place] [address] Physical Therapist Physical Therapy 08/20/20 Justyna Swartz MD [address] [place] [address] 25256 Physician Obstetrics/Gynecology 02/14/21 Cushion Assembler Relationship Specialty Start Date End Date Yash Melendez PA-C [address] [place] [address] 50947 PCP - General Family Medicine 10/07/20 Damaris Burns MD [address] [place] [address] 99564 Physician Physical Medicine & Rehab/PM&R 08/20/20 Carson Jimenes, PT [address] [place] [address] [place] [address] Physical Therapist Physical Medicine & Rehab/PM&R 08/20/20 Mikhail Aguirre MD [address] [place] [address] [place] [address] Physician Gastroenterology 08/20/20 Loren Olivares, PT [address] [address] Physical Therapist Physical Medicine & Rehab/PM&R 08/20/20 Emilio Miller MD [address] [place] [address] 57670 Physician Obstetrics/Gynecology 08/20/20 Mary Steward, PT [address] [place] [address] [place] [address] Physical Therapist Physical Therapy 08/20/20 Justyna Swartz MD [address] [place] [address] 45629 Physician Obstetrics/Gynecology 02/14/21 Cushion Assembler Relationship Specialty Start Date End Date Yash Melendez PA-C [address] [place] [address] 78864 PCP - General Family Medicine 10/07/20 Damaris Burns MD [address] [place] [address] 80166 Physician Physical Medicine & Rehab/PM&R 08/20/20 Carson Jimenes, PT [address] [place] [address] [place] [address] Physical Therapist Physical Medicine & Rehab/PM&R 08/20/20 Mikhali Aguirre MD [address] [place] [address] [place] [address] Physician Gastroenterology 08/20/20 Loren Olivares, PT [address] [address] Physical Therapist Physical Medicine & Rehab/PM&R 08/20/20 Emilio Miller MD [address] [place] [address] 75945 Physician Obstetrics/Gynecology 08/20/20 Mary Steward, PT [address] [place] [address] [place] [address] Physical Therapist Physical Therapy 08/20/20 Justyna Swartz MD [address] [place] [address] 58544 Physician Obstetrics/Gynecology 02/14/21 Cushion Assembler Relationship Specialty Start Date End Date Yash Melendez PA-C [address] [place] [address] 43064 PCP - General Family Medicine 10/07/20 Damaris Burns MD [address] [place] [address] 43839 Physician Physical Medicine & Rehab/PM&R 08/20/20 Carson Jimenes, PT [address] [place] [address] [address] [place], [place] [id number] Physical Therapist Physical Medicine & Rehab/PM&R 08/20/20 Mikhail Aguirre MD [address] [place] [address] [place] [address] Physician Gastroenterology 08/20/20 Loren Olivares, PT [address] [address] Physical Therapist Physical Medicine & Rehab/PM&R 08/20/20 [place] [address] [place] [address] Physician Obstetrics/Gynecology 08/20/20 Mary Steward, PT [address] [place] [address] [address] [place], [place] [phone] Physical Therapist Physical Therapy 08/20/20 Justyna Swartz MD [address] [place] [address] 63693 Physician Obstetrics/Gynecology 02/14/21 Cushion Assembler Relationship Specialty Start Date End Date Yash Melendez PA-C [address] [place] [address] PCP - General Internal Medicine 08/31/22 Cushion Assembler Relationship Specialty Start Date End Date Yash Melendez PA-C [address] [place] [address] PCP - General Family Medicine 10/07/20 Damaris Burns MD [address] [place] [address] 85823 Physician Physical Medicine & Rehab/PM&R 08/20/20 Carson Jimenes, PT [address] [place] [address] [place] [address] Physical Therapist Physical Medicine & Rehab/PM&R 08/20/20 Mikhail Aguirre MD [address] [place] [address] [place] [address] Physician Gastroenterology 08/20/20 Loren Olivares, PT [address] [address] Physical Therapist Physical Medicine & Rehab/PM&R 08/20/20 [place] [address] [place] [address] Physician Obstetrics/Gynecology 08/20/20 Mary Steward, PT [address] [place] [address] [place] [address] Physical Therapist Physical Therapy 08/20/20 Justyna Swartz MD [address] [place] [address] 53489 Physician Obstetrics/Gynecology 02/14/21 Cushion Assembler Relationship Specialty Start Date End Date Yash Melendez PA-C [address] [place] [address] PCP - General Family Medicine 10/07/20 Damaris Burns MD [address] [place] [address] 81473 Physician Physical Medicine & Rehab/PM&R 08/20/20 Carson Jimenes, PT [address] [place] [address] [place] [address] Physical Therapist Physical Medicine & Rehab/PM&R 08/20/20 Mikhail Aguirre MD [address] [place] [address] [place] [address] Physician Gastroenterology 08/20/20 Loren Olivares, PT [address] [address] Physical Therapist Physical Medicine & Rehab/PM&R 08/20/20 [place] [address] [place], [place] [id number] Physician Obstetrics/Gynecology 08/20/20 Mary Steward, PT [address] [place] [address] [place] [address] Physical Therapist Physical Therapy 08/20/20 Justyna Swartz MD [address] [place] [address] 64847 Physician Obstetrics/Gynecology 02/14/21 Cushion Assembler Relationship Specialty Start Date End Date Yash Melendez PA-C [address] [place] [address] [phone] PCP - General Family Medicine 10/07/20 Damaris Burns MD [address] [place] [address] 09695 Physician Physical Medicine & Rehab/PM&R 08/20/20 Carson Jimenes, PT [address] [place] [address] [place] [address] Physical Therapist Physical Medicine & Rehab/PM&R 08/20/20 Mikhail Aguirre MD [address] [place] [address] [place] [address] Physician Gastroenterology 08/20/20 Loren Olivares, PT [address] [address]65 Physical Therapist Physical Medicine & Rehab/PM&R 08/20/20 Em[place] MD [id number] [place] [address] 7[address]30 Physician Obstetrics/Gynecology 08/20/20 Mary Steward, PT [address] [place] [address] [place] [address] Physical Therapist Physical Therapy 08/20/20 Justyna Swartz MD [address] [place] [address] 10659 Physician Obstetrics/Gynecology 02/14/21 Cushion Assembler Relationship Specialty Start Date End Date Yash Melendez PA-C [address] [place] [address] [phone] PCP - General Family Medicine 10/07/20 Damaris Burns MD [address] [place] [address] 10367 Physician Physical Medicine & Rehab/PM&R 08/20/20 Carson Jimenes, PT [address] [place] [address] [place] [address] Physical Therapist Physical Medicine & Rehab/PM&R 08/20/20 Mikhail Aguirre MD [address] [place] [address] [place] [address] Physician Gastroenterology 08/20/20 Loren Olivares, PT [address] [address] Physical Therapist Physical Medicine & Rehab/PM&R 08/20/20 Emilio Miller MD [address] [place] [address] 38705 Physician Obstetrics/Gynecology 08/20/20 Mary Steward, PT [address] [place] [address] [place] [address] Physical Therapist Physical Therapy 08/20/20 Justyna Swartz MD [address] [place] [address] 70004 Physician Obstetrics/Gynecology 02/14/21 Cushion Assembler Relationship Specialty Start Date End Date Yash Melendez PA-C [address] [place] [address] PCP - General Family Medicine 10/07/20 Damaris Burns MD [address] [place] [address] 38712 Physician Physical Medicine & Rehab/PM&R 08/20/20 Carson Jimenes, PT [address] [place] [address] [place] [address] Physical Therapist Physical Medicine & Rehab/PM&R 08/20/20 Mikhail Aguirre MD [address] [place] [address] [place] [address] Physician Gastroenterology 08/20/20 Loren Olivares, PT [address] [address] Physical Therapist Physical Medicine & Rehab/PM&R 08/20/20 Emilio Miller MD [address] [place] [address] 06674 Physician Obstetrics/Gynecology 08/20/20 Mary Steward, PT [address] [place] [address] [place] [address] Physical Therapist Physical Therapy 08/20/20 Justyna Swartz MD [address] [place] [address] 09300 Physician Obstetrics/Gynecology 02/14/21 Cushion Assembler Relationship Specialty Start Date End Date Yash Melendez PA-C [address] [place], [place] [phone] PCP - General Family Medicine 10/07/20 Damaris Burns MD [address] [place] [address] 59281 Physician Physical Medicine & Rehab/PM&R 08/20/20 Carson Jimenes, PT [address] [place] [address] [place] [address] Physical Therapist Physical Medicine & Rehab/PM&R 08/20/20 Mikhail Aguirre MD [address] [place] [address] [place] [address] Physician Gastroenterology 08/20/20 Loren Olivares, PT [address] [address] Physical Therapist Physical Medicine & Rehab/PM&R 08/20/20 [place] [address] [place] [address] Physician Obstetrics/Gynecology 08/20/20 Mayr Steward, PT [address] [place] [address] [place] [address] Physical Therapist Physical Therapy 08/20/20 Justyna Swartz MD [address] [place] [address] 98227 Physician Obstetrics/Gynecology 02/14/21 Cushion Assembler Relationship Specialty Start Date End Date Yash Melendez PA-C [address] [place] [address]309 PCP - General Family Medicine 10/07/20 Damaris Burns MD [address] [place] [address] [phone] Physician Physical Medicine & Rehab/PM&R 08/20/20 Carson Jimenes, PT [address] [place] [address] [place] [address] Physical Therapist Physical Medicine & Rehab/PM&R 08/20/20 Mikhail Aguirre MD [address] [place] [address] [place] [address] Physician Gastroenterology 08/20/20 Loren Olivares, PT [address] [address] Physical Therapist Physical Medicine & Rehab/PM&R 08/20/20 Emilio Miller MD [address] [place] [address] 20828 Physician Obstetrics/Gynecology 08/20/20 Mary Steward, PT [address] [place] [address] [place] [address] Physical Therapist Physical Therapy 08/20/20 Justyna Swartz MD [address] [place] [address] 38410 Physician Obstetrics/Gynecology 02/14/21 Cushion Assembler Relationship Specialty Start Date End Date Yash Melendez PA-C [address] [place] [address] 51436 PCP - General Family Medicine 10/07/20 Damaris Burns MD [address] [place] [address] 55951 Physician Physical Medicine & Rehab/PM&R 08/20/20 Carson Jimenes, PT [address] [place] [address] [place] [address] Physical Therapist Physical Medicine & Rehab/PM&R 08/20/20 Mikhail Aguirre MD [address] [place] [address] [place] [address] Physician Gastroenterology 08/20/20 Loren Olivares, PT [address] [address] Physical Therapist Physical Medicine & Rehab/PM&R 08/20/20 Emilio Miller MD [address] [place] [address] 55759 Physician Obstetrics/Gynecology 08/20/20 Mary Steward, PT [address] [place] [address] [place] [address] Physical Therapist Physical Therapy 08/20/20 Justyna Swartz MD [address] [place] [address] 73213 Physician Obstetrics/Gynecology 02/14/21 Cushion Assembler Relationship Specialty Start Date End Date Yash Melendez PA-C [address] [place] [address] 69054 PCP - General Family Medicine 10/07/20 Damaris Burns MD [address] [place] [address] 22669 Physician Physical Medicine & Rehab/PM&R 08/20/20 Carson Jimenes, PT [address] [place] [address] [address] [place], [place] 2127909 Physical Therapist Physical Medicine & Rehab/PM&R 08/20/20 Mikhail Aguirre MD [address] [place] [address] [place] [address] Physician Gastroenterology 08/20/20 Loren Olivares, PT [address] [address] Physical Therapist Physical Medicine & Rehab/PM&R 08/20/20 [place] [address] [place] [address] Physician Obstetrics/Gynecology 08/20/20 Mary Steward, PT [address] [place] [address] [address] [place], [place] [id number] Physical Therapist Physical Therapy 08/20/20 Justyna Swartz MD [address] [place] [address] 52423 Physician Obstetrics/Gynecology 02/14/21 Cushion Assembler Relationship Specialty Start Date End Date Yash Melendez PA-C [address] [place] [address] PCP - General Family Medicine 10/07/20 Damaris Burns MD [address] [place] [address] 70118 Physician Physical Medicine & Rehab/PM&R 08/20/20 Carson Jimenes, PT [address] [place] [address] [place] [address] Physical Therapist Physical Medicine & Rehab/PM&R 08/20/20 Mikhail Aguirre MD [address] [place] [address] [place] [address] Physician Gastroenterology 08/20/20 Loren Olivares, PT [address] [address] Physical Therapist Physical Medicine & Rehab/PM&R 08/20/20 [place] [address] [place] [address] Physician Obstetrics/Gynecology 08/20/20 Mary Steward, PT [address] [place] [address] [place] [address] Physical Therapist Physical Therapy 08/20/20 Justyna Swartz MD [address] [place] [address] 05178 Physician Obstetrics/Gynecology 02/14/21 Cushion Assembler Relationship Specialty Start Date End Date Yash Melendez PA-C [address] [place] [address] PCP - General Family Medicine 10/07/20 Damaris Burns MD [address] [place] [address] 47466 Physician Physical Medicine & Rehab/PM&R 08/20/20 Carson Jimenes, PT [address] [place] [address] [place] [address] Physical Therapist Physical Medicine & Rehab/PM&R 08/20/20 Mikhail Aguirre MD [address] [place] [address] [place] [address] Physician Gastroenterology 08/20/20 Loren Olivares, PT [address] [address]287 Physical Therapist Physical Medicine & Rehab/PM&R 08/20/20 [place] [address] [place] [address] Physician Obstetrics/Gynecology 08/20/20 Mary Steward, PT [address] [place] [address] [place] [address] Physical Therapist Physical Therapy 08/20/20 Justyna Swartz MD [address] [place] [address] 65865 Physician Obstetrics/Gynecology 02/14/21 Cushion Assembler Relationship Specialty Start Date End Date Yash Melendez PA-C [address] [place] [address] 69390 PCP - General Family Medicine 10/07/20 Damaris Burns MD [address] [place] [address] 78670 Physician Physical Medicine & Rehab/PM&R 08/20/20 Carson Jimenes, PT [address] [place] [address] [place] [address] Physical Therapist Physical Medicine & Rehab/PM&R 08/20/20 Mikhail Aguirre MD [address] [place] [address] [place] [address] Physician Gastroenterology 08/20/20 Loren Olivares, PT [address] [address] Physical Therapist Physical Medicine & Rehab/PM&R 08/20/20 Emilio Miller MD [address] [place] [address] 49074 Physician Obstetrics/Gynecology 08/20/20 Mary Steward, PT [address] [place] [address] [place] [address] Physical Therapist Physical Therapy 08/20/20 Justyna Swartz MD [address] [place] [address] 00783 Physician Obstetrics/Gynecology 02/14/21 Cushion Assembler Relationship Specialty Start Date End Date Yash Melendez PA-C [address] [place] [address] 14258 PCP - General Family Medicine 10/07/20 Damaris Burns MD [address] [place] [address] 52465 Physician Physical Medicine & Rehab/PM&R 08/20/20 Carson Jimenes, PT [address] [place] [address] [place] [address] Physical Therapist Physical Medicine & Rehab/PM&R 08/20/20 Mikhail Aguirre MD [address] [place] [address] [place] [address] Physician Gastroenterology 08/20/20 Loren Olivares, PT [address] 14409 Physical Therapist Physical Medicine & Rehab/PM&R 08/20/20 Emilio Miller MD [address] [place] [address] 33521 Physician Obstetrics/Gynecology 08/20/20 Mary Steward, PT [address] [place] [address] [place] [address] Physical Therapist Physical Therapy 08/20/20 Justyna Swartz MD [address] [place] [address] 14150 Physician Obstetrics/Gynecology 02/14/21 Cushion Assembler Relationship Specialty Start Date End Date Yash Melendez PA-C [address] [place] [address] 39790 PCP - General Family Medicine 10/07/20 Damaris Burns MD [address] [place] [address] [phone] Physician Physical Medicine & Rehab/PM&R 08/20/20 Carson Jimenes, PT [address] [place] [address] [address] [place], [place] [id number] Physical Therapist Physical Medicine & Rehab/PM&R 08/20/20 Mikhail Aguirre MD [address] [place] [address] [address] [place], [place] 7421709 Physician Gastroenterology 08/20/20 Loren Olivares, PT [address] [address] Physical Therapist Physical Medicine & Rehab/PM&R 08/20/20 Emilio Miller MD [address] [place] [address] 74339 Physician Obstetrics/Gynecology 08/20/20 Mary Steward, PT [address] [place] [address] [address] [place], [place] 6127409 Physical Therapist Physical Therapy 08/20/20 Justyna Swartz MD [address] [place] [address] 46649 Physician Obstetrics/Gynecology 02/14/21 Cushion Assembler Relationship Specialty Start Date End Date Yash Melendez PA-C [address] [place] [address] 54344 PCP - General Family Medicine 10/07/20 Damaris Burns MD [address] [place] [address] 64165 Physician Physical Medicine & Rehab/PM&R 08/20/20 Carson Jimenes, PT [address] [place] [address] [place] [address] Physical Therapist Physical Medicine & Rehab/PM&R 08/20/20 Mikhail Aguirre MD [address] [place] [address] [place] [address] Physician Gastroenterology 08/20/20 Loren Olivares, PT [address] [address] Physical Therapist Physical Medicine & Rehab/PM&R 08/20/20 Em[place] [id number] [place] [address] 32987 Physician Obstetrics/Gynecology 08/20/20 Mary Steward, PT [address] [place] [address] [place] [address] Physical Therapist Physical Therapy 08/20/20 Justnya Swartz MD [address] [place] [address] 63723 Physician Obstetrics/Gynecology 02/14/21 Cushion Assembler Relationship Specialty Start Date End Date Yash Melendez PA-C [address] [place] [address] 41163 PCP - General Family Medicine 10/07/20 Damaris Burns MD [address] [place] [address] 80563 Physician Physical Medicine & Rehab/PM&R 08/20/20 Carson Jimenes, PT [address] [place] [address] [place], [place] [id number] Physical Therapist Physical Medicine & Rehab/PM&R 08/20/20 Mikhail Aguirre MD [address] [place] [address] [place] [address] Physician Gastroenterology 08/20/20 Loren Olivares, PT [address] [address] Physical Therapist Physical Medicine & Rehab/PM&R 08/20/20 Emilio [place] [address] [place] [address] [phone] Physician Obstetrics/Gynecology 08/20/20 Mary Steward, PT [address] [place] [address] [place] [address] Physical Therapist Physical Therapy 08/20/20 Justyna Swartz MD [address] [place] [address] 34741 Physician Obstetrics/Gynecology 02/14/21 Cushion Assembler Relationship Specialty Start Date End Date Yash Melendez PA-C [address] [place] [address] 10376 PCP - General Family Medicine 10/07/20 Damaris Burns MD [address] [place] [address] 80682 Physician Physical Medicine & Rehab/PM&R 08/20/20 Carson Jimenes, PT [address] [place] [address] [place] [address] Physical Therapist Physical Medicine & Rehab/PM&R 08/20/20 Mikhail Aguirre MD [address] [place] [address] [place] [address] Physician Gastroenterology 08/20/20 Loren Olivares, PT [address] [address] Physical Therapist Physical Medicine & Rehab/PM&R 08/20/20 Emilio Miller MD [address] [place] [address] 17548 Physician Obstetrics/Gynecology 08/20/20 Mary Steward, PT [address] [place] [address] [place] [address] Physical Therapist Physical Therapy 08/20/20 Justyna Swartz MD [address] [place] [address] 77339 Physician Obstetrics/Gynecology 02/14/21 Cushion Assembler Relationship Specialty Start Date End Date Yash Melendez PA-C [address] [place] [address] 56480 PCP - General Family Medicine 10/07/20 Damaris Burns MD [address] [place] [address] 67070 Physician Physical Medicine & Rehab/PM&R 08/20/20 Carson Jimenes, PT [address] [place] [address] [place] [address] Physical Therapist Physical Medicine & Rehab/PM&R 08/20/20 Mikhail Aguirre MD [address] [place] [address] [place] [address] Physician Gastroenterology 08/20/20 Loren Olivares, PT [address] [address]331 Physical Therapist Physical Medicine & Rehab/PM&R 08/20/20 Emilio Miller MD [address] [place] [address] 01670 Physician Obstetrics/Gynecology 08/20/20 Mary Steward, PT [address] [place] [address] [place] [address] Physical Therapist Physical Therapy 08/20/20 Justyna Sawrtz MD [address] [place] [address] 03047 Physician Obstetrics/Gynecology 02/14/21 Cushion Assembler Relationship Specialty Start Date End Date Yash Melendez PA-C [address] [place] [address] PCP - General Family Medicine 10/07/20 Damaris Burns MD [address] [place] [address] 56100 Physician Physical Medicine & Rehab/PM&R 08/20/20 Carson Jimenes, PT [address] [place] [address] [place] [address] Physical Therapist Physical Medicine & Rehab/PM&R 08/20/20 Mikhail Aguirre MD [address] [place] [address] [place] [address] Physician Gastroenterology 08/20/20 Loren Olivares, PT [address] [address] Physical Therapist Physical Medicine & Rehab/PM&R 08/20/20 Emilio Miller MD [address] [place] [address] 41989 Physician Obstetrics/Gynecology 08/20/20 Mary Steward, PT [address] [facility] [place] [address] Physical Therapist Physical Therapy 08/20/20 Justyna Swartz MD [address] [place] [address] 68533 Physician Obstetrics/Gynecology 02/14/21 Cushion Assembler Relationship Specialty Start Date End Date Yash Melendez PA-C [address] [place] [address] 27562 PCP - General Family Medicine 10/07/20 Damaris Burns MD [address] [place] [address] [phone] Physician Physical Medicine & Rehab/PM&R 08/20/20 Carson Jimenes, PT [address] [place] [address] [address] [place], [place] 3194809 Physical Therapist Physical Medicine & Rehab/PM&R 08/20/20 Mikhail Aguirre MD [address] [place] [address] [place] [address] Physician Gastroenterology 08/20/20 Loren Olivares, PT [address] [address]324 Physical Therapist Physical Medicine & Rehab/PM&R 08/20/20 Emilio Miller MD [address] [place] [address] 66671 Physician Obstetrics/Gynecology 08/20/20 Mary Steward, PT [address] [facility] [place] [address] Physical Therapist Physical Therapy 08/20/20 Justyna Swartz MD [address] [place] [address] 34864 Physician Obstetrics/Gynecology 02/14/21 Cushion Assembler Relationship Specialty Start Date End Date Yash Melendez PA-C [address] [place] [address] PCP - General Family Medicine 10/07/20 Damaris Burns MD [address] [place] [address] 39134 Physician Physical Medicine & Rehab/PM&R 08/20/20 Carson Jimenes, PT [address] [facility] [place] [address] Physical Therapist Physical Medicine & Rehab/PM&R 08/20/20 Mikhail Aguirre MD [address] [place] [address] [place] [address] Physician Gastroenterology 08/20/20 Loren Olivares, PT [address] [address] Physical Therapist Physical Medicine & Rehab/PM&R 08/20/20 Emilio Miller MD [address] [place] [address] 71143 Physician Obstetrics/Gynecology 08/20/20 Mary Steward, PT [address] [place] [address] [place] [address] Physical Therapist Physical Therapy 08/20/20 Justyna Swartz MD [address] [place] [address] 47565 Physician Obstetrics/Gynecology 02/14/21 Cushion Assembler Relationship Specialty Start Date End Date Yash Melendez PA-C [address] [place] [address] PCP - General Family Medicine 10/07/20 Damaris Burns MD [address] [place] [address] 99424 Physician Physical Medicine & Rehab/PM&R 08/20/20 Carson Jimenes, PT [address] [place] [address] [place] [address] Physical Therapist Physical Medicine & Rehab/PM&R 08/20/20 Mikhail Aguirre MD [address] [place] [address] [place] [address] Physician Gastroenterology 08/20/20 Loren Olivares, PT [address] [address] Physical Therapist Physical Medicine & Rehab/PM&R 08/20/20 [place] [id number] [place] [address] [phone] Physician Obstetrics/Gynecology 08/20/20 Mary Steward, PT [address] [place] [address] [place], [place] [phone] Physical Therapist Physical Therapy 08/20/20 Justyna Swartz MD [address] [place] [address] 34869 Physician Obstetrics/Gynecology 02/14/21 Cushion Assembler Relationship Specialty Start Date End Date Yash Melendez PA-C [address] [place] [address] 25988 PCP - General Family Medicine 10/07/20 Damaris Burns MD [address] [place] [address] 38182 Physician Physical Medicine & Rehab/PM&R 08/20/20 Carson Jimenes, PT [address] [place] [address] [place] [address] Physical Therapist Physical Medicine & Rehab/PM&R 08/20/20 Mikhail Aguirre MD [address] [place] [address] DR [place], [place] [id number] Physician Gastroenterology 08/20/20 Loren Olivares, PT [address] [address] Physical Therapist Physical Medicine & Rehab/PM&R 08/20/20 [place] [id number] [place] [address] Physician Obstetrics/Gynecology 08/20/20 Mary Steward, PT [address] [place] [address] [place] [address] Physical Therapist Physical Therapy 08/20/20 Justyna Swartz MD [address] [place] [id number] Physician Obstetrics/Gynecology 02/14/21 Reason for Visit (unrecogniz [...] syndrome Procedures EMG Yash Melendez PA-C [address] [place] [address] Referral ID Status Reason Start Date Expiration Date V isits Requested Visits Authorized [id number] Pending Review 04/16/2023 04/16/2024 3 3 Reason [...] BE BASED ON THE PRIMARY CLINICAL RECORDS. [facility] [employer] [facility]. provides no warranty or guarantee of the accuracy or completeness of information in this document.
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
[2024-03-28] MEDS: FENTANYL CITRATE/PF 100 MCG/2 ML VIAL 50 MCG IV ×2 (21:19→23:23)
[2024-03-28] MEDS: MAGNESIUM SULFATE IN WATER 2 GM/50 ML PREMIX IV (21:19)
[2024-03-28] MEDS: METHYLPREDNISOLONE SOD SUCC PF 125 MG/2 ML VIAL IVP (21:19)
[2024-03-28 21:21] LABS: Hematocrit 40.2 % (36.0-48.0); Mean Corpuscular HGB Conc 32.3 g/dL (29.9-35.2); Mean Corpuscular Hemoglobin 29.1 pg (26.7-34.0); Mean Corpuscular Volume 89.9 fL (81.0-99.0); Mean Platelet Volume 9.6 fL (9.5-13.5); Platelet Count 361 10^3/uL (150-450); Red Blood Count 4.47 10^6/uL (4.20-5.40); Red Cell Distribution Width 12.8 % (11.0-15.0); White Blood Count 12.4 10^3/uL (4.0-11.0)
[2024-03-28 21:31] LABS: Anion Gap 11.4; BUN Creatinine Ratio 21.5; Calcium 9.4 mg/dL (8.5-10.1); Carbon Dioxide 30.6 mmol/L (21.0-32.0); Chloride 100 mmol/L (98-107); Estimated GFR (African America >60 (>=60); Estimated GFR (Non-African Ame >60 (>=60); Glucose 132 mg/dL (74-106); Sodium 138 mmol/L (136-145)
[2024-03-28 21:53] LABS: Atypical Lymphocytes Abs Man 1.61; Eosinophils Absolute Manual 0.37 10^3/uL (0.00-0.70); Lymphocytes Absolute Manual 2.85 10^3/uL (1.20-3.80); Segmented Neut Absolute Manual 7.56 10^3/uL (1.4-6.5)
[2024-03-28] MEDS: OXYCODONE HCL/ACETAMINOPHEN 5MG/325MG 2 TAB PO (23:26)
[2024-03-28 23:36] VITALS: BP 166/96; PULSE 89; O2SAT 98
== END 2024-03-28 23:36 | disposition home or self-care (01) ==
PROVIDERS: Emergency Provider Internal Medicine
DX: M54.32 Sciatica, left side (principal)
CPT/HCPCS: 36415; 72131; 72192; 80048; 85007; 85027; 96365; 96375; 96376; 99285; J2919